=== PATIENT | male | born 1940 | race Caucasian/White ===

== ENCOUNTER 2016-05-07 12:15 | Inpatient (IN) | payer OTHER ==
--- NOTE | 2016-05-07 12:23 | PDOC ---
History of Present Illness <Shaq May - Last Filed: 05/07/16 14:34> - General History Source: Patient Exam Limitations: No Limitations - History of Present Illness Initial Comments: 05/07/16 12:35 This patient is a 75-year-old male with a history of dementia BPH A. fib on Eliquis, severe spinal stenosis with myelopathy (patient is effectively wheelchair-bound), coronary artery disease, hypertension, hyperlipidemia, GERD who presents emergency department with his daughter due to fevers and urinary tract infection. Patient has had 2 prior episodes of urosepsis. Patient was noted yesterday to be increasingly altered with hematuria Patient's primary care physician was called who prescribed Cipro. Patient was started on Cipro yesterday as well as cranberry supplements and AZO. This morning temperature 102. Patient was given Tylenol. 2 hours later patient's temperature 101. Patient's PMD was called and recommendation was to send patient to the emergency department Pt has not voided since 7am 05/07/16 12:47 PHM: dementia, BPH, A. fib on Eliquis, severe spinal stenosis with myelopathy, coronary artery disease, hypertension, hyperlipidemia, GERD Meds: please see MAR Social: pt is bed bound, lives with daughter, has [employer] x 24 hours 05/07/16 12:54 ROS: limited, per pt daughter GENERAL/CONSTITUTIONAL: YES: fever, chills, weakness, RESPIRATORY: No: cough, shortness of breath, wheezing, hemoptysis, stridor. GASTROINTESTINAL: No: nausea, vomiting, diarrhea, abdominal cramping, rectal bleeding, constipation. GENITOURINARY: YES: urinary retention, hematuria MUSCULOSKELETAL: No: back pain, neck pain, joint pain, muscle swelling or pain SKIN : No: rashes, lesions, pallor, rash or easy bruising. NEUROLOGIC: No: headache, vertigo, paresthesias, weakness ENDOCRINE: No: unexplained weight gain or loss HEMATOLOGIC/LYMPHATIC: No: anemia, easy bleeding, swelling nodes. GENERAL: The patient is in no acute distress, appears to be in pain when the lower abdomen is palpated. HEAD: Normal with no signs of trauma. EYES: PERRLA, EOMI, sclera anicteric, conjunctiva clear. ENT: Ears normal, nares patent, oropharynx clear without exudates. very dry mucous membranes. NECK: Normal range of motion, supple without lymphadenopathy, JVD, or masses. LUNGS: Breath sounds equal, clear to auscultation bilaterally. No wheezes, and no crackles. HEART: Tachycardiac, irregularly irregular, normal S1 and S2 without murmur, rub or gallop. ABDOMEN: Soft, nontender, normoactive bowel sounds. (+) voluntary guarding, no rebound. : blood noted on the penis EXTREMITIES: Normal range of motion, no edema. No clubbing or cyanosis. No erythema, or tenderness. NEUROLOGICAL: Cranial nerves II through XII grossly intact. Normal speech. No focal neurological deficits. MUSCULOSKELETAL: Back non-tender to palpation, no CVA tenderness SKIN: Warm, Dry, normal turgor, no rashes or lesions noted. 05/07/16 12:55 <Juana Leavitt - Last Filed: 05/08/16 11:14> - General Chief Complaint: Urinary Problem Stated Complaint: URINARY SX Time Seen by Provider: 05/07/16 12:23 Past History <Shaq May - Last Filed: 05/07/16 14:34> <Juana Leavitt - Last Filed: 05/08/16 11:14> - Past Medical History Allergies/Adverse Reactions: Allergies Allergy/AdvReac Type Severity Reaction Status Date / Time buprenorphine [From Butrans] Allergy Verified 05/07/16 12:30 gabapentin [From Neurontin] Allergy Verified 05/07/16 12:30 oxycodone Allergy Verified 05/07/16 12:30 quinine Allergy Verified 05/07/16 12:30 warfarin sodium Allergy Verified 05/07/16 12:30 [From Coumadin] Home Medications: Ambulatory Orders Albuterol Sulfate [Proair Respiclick] 2 sprays IH Q4H PRN 05/07/16 Apixaban [Eliquis] 5 mg PO BID 05/07/16 Atorvastatin Ca [Lipitor] 20 mg PO HS 05/07/16 Cholecalciferol (Vitamin D3) [Vitamin D3] 2,000 unit PO DAILY 05/07/16 Cyanocobalamin [Vitamin B12 -] 1,000 mcg PO DAILY 05/07/16 Diltiazem HCl [Diltiazem 24Hr Cd] 240 mg PO DAILY 05/07/16 Duloxetine HCl [Cymbalta] 60 mg PO DAILY 05/07/16 Ergocalciferol [Drisdol -] 50,000 unit PO Q7D@1000 05/07/16 Ferrous Sulfate 325 mg PO DAILY 05/07/16 Glipizide 5 mg PO HS 05/07/16 Glipizide 10 mg PO AM 05/07/16 Hydrochlorothiazide [Hctz -] 12.5 mg PO DAILY 05/07/16 Hydrocodone/Acetaminophen [Vicodin Es 7.5-300 mg Tablet] 1 each PO Q4H PRN 05/07 Ibuprofen 800 mg PO DAILY PRN 05/07/16 Metoprolol Succinate [Toprol Xl] 100 mg PO DAILY 05/07/16 Pantoprazole Sodium [Protonix] 40 mg PO BID 05/07/16 Pregabalin [Lyrica] 75 mg PO BID 05/07/16 Sertraline HCl [Zoloft -] 100 mg PO DAILY 05/07/16 Tizanidine HCl 2 mg PO BID PRN 05/07/16 *Physical Exam - Vital Signs Last Vital Signs Temp Pulse Resp BP Pulse Ox 101.3 F H 117 H 20 125/76 98 05/07/16 12:15 05/07/16 14:18 05/07/16 14:18 05/07/16 14:18 05/07/16 14:18 <Shaq May - Last Filed: 05/07/16 14:34> Heart Score/ECG Review #1 ECG reviewed & interpreted by me at: 13:09 05/07/16 13:09 Twelve-lead EKG was performed and reviewed by me. Afib rate of 127 bpm. Right axis deviation, RBBB. The intervals are abnormal - QRS:142ms, QTc: 517ms ( prolonged). There are no ST or T wave abnormalities. <Juana Leavitt - Last Filed: 05/08/16 11:14> ED Treatment Course - LABORATORY CBC & Chemistry Diagram: 05/07/16 12:45 05/07/16 12:45 - ADDITIONAL ORDERS Additional order review: Laboratory Results 05/07/16 05/07/16 05/07/16 12:45 12:45 12:45 INR PTT (Actin FS) Sodium 131 L Potassium 4.8 Chloride 96 L Carbon Dioxide 22 Anion Gap 13 BUN 35 H Creatinine 2.3 H Creat Clearance w eGFR 27.71 Random Glucose 297 H Calcium 9.4 Total Bilirubin 1.5 H AST 41 ALT 28 Alkaline Phosphatase 77 Creatine Kinase 260 H CK-MB (CK-2) Cancelled 6.3 H CK-MB (CK-2) Rel Index 2.4 Troponin I 0.12 Total Protein 7.5 Albumin 4.2 Urine Color Urine Appearance Urine pH Ur Specific Brady Urine Protein Urine Glucose (UA) Urine Ketones Urine Blood Urine Nitrite Urine Bilirubin Urine Urobilinogen Ur Leukocyte Esterase Urine RBC Urine WBC Urine Bacteria 05/07/16 05/07/16 12:45 12:45 INR 1.62 H PTT (Actin FS) 25.9 L Sodium Potassium Chloride Carbon Dioxide Anion Gap BUN Creatinine Creat Clearance w eGFR Random Glucose Calcium Total Bilirubin AST ALT Alkaline Phosphatase Creatine Kinase CK-MB (CK-2) CK-MB (CK-2) Rel Index Troponin I Total Protein Albumin Urine Color Red Urine Appearance Bloody Urine pH >= 9.0 H Ur Specific Brady 1.015 Urine Protein 3+ H Urine Glucose (UA) Trace Urine Ketones Trace Urine Blood 3+ H Urine Nitrite Positive Urine Bilirubin 2+ H Urine Urobilinogen 1.0 e.u/dl Ur Leukocyte Esterase 3+ H Urine RBC Many Urine WBC 2-4 Urine Bacteria Moderate 05/07/16 12:45 RBC 4.93 MCV 89.9 MCHC 32.5 RDW 13.8 MPV 10.9 Neutrophils % Y Lymphocytes % Y - Medications Given in the ED: ED Medications Discontinued Medications Generic Name Dose Route Start Last Admin Trade Name Freq PRN Reason Stop Dose Admin Acetaminophen 1,000 mg 05/07/16 12:54 05/07/16 13:00 Ofirmev Injection - IVPB 05/07/16 12:55 1,000 mg ONCE ONE Administration Diltiazem HCl 5 mg 05/07/16 13:50 05/07/16 14:00 Cardizem Injection - IVPUSH 05/07/16 13:51 5 mg ONCE ONE Administration Sodium Chloride 1,000 mls @ 1,000 mls/hr 05/07/16 12:54 05/07/16 13:10 Normal Saline - IV 05/07/16 13:53 1,000 mls/hr ASDIR STA Administration Ceftriaxone Sodium 1 gm/ 50 mls @ 100 mls/hr 05/07/16 13:10 05/07/16 13:30 Dextrose IVPB 05/07/16 13:39 100 mls/hr ONCE ONE Administration <Shaq May - Last Filed: 05/07/16 14:34> - LABORATORY CBC & Chemistry Diagram: 05/08/16 05:35 05/08/16 05:35 <Juana Leavitt - Last Filed: 05/08/16 11:14> Medical Decision Making - Medical Decision Making 05/07/16 14:34 Dr. Flynn was called regarding the patient at 2:34pm [phone] <Shaq May - Last Filed: 05/07/16 14:34> - Medical Decision Making Pt febrile Sepsis order set used 05/07/16 12:54 On examination, Vasquez catheter was placed. Immediate return of 800 mL of bloody urine Rapid and given Motrin, will switch to Tylenol IV Patient's heart rate is 136 140s. Likely related to fever. Will give Tylenol IV as well as IV fluids. Will reassess need for Cardizem 05/07/16 12:58 Laboratory Tests 05/07/16 05/07/16 05/07/16 12:45 12:45 12:45 WBC 28.8 H Hgb 14.4 Hct 44.3 Plt Count 207 Neutrophils % 86.0 H Lymphocytes % 7.0 L INR 1.62 H Sodium Potassium Chloride Carbon Dioxide Anion Gap BUN Creatinine Random Glucose Ur Leukocyte Esterase 3+ H Urine RBC Many Urine WBC 2-4 Urine Bacteria Moderate 05/07/16 12:45 WBC Hgb Hct Plt Count Neutrophils % Lymphocytes % INR Sodium 131 L Potassium 4.8 Chloride 96 L Carbon Dioxide 22 Anion Gap 13 BUN 35 H Creatinine 2.3 H Random Glucose 297 H Ur Leukocyte Esterase Urine RBC Urine WBC Urine Bacteria Case reviewed with Dr Dorman Will admit tele vs ICU Pt HR remains elevated despite Tyelonol and IV fluids Given Cardizem 5mg IV, followed by 10mg IV Pt is unable to tolerate po given his mental status Clinical impresison: Urosepsis, Afib with RVR <Juana Leavitt - Last Filed: 05/08/16 11:14> *DC/Admit/Observation/Transfer <Shaq May - Last Filed: 05/07/16 14:34> - Discharge Dispostion Admit: Yes <Juana Leavitt - Last Filed: 05/08/16 11:14> Diagnosis at time of Disposition: Sepsis Qualifiers: Sepsis type: sepsis due to unspecified organism Qualified Code(s): A41.9 - Sepsis, unspecified organism UTI (urinary tract infection) Qualifiers: Urinary tract infection type: acute cystitis Hematuria presence: with hematuria Qualified Code(s): N30.01 - Acute cystitis with hematuria - Discharge Dispostion Condition at time of disposition: Stable
[2016-05-07] MEDS ORDERED: ACETAMINOPHEN 1000 MG/100 ML VIAL (NON FORMULARY) IVPB ONE (12:54)
[2016-05-07] MEDS ORDERED: SODIUM CHLORIDE 1,000 ML IV STA ×4 (12:54→21:09)
[2016-05-07] MEDS ORDERED: ACETAMINOPHEN INJECTION 100 ML IVPB ONE (13:07)
[2016-05-07] MEDS ORDERED: CEFTRIAXONE 1 GM in DEXTROSE 5%-WATER - 50 ML IVPB ONE (13:10)
[2016-05-07 13:21] LABS: PH,URINE >= 9.0 (4.5-8); URINE BILIRUBIN 2+ (NEGATIVE); URINE GLUCOSE (UA) Trace (NEGATIVE); URINE KETONE Trace (NEGATIVE); URINE NITRITE Positive (NEGATIVE); URINE UROBILINOGEN 1.0 E.U/dl (0.2-1.0)
[2016-05-07 13:23] LABS: URINE APPEARANCE BLOODY; URINE BLOOD 3+ (NEGATIVE); URINE COLOR RED; URINE LEUK ESTERASE 3+ (NEGATIVE); URINE PROTEIN 3+ (NEGATIVE)
[2016-05-07 13:26] LABS: ACTIVATED PTT 25.9 SECONDS (24.0-38.9)
[2016-05-07 13:29] LABS: ALBUMIN 4.2 g/dl (3.5-5.0); BILIRUBIN,TOTAL 1.5 mg/dl (0.2-1.0); CALCIUM 9.4 mg/dl (8.4-10.2); CREATININE 2.3 mg/dl (0.6-1.3); TOT PROT 7.5 g/dl (6.4-8.3)
[2016-05-07] MEDS ORDERED: cefTRIAXone SODIUM 1 GM VIAL ONE ×2 (13:30→13:32)
[2016-05-07 13:31] LABS: INR 1.62 (0.82-1.09); PROTHROMBIN TIME (PATIENT) 17.7 SEC (10.2-13.0)
[2016-05-07 13:36] LABS: MCH 29.3 pg (25.7-33.7); MCHC 32.5 g/dl (32.0-35.9); MEAN CELL VOLUME 89.9 fl (80-96); MEAN PLT VOLUME 10.9 fl (7.5-11.1); PLATELET COUNT 207 K/MM3 (134-434); RDW 13.8 % (11.9-15.9); WHITE BLOOD COUNT 28.8 K/mm3 (4.0-10.0)
[2016-05-07] MEDS ORDERED: dilTIAZem HCL 50 MG/10 ML - 10 ML VIAL IVPUSH ONE ×2 (13:50→14:27)
[2016-05-07 13:56] LABS: TROPONIN I (DFP) 0.12 ng/ml (0.03-0.50)
[2016-05-07] MEDS ORDERED: dilTIAZem HCL 50 MG/10 ML - 10 ML VIAL ONE (13:57)
[2016-05-07 14:18] LABS: CK MB 6.3 ng/ml (0.3-4.0)
[2016-05-07 14:30] LABS: URINE BACTERIA MODERATE /hpf (NEGATIVE); URINE RBC MANY /hpf (0-3)
[2016-05-07] MEDS ORDERED: ACETAMINOPHEN 1000 MG/100 ML VIAL (NON FORMULARY) IVPB PRN (19:58)
--- NOTE | 2016-05-07 19:58 | HP ---
CHIEF COMPLAINT: Fever, Hematuria, Increased AMS PCP: Dr. Adames ([facility]) Daughter: Mer Velazco POA/HCP [phone] HISTORY OF PRESENT ILLNESS: This is a 75 year old male with a past medical history of Dementia, BPH, Afib ( on Eliquis), Severe Spinal Stenosis with myelopathy, (wheelchair bound), CAD, HTN, HLD, GERD, UTIs. PSHx of: Stent placement x6 (2013), Bilateral TKR, Bone Fusion- Cervical (2005). Who presents to the emergency department from home with fever, hematuria, increased AMS x 1-2 days. Patient has profound Dementia, unable to provider HPI. Spoke with his daughter Ms. Mer Velazco who is the HCP/POA. Per patient's daughter, the UTI- hematuria started yesterday, she spoke with patient's PCP and patient was started on Cipro. She also reports giving patient AZO and cranberry pills OTC for UTI symptoms which she reports worked in the past. The daughter states" at 2am the patient's MARINE FIREMAN reports he began urinating blood. The daughter states" my dad developed a fever 102.0 in the afternoon today,he was given his 2nd dose of Cipro. She then states" he became unresponsive and had a decrease in urine output since early am.The daughter called 911 and sent him for evaluation. 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 Family History: Non-Contributory Allergies buprenorphine [From Butrans] Allergy (Verified 05/07/16 12:30) gabapentin [From Neurontin] Allergy (Verified 05/07/16 12:30) oxycodone Allergy (Verified 05/07/16 12:30) quinine Allergy (Verified 05/07/16 12:30) warfarin sodium [From Coumadin] Allergy (Verified 12/24/16 12:30) HOME MEDICATIONS: Medication Instructions Recorded Albuterol Sulfate [Proair 2 sprays IH Q4H PRN 05/07/16 Respiclick] Apixaban [Eliquis] 5 mg PO BID 05/07/16 Atorvastatin Ca [Lipitor] 20 mg PO HS 05/07/16 Cholecalciferol (Vitamin D3) 2,000 unit PO DAILY 05/07/16 [Vitamin D3] Cyanocobalamin [Vitamin B12 -] 1,000 mcg PO DAILY 05/07/16 Diltiazem HCl [Diltiazem 24Hr Cd] 240 mg PO DAILY 05/07/16 Duloxetine HCl [Cymbalta] 60 mg PO DAILY 05/07/16 Ergocalciferol [Drisdol -] 50,000 unit PO Q7D@1000 05/07/16 Ferrous Sulfate 325 mg PO DAILY 05/07/16 Glipizide 5 mg PO HS 05/07/16 Glipizide 10 mg PO AM 05/07/16 Hydrochlorothiazide [Hctz -] 12.5 mg PO DAILY 05/07/16 Hydrocodone/Acetaminophen [Vicodin 1 each PO Q4H PRN 05/07/16 Es 7.5-300 mg Tablet] Ibuprofen 800 mg PO DAILY PRN 05/07/16 Metoprolol Succinate [Toprol Xl] 100 mg PO DAILY 05/07/16 Pantoprazole Sodium [Protonix] 40 mg PO BID 05/07/16 Pregabalin [Lyrica] 75 mg PO BID 05/07/16 Sertraline HCl [Zoloft -] 100 mg PO DAILY 05/07/16 Tizanidine HCl 2 mg PO BID PRN 05/07/16 REVIEW OF SYSTEMS: Per patient's daughter who resides in same household CONSTITUTIONAL: fever Absent: chills, diaphoresis, generalized weakness, malaise, loss of appetite, weight change HEENT: Absent: rhinorrhea, nasal congestion, throat pain, throat swelling, difficulty swallowing, mouth swelling, ear pain, eye pain, visual changes CARDIOVASCULAR: Absent: chest pain, syncope, palpitations, irregular heart rate, lightheadedness , peripheral edema RESPIRATORY: Absent: cough, shortness of breath, dyspnea with exertion, orthopnea, wheezing, stridor, hemoptysis GASTROINTESTINAL: Absent: abdominal pain, abdominal distension, nausea, vomiting, diarrhea, constipation, melena, hematochezia GENITOURINARY: hematuria Absent: dysuria, frequency, urgency, hesitancy, flank pain, genital pain MUSCULOSKELETAL: Absent: myalgia, arthralgia, joint swelling, back pain, neck pain SKIN: Absent: rash, itching, pallor HEMATOLOGIC/IMMUNOLOGIC: Absent: easy bleeding, easy bruising, lymphadenopathy, frequent infections ENDOCRINE: Absent: unexplained weight gain, unexplained weight loss, heat intolerance, cold intolerance NEUROLOGIC: mental status changes Absent: headache, focal weakness or paresthesias, dizziness, unsteady gait, seizure, bladder or bowel incontinence PSYCHIATRIC: Absent: anxiety, depression, suicidal or homicidal ideation, hallucinations. PHYSICAL EXAMINATION GENERAL: Alert to name only, in no acute distress. HEAD: Normal with no signs of trauma. EYES: Pupils equal, round and reactive to light, extraocular movements intact, sclera anicteric, conjunctiva clear. No lid lag. EARS, NOSE, THROAT: Ears normal, nares patent, oropharynx clear without exudates. Dry mucous membranes. NECK: Normal range of motion, supple without lymphadenopathy, JVD, or masses. LUNGS: Breath sounds equal, clear to auscultation bilaterally. No wheezes, and no crackles. No accessory muscle use. HEART: Tachycardia, irregular rate and rhythm, normal S1 and S2 without murmur, rub or gallop. ABDOMEN: Soft, obese, diffuse tenderness to palpation, not distended, normoactive bowel sounds, no guarding, no rebound, no masses. No hepatomegaly or splenomegaly. MUSCULOSKELETAL: Normal range of motion at all joints. No bony deformities or tenderness. No CVA tenderness. UPPER EXTREMITIES: 2+ pulses, warm, well-perfused. No cyanosis. No clubbing. Cap refill <2 seconds. Trace to bilateral hands- peripheral edema. LOWER EXTREMITIES: 2+ pulses, warm, well-perfused. No calf tenderness. +1 bilateral peripheral edema. NEUROLOGICAL: Patient has Dementia, confused, and is wheel-chair bound- unable to assess. PSYCHIATRIC: Cooperative. Limited eye contact. Appropriate mood and affect. SKIN: Warm, dry, normal turgor, +erythematous to bilateral LE R>L. no rashes or lesions noted. Laboratory Results - last 24 hr 05/07/16 05/07/16 05/07/16 12:45 12:45 12:45 WBC 28.8 H RBC 4.93 Hgb 14.4 Hct 44.3 MCV 89.9 MCHC 32.5 RDW 13.8 Plt Count 207 MPV 10.9 Neutrophils % 86.0 H Lymphocytes % 7.0 L Monocytes % 5.0 Eosinophils % Basophils % Band Neutrophils 2.0 INR 1.62 H PTT (Actin FS) 25.9 L Sodium Potassium Chloride Carbon Dioxide Anion Gap BUN Creatinine Creat Clearance w eGFR Random Glucose Lactic Acid Calcium Phosphorus Magnesium Total Bilirubin AST ALT Alkaline Phosphatase Creatine Kinase Creatine Kinase Index CK-MB (CK-2) CK-MB (CK-2) Rel Index Troponin I Total Protein Albumin Urine Color Red Urine Appearance Bloody Urine pH >= 9.0 H Ur Specific [place] 1.015 Urine Protein 3+ H Urine Glucose (UA) Trace Urine Ketones Trace Urine Blood 3+ H Urine Nitrite Positive Urine Bilirubin 2+ H Urine Urobilinogen 1.0 e.u/dl Ur Leukocyte Esterase 3+ H Urine RBC Many Urine WBC 2-4 Urine Bacteria Moderate Blood Type Antibody Screen 05/07/16 05/07/16 05/07/16 12:45 12:45 12:45 WBC RBC Hgb Hct MCV MCHC RDW Plt Count MPV Neutrophils % Lymphocytes % Monocytes % Eosinophils % Basophils % Band Neutrophils INR PTT (Actin FS) Sodium 131 L Potassium 4.8 Chloride 96 L Carbon Dioxide 22 Anion Gap 13 BUN 35 H Creatinine 2.3 H Creat Clearance w eGFR 27.71 Random Glucose 297 H Lactic Acid 3.691 H* Calcium 9.4 Phosphorus Magnesium Total Bilirubin 1.5 H AST 41 ALT 28 Alkaline Phosphatase 77 Creatine Kinase Creatine Kinase Index CK-MB (CK-2) CK-MB (CK-2) Rel Index Troponin I Total Protein 7.5 Albumin 4.2 Urine Color Urine Appearance Urine pH Ur Specific [place] Urine Protein Urine Glucose (UA) Urine Ketones Urine Blood Urine Nitrite Urine Bilirubin Urine Urobilinogen Ur Leukocyte Esterase Urine RBC Urine WBC Urine Bacteria Blood Type B NEGATIVE Antibody Screen Negative 05/07/16 05/07/16 05/07/16 12:45 12:45 12:45 WBC RBC Hgb Hct MCV MCHC RDW Plt Count MPV Neutrophils % Lymphocytes % Monocytes % Eosinophils % Basophils % Band Neutrophils INR PTT (Actin FS) Sodium Potassium Chloride Carbon Dioxide Anion Gap BUN Creatinine Creat Clearance w eGFR Random Glucose Lactic Acid Calcium Phosphorus Magnesium Total Bilirubin AST ALT Alkaline Phosphatase Creatine Kinase 260 H Creatine Kinase Index CK-MB (CK-2) 6.3 H Cancelled CK-MB (CK-2) Rel Index 2.4 Troponin I 0.12 Total Protein Albumin Urine Color Urine Appearance Urine pH Ur Specific [place] Urine Protein Urine Glucose (UA) Urine Ketones Urine Blood Urine Nitrite Urine Bilirubin Urine Urobilinogen Ur Leukocyte Esterase Urine RBC Urine WBC Urine Bacteria Blood Type B NEGATIVE Antibody Screen 05/07/16 05/07/16 05/07/16 15:05 21:00 21:00 WBC RBC Hgb Hct MCV MCHC RDW Plt Count MPV Neutrophils % Lymphocytes % Monocytes % Eosinophils % Basophils % Band Neutrophils INR PTT (Actin FS) Sodium Potassium Chloride Carbon Dioxide Anion Gap BUN Creatinine Creat Clearance w eGFR Random Glucose Lactic Acid 3.303 H* 1.560 Calcium Phosphorus Magnesium Total Bilirubin AST ALT Alkaline Phosphatase Creatine Kinase 597 H Creatine Kinase Index 1.4 CK-MB (CK-2) 8.249 H CK-MB (CK-2) Rel Index Troponin I < 0.02 Total Protein Albumin Urine Color Urine Appearance Urine pH Ur Specific [place] Urine Protein Urine Glucose (UA) Urine Ketones Urine Blood Urine Nitrite Urine Bilirubin Urine Urobilinogen Ur Leukocyte Esterase Urine RBC Urine WBC Urine Bacteria Blood Type Antibody Screen 05/07/16 05/07/16 21:00 21:00 WBC 27.6 H RBC 4.41 Hgb 12.8 Hct 40.3 MCV 91.4 MCHC 31.7 L RDW 14.8 Plt Count 171 MPV 11.0 Neutrophils % 83.2 H Lymphocytes % 6.4 L Monocytes % 9.8 Eosinophils % 0.0 Basophils % 0.6 Band Neutrophils INR PTT (Actin FS) Sodium Potassium Chloride Carbon Dioxide Anion Gap BUN Creatinine Creat Clearance w eGFR Random Glucose Lactic Acid Calcium Phosphorus 3.7 Magnesium 1.8 Total Bilirubin AST ALT Alkaline Phosphatase Creatine Kinase Creatine Kinase Index CK-MB (CK-2) CK-MB (CK-2) Rel Index Troponin I Total Protein Albumin Urine Color Urine Appearance Urine pH Ur Specific [place] Urine Protein Urine Glucose (UA) Urine Ketones Urine Blood Urine Nitrite Urine Bilirubin Urine Urobilinogen Ur Leukocyte Esterase Urine RBC Urine WBC Urine Bacteria Blood Type Antibody Screen ASSESSMENT/PLAN: This is a 75 year old male with a PMHx of: Dementia, Afib (on Eliquis), Severe Spinal Stenosis with Myelopathy, (wheelchair bound), CAD (stents x6), HTN, HLD, GERD. Who presents to the ED with fever, hematuria, and increased AMS. Admitted to ICU for Urosepsis, Hematuria, Afib with RVR, Fever for further evaluation of their emergent medical condition. Problems: 1. Urosepsis 2. Hematuria 3. Afib with RVR 4. Fever 5. DM Type II complicated hyperglycemia 6. Venous Stasis Ulcers vs Cellulitis vs DVT Plan: F/E/N - NS@100ml/hr - Replete lytes as indicated - NPO for now Problem List - Problem (1) Sepsis Assessment/Plan: - Likely secondary to UTI - qSOFA- high risk - SOFA Score 9 - UA- +Nitrates, +3 Leukocyte Esterase, +Mod bacteria - Urine Culture-pending - WBC 28~27 - T Max 102~100 - Ceftriaxone given in ED - Continue Ceftriaxone - Vancomycin x 1 for Broad spectrum coverage - Continue IVF - Monitor CBC, BMP - Monitor vitals - Tylenol prn Code(s): A41.9 - SEPSIS, UNSPECIFIED ORGANISM Qualifiers: Sepsis type: sepsis due to unspecified organism Qualified Code(s): A41.9 - Sepsis, unspecified organism (2) UTI (urinary tract infection) Assessment/Plan: - Hx of multiple UTIs - UC- pending - Ceftriaxone given in ED - Will continue Ceftriaxone - Monitor vitals Code(s): N39.0 - URINARY TRACT INFECTION, SITE NOT SPECIFIED Qualifiers: Urinary tract infection type: acute cystitis Hematuria presence: with hematuria Qualified Code(s): N30.01 - Acute cystitis with hematuria (3) Atrial fibrillation with RVR Assessment/Plan: - Cardiac monitoring - [id number] Score 3 - EKG- Afib RVR 127 - Cardizem IV given in ED - Appreciate Cardiology Consult - Trop I negx2 - Will continue to trend - Continue Cardizem and Metoprolol for rate control - Will hold Apixiban secondary to hematuria Code(s): I48.91 - UNSPECIFIED ATRIAL FIBRILLATION (4) Diabetes mellitus Assessment/Plan: - Monitor BGMs - ISS - Will hold Glipizide secondary to renal insufficiency - Monitor renal function Code(s): E11.9 - TYPE 2 DIABETES MELLITUS WITHOUT COMPLICATIONS (5) Erythema of lower extremity Assessment/Plan: - Likely secondary to Venous Stasis Ulcer vs Cellulitis vs DVT - On exam: erythema noted to bilateral lower extremities R>L, +warmth - Will order duplex of LE r/o DVT, suspicion less likely due to home med- Apixiban - Will treat with empiric ABX - Consider ID Consult if condition worsens - Elevate extremity Code(s): L53.9 - ERYTHEMATOUS CONDITION, UNSPECIFIED (6) Dementia Assessment/Plan: - Continue to monitor - [place] frequently - Fall Risk Code(s): F03.90 - UNSPECIFIED DEMENTIA WITHOUT BEHAVIORAL DISTURBANCE (7) BPH (benign prostatic hypertrophy) Assessment/Plan: - Monitor urine output - Monitor renal function, treat accordingly Code(s): N40.0 - BENIGN PROSTATIC HYPERPLASIA WITHOUT LOWER URINRY TRACT SYMP (8) CAD (coronary artery disease) Assessment/Plan: - Hx stents x6 - CE neg x2 - Will continue to trend - EKG- Afib with RVR, prolonged QTc no other EKG on file to compare - Consider discussion with [facility]- [employer] Supervisor for further input Code(s): I25.10 - ATHSCL HEART DISEASE OF [place] CORONARY ARTERY W/O ANG PCTRS (9) Stenosis of cervical spine with myelopathy Assessment/Plan: - Per daughter patient wears a cervical collar daily for chronic cervical pain Code(s): M47.12 - OTHER SPONDYLOSIS WITH MYELOPATHY, CERVICAL REGION (10) HTN (hypertension) Assessment/Plan: - Monitor BP - Continue meds when patient can tolerate PO meds - Consider Metoprolol IV prn Code(s): I10 - ESSENTIAL (PRIMARY) HYPERTENSION (11) HLD (hyperlipidemia) Assessment/Plan: - Will continue med when patient is more responsive and able to take meds Code(s): E78.5 - HYPERLIPIDEMIA, UNSPECIFIED (12) GERD (gastroesophageal reflux disease) Assessment/Plan: - Continue PPI - Avoid NSAIDs Code(s): K21.9 - GASTRO-ESOPHAGEAL REFLUX DISEASE WITHOUT ESOPHAGITIS (13) DVT prophylaxis Assessment/Plan: - TEDs - SCDs - AC- on Eliquis held secondary to hematuria Code(s): [id number] - Visit type - Emergency Visit Emergency Visit: Yes ED Registration Date: 05/07/16 Care time: The patient presented to the Emergency Department on the above date and was hospitalized for further evaluation of their emergent condition. - New Patient This patient is new to me today: Yes Date on this admission: 05/07/16 - Critical Care Critical Care patient: Yes Total Critical Care Time (in minutes): 40 Critical Care Statement: The care of this patient involved high complexity decision making to prevent further life threatening deterioration of the patient 's condition and/or to evalute & treat vital organ system(s) failure or risk of failure.
--- NOTE | 2016-05-07 20:17 | CONSULT ---
Consult Consult Specialty:: Pulm/CC - History of Present Illness Chief Complaint: ams with urosepsis History of Present Illness: Pt is a 75yr old man with PMHx of a-fib (on eliquis), HTN, HLD, CAD, spinal stenosis with myelopathy (wheelchair bound), advanced dementia and GERD. He presents to the ER with AMS and hematuria. In the ER found to have lactic acidosis, WBC 28.8 and BUN/Cr 35/2.3 with +ua. Chest xray without noted acute pathology. Pt admitted to the ICU for management of urosepsis. - History Source History Provided By: Medical Record Limitations to Obtaining History: Dementia - Smoking History Smoking history: Unknown if ever smoked Home Medications - Allergies Allergies/Adverse Reactions: Allergies Allergy/AdvReac Type Severity Reaction Status Date / Time buprenorphine [From Butrans] Allergy Verified 05/07/16 12:30 gabapentin [From Neurontin] Allergy Verified 05/07/16 12:30 oxycodone Allergy Verified 05/07/16 12:30 quinine Allergy Verified 05/07/16 12:30 warfarin sodium Allergy Verified 05/07/16 12:30 [From Coumadin] - Home Medications Home Medications: Ambulatory Orders Albuterol Sulfate [Proair Respiclick] 2 sprays IH Q4H PRN 05/07/16 Apixaban [Eliquis] 5 mg PO BID 05/07/16 Atorvastatin Ca [Lipitor] 20 mg PO HS 05/07/16 Cholecalciferol (Vitamin D3) [Vitamin D3] 2,000 unit PO DAILY 05/07/16 Cyanocobalamin [Vitamin B12 -] 1,000 mcg PO DAILY 05/07/16 Diltiazem HCl [Diltiazem 24Hr Cd] 240 mg PO DAILY 05/07/16 Duloxetine HCl [Cymbalta] 60 mg PO DAILY 05/07/16 Ergocalciferol [Drisdol -] 50,000 unit PO Q7D@1000 05/07/16 Ferrous Sulfate 325 mg PO DAILY 05/07/16 Glipizide 5 mg PO HS 05/07/16 Glipizide 10 mg PO AM 05/07/16 Hydrochlorothiazide [Hctz -] 12.5 mg PO DAILY 05/07/16 Hydrocodone/Acetaminophen [Vicodin Es 7.5-300 mg Tablet] 1 each PO Q4H PRN 05/07 Ibuprofen 800 mg PO DAILY PRN 05/07/16 Metoprolol Succinate [Toprol Xl] 100 mg PO DAILY 05/07/16 Pantoprazole Sodium [Protonix] 40 mg PO BID 05/07/16 Pregabalin [Lyrica] 75 mg PO BID 05/07/16 Sertraline HCl [Zoloft -] 100 mg PO DAILY 05/07/16 Tizanidine HCl 2 mg PO BID PRN 05/07/16 Family Disease History - Family Disease History Family History: Unable to Obtain Review of Systems Unable to obtain ROS, reason: celso Physical Exam Vital Signs: Vital Signs Period Temp Pulse Resp BP Sys/[place] Pulse Ox Last 24 Hr 100 F-101.3 F 108-126 20-24 125-147/76-99 96-99 Intake & Output 05/04/16 05/05/16 05/06/16 05/07/16 23:59 23:59 23:59 23:59 Intake Total 1900 Output Total 2800 Balance -900 Weight 250 lb Constitutional: Yes: Well Nourished, No Distress Eyes: Yes: Other (resistant to assessment) HENT: Yes: WNL Neck: Yes: WNL Cardiovascular: Yes: Tachycardia (a-fib to 120s), Pulse Irregular Respiratory: Yes: On Nasal O2, Rhonchi (faint bilaterally) Gastrointestinal: Yes: Normal Bowel Sounds, Abdomen, Obese, Distention, Tenderness (diffuse) ...Rectal Exam: Yes: Deferred Renal/: Yes: CVA Tenderness - Left, CVA Tenderness - Right, Vasquez Present, Hematuria Musculoskeletal: Yes: WNL Edema: No Peripheral Pulses WNL: Yes (+1 bilateral pedal pulses) Integumentary: Yes: Venous Stasis Changes (BLE) Neurological: Yes: Confusion Labs: Abnormal Lab Results 05/07/16 05/07/16 05/07/16 12:45 12:45 12:45 WBC 28.8 H Neutrophils % 86.0 H Lymphocytes % 7.0 L INR 1.62 H PTT (Actin FS) 25.9 L Sodium Chloride BUN Creatinine Random Glucose Lactic Acid Total Bilirubin Creatine Kinase CK-MB (CK-2) Urine pH >= 9.0 H Urine Protein 3+ H Urine Blood 3+ H Urine Bilirubin 2+ H Ur Leukocyte Esterase 3+ H 05/07/16 05/07/16 05/07/16 12:45 12:45 12:45 WBC Neutrophils % Lymphocytes % INR PTT (Actin FS) Sodium 131 L Chloride 96 L BUN 35 H Creatinine 2.3 H Random Glucose 297 H Lactic Acid 3.691 H* Total Bilirubin 1.5 H Creatine Kinase 260 H CK-MB (CK-2) 6.3 H Urine pH Urine Protein Urine Blood Urine Bilirubin Ur Leukocyte Esterase 05/07/16 15:05 WBC Neutrophils % Lymphocytes % INR PTT (Actin FS) Sodium Chloride BUN Creatinine Random Glucose Lactic Acid 3.303 H* Total Bilirubin Creatine Kinase CK-MB (CK-2) Urine pH Urine Protein Urine Blood Urine Bilirubin Ur Leukocyte Esterase Imaging - Results Chest X-ray: Report Reviewed, Image Reviewed Assessment/Plan Pt is a 75yr old man with PMHx of a-fib (on eliquis), HTN, HLD, CAD, spinal stenosis with myelopathy (wheelchair bound), advanced dementia and GERD. Pt admitted to the ICU for management of urosepsis. Pulm: -o2 support prn for sat >94% -Incentive spirometer as able -Nebulizers prn -F/U repeat chest xray ID: Urosepsis -f/u cultures -Empiric Ceftriaxone started, would consider adding Gentamicin -Trend lactic acid Renal: -IVF as tolerated -Monitor BUN/Cr -Renal dose medication -f/u urine studies -I/Os -Would repeat ua tomorrow Cardiac -Rate/BP control -Consider holding a/c in setting of gross hematuria -f/u cardiac enzymes -Continue home statin Endo: -BGM -Glycemic control Neuro -Continue Lyrica -Pain management prn Prophylactic -DVT
[2016-05-07] MEDS ORDERED: dilTIAZem HCL 50 MG/10 ML - 10 ML VIAL IVPUSH PRN (20:39)
[2016-05-07 21:08] LABS: BASOPHIL 0.6 % (0-2.0); MCHC 31.7 g/dl (32.0-35.9); MEAN CELL VOLUME 91.4 fl (80-96); NEUTROPHILS 83.2 % (42.8-82.8); PLATELET COUNT 171 K/MM3 (134-434); RDW 14.8 % (11.9-15.9); WHITE BLOOD COUNT 27.6 K/mm3 (4.0-10.0)
[2016-05-07 21:34] LABS: TROPONIN I < 0.02 ng/ml (0.00-0.05)
[2016-05-07] MEDS ORDERED: METOPROLOL SUCCINATE 25 MG TAB.SR.24H (FP) PO ONE (21:43)
[2016-05-07 22:18] VITALS: BMI 34.1
[2016-05-07] MEDS ORDERED: PNEUMOC 13-VAL CONJ-DIP CRM/PF 0.5 ML DISP.SYRIN IM ONE (22:18)
[2016-05-07] MEDS ORDERED: LACTATED RINGERS SOLUTION 1,000 ML IV STA (22:29)
[2016-05-07 22:46] LABS: MAGNESIUM 1.8 mg/dL (1.8-2.4); PHOSPHOROUS 3.7 mg/dL (2.5-4.9)
[2016-05-07] MEDS: MUPIROCIN 2% TOPICAL OINTMENT FOR DECOLONIZATION NS SCH (22:53)
[2016-05-07] MEDS: CHLORHEXIDINE GLUCONATE 4% CLEANSER FOR DECOLONIZATION TP SCH (22:55)
[2016-05-08] MEDS ORDERED: VANCOMYCIN 1 GRAM (PRE-DOCKED) 1,000 MG/250 ML BAG IVPB ONE (05:44)
[2016-05-08] MEDS ORDERED: METOPROLOL TARTRATE 5 MG/5 ML VIAL IVPUSH ONE (06:02)
[2016-05-08] MEDS: INSULIN SLIDING SCALE (NOVOLOG) 1 VIAL SQ SCH ×4 (07:02→22:17)
[2016-05-08 07:05] LABS: MCH 30.2 pg (25.7-33.7); MCHC 32.6 g/dl (32.0-35.9); MEAN CELL VOLUME 92.8 fl (80-96); MEAN PLT VOLUME 11.1 fl (7.5-11.1); PLATELET COUNT 147 K/MM3 (134-434); WHITE BLOOD COUNT 22.7 K/mm3 (4.0-10.0)
[2016-05-08 07:30] LABS: CALCIUM 7.9 mg/dL (8.5-10.1)
[2016-05-08 07:38] LABS: MAGNESIUM 1.9 mg/dL (1.8-2.4)
[2016-05-08] MEDS ORDERED: PIPERACILLIN/TAZOB 2.25 GM 50 ML IVPB ONE (07:38)
[2016-05-08 07:57] LABS: PHOSPHOROUS 3.4 mg/dL (2.5-4.9); TROPONIN I 0.03 ng/ml (0.00-0.05)
--- NOTE | 2016-05-08 09:37 | PN ---
Physical Exam: SUBJECTIVE: Patient seen and examined OBJECTIVE: Vital Signs Period Temp Pulse Resp BP Sys/Calvert Pulse Ox Last 24 Hr 98.5 F-100.9 F 108-126 18-22 147-164/60-95 96-97 GENERAL: NAD, pleasant, interactive, AAOX1 (name, unable to recall daughter's name, current year) but coherent/fluid speech. On NC HEENT: Dry mucous membranes. LUNGS: Breath sounds equal, clear to auscultation bilaterally. No wheezes, and no crackles. HEART: Tachycardia, irregular rate and rhythm ABDOMEN: Soft, obese, diffuse tenderness to palpation, not distended, normoactive bowel sounds, no guarding, no rebound MUSCULOSKELETAL: Normal range of motion at all joints. No bony deformities or tenderness. No CVA tenderness. LOWER EXTREMITIES: warm, well perfused, with mild erythema bilaterally along shins NEUROLOGICAL: Patient has Dementia, at baseline wheelchair bound PSYCHIATRIC: Cooperative Laboratory Results - last 24 hr 05/07/16 05/07/16 05/07/16 21:00 21:00 21:00 WBC 27.6 H RBC 4.41 Hgb 12.8 Hct 40.3 MCV 91.4 MCHC 31.7 L RDW 14.8 Plt Count 171 MPV 11.0 Neutrophils % 83.2 H Lymphocytes % 6.4 L Monocytes % 9.8 Eosinophils % 0.0 Basophils % 0.6 Sodium Potassium Chloride Carbon Dioxide Anion Gap BUN Creatinine POC Glucometer Random Glucose Hemoglobin A1c % Lactic Acid 1.560 Calcium Phosphorus Magnesium Creatine Kinase 597 H Creatine Kinase Index 1.4 CK-MB (CK-2) 8.249 H Troponin I < 0.02 Ur Random Sodium Ur Random Potassium Ur Random Chloride Urine Creatinine 05/07/16 05/08/16 05/08/16 21:00 02:00 02:00 WBC RBC Hgb Hct MCV MCHC RDW Plt Count MPV Neutrophils % Lymphocytes % Monocytes % Eosinophils % Basophils % Sodium Potassium Chloride Carbon Dioxide Anion Gap BUN Creatinine POC Glucometer Random Glucose Hemoglobin A1c % Lactic Acid Calcium Phosphorus 3.7 Magnesium 1.8 Creatine Kinase Creatine Kinase Index CK-MB (CK-2) Troponin I Ur Random Sodium 37 Ur Random Potassium 43.6 Ur Random Chloride 49 Urine Creatinine 86.9 05/08/16 05/08/16 05/08/16 05:35 05:35 05:35 WBC 22.7 H RBC 3.88 L Hgb 11.7 Hct 36.0 MCV 92.8 MCHC 32.6 RDW 15.0 Plt Count 147 MPV 11.1 Neutrophils % Lymphocytes % Monocytes % Eosinophils % Basophils % Sodium 142 Potassium 3.6 Chloride 105 Carbon Dioxide 25 Anion Gap 12 BUN 23 H Creatinine 1.0 POC Glucometer Random Glucose 140 H Hemoglobin A1c % Lactic Acid Calcium 7.9 L Phosphorus 3.4 Magnesium 1.9 Creatine Kinase 980 H D Creatine Kinase Index CK-MB (CK-2) Troponin I 0.03 D Ur Random Sodium Ur Random Potassium Ur Random Chloride Urine Creatinine 05/08/16 05/08/16 05:35 06:58 WBC RBC Hgb Hct MCV MCHC RDW Plt Count MPV Neutrophils % Lymphocytes % Monocytes % Eosinophils % Basophils % Sodium Potassium Chloride Carbon Dioxide Anion Gap BUN Creatinine POC Glucometer [phone] Random Glucose Hemoglobin A1c % 7.7 H Lactic Acid Calcium Phosphorus Magnesium Creatine Kinase Creatine Kinase Index CK-MB (CK-2) Troponin I Ur Random Sodium Ur Random Potassium Ur Random Chloride Urine Creatinine Active Medications Generic Name Dose Route Start Last Admin Trade Name Freq PRN Reason Stop Dose Admin Acetaminophen 1,000 mg 05/07/16 19:58 05/08/16 02:22 Ofirmev Injection - IVPB 05/08/16 13:59 1,000 mg Q6H PRN Administration FEVER OR PAIN Chlorhexidine Gluconate 1 applic 05/07/16 22:00 05/07/16 22:55 Hibiclens For Decolonization - TP 1 applic HS JOANNA Administration Diltiazem HCl 10 mg 05/07/16 20:39 05/07/16 22:56 Cardizem Injection - IVPUSH 10 mg Q4H PRN Administration TACHYCARDIA Diltiazem HCl 240 mg 05/08/16 10:00 Cardizem Cd - PO DAILY JOANNA Sodium Chloride 1,000 mls @ 100 mls/hr 05/08/16 08:30 Normal Saline - IV ASDIR JOANNA Insulin Aspart 1 vial 05/08/16 07:00 05/08/16 07:02 Novolog Vial Sliding Scale - SQ 2 units ACHS JOANNA Administration Protocol Metoprolol Succinate 100 mg 05/08/16 10:00 Toprol Xl - PO DAILY JOANNA Mupirocin 1 applic 05/07/16 22:00 05/07/16 22:53 Bactroban Ointment (For Decolonization) - NS 05/12/16 21:59 1 applic BID JOANNA Administration Sertraline HCl 100 mg 05/08/16 10:00 Zoloft - PO DAILY JOANNA ASSESSMENT/PLAN: This is a 75 year old male with a PMHx of: Dementia, Afib (on Eliquis), Severe Spinal Stenosis with Myelopathy, (wheelchair bound), CAD (stents x6), HTN, HLD, GERDwo presents to the ED with fever, hematuria, and increased AMS. Admitted to ICU for Urosepsis, Hematuria, Afib with RVR, Fever for further evaluation of their emergent medical condition. Problems: 1. Urosepsis 2. Hematuria 3. Afib with RVR 4. REJI (unknown baseline) 5. Fever 6. DM Type II complicated hyperglycemia 7. Venous Stasis Ulcers vs Cellulitis vs DVT #Sepsis due to UTI - now ordered for Zosyn, ID consulted. Pt has h/o prior UTIs and likely requires broader coverage while we are awaiting urine culture/ blood culture results. Still with elevated WBC, but surrogate markers of sepsis improving (HR improved, lactic acid improved, alert/conversational although with h/o dementia) -h/o BPH with cloud placed, draining blood tinged urine -continue IVF NS @ 100cc/hr, also with mild evidence of rhabdomyolysis -Stitch Wheeler following -hematuria associated with UTI, slight downtrend of H/H. Can continue holding eliquis -cardizem/cardizem prn/PO metoprolol for Afib, HR improving as sepsis improving -titrate off O2 if possible #Afib - on cardizem/metoprolol #Diabetes - ISS, on glipizide at home (holding for now) -started diabetic diabetic #Depression/Psych -restarted Zoloft, cymbalta #Spinal stenosis -will need to resume his home pain meds now that more alert--Vicodin not formulary, will start oxycodone. Cont lyrica #?LE cellulitis -very mild erythema -f/u doppler CODE STATUS: per overnight team's discussion with daughter, pt is DNR. Will need to confirm Visit type - Emergency Visit Emergency Visit: Yes ED Registration Date: 05/07/16 Care time: The patient presented to the Emergency Department on the above date and was hospitalized for further evaluation of their emergent condition. - New Patient This patient is new to me today: Yes Date on this admission: 05/08/16 - Critical Care Critical Care patient: Yes Total Critical Care Time (in minutes): 25
[2016-05-08] MEDS: SERTRALINE HCL 50 MG TABLET (FP) PO SCH (09:50)
[2016-05-08] MEDS: METOPROLOL SUCCINATE 100 MG TAB.SR.24H (FP) PO SCH (09:50)
[2016-05-08] MEDS ORDERED: CEFTRIAXONE 1 GM in DEXTROSE 5%-WATER - 100 ML IVPB SCH (10:00)
[2016-05-08] MEDS ORDERED: PT OWN MED DRAWER 7, Y5N ONE (11:04)
[2016-05-08] MEDS: PREGABALIN 75 MG CAPSULE PO SCH ×2 (11:09→22:16)
[2016-05-08] MEDS: MUPIROCIN 2% TOPICAL OINTMENT FOR DECOLONIZATION NS SCH ×2 (11:09→22:16)
[2016-05-08] MEDS: DULoxetine HCL 30 MG CAPSULE.DR (FP) PO SCH (11:10)
--- NOTE | 2016-05-08 11:20 | PN ---
Progress Note (short form) - Note Progress Note: PULMONARY/CCM Pt seen and examined in the ICU. Confused but denies shortness of breath or chest pain. No abdominal pain. Fever curve trending down. Last Vital Signs Temp Pulse Resp BP Pulse Ox 98.5 F 110 H 22 160/90 96 05/08/16 06:00 05/08/16 08:00 05/08/16 08:00 05/08/16 08:00 05/08/16 09:00 Intake & Output 05/05/16 05/06/16 05/07/16 05/08/16 23:59 23:59 23:59 23:59 Intake Total 2900 1000 Output Total 2800 1300 Balance 100 -300 Weight 224 lb 6.889 oz Gen: breathing nonlabored Heart: tachycardic, irregular Lung: decreased breath sounds at the bases Abd: soft, nontender Ext: no edema CBC, BMP 05/08/16 05:35 05/08/16 05:35 Active Medications Acetaminophen (Ofirmev Injection -) 1,000 mg IVPB Q6H PRN PRN Reason: FEVER OR PAIN Stop: 05/08/16 13:59 Last Admin: 05/08/16 02:22 Dose: 1,000 mg Chlorhexidine Gluconate (Hibiclens For Decolonization -) 1 applic TP HS [facility] Last Admin: 05/07/16 22:55 Dose: 1 applic Diltiazem HCl (Cardizem Injection -) 10 mg IVPUSH Q4H PRN PRN Reason: TACHYCARDIA Last Admin: 05/07/16 22:56 Dose: 10 mg Diltiazem HCl (Cardizem Cd -) 240 mg PO DAILY [facility] Last Admin: 05/08/16 09:50 Dose: 240 mg Duloxetine HCl (Cymbalta -) 60 mg PO DAILY [facility] Last Admin: 05/08/16 11:10 Dose: 60 mg Sodium Chloride (Normal Saline -) 1,000 mls @ 100 mls/hr IV ASDIR JOANNA Insulin Aspart (Novolog Vial Sliding Scale -) 1 vial SQ ACHS [facility] PRN Reason: Protocol Last Admin: 05/08/16 07:02 Dose: 2 units Metoprolol Succinate (Toprol Xl -) 100 mg PO DAILY [facility] Last Admin: 05/08/16 09:50 Dose: 100 mg Mupirocin (Bactroban Ointment (For Decolonization) -) 1 applic NS BID [facility] Stop: 05/12/16 21:59 Last Admin: 05/08/16 11:09 Dose: 1 applic Pregabalin (Lyrica -) 75 mg PO BID [facility] Last Admin: 05/08/16 11:09 Dose: 75 mg Sertraline HCl (Zoloft -) 100 mg PO DAILY [facility] Last Admin: 05/08/16 09:50 Dose: 100 mg A/P UTI Severe Sepsis Acute Kidney Injury improving Lactic Acidosis resolved Atrial Fibrillation with RVR CAD HTN Hyperlipidemia DM Dementia - continue antibiotics - f/u cultures - IVF - monitor urine output, creatinine - rate control although rapid rates likely sepsis response - continue anticoagulation - PO as tolerated - telemetry monitoring
[2016-05-08] MEDS ORDERED: CEFTRIAXONE 50 ML IVPB SCH (11:45)
--- NOTE | 2016-05-08 16:28 | PN ---
Progress Note (short form) - Note Progress Note: UTI/ possible sepsis secondary to UTI Leukocytosis OBS Pending c/s, empiric zosyn
[2016-05-08] MEDS: SODIUM CHLORIDE 1,000 ML IV SCH (17:08)
[2016-05-08] MEDS: PIPERACILLIN/TAZOB 3.375 GM 50 ML IVPB SCH (17:19)
[2016-05-08] MEDS: CHLORHEXIDINE GLUCONATE 4% CLEANSER FOR DECOLONIZATION TP SCH (22:16)
--- NOTE | 2016-05-08 23:44 | CONS ---
DATE OF CONSULTATION: DATE OF DICTATION: 05/08/2016 INFECTIOUS DISEASE CONSULTATION HISTORY OF PRESENT ILLNESS: The patient is a 75-year-old male evaluated for sepsis secondary to urinary tract focus. History was obtained from the chart, as he cannot give a history secondary to his mental status. The patient is a 75-year-old male who is admitted to the hospital with reports of fever to 102 and gross hematuria. He was noted to be febrile with gross hematuria. EMS was summoned. He was brought to the emergency room where he was noted to have a markedly elevated white blood cell count. Cultures were obtained, and he was empirically treated with Zosyn and ceftriaxone and vancomycin. He was admitted to the intensive care unit. According to notes, he had received ciprofloxacin prior to admission. He has had a history of urosepsis in the past on at least 2 occasions. At the present time, he is not verbally responsive. He offers no focal complaint. His course has been notable for elevated white blood cell count and fever. PAST MEDICAL HISTORY: Positive for dementia, hypertension, hyperlipidemia, gastroesophageal reflux, BPH, atrial fibrillation, spinal stenosis, coronary artery disease. PAST SURGICAL HISTORY: Status post bilateral total knee replacements. ALLERGIES: Multiple medications including NEURONTIN, OXYCODONE, QUININE, COUMADIN. MEDICATION: Lyrica, Cymbalta, Zoloft, Toprol, Cardizem, Novolog. SOCIAL HISTORY: He resides at home, has a home health aid, he is wheelchair bound. He is a nonsmoker, nondrinker. SYSTEMS REVIEW: Neurologic: Positive for dementia. Cardiac: Negative chest pain or palpitations. Respiratory: Negative cough or sputum production. Gastrointestinal: Negative vomiting or diarrhea. Genitourinary: Negative for general urinary, positive for urinary tract infection. LABORATORY DATA: White count 22.7, hematocrit 36.0, platelet count 147. BUN 23, creatinine 1.0. Urinalysis: 2-4 white cells. Cultures are pending. Doppler exam negative for DVT. Chest x-ray negative for infiltrate. PHYSICAL EXAMINATION: General: He is awake, however he is not verbally responsive. Vital signs: Temperature 99.6, T-max 101.3, blood pressure 92/58, pulse 96 regular, respirations 18 per minute. HEENT: Sclerae anicteric. Cardiovascular: Heart sounds S1, S2. Respiratory: Lungs air entry bilaterally, no rhonchi, rales, or wheezing. Abdomen: Soft. No tenderness elicited. No mass, rebound, or rigidity. Extremities: 1+ edema. IMPRESSION: 1. Urinary tract infection/possible sepsis secondary to urinary tract infection. 2. Leukocytosis. 3. Dementia. Pending sepsis workup, empiric antibiotic coverage with Zosyn 3.375 g IV piggyback every 8 hours. ICU monitoring. Will follow. Thank you for the kind referral. 7 DACIA BUCHANAN M.D. [id number]
[2016-05-09] MEDS: PIPERACILLIN/TAZOB 3.375 GM 50 ML IVPB SCH ×4 (02:36→20:51)
[2016-05-09 06:08] LABS: BASOPHIL 0.4 % (0-2.0); EOSINOPHIL 1.8 % (0-4.5); MCH 29.4 pg (25.7-33.7); MCHC 31.5 g/dl (32.0-35.9); MEAN CELL VOLUME 93.5 fl (80-96); MEAN PLT VOLUME 11.2 fl (7.5-11.1); NEUTROPHILS 80.8 % (42.8-82.8); PLATELET COUNT 159 K/MM3 (134-434); RDW 14.8 % (11.9-15.9); WHITE BLOOD COUNT 16.7 K/mm3 (4.0-10.0)
[2016-05-09 07:02] LABS: ALBUMIN 2.9 g/dl (3.4-5.0); ANION GAP 6 (8-16); CALCIUM 8.3 mg/dL (8.5-10.1); CO2 30 mmol/L (21-32); GLUCOSE,RANDOM 128 mg/dL (74-106); PHOSPHOROUS 3.1 mg/dL (2.5-4.9); SGOT/AST 41 U/L (15-37); SGPT/ALT 29 U/L (12-78)
[2016-05-09 07:05] LABS: ALK PHOS 62 U/L (45-117); BILIRUBIN,TOTAL 1.4 mg/dL (0.2-1.0); TOT PROT 6.1 g/dl (6.4-8.2)
--- NOTE | 2016-05-09 07:38 | PN ---
Progress Note, Physician Chief Complaint: ID Chart reviewed Patient admitted to ICU with sepsis. Over night had to be put on BIPAP mask He is alert NAD Currently Zosyn day 2 antibiotics - Current Medication List Current Medications: Active Medications Chlorhexidine Gluconate (Hibiclens For Decolonization -) 1 applic TP HS [facility] Last Admin: 05/08/16 22:16 Dose: 1 applic Diltiazem HCl (Cardizem Injection -) 10 mg IVPUSH Q4H PRN PRN Reason: TACHYCARDIA Last Admin: 05/07/16 22:56 Dose: 10 mg Diltiazem HCl (Cardizem Cd -) 240 mg PO DAILY [facility] Last Admin: 05/08/16 09:50 Dose: 240 mg Duloxetine HCl (Cymbalta -) 60 mg PO DAILY [facility] Last Admin: 05/08/16 11:10 Dose: 60 mg Sodium Chloride (Normal Saline -) 1,000 mls @ 100 mls/hr IV ASDIR [facility] Last Admin: 05/08/16 17:08 Dose: 100 mls/hr Piperacillin Sod/Tazobactam Sod (Zosyn 3.375gm Ivpb (Pre-Docked)) 50 mls @ 100 mls/hr IVPB Q8H-IV [facility] Last Admin: 05/09/16 02:36 Dose: 100 mls/hr Insulin Aspart (Novolog Vial Sliding Scale -) 1 vial SQ ACHS JOANNA PRN Reason: Protocol Last Admin: 05/08/16 22:17 Dose: 2 units Metoprolol Succinate (Toprol Xl -) 100 mg PO DAILY [facility] Last Admin: 05/08/16 09:50 Dose: 100 mg Mupirocin (Bactroban Ointment (For Decolonization) -) 1 applic NS BID [facility] Stop: 05/12/16 21:59 Last Admin: 05/08/16 22:16 Dose: 1 applic Pregabalin (Lyrica -) 75 mg PO BID [facility] Last Admin: 05/08/16 22:16 Dose: 75 mg Sertraline HCl (Zoloft -) 100 mg PO DAILY [facility] Last Admin: 05/08/16 09:50 Dose: 100 mg - Objective Vital Signs: Vital Signs Temperature 98.9 F 05/09/16 06:00 Pulse Rate 82 05/09/16 06:00 Respiratory Rate 16 05/09/16 06:00 Blood Pressure 138/83 05/09/16 06:00 O2 Sat by Pulse Oximetry (%) 100 05/09/16 06:52 Constitutional: Yes: Obese Neck: Yes: WNL, Supple Cardiovascular: Yes: Regular Rate and Rhythm, S1, S2 Respiratory: Yes: WNL, Regular, CTA Bilaterally, Diminished Gastrointestinal: Yes: WNL, Normal Bowel Sounds, Soft. No: Tenderness Edema: No Labs: CBC, BMP 05/09/16 05:05 05/09/16 05:05 INR, PTT INR 1.62 (0.82-1.09) H 05/07/16 12:45 Assessment/Plan Microbiology 05/07/16 13:00 Nasopharyngeal Swab Influenza Types A,B Antigen (ALCON) - Final 05/07/16 13:00 Nasopharyngeal Swab - Final 05/07/16 13:00 Blood - Peripheral Venous Blood Culture - Preliminary NO GROWTH OBTAINED AFTER 24 HOURS, INCUBATION TO CONTINUE FOR 4 DAYS. 05/07/16 13:00 Blood - Peripheral Venous Blood Culture - Preliminary NO GROWTH OBTAINED AFTER 24 HOURS, INCUBATION TO CONTINUE FOR 4 DAYS. Laboratory Tests 05/07/16 05/07/16 05/07/16 12:45 12:45 12:45 WBC 28.8 H Hgb Hct Plt Count INR 1.62 H Creatinine Urine WBC 2-4 Urine Bacteria Moderate 05/09/16 05/09/16 05:05 05:05 WBC 16.7 H Hgb 11.1 L Hct 35.2 L Plt Count 159 INR Creatinine 1.0 Urine WBC Urine Bacteria Assessment Sepsis syndrome urinary tract source BPH History of atrial fibrillation on Eliquis Dementia Plan Zosyn ordered pending c/s Dereje TEE
[2016-05-09] MEDS: DULoxetine HCL 30 MG CAPSULE.DR (FP) PO SCH (09:52)
[2016-05-09] MEDS: PREGABALIN 75 MG CAPSULE PO SCH ×2 (09:52→21:13)
[2016-05-09] MEDS: METOPROLOL SUCCINATE 100 MG TAB.SR.24H (FP) PO SCH (09:52)
[2016-05-09] MEDS: SERTRALINE HCL 50 MG TABLET (FP) PO SCH (09:52)
[2016-05-09] MEDS: SODIUM CHLORIDE 1,000 ML IV SCH (09:53)
[2016-05-09] MEDS: INSULIN SLIDING SCALE (NOVOLOG) 1 VIAL SQ SCH ×4 (10:06→21:24)
[2016-05-09] MEDS: MUPIROCIN 2% TOPICAL OINTMENT FOR DECOLONIZATION NS SCH ×2 (10:08→21:14)
--- NOTE | 2016-05-09 11:18 | PN ---
Progress Note (short form) - Note Progress Note: Patient seen and examined in the ICU. Mildly confused, but he denies shortness of breath or chest pain. No abdominal pain. Fever curve trending down. Intake & Output 05/06/16 05/07/16 05/08/16 05/09/16 23:59 23:59 23:59 23:59 Intake Total 2900 2870 1300 Output Total 2800 2500 650 Balance 100 370 650 Weight 224 lb 6.889 oz 224 lb 6.889 oz Last Vital Signs Temp Pulse Resp BP Pulse Ox 99 F 92 H 18 156/85 98 05/09/16 10:00 05/09/16 10:00 05/09/16 10:00 05/09/16 10:00 05/09/16 09:30 Active Medications Chlorhexidine Gluconate (Hibiclens For Decolonization -) 1 applic TP HS [facility] Last Admin: 05/08/16 22:16 Dose: 1 applic Diltiazem HCl (Cardizem Injection -) 10 mg IVPUSH Q4H PRN PRN Reason: TACHYCARDIA Last Admin: 05/07/16 22:56 Dose: 10 mg Diltiazem HCl (Cardizem Cd -) 240 mg PO DAILY [facility] Last Admin: 05/09/16 09:52 Dose: 240 mg Duloxetine HCl (Cymbalta -) 60 mg PO DAILY [facility] Last Admin: 05/09/16 09:52 Dose: 60 mg Sodium Chloride (Normal Saline -) 1,000 mls @ 100 mls/hr IV ASDIR [facility] Last Admin: 05/09/16 09:53 Dose: 100 mls/hr Piperacillin Sod/Tazobactam Sod (Zosyn 3.375gm Ivpb (Pre-Docked)) 50 mls @ 100 mls/hr IVPB Q8H-IV JOANNA Last Admin: 05/09/16 09:51 Dose: 100 mls/hr Insulin Aspart (Novolog Vial Sliding Scale -) 1 vial SQ ACHS JOANNA PRN Reason: Protocol Last Admin: 05/09/16 10:06 Dose: Not Given Metoprolol Succinate (Toprol Xl -) 100 mg PO DAILY [facility] Last Admin: 05/09/16 09:52 Dose: 100 mg Mupirocin (Bactroban Ointment (For Decolonization) -) 1 applic NS BID [facility] Stop: 05/12/16 21:59 Last Admin: 05/09/16 10:08 Dose: 1 applic Pregabalin (Lyrica -) 75 mg PO BID [facility] Last Admin: 05/09/16 09:52 Dose: 75 mg Sertraline HCl (Zoloft -) 100 mg PO DAILY [facility] Last Admin: 05/09/16 09:52 Dose: 100 mg Gen: Mildly tachypneic at rest Heart: tachycardic, irregular Lung: No active wheezing, decreased breath sounds at the bases Abd: soft, nontender Ext: no edema Laboratory Results - last 24 hr 05/08/16 05/08/16 05/08/16 12:12 17:06 21:17 WBC RBC Hgb Hct MCV MCHC RDW Plt Count MPV Neutrophils % Lymphocytes % Monocytes % Eosinophils % Basophils % Sodium Potassium Chloride Carbon Dioxide Anion Gap BUN Creatinine Creat Clearance w eGFR POC Glucometer 178.48863 134.63715 [phone] Random Glucose Calcium Phosphorus Magnesium Total Bilirubin AST ALT Alkaline Phosphatase Total Protein Albumin 05/09/16 05/09/16 05:05 05:05 WBC 16.7 H RBC 3.76 L Hgb 11.1 L Hct 35.2 L MCV 93.5 MCHC 31.5 L RDW 14.8 Plt Count 159 MPV 11.2 H Neutrophils % 80.8 Lymphocytes % 9.4 D Monocytes % 7.6 Eosinophils % 1.8 D Basophils % 0.4 Sodium 143 Potassium 3.7 Chloride 107 Carbon Dioxide 30 Anion Gap 6 L BUN 20 H Creatinine 1.0 Creat Clearance w eGFR > 60 POC Glucometer Random Glucose 128 H Calcium 8.3 L Phosphorus 3.1 Magnesium 2.0 Total Bilirubin 1.4 H AST 41 H ALT 29 Alkaline Phosphatase 62 Total Protein 6.1 L Albumin 2.9 L A/P UTI Severe Sepsis Acute Kidney Injury improving Lactic Acidosis resolved Atrial Fibrillation with RVR CAD HTN Hyperlipidemia DM Dementia - continue antibiotics - f/u cultures - IVF - monitor urine output, creatinine - rate control - continue anticoagulation - PO as tolerated - telemetry monitoring Dr Flynn CCTime 35"
--- NOTE | 2016-05-09 14:06 | EKG ---
Test Reason : Blood Pressure : / mmHG Vent. Rate : 127 BPM Atrial Rate : 122 BPM P-R Int : 000 ms QRS Dur : 142 ms QT Int : 356 ms P-R-T Axes : 000 -154 000 degrees QTc Int : 517 ms ATRIAL FIBRILLATION WITH RAPID VENTRICULAR RESPONSE RIGHT BUNDLE BRANCH BLOCK ABNORMAL ECG NO PREVIOUS ECGS AVAILABLE Confirmed by ESVIN SAUNDERS MD ([id number]) on 05/09/2016 2:06:18 PM Referred By: SHAHLA Overread By: ESVIN SAUNDERS MD
[2016-05-09] MEDS ORDERED: HYDROmorphone HCL CARPU-JECT 1 MG/1 ML DISP.SYRIN IVPUSH ONE (15:51)
[2016-05-09] MEDS ORDERED: oxyCODONE HCL 5 MG TABLET PO PRN (15:52)
--- NOTE | 2016-05-09 16:03 | PN ---
Physical Exam: SUBJECTIVE: Patient seen and examined. Reports pain "allllll over". Spoke with daughter Francine as oxycodone listed as allergy -- he follows with pain management as outpt and had previously been on both oxycodone and hydromorphone - no adverse reaction. She is agreeable to us starting pain medications with oxycodone OBJECTIVE: Vital Signs Period Temp Pulse Resp BP Sys/Calvert Pulse Ox Last 24 Hr 98 F-99.2 F 78-98 16-18 116-172/76-96 96-100 GENERAL: NAD, pleasant, interactive, AAOX1. Aide at bedside, remains on NC HEENT: Dry mucous membranes. LUNGS: Breath sounds equal, clear to auscultation bilaterally. No wheezes, and no crackles. HEART: resolved tachycardia ABDOMEN: Soft, obese, diffuse tenderness to palpation, not distended, normoactive bowel sounds MUSCULOSKELETAL: Normal range of motion at all joints. No bony deformities or tenderness. No CVA tenderness. LOWER EXTREMITIES: warm, well perfused NEUROLOGICAL: Patient has Dementia, at baseline wheelchair bound PSYCHIATRIC: Cooperative Laboratory Results - last 24 hr 05/08/16 05/08/16 05/08/16 12:12 17:06 21:17 WBC RBC Hgb Hct MCV MCHC RDW Plt Count MPV Neutrophils % Lymphocytes % Monocytes % Eosinophils % Basophils % Sodium Potassium Chloride Carbon Dioxide Anion Gap BUN Creatinine Creat Clearance w eGFR POC Glucometer 178.26886 134.28553 [phone] Random Glucose Calcium Phosphorus Magnesium Total Bilirubin AST ALT Alkaline Phosphatase Total Protein Albumin 05/09/16 05/09/16 05:05 05:05 WBC 16.7 H RBC 3.76 L Hgb 11.1 L Hct 35.2 L MCV 93.5 MCHC 31.5 L RDW 14.8 Plt Count 159 MPV 11.2 H Neutrophils % 80.8 Lymphocytes % 9.4 D Monocytes % 7.6 Eosinophils % 1.8 D Basophils % 0.4 Sodium 143 Potassium 3.7 Chloride 107 Carbon Dioxide 30 Anion Gap 6 L BUN 20 H Creatinine 1.0 Creat Clearance w eGFR > 60 POC Glucometer Random Glucose 128 H Calcium 8.3 L Phosphorus 3.1 Magnesium 2.0 Total Bilirubin 1.4 H AST 41 H ALT 29 Alkaline Phosphatase 62 Total Protein 6.1 L Albumin 2.9 L Active Medications Generic Name Dose Route Start Last Admin Trade Name Freq PRN Reason Stop Dose Admin Chlorhexidine Gluconate 1 applic 05/07/16 22:00 05/08/16 22:16 Hibiclens For Decolonization - TP 1 applic HS JOANNA Administration Diltiazem HCl 10 mg 05/07/16 20:39 05/07/16 22:56 Cardizem Injection - IVPUSH 10 mg Q4H PRN Administration TACHYCARDIA Diltiazem HCl 240 mg 05/08/16 10:00 05/09/16 09:52 Cardizem Cd - PO 240 mg DAILY JOANNA Administration Duloxetine HCl 60 mg 05/08/16 10:00 05/09/16 09:52 Cymbalta - PO 60 mg DAILY JOANNA Administration Hydromorphone HCl 0.5 mg 05/09/16 15:51 05/09/16 15:56 Dilaudid Injection - IVPUSH 05/09/16 15:52 0.5 mg ONCE ONE Administration Sodium Chloride 1,000 mls @ 100 mls/hr 05/08/16 08:30 05/09/16 09:53 Normal Saline - IV 100 mls/hr ASDIR JOANNA Administration Piperacillin Sod/Tazobactam Sod 50 mls @ 100 mls/hr 05/08/16 18:00 05/09/16 09: 51 Zosyn 3.375gm Ivpb (Pre-Docked) IVPB 100 mls/hr Q8H-IV JOANNA Administration Insulin Aspart 1 vial 05/08/16 07:00 05/09/16 12:19 Novolog Vial Sliding Scale - SQ Not Given ACHS [facility] Protocol Metoprolol Succinate 100 mg 05/08/16 10:00 05/09/16 09:52 Toprol Xl - PO 100 mg DAILY JOANNA Administration Mupirocin 1 applic 05/07/16 22:00 05/09/16 10:08 Bactroban Ointment (For Decolonization) - NS 05/12/16 21:59 1 applic BID JOANNA Administration Oxycodone HCl 5 mg 05/09/16 15:52 Roxicodone - PO Q4H PRN PAIN Pregabalin 75 mg 05/08/16 10:00 05/09/16 09:52 Lyrica - PO 75 mg BID JOANNA Administration Sertraline HCl 100 mg 05/08/16 10:00 05/09/16 09:52 Zoloft - PO 100 mg DAILY JOANNA Administration ASSESSMENT/PLAN: #Sepsis due to UTI - improving! -cont Zosyn, Urine Cx growing non-lactose fermenting GNR -WBC trending down -h/o BPH with cloud placed, draining dark urine -continue IVF NS @ 100cc/hr - will likely d/c IVF tomorrow AM -Inspector Watch Train following -hematuria associated with UTI, H/H stable. Eliquis ordered re-starting on -HR now improved -titrate off O2 if possible #Afib - on cardizem/metoprolol #Diabetes - ISS, on glipizide at home (holding for now) -started diabetic diabetic #Depression/Psych -cont Zoloft, cymbalta #h/o baseline dementia #Spinal stenosis -continue lyrica, pt typically follow with outpatient pain management but per daughter unable to go to recent appt. -confirmed with daughter - Has previously been on oxycodone/dilaudid without any adverse reactions -wheelchair bound #?LE cellulitis -very mild erythema, improved -LE Doppler negative for DVT DISPO: can stepdown to telemetry CODE STATUS: DNR, but pt OK with intubation Visit type - Emergency Visit Emergency Visit: Yes ED Registration Date: 05/07/16 Care time: The patient presented to the Emergency Department on the above date and was hospitalized for further evaluation of their emergent condition. - New Patient This patient is new to me today: No - Critical Care Critical Care patient: Yes Total Critical Care Time (in minutes): 35 Critical Care Statement: The care of this patient involved high complexity decision making to prevent further life threatening deterioration of the patient 's condition and/or to evalute & treat vital organ system(s) failure or risk of failure.
[2016-05-09] MEDS ORDERED: SODIUM CHLORIDE 1,000 ML IV SCH (16:55)
[2016-05-09] MEDS ORDERED: PT OWN MED DRAWER 7, Y5N ONE (21:11)
[2016-05-09] MEDS: APIXABAN 5 MG TABLET PO SCH (21:14)
[2016-05-09] MEDS ORDERED: APIXABAN 5 MG TABLET PO SCH (22:00)
[2016-05-09] MEDS ORDERED: CHLORHEXIDINE GLUCONATE 4% CLEANSER FOR DECOLONIZATION TP SCH (22:00)
[2016-05-10] MEDS: PIPERACILLIN/TAZOB 3.375 GM 50 ML IVPB SCH ×4 (02:00→20:42)
[2016-05-10] MEDS: oxyCODONE HCL 5 MG TABLET PO PRN ×2 (05:00→09:41)
[2016-05-10 06:05] LABS: MCH 29.2 pg (25.7-33.7); MCHC 31.3 g/dl (32.0-35.9); MEAN CELL VOLUME 93.3 fl (80-96); MEAN PLT VOLUME 11.1 fl (7.5-11.1); PLATELET COUNT 179 K/MM3 (134-434); RDW 14.9 % (11.9-15.9); WHITE BLOOD COUNT 13.8 K/mm3 (4.0-10.0)
[2016-05-10] MEDS: INSULIN SLIDING SCALE (NOVOLOG) 1 VIAL SQ SCH ×4 (06:07→21:52)
[2016-05-10 06:30] LABS: ALBUMIN 2.7 g/dl (3.4-5.0); ANION GAP 9 (8-16); BILIRUBIN,TOTAL 0.9 mg/dL (0.2-1.0); CALCIUM 8.1 mg/dL (8.5-10.1); CO2 27 mmol/L (21-32); CREATININE 0.7 mg/dL (0.7-1.3); GLUCOSE,RANDOM 126 mg/dL (74-106); MAGNESIUM 1.8 mg/dL (1.8-2.4); PHOSPHOROUS 2.9 mg/dL (2.5-4.9); SGPT/ALT 40 U/L (12-78)
[2016-05-10 06:31] LABS: ALK PHOS 67 U/L (45-117); SGOT/AST 49 U/L (15-37)
--- NOTE | 2016-05-10 08:54 | PN ---
Progress Note (short form) - Note Progress Note: alert, nad Vital Signs Period Temp Pulse Resp BP Sys/Calvert Pulse Ox Last 24 Hr 98 F-99 F 80-96 16-20 143-172/70-98 96-100 cor-rrr lungs clear abd soft,nt ext trace edema CBC, BMP 05/10/16 05:00 05/10/16 05:00 Microbiology 05/07/16 13:00 Blood - Peripheral Venous Blood Culture - Preliminary NO GROWTH OBTAINED AFTER 48 HOURS, INCUBATION TO CONTINUE FOR 3 DAYS. 05/07/16 13:00 Blood - Peripheral Venous Blood Culture - Preliminary NO GROWTH OBTAINED AFTER 48 HOURS, INCUBATION TO CONTINUE FOR 3 DAYS. 05/07/16 12:45 Urine - Urine Clean Catch Urine Culture - Preliminary Non Lactose Fermenting Gnb 05/07/16 13:00 Nasopharyngeal Swab Influenza Types A,B Antigen (ALCON) - Final 05/07/16 13:00 Nasopharyngeal Swab - Final Active Medications Apixaban (Eliquis -) 5 mg PO BID [facility] Last Admin: 05/09/16 21:14 Dose: 5 mg Chlorhexidine Gluconate (Hibiclens For Decolonization -) 1 applic TP HS [facility] Last Admin: 05/09/16 21:14 Dose: 1 applic Diltiazem HCl (Cardizem Cd -) 240 mg PO DAILY [facility] Duloxetine HCl (Cymbalta -) 60 mg PO DAILY [facility] Sodium Chloride (Normal Saline -) 1,000 mls @ 100 mls/hr IV ASDIR [facility] Last Admin: 05/09/16 21:15 Dose: 100 mls/hr Piperacillin Sod/Tazobactam Sod (Zosyn 3.375gm Ivpb (Pre-Docked)) 50 mls @ 100 mls/hr IVPB Q8H-IV [facility] Last Admin: 05/10/16 02:00 Dose: 100 mls/hr Insulin Aspart (Novolog Vial Sliding Scale -) 1 vial SQ ACHS [facility] PRN Reason: Protocol Last Admin: 05/10/16 06:07 Dose: 2 units Metoprolol Succinate (Toprol Xl -) 100 mg PO DAILY [facility] Mupirocin (Bactroban Ointment (For Decolonization) -) 1 applic NS BID [facility] Stop: 05/12/16 21:59 Last Admin: 05/09/16 21:14 Dose: 1 applic Oxycodone HCl (Roxicodone -) 5 mg PO Q4H PRN PRN Reason: PAIN Last Admin: 05/10/16 05:00 Dose: 5 mg Pregabalin (Lyrica -) 75 mg PO BID [facility] Last Admin: 05/09/16 21:13 Dose: 75 mg Sertraline HCl (Zoloft -) 100 mg PO DAILY [facility] a/p sepsis secondary to UTI continue zosyn f/u cultures clinically improving
[2016-05-10] MEDS ORDERED: PT OWN MED DRAWER 7, Y5N ONE ×2 (09:38→17:09)
[2016-05-10] MEDS: PREGABALIN 75 MG CAPSULE PO SCH ×2 (09:41→21:31)
[2016-05-10] MEDS: APIXABAN 5 MG TABLET PO SCH ×2 (09:43→21:32)
[2016-05-10] MEDS: MUPIROCIN 2% TOPICAL OINTMENT FOR DECOLONIZATION NS SCH ×2 (09:43→21:34)
[2016-05-10] MEDS ORDERED: SERTRALINE HCL 50 MG TABLET (FP) PO SCH (10:00)
[2016-05-10] MEDS ORDERED: DULoxetine HCL 30 MG CAPSULE.DR (FP) PO SCH (10:00)
[2016-05-10] MEDS ORDERED: METOPROLOL SUCCINATE 100 MG TAB.SR.24H (FP) PO SCH (10:00)
--- NOTE | 2016-05-10 13:28 | PN ---
Teaching Attending Note Name of Resident: Pedro Pablo Mcduffie ATTENDING PHYSICIAN STATEMENT I saw and evaluated the patient. I reviewed the resident's note and discussed the case with the resident. I agree with the resident's findings and plan as documented. SUBJECTIVE: Patient seen and examined in the ICU. NAD on NC O2. Reports some discomfort in his hands. Mildly confused, but he denies shortness of breath or chest pain. No abdominal pain. Intake & Output 05/07/16 05/08/16 05/09/16 05/10/16 23:59 23:59 23:59 23:59 Intake Total 2900 2870 2840 1540 Output Total 2800 2500 2000 400 Balance 100 539 943 0338 Weight 224 lb 6.889 oz 224 lb 6.889 oz 227 lb 1.218 oz Last Vital Signs Temp Pulse Resp BP Pulse Ox 98 F 88 18 150/90 97 05/10/16 10:00 05/10/16 12:00 05/10/16 12:00 05/10/16 12:00 05/10/16 09:45 Active Medications Apixaban (Eliquis -) 5 mg PO BID [facility] Last Admin: 05/10/16 09:43 Dose: 5 mg Chlorhexidine Gluconate (Hibiclens For Decolonization -) 1 applic TP HS [facility] Last Admin: 05/09/16 21:14 Dose: 1 applic Diltiazem HCl (Cardizem Cd -) 240 mg PO DAILY [facility] Last Admin: 05/10/16 09:43 Dose: 240 mg Duloxetine HCl (Cymbalta -) 60 mg PO DAILY [facility] Last Admin: 05/10/16 09:42 Dose: 60 mg Sodium Chloride (Normal Saline -) 1,000 mls @ 100 mls/hr IV ASDIR [facility] Last Admin: 05/09/16 21:15 Dose: 100 mls/hr Piperacillin Sod/Tazobactam Sod (Zosyn 3.375gm Ivpb (Pre-Docked)) 50 mls @ 100 mls/hr IVPB Q8H-IV [facility] Last Admin: 05/10/16 09:41 Dose: 100 mls/hr Insulin Aspart (Novolog Vial Sliding Scale -) 1 vial SQ ACHS [facility] PRN Reason: Protocol Last Admin: 05/10/16 11:44 Dose: 4 units Metoprolol Succinate (Toprol Xl -) 100 mg PO DAILY [facility] Last Admin: 05/10/16 09:41 Dose: 100 mg Mupirocin (Bactroban Ointment (For Decolonization) -) 1 applic NS BID [facility] Stop: 05/12/16 21:59 Last Admin: 05/10/16 09:43 Dose: 1 applic Oxycodone HCl (Roxicodone -) 5 mg PO Q4H PRN PRN Reason: PAIN Last Admin: 05/10/16 09:41 Dose: 5 mg Pregabalin (Lyrica -) 75 mg PO BID [facility] Last Admin: 05/10/16 09:41 Dose: 75 mg Sertraline HCl (Zoloft -) 100 mg PO DAILY [facility] Last Admin: 05/10/16 09:43 Dose: 100 mg Gen: Mildly tachypneic at rest Heart: tachycardic, irregular Lung: No active wheezing, decreased breath sounds at the bases Abd: soft, nontender Ext: no edema Laboratory Results - last 24 hr 05/09/16 05/09/16 05/09/16 12:15 16:30 21:22 WBC RBC Hgb Hct MCV MCHC RDW Plt Count MPV Sodium Potassium Chloride Carbon Dioxide Anion Gap BUN Creatinine Creat Clearance w eGFR POC Glucometer 90.92650 196.25060 232.92165 Random Glucose Calcium Phosphorus Magnesium Total Bilirubin AST ALT Alkaline Phosphatase Total Protein Albumin 05/10/16 05/10/16 05/10/16 05:00 05:00 05:53 WBC 13.8 H RBC 3.42 L Hgb 10.0 L Hct 31.9 L MCV 93.3 MCHC 31.3 L RDW 14.9 Plt Count 179 MPV 11.1 Sodium 142 Potassium 3.8 Chloride 106 Carbon Dioxide 27 Anion Gap 9 BUN 12 D Creatinine 0.7 D Creat Clearance w eGFR > 60 POC Glucometer 164.26893 Random Glucose 126 H Calcium 8.1 L Phosphorus 2.9 Magnesium 1.8 Total Bilirubin 0.9 D AST 49 H ALT 40 D Alkaline Phosphatase 67 Total Protein 6.0 L Albumin 2.7 L A/P UTI Severe Sepsis Acute Kidney Injury improving Lactic Acidosis resolved Atrial Fibrillation with RVR CAD HTN Hyperlipidemia DM Dementia - ABX - Monitor off IVF - monitor urine output, creatinine - rate control - continue anticoagulation - PO as tolerated - telemetry monitoring Dr Flynn CCTime 35"
--- NOTE | 2016-05-10 13:45 | PN ---
Progress Note, Physician History of Present Illness: patient seen and examined doing much better in good spirits alert awake - Current Medication List Current Medications: Active Medications Apixaban (Eliquis -) 5 mg PO BID [facility] Last Admin: 05/10/16 09:43 Dose: 5 mg Chlorhexidine Gluconate (Hibiclens For Decolonization -) 1 applic TP HS [facility] Last Admin: 05/09/16 21:14 Dose: 1 applic Diltiazem HCl (Cardizem Cd -) 240 mg PO DAILY [facility] Last Admin: 05/10/16 09:43 Dose: 240 mg Duloxetine HCl (Cymbalta -) 60 mg PO DAILY [facility] Last Admin: 05/10/16 09:42 Dose: 60 mg Piperacillin Sod/Tazobactam Sod (Zosyn 3.375gm Ivpb (Pre-Docked)) 50 mls @ 100 mls/hr IVPB Q8H-IV [facility] Last Admin: 05/10/16 09:41 Dose: 100 mls/hr Insulin Aspart (Novolog Vial Sliding Scale -) 1 vial SQ ACHS [facility] PRN Reason: Protocol Last Admin: 05/10/16 11:44 Dose: 4 units Metoprolol Succinate (Toprol Xl -) 100 mg PO DAILY [facility] Last Admin: 05/10/16 09:41 Dose: 100 mg Mupirocin (Bactroban Ointment (For Decolonization) -) 1 applic NS BID [facility] Stop: 05/12/16 21:59 Last Admin: 05/10/16 09:43 Dose: 1 applic Oxycodone HCl (Roxicodone -) 5 mg PO Q4H PRN PRN Reason: PAIN Last Admin: 05/10/16 09:41 Dose: 5 mg Pregabalin (Lyrica -) 75 mg PO BID [facility] Last Admin: 05/10/16 09:41 Dose: 75 mg Sertraline HCl (Zoloft -) 100 mg PO DAILY [facility] Last Admin: 05/10/16 09:43 Dose: 100 mg - Objective Vital Signs: Vital Signs Temperature 98 F 05/10/16 10:00 Pulse Rate 88 05/10/16 12:00 Respiratory Rate 18 05/10/16 12:00 Blood Pressure 150/90 05/10/16 12:00 O2 Sat by Pulse Oximetry (%) 97 05/10/16 09:45 Constitutional: Yes: Well Nourished, No Distress HENT: Yes: Atraumatic Neck: Yes: Supple Cardiovascular: Yes: Pulse Irregular Respiratory: Yes: CTA Bilaterally Gastrointestinal: Yes: WNL, Normal Bowel Sounds, Soft Genitourinary: Yes: Vasquez Present, Hematuria Neurological: Yes: WNL, Alert, Oriented (only to self) Labs: CBC, BMP 05/10/16 05:00 05/10/16 05:00 INR, PTT INR 1.62 (0.82-1.09) H 05/07/16 12:45 - ....Imaging Chest X-ray: Report Reviewed, Image Reviewed Assessment/Plan sepsis secondary to UTI presented with hematuria resolving Continue Zosyn ID consult appreciated monitor I/O Stop IVF clinically improving cultures noted on nasal cannula with PRN rescue BiPAP PRN Afib-currently rate controlled continue cardizem continue metoprolol restart eliquis Diabetes ISS hold home oral hypoglycemic Diabetic diet Psych: no issues for now continue zoloft continue cymbalta outpt follow up Spinal stenosis-he is a chronic pain patient continue lyrica oxycodone PRN FEN: stop IVF no electrolyte abnormalities diabetic diet PPx: On Eliquis No GI PPx needed PT consult/wheel chair bound transfer to floor
--- NOTE | 2016-05-10 13:48 | PN ---
Physical Exam: SUBJECTIVE: Patient seen and examined OBJECTIVE: No acute issues overnight, pain is better controlled today Vital Signs Period Temp Pulse Resp BP Sys/Calvert Pulse Ox Last 24 Hr 98 F-98.6 F 77-100 16-20 131-172/70-98 97-100 GENERAL: NAD, pleasant, interactive, aide at bedside, remains on 2L NC LUNGS: Breath sounds equal, CTAB HEART: irregular ABDOMEN: Soft, obese, diffuse tenderness to palpation, not distended, normoactive bowel sounds MUSCULOSKELETAL: Normal range of motion at all joints. No bony deformities or tenderness. No CVA tenderness. LOWER EXTREMITIES: warm, well perfused, UE with bilateral swelling of hands ( mild) NEUROLOGICAL: Patient has Dementia, at baseline wheelchair bound PSYCHIATRIC: Cooperative Laboratory Results - last 24 hr 05/09/16 05/09/16 05/09/16 12:15 16:30 21:22 WBC RBC Hgb Hct MCV MCHC RDW Plt Count MPV Sodium Potassium Chloride Carbon Dioxide Anion Gap BUN Creatinine Creat Clearance w eGFR POC Glucometer 90.01762 196.63590 232.81342 Random Glucose Calcium Phosphorus Magnesium Total Bilirubin AST ALT Alkaline Phosphatase Total Protein Albumin 05/10/16 05/10/16 05/10/16 05:00 05:00 05:53 WBC 13.8 H RBC 3.42 L Hgb 10.0 L Hct 31.9 L MCV 93.3 MCHC 31.3 L RDW 14.9 Plt Count 179 MPV 11.1 Sodium 142 Potassium 3.8 Chloride 106 Carbon Dioxide 27 Anion Gap 9 BUN 12 D Creatinine 0.7 D Creat Clearance w eGFR > 60 POC Glucometer 164.95231 Random Glucose 126 H Calcium 8.1 L Phosphorus 2.9 Magnesium 1.8 Total Bilirubin 0.9 D AST 49 H ALT 40 D Alkaline Phosphatase 67 Total Protein 6.0 L Albumin 2.7 L Active Medications Generic Name Dose Route Start Last Admin Trade Name Freq PRN Reason Stop Dose Admin Apixaban 5 mg 05/09/16 22:00 05/10/16 09:43 Eliquis - PO 5 mg BID [facility] Administration Chlorhexidine Gluconate 1 applic 05/09/16 22:00 05/09/16 21:14 Hibiclens For Decolonization - TP 1 applic HS [facility] Administration Diltiazem HCl 240 mg 05/10/16 10:00 05/10/16 09:43 Cardizem Cd - PO 240 mg DAILY [facility] Administration Duloxetine HCl 60 mg 05/10/16 10:00 05/10/16 09:42 Cymbalta - PO 60 mg DAILY [facility] Administration Piperacillin Sod/Tazobactam Sod 50 mls @ 100 mls/hr 05/09/16 18:00 05/10/16 09: 41 Zosyn 3.375gm Ivpb (Pre-Docked) IVPB 100 mls/hr Q8H-IV [facility] Administration Insulin Aspart 1 vial 05/09/16 22:00 05/10/16 11:44 Novolog Vial Sliding Scale - SQ 4 units ACHS [facility] Administration Protocol Metoprolol Succinate 100 mg 05/10/16 10:00 05/10/16 09:41 Toprol Xl - PO 100 mg DAILY [facility] Administration Mupirocin 1 applic 05/09/16 22:00 05/10/16 09:43 Bactroban Ointment (For Decolonization) - NS 05/12/16 21:59 1 applic BID [facility] Administration Oxycodone HCl 5 mg 05/09/16 16:55 05/10/16 09:41 Roxicodone - PO 5 mg Q4H PRN Administration PAIN Pregabalin 75 mg 05/09/16 22:00 05/10/16 09:41 Lyrica - PO 75 mg BID [facility] Administration Sertraline HCl 100 mg 05/10/16 10:00 05/10/16 09:43 Zoloft - PO 100 mg DAILY [facility] Administration ASSESSMENT/PLAN: #Sepsis due to UTI - improving! -Urine culture with proteus mirabilis sensitive to Zosyn, WBC significantly improved from admission -ID following -can discontinue IVF, titrate off O2 -wheelchair bound at bedside, but would recommend activity as tolerated #Afib - on cardizem/metoprolol #Diabetes - ISS,can restart glipizide - restarted glipizide at low dose for AM (on glipizide 10mg qAM and 5mg qPM) -diabetic diet #Depression/Psych -cont Zoloft, cymbalta #h/o baseline dementia #Spinal stenosis -continue lyrica, started oxycodone prn for generalized pain/spinal stenosis -wheelchair bound DISPO: can stepdown to telemetry CODE STATUS: DNR, but pt OK with intubation Visit type - Emergency Visit Emergency Visit: Yes ED Registration Date: 05/07/16 Care time: The patient presented to the Emergency Department on the above date and was hospitalized for further evaluation of their emergent condition. - New Patient This patient is new to me today: Yes Date on this admission: 05/10/16 - Critical Care Critical Care patient: Yes Total Critical Care Time (in minutes): 25
[2016-05-10] MEDS: glipiZIDE 5 MG TABLET (FP) PO SCH (16:59)
[2016-05-10] MEDS ORDERED: oxyCODONE HCL 5 MG TABLET PO PRN (17:34)
[2016-05-10] MEDS ORDERED: CHLORHEXIDINE GLUCONATE 4% CLEANSER FOR DECOLONIZATION TP SCH (22:00)
[2016-05-10] MEDS ORDERED: METOPROLOL TARTRATE 5 MG/5 ML VIAL ONE (22:09)
[2016-05-11] MEDS: PIPERACILLIN/TAZOB 3.375 GM 50 ML IVPB SCH (02:30)
[2016-05-11] MEDS ORDERED: LABETALOL HCL 5 MG/1 ML (100MG/20 ML VIAL) IVPUSH STA (04:25)
[2016-05-11] MEDS: INSULIN SLIDING SCALE (NOVOLOG) 1 VIAL SQ SCH ×4 (06:33→23:20)
[2016-05-11] MEDS ORDERED: PT OWN MED DRAWER 7, Y5N ONE ×4 (06:39→21:44)
[2016-05-11] MEDS: glipiZIDE 5 MG TABLET (FP) PO SCH (06:41)
[2016-05-11] MEDS ORDERED: glipiZIDE 5 MG TABLET (FP) PO SCH (07:00)
[2016-05-11 07:13] LABS: MCH 29.4 pg (25.7-33.7); MCHC 31.7 g/dl (32.0-35.9); MEAN CELL VOLUME 92.8 fl (80-96); PLATELET COUNT 187 K/MM3 (134-434); RDW 14.7 % (11.9-15.9); WHITE BLOOD COUNT 11.9 K/mm3 (4.0-10.0)
[2016-05-11 07:26] LABS: INR 1.34 (0.82-1.09); PROTHROMBIN TIME (PATIENT) 14.8 SEC (9.98-11.88)
[2016-05-11 07:44] LABS: ALBUMIN 2.8 g/dl (3.4-5.0); ALK PHOS 71 U/L (45-117); ANION GAP 12 (8-16); BILIRUBIN,TOTAL 1.1 mg/dL (0.2-1.0); CALCIUM 8.4 mg/dL (8.5-10.1); CO2 26 mmol/L (21-32); CREATININE 0.6 mg/dL (0.7-1.3); GLUCOSE,RANDOM 91 mg/dL (74-106); MAGNESIUM 1.6 mg/dL (1.8-2.4); PHOSPHOROUS 2.7 mg/dL (2.5-4.9); SGOT/AST 42 U/L (15-37); SGPT/ALT 46 U/L (12-78); TOT PROT 6.1 g/dl (6.4-8.2)
--- NOTE | 2016-05-11 08:09 | PN ---
Progress Note, Physician Chief Complaint: ID Alert NAD but confused Offers no complaints Afebrile Zosyn Day 3 Rx - Current Medication List Current Medications: Active Medications Apixaban (Eliquis -) 5 mg PO BID [facility] Last Admin: 05/10/16 21:32 Dose: 5 mg Chlorhexidine Gluconate (Hibiclens For Decolonization -) 1 applic TP HS [facility] Last Admin: 05/10/16 21:34 Dose: 1 applic Diltiazem HCl (Cardizem Cd -) 240 mg PO DAILY [facility] Duloxetine HCl (Cymbalta -) 60 mg PO DAILY [facility] Glipizide (Glucotrol -) 5 mg PO DAILY@0700 [facility] Last Admin: 05/11/16 06:41 Dose: 5 mg Piperacillin Sod/Tazobactam Sod (Zosyn 3.375gm Ivpb (Pre-Docked)) 50 mls @ 100 mls/hr IVPB Q8H-IV [facility] Last Admin: 05/11/16 02:30 Dose: 100 mls/hr Insulin Aspart (Novolog Vial Sliding Scale -) 1 vial SQ ACHS [facility] PRN Reason: Protocol Last Admin: 05/11/16 06:33 Dose: Not Given Metoprolol Succinate (Toprol Xl -) 100 mg PO DAILY [facility] Mupirocin (Bactroban Ointment (For Decolonization) -) 1 applic NS BID [facility] Stop: 05/12/16 21:59 Last Admin: 05/10/16 21:34 Dose: 1 applic Oxycodone HCl (Roxicodone -) 5 mg PO Q4H PRN PRN Reason: PAIN Last Admin: 05/10/16 21:40 Dose: 5 mg Pregabalin (Lyrica -) 75 mg PO BID [facility] Last Admin: 05/10/16 21:31 Dose: 75 mg Sertraline HCl (Zoloft -) 100 mg PO DAILY [facility] - Objective Vital Signs: Vital Signs Temperature 98.5 F 05/11/16 06:00 Pulse Rate 98 H 05/11/16 06:00 Respiratory Rate 20 05/11/16 06:00 Blood Pressure 144/95 05/11/16 06:00 O2 Sat by Pulse Oximetry (%) 98 05/11/16 07:43 Constitutional: Yes: Well Nourished, No Distress Neck: Yes: WNL, Supple Cardiovascular: Yes: S1, S2 Respiratory: Yes: WNL, Regular, CTA Bilaterally Gastrointestinal: Yes: WNL, Normal Bowel Sounds, Soft. No: Tenderness, Tenderness, Rebound Edema: No Labs: CBC, BMP 05/11/16 05:27 05/11/16 05:27 INR, PTT INR 1.34 (0.82-1.09) H 05/11/16 05:27 Assessment/Plan Microbiology 05/07/16 12:45 Urine - Urine Clean Catch Urine Culture - Final Proteus Mirabilis 05/07/16 13:00 Blood - Peripheral Venous Blood Culture - Preliminary NO GROWTH OBTAINED AFTER 72 HOURS, INCUBATION TO CONTINUE FOR 2 DAYS. 05/07/16 13:00 Blood - Peripheral Venous Blood Culture - Preliminary NO GROWTH OBTAINED AFTER 72 HOURS, INCUBATION TO CONTINUE FOR 2 DAYS. Laboratory Tests 05/07/16 05/07/16 05/07/16 12:45 12:45 15:05 WBC 28.8 H Hgb Plt Count Anion Gap BUN Creatinine Creat Clearance w eGFR Lactic Acid 3.691 H* 3.303 H* 05/07/16 05/11/16 05/11/16 21:00 05:27 05:27 WBC 11.9 H Hgb 10.3 L Plt Count 187 Anion Gap 12 BUN 10 Creatinine 0.6 L Creat Clearance w eGFR > 60 Lactic Acid 1.560 Assessment Proteus UTI ? prostatitis pansensitive Does not require Zosyn Plan Continue Cefazolin in place of Zosyn "deescalate" Could switch to Sue Reyez MD
--- NOTE | 2016-05-11 08:22 | PN ---
Progress Note, Physician History of Present Illness: patient seen and examined in good spirits no complaints - Current Medication List Current Medications: Active Medications Apixaban (Eliquis -) 5 mg PO BID [facility] Last Admin: 05/10/16 21:32 Dose: 5 mg Chlorhexidine Gluconate (Hibiclens For Decolonization -) 1 applic TP HS [facility] Last Admin: 05/10/16 21:34 Dose: 1 applic Diltiazem HCl (Cardizem Cd -) 240 mg PO DAILY [facility] Duloxetine HCl (Cymbalta -) 60 mg PO DAILY [facility] Glipizide (Glucotrol -) 5 mg PO DAILY@0700 [facility] Last Admin: 05/11/16 06:41 Dose: 5 mg Cefazolin Sodium (Ancef 1 Gm Premixed Ivpb -) 50 mls @ 100 mls/hr IVPB Q8H-IV [facility] Cefazolin Sodium 1 gm/ (Dextrose) 50 mls @ 100 mls/hr IVPB Q8H-IV [facility] Insulin Aspart (Novolog Vial Sliding Scale -) 1 vial SQ ACHS [facility] PRN Reason: Protocol Last Admin: 05/11/16 06:33 Dose: Not Given Metoprolol Succinate (Toprol Xl -) 100 mg PO DAILY [facility] Mupirocin (Bactroban Ointment (For Decolonization) -) 1 applic NS BID [facility] Stop: 05/12/16 21:59 Last Admin: 05/10/16 21:34 Dose: 1 applic Oxycodone HCl (Roxicodone -) 5 mg PO Q4H PRN PRN Reason: PAIN Last Admin: 05/10/16 21:40 Dose: 5 mg Potassium Chloride (K-Dur -) 40 meq PO ONCE ONE Stop: 05/11/16 08:21 Pregabalin (Lyrica -) 75 mg PO BID [facility] Last Admin: 05/10/16 21:31 Dose: 75 mg Sertraline HCl (Zoloft -) 100 mg PO DAILY [facility] - Objective Vital Signs: Vital Signs Temperature 98.5 F 05/11/16 06:00 Pulse Rate 98 H 05/11/16 06:00 Respiratory Rate 20 05/11/16 06:00 Blood Pressure 144/95 05/11/16 06:00 O2 Sat by Pulse Oximetry (%) 98 05/11/16 07:43 Constitutional: Yes: Well Nourished, No Distress HENT: Yes: Atraumatic Neck: Yes: Supple Cardiovascular: Yes: Pulse Irregular Respiratory: Yes: CTA Bilaterally Gastrointestinal: Yes: WNL, Normal Bowel Sounds, Soft Genitourinary: Yes: Vasquez Present Neurological: Yes: WNL, Alert, Oriented (only to self) Labs: CBC, BMP 05/11/16 05:27 05/11/16 05:27 INR, PTT INR 1.34 (0.82-1.09) H 05/11/16 05:27 Assessment/Plan sepsis secondary to UTI presented with hematuria. Hematuria resolved Discontinue Zosyn on cefazolin per ID can have keflex ID consult appreciated monitor I/O clinically improving cultures noted on nasal cannula with PRN rescue BiPAP PRN Afib-currently rate controlled continue cardizem continue metoprolol restart eliquis HTN: required labetelol IVP overnight for hypertension will monitor continue current med Diabetes ISS hold home oral hypoglycemic Diabetic diet Psych: no issues for now continue zoloft continue cymbalta outpt follow up Spinal stenosis-he is a chronic pain patient continue lyrica oxycodone PRN FEN: stop IVF replete K+ for hypokalemia diabetic diet PPx: On Eliquis No GI PPx needed PT consult/wheel chair bound transfer to floor
[2016-05-11] MEDS ORDERED: POTASSIUM CHLORIDE TABS 20 MEQ TABLET.ER (FP) PO ONE (09:00)
[2016-05-11] MEDS: MUPIROCIN 2% TOPICAL OINTMENT FOR DECOLONIZATION NS SCH ×2 (09:15→21:49)
[2016-05-11] MEDS: APIXABAN 5 MG TABLET PO SCH ×2 (09:16→21:48)
[2016-05-11] MEDS: PREGABALIN 75 MG CAPSULE PO SCH ×2 (09:16→21:48)
[2016-05-11] MEDS ORDERED: METOPROLOL SUCCINATE 100 MG TAB.SR.24H (FP) PO SCH (10:00)
[2016-05-11] MEDS ORDERED: DULoxetine HCL 30 MG CAPSULE.DR (FP) PO SCH (10:00)
[2016-05-11] MEDS ORDERED: SERTRALINE HCL 50 MG TABLET (FP) PO SCH (10:00)
[2016-05-11] MEDS ORDERED: CEFAZOLIN 1 GM/D5W 50 ML IVPB SCH (10:00)
[2016-05-11] MEDS ORDERED: CEFAZOLIN 1 GM in DEXTROSE 5%-WATER - 50 ML IVPB SCH (10:00)
[2016-05-11] MEDS: HYDROCHLOROTHIAZIDE 12.5 MG CAPSULE (FP) PO SCH (14:23)
--- NOTE | 2016-05-11 15:06 | PN ---
Teaching Attending Note Name of Resident: Pedro Pablo Mcduffie ATTENDING PHYSICIAN STATEMENT I saw and evaluated the patient. I reviewed the resident's note and discussed the case with the resident. I agree with the resident's findings and plan as documented. SUBJECTIVE: Pt seen and examined in the ICU. No fevers recorded. OBJECTIVE: Last Vital Signs Temp Pulse Resp BP Pulse Ox 99.0 F 87 20 156/80 98 05/11/16 14:15 05/11/16 14:15 05/11/16 14:15 05/11/16 14:15 05/11/16 12:16 Intake & Output 05/08/16 05/09/16 05/10/16 05/11/16 23:59 23:59 23:59 23:59 Intake Total 2870 2840 2480 580 Output Total 2500 2000 1600 1800 Balance 370 840 880 -1220 Weight 224 lb 6.889 oz 227 lb 1.218 oz 229 lb 4.492 oz Gen: NAD at rest Heart: RRR Lung: decreased breath sounds at the bases Abd: soft, nontender Ext: no edema CBC, BMP 05/11/16 05:27 05/11/16 05:27 Active Medications Apixaban (Eliquis -) 5 mg PO BID [facility] Last Admin: 05/11/16 09:16 Dose: 5 mg Chlorhexidine Gluconate (Hibiclens For Decolonization -) 1 applic TP HS [facility] Last Admin: 05/10/16 21:34 Dose: 1 applic Diltiazem HCl (Cardizem Cd -) 240 mg PO DAILY [facility] Last Admin: 05/11/16 09:15 Dose: 240 mg Duloxetine HCl (Cymbalta -) 60 mg PO DAILY [facility] Last Admin: 05/11/16 09:15 Dose: 60 mg Glipizide (Glucotrol -) 5 mg PO DAILY@0700 [facility] Last Admin: 05/11/16 06:41 Dose: 5 mg Hydrochlorothiazide (Hctz -) 12.5 mg PO DAILY [facility] Last Admin: 05/11/16 14:23 Dose: 12.5 mg Cefazolin Sodium (Ancef 1 Gm Premixed Ivpb -) 50 mls @ 100 mls/hr IVPB Q8H-IV [facility] Last Admin: 05/11/16 09:15 Dose: 100 mls/hr Insulin Aspart (Novolog Vial Sliding Scale -) 1 vial SQ ACHS [facility] PRN Reason: Protocol Last Admin: 05/11/16 11:13 Dose: 4 units Metoprolol Succinate (Toprol Xl -) 100 mg PO DAILY [facility] Last Admin: 05/11/16 09:16 Dose: 100 mg Mupirocin (Bactroban Ointment (For Decolonization) -) 1 applic NS BID [facility] Stop: 05/12/16 21:59 Last Admin: 05/11/16 09:15 Dose: 1 applic Oxycodone HCl (Roxicodone -) 5 mg PO Q4H PRN PRN Reason: PAIN Last Admin: 05/10/16 21:40 Dose: 5 mg Pregabalin (Lyrica -) 75 mg PO BID [facility] Last Admin: 05/11/16 09:16 Dose: 75 mg Sertraline HCl (Zoloft -) 100 mg PO DAILY [facility] Last Admin: 05/11/16 09:16 Dose: 100 mg ASSESSMENT AND PLAN: UTI Severe Sepsis improved Acute Kidney Injury improving Lactic Acidosis resolved Atrial Fibrillation CAD HTN Hyperlipidemia DM Dementia - continue antibiotics - rate controlled on metoprolol, cardizem - continue anticoagulation - PO as tolerated - can monitor on floor
[2016-05-11] MEDS ORDERED: MAGNESIUM OXIDE 400 MG TABLET (FP) PO ONE (15:40)
[2016-05-11] MEDS: CEFAZOLIN 1 GM/D5W 50 ML IVPB SCH (17:09)
--- NOTE | 2016-05-11 19:06 | PN ---
Physical Exam: SUBJECTIVE: Patient seen and examined. No complaints. Hematuria has improved - plan to discontinue cloud tonight. BP elevated overnight - received IV labetalol and HCTZ has been started OBJECTIVE: Vital Signs Period Temp Pulse Resp BP Sys/Calvert Pulse Ox Last 24 Hr 98 F-99.0 F 77-101 18-22 144-187/80-109 96-98 GENERAL: NAD, pleasant, interactive, off NC, wearing C-collar (for comfort) LUNGS: Breath sounds equal, CTAB HEART: irregular ABDOMEN: Soft, obese, diffuse tenderness to palpation, not distended, normoactive bowel sounds MUSCULOSKELETAL: Normal range of motion at all joints. No bony deformities or tenderness. No CVA tenderness. LOWER EXTREMITIES: warm, well perfused, UE with bilateral swelling of hands ( mild) NEUROLOGICAL: Patient has Dementia, at baseline wheelchair bound PSYCHIATRIC: Cooperative Laboratory Results - last 24 hr 05/10/16 05/10/16 05/10/16 11:30 16:56 21:52 WBC RBC Hgb Hct MCV MCHC RDW Plt Count MPV INR PTT (Actin FS) Sodium Potassium Chloride Carbon Dioxide Anion Gap BUN Creatinine Creat Clearance w eGFR POC Glucometer 210.74772 153.91334 105.10795 Random Glucose Calcium Phosphorus Magnesium Total Bilirubin AST ALT Alkaline Phosphatase Total Protein Albumin 05/11/16 05/11/16 05/11/16 05:27 05:27 05:27 WBC 11.9 H RBC 3.50 L Hgb 10.3 L Hct 32.5 L MCV 92.8 MCHC 31.7 L RDW 14.7 Plt Count 187 MPV 11.0 INR 1.34 H PTT (Actin FS) 30.0 Sodium 141 Potassium 3.3 L Chloride 103 Carbon Dioxide 26 Anion Gap 12 BUN 10 Creatinine 0.6 L Creat Clearance w eGFR > 60 POC Glucometer Random Glucose 91 D Calcium 8.4 L Phosphorus 2.7 Magnesium 1.6 L Total Bilirubin 1.1 H D AST 42 H ALT 46 Alkaline Phosphatase 71 Total Protein 6.1 L Albumin 2.8 L 05/11/16 05/11/16 05/11/16 06:32 10:36 14:44 WBC RBC Hgb Hct MCV MCHC RDW Plt Count MPV INR PTT (Actin FS) Sodium Potassium Chloride Carbon Dioxide Anion Gap BUN Creatinine Creat Clearance w eGFR POC Glucometer 123.03977 202.51292 155.97490 Random Glucose Calcium Phosphorus Magnesium Total Bilirubin AST ALT Alkaline Phosphatase Total Protein Albumin 05/11/16 16:17 WBC RBC Hgb Hct MCV MCHC RDW Plt Count MPV INR PTT (Actin FS) Sodium Potassium Chloride Carbon Dioxide Anion Gap BUN Creatinine Creat Clearance w eGFR POC Glucometer 141.08969 Random Glucose Calcium Phosphorus Magnesium Total Bilirubin AST ALT Alkaline Phosphatase Total Protein Albumin Active Medications Generic Name Dose Route Start Last Admin Trade Name Freq PRN Reason Stop Dose Admin Apixaban 5 mg 05/11/16 22:00 Eliquis - PO BID JOANNA Chlorhexidine Gluconate 1 applic 05/11/16 22:00 Hibiclens For Decolonization - TP HS JOANNA Diltiazem HCl 240 mg 05/12/16 10:00 Cardizem Cd - PO DAILY JOANNA Duloxetine HCl 60 mg 05/12/16 10:00 Cymbalta - PO DAILY JOANNA Glipizide 5 mg 05/12/16 07:00 Glucotrol - PO DAILY@0700 JOANNA Hydrochlorothiazide 12.5 mg 05/11/16 14:30 05/11/16 14:23 Hctz - PO 12.5 mg DAILY JOANNA Administration Cefazolin Sodium 50 mls @ 100 mls/hr 05/11/16 18:00 05/11/16 17:09 Ancef 1 Gm Premixed Ivpb - IVPB 100 mls/hr Q8H-IV JOANNA Administration Insulin Aspart 1 vial 05/11/16 16:30 05/11/16 16:22 Novolog Vial Sliding Scale - SQ Not Given ACHS [facility] Protocol Metoprolol Succinate 100 mg 05/12/16 10:00 Toprol Xl - PO DAILY JOANNA Mupirocin 1 applic 05/11/16 22:00 Bactroban Ointment (For Decolonization) - NS 05/12/16 21:59 BID JOANNA Oxycodone HCl 5 mg 05/11/16 15:21 Roxicodone - PO Q4H PRN PAIN Pregabalin 75 mg 05/11/16 22:00 Lyrica - PO BID JOANNA Sertraline HCl 100 mg 05/12/16 10:00 Zoloft - PO DAILY [facility] ASSESSMENT/PLAN: #Sepsis due to UTI - improved -Urine culture with proteus mirabilis, WBC significantly improved from admission. Afebrile -initially on Zosyn and transitioned to Cefazolin - transition to PO -wheelchair bound at bedside, but PT as tolerated -cloud discontinued tonight, monitor for retention -C. diff negative #Afib, HTN- on cardizem/metoprolol HCTZ started for better BP control -on eliquis #Diabetes - ISS, - restarted glipizide at low dose (on glipizide 10mg qAM and 5mg qPM) -diabetic diet #Depression/Psych -cont Zoloft, cymbalta #h/o baseline dementia #Spinal stenosis -continue lyrica, started oxycodone prn for generalized pain/spinal stenosis -wheelchair bound DISPO: can stepdown. Start d/c planning - needs BP controlled and switch to PO CODE STATUS: DNR, but pt OK with intubation Visit type - Emergency Visit Emergency Visit: Yes ED Registration Date: 05/07/16 Care time: The patient presented to the Emergency Department on the above date and was hospitalized for further evaluation of their emergent condition. - New Patient This patient is new to me today: No - Critical Care Critical Care patient: No
[2016-05-11] MEDS: oxyCODONE HCL 5 MG TABLET PO PRN (21:48)
[2016-05-11] MEDS: CHLORHEXIDINE GLUCONATE 4% CLEANSER FOR DECOLONIZATION TP SCH (21:49)
[2016-05-11] MEDS ORDERED: LABETALOL HCL 5 MG/1 ML (100MG/20 ML VIAL) IVPUSH ONE (22:06)
[2016-05-12] MEDS ORDERED: METOPROLOL TARTRATE 25 MG TABLET (FP) PO ONE (00:21)
[2016-05-12] MEDS ORDERED: METOPROLOL SUCCINATE 25 MG TAB.SR.24H (FP) ONE (02:34)
[2016-05-12] MEDS: CEFAZOLIN 1 GM/D5W 50 ML IVPB SCH (02:35)
[2016-05-12] MEDS ORDERED: LABETALOL HCL 5 MG/1 ML (100MG/20 ML VIAL) IVPUSH ONE (04:54)
[2016-05-12] MEDS: INSULIN SLIDING SCALE (NOVOLOG) 1 VIAL SQ SCH ×4 (06:19→22:07)
[2016-05-12 06:28] LABS: MCH 29.6 pg (25.7-33.7); MCHC 32.5 g/dl (32.0-35.9); MEAN CELL VOLUME 91.2 fl (80-96); MEAN PLT VOLUME 10.4 fl (7.5-11.1); PLATELET COUNT 201 K/MM3 (134-434); RDW 14.3 % (11.9-15.9)
[2016-05-12] MEDS ORDERED: PT OWN MED DRAWER 7, Y5N ONE (06:29)
[2016-05-12] MEDS: glipiZIDE 5 MG TABLET (FP) PO SCH (06:46)
[2016-05-12 06:52] LABS: CALCIUM 8.6 mg/dL (8.5-10.1); MAGNESIUM 1.9 mg/dL (1.8-2.4)
[2016-05-12 06:54] LABS: CREATININE 0.7 mg/dL (0.7-1.3); PHOSPHOROUS 3.3 mg/dL (2.5-4.9)
--- NOTE | 2016-05-12 07:45 | PN ---
Progress Note, Physician Chief Complaint: ID Remains stable on Cefazolin NO fevers - Current Medication List Current Medications: Active Medications Apixaban (Eliquis -) 5 mg PO BID [facility] Last Admin: 05/11/16 21:48 Dose: 5 mg Chlorhexidine Gluconate (Hibiclens For Decolonization -) 1 applic TP HS [facility] Last Admin: 05/11/16 21:49 Dose: 1 applic Diltiazem HCl (Cardizem Cd -) 240 mg PO DAILY [facility] Duloxetine HCl (Cymbalta -) 60 mg PO DAILY [facility] Glipizide (Glucotrol -) 5 mg PO DAILY@0700 [facility] Last Admin: 05/12/16 06:46 Dose: 5 mg Hydrochlorothiazide (Hctz -) 12.5 mg PO DAILY [facility] Last Admin: 05/11/16 14:23 Dose: 12.5 mg Cefazolin Sodium (Ancef 1 Gm Premixed Ivpb -) 50 mls @ 100 mls/hr IVPB Q8H-IV [facility] Last Admin: 05/12/16 02:35 Dose: 100 mls/hr Insulin Aspart (Novolog Vial Sliding Scale -) 1 vial SQ ACHS [facility] PRN Reason: Protocol Last Admin: 05/12/16 06:19 Dose: Not Given Metoprolol Succinate (Toprol Xl -) 100 mg PO DAILY [facility] Mupirocin (Bactroban Ointment (For Decolonization) -) 1 applic NS BID [facility] Stop: 05/12/16 21:59 Last Admin: 05/11/16 21:49 Dose: 1 applic Oxycodone HCl (Roxicodone -) 5 mg PO Q4H PRN PRN Reason: PAIN Last Admin: 05/11/16 21:48 Dose: 5 mg Pregabalin (Lyrica -) 75 mg PO BID [facility] Last Admin: 05/11/16 21:48 Dose: 75 mg Sertraline HCl (Zoloft -) 100 mg PO DAILY [facility] - Objective Vital Signs: Vital Signs Temperature 98 F 05/12/16 06:00 Pulse Rate 81 05/12/16 06:00 Respiratory Rate 18 05/12/16 06:00 Blood Pressure 165/73 05/12/16 06:00 O2 Sat by Pulse Oximetry (%) 98 05/11/16 20:08 Constitutional: Yes: Well Nourished, No Distress HENT: Yes: WNL, Atraumatic Neck: Yes: WNL, Supple Cardiovascular: Yes: Regular Rate and Rhythm, S1, S2 Respiratory: Yes: WNL, Regular, CTA Bilaterally Gastrointestinal: Yes: WNL, Normal Bowel Sounds, Soft. No: Tenderness Edema: Yes (swelling hands) Labs: CBC, BMP 05/12/16 05:20 05/12/16 05:20 INR, PTT INR 1.34 (0.82-1.09) H 05/11/16 05:27 Assessment/Plan Microbiology 05/10/16 23:00 Stool Clostridium difficile Antigen (ALCON) - Final 05/10/16 23:00 Stool Clostridium difficile Toxin Assay - Final 05/07/16 13:00 Nasopharyngeal Swab Influenza Types A,B Antigen (ALCON) - Final 05/07/16 13:00 Nasopharyngeal Swab - Final 05/07/16 12:45 Urine - Urine Clean Catch Urine Culture - Final Proteus Mirabilis 05/07/16 13:00 Nasopharyngeal Swab Respiratory Virus Panel - Preliminary 05/07/16 13:00 Blood - Peripheral Venous Blood Culture - Preliminary NO GROWTH OBTAINED AFTER 96 HOURS, INCUBATION TO CONTINUE FOR 1 DAYS. 05/07/16 13:00 Blood - Peripheral Venous Blood Culture - Preliminary NO GROWTH OBTAINED AFTER 96 HOURS, INCUBATION TO CONTINUE FOR 1 DAYS. Laboratory Tests 05/12/16 05/12/16 05:20 05:20 WBC 12.0 H Hgb 11.1 L Hct 34.1 L Plt Count 201 BUN 8 Creatinine 0.7 Assessment Proteus urinary infection stable Plan Substitute Keflex 500mg tid 7 days Dereje TEE
[2016-05-12] MEDS: MUPIROCIN 2% TOPICAL OINTMENT FOR DECOLONIZATION NS SCH (09:41)
[2016-05-12] MEDS: SERTRALINE HCL 50 MG TABLET (FP) PO SCH (09:46)
[2016-05-12] MEDS: METOPROLOL SUCCINATE 100 MG TAB.SR.24H (FP) PO SCH (09:47)
[2016-05-12] MEDS: DULoxetine HCL 30 MG CAPSULE.DR (FP) PO SCH (09:48)
[2016-05-12] MEDS: APIXABAN 5 MG TABLET PO SCH (09:48)
[2016-05-12] MEDS: HYDROCHLOROTHIAZIDE 12.5 MG CAPSULE (FP) PO SCH (09:49)
[2016-05-12] MEDS: PREGABALIN 75 MG CAPSULE PO SCH ×2 (09:49→22:08)
[2016-05-12] MEDS: oxyCODONE HCL 5 MG TABLET PO PRN (09:50)
--- NOTE | 2016-05-12 12:12 | PN ---
Progress Note, Physician History of Present Illness: patient seen and examined in good spirits feels "exhausted" - Current Medication List Current Medications: Active Medications Apixaban (Eliquis -) 5 mg PO BID [facility] Last Admin: 05/12/16 09:48 Dose: 5 mg Cephalexin HCl (Keflex -) 500 mg PO TID [facility] Chlorhexidine Gluconate (Hibiclens For Decolonization -) 1 applic TP HS [facility] Last Admin: 05/11/16 21:49 Dose: 1 applic Diltiazem HCl (Cardizem Cd -) 240 mg PO DAILY [facility] Last Admin: 05/12/16 09:47 Dose: 240 mg Duloxetine HCl (Cymbalta -) 60 mg PO DAILY [facility] Last Admin: 05/12/16 09:48 Dose: 60 mg Glipizide (Glucotrol -) 5 mg PO DAILY@0700 [facility] Last Admin: 05/12/16 06:46 Dose: 5 mg Hydrochlorothiazide (Hctz -) 12.5 mg PO DAILY [facility] Last Admin: 05/12/16 09:49 Dose: 12.5 mg Insulin Aspart (Novolog Vial Sliding Scale -) 1 vial SQ ACHS [facility] PRN Reason: Protocol Last Admin: 05/12/16 11:43 Dose: Not Given Metoprolol Succinate (Toprol Xl -) 100 mg PO DAILY [facility] Last Admin: 05/12/16 09:47 Dose: 100 mg Mupirocin (Bactroban Ointment (For Decolonization) -) 1 applic NS BID [facility] Stop: 05/12/16 21:59 Last Admin: 05/12/16 09:41 Dose: 1 applic Oxycodone HCl (Roxicodone -) 5 mg PO Q4H PRN PRN Reason: PAIN Last Admin: 05/12/16 09:50 Dose: 5 mg Pregabalin (Lyrica -) 75 mg PO BID [facility] Last Admin: 05/12/16 09:49 Dose: 75 mg Sertraline HCl (Zoloft -) 100 mg PO DAILY [facility] Last Admin: 05/12/16 09:46 Dose: 100 mg - Objective Vital Signs: Vital Signs Temperature 98.4 F 05/12/16 10:00 Pulse Rate 97 H 05/12/16 10:00 Respiratory Rate 15 05/12/16 10:00 Blood Pressure 168/82 05/12/16 10:00 O2 Sat by Pulse Oximetry (%) 96 05/12/16 10:00 Constitutional: Yes: Well Nourished, No Distress HENT: Yes: Atraumatic Neck: Yes: Supple Cardiovascular: Yes: Pulse Irregular Respiratory: Yes: CTA Bilaterally Gastrointestinal: Yes: WNL, Normal Bowel Sounds, Soft Genitourinary: Yes: Vasquez Present Neurological: Yes: WNL, Alert, Oriented (only to self) Labs: CBC, BMP 05/12/16 05:20 05/12/16 05:20 INR, PTT INR 1.34 (0.82-1.09) H 05/11/16 05:27 Assessment/Plan sepsis secondary to UTI presented with hematuria. Hematuria resolved off Zosyn stop cefazolin per ID keflex TID for 7 days ID consult appreciated monitor I/O clinically improving cultures noted on nasal cannula with PRN rescue BiPAP PRN Afib-currently rate controlled continue cardizem continue metoprolol continue eliquis HTN: stable will monitor continue current med Diabetes ISS hold home oral hypoglycemic Diabetic diet Psych: no issues for now continue zoloft continue cymbalta outpt follow up Spinal stenosis-he is a chronic pain patient continue lyrica oxycodone PRN FEN: no IVF hypokalemia resolved diabetic diet PPx: On Eliquis No GI PPx needed PT consult May need SNF vs d/c home transfer to floor
[2016-05-12] MEDS ORDERED: oxyCODONE HCL 5 MG TABLET PO SCH (13:15)
--- NOTE | 2016-05-12 13:26 | PN ---
Physical Exam: SUBJECTIVE: Patient seen and examined. Pt noted with pain on movement and repositioning, moans, calls out. No other complaints. Nurse reports hematuria, approx 60cc in diaper noted around 8am. Overall minimal urine output noted on diaper since removal of cloud at 2am. Aid also reports minimal oral intake. OBJECTIVE: Vital Signs - 24 hr 3 05/11/16 05/11/16 05/11/16 13:29 14:15 16:00 Temperature 99.0 F Pulse Rate 80 87 77 Respiratory 20 20 20 Rate Blood Pressure 164/97 156/80 152/92 O2 Sat by Pulse Oximetry (%) 3 05/11/16 05/11/16 05/11/16 16:01 18:00 18:57 Temperature 98.4 F Pulse Rate 77 Respiratory 20 Rate Blood Pressure 168/88 O2 Sat by Pulse 98 96 Oximetry (%) 3 05/11/16 05/11/16 05/11/16 20:00 20:08 22:00 Temperature 98 F Pulse Rate 85 94 H Respiratory 18 20 22 Rate Blood Pressure 156/101 179/111 O2 Sat by Pulse 98 Oximetry (%) 3 05/12/16 05/12/16 05/12/16 00:00 02:00 04:00 Temperature 98.5 F Pulse Rate 97 H 86 80 Respiratory 18 18 20 Rate Blood Pressure 162/95 164/102 175/84 O2 Sat by Pulse Oximetry (%) 3 05/12/16 05/12/16 05/12/16 06:00 08:00 09:00 Temperature 98 F Pulse Rate 81 80 Respiratory 18 18 Rate Blood Pressure 165/73 161/81 O2 Sat by Pulse 94 L Oximetry (%) 3 05/12/16 10:00 Temperature 98.4 F Pulse Rate 97 H Respiratory 15 Rate Blood Pressure 168/82 O2 Sat by Pulse 96 Oximetry (%) GENERAL: The patient is awake, alert, and oriented to person only, in no acute distress. HEAD: Normal with no signs of trauma. EYES: PERRL, extraocular movements intact, sclera anicteric, conjunctiva clear. No ptosis. ENT: Ears normal, nares patent, oropharynx clear without exudates, dry mucous membranes. NECK: Trachea midline, full range of motion, supple. LUNGS: Breath sounds equal, clear to auscultation bilaterally, no wheezes, no crackles, no accessory muscle use. HEART: Regular rate and rhythm, S1, S2 without murmur, rub or gallop. ABDOMEN: Soft, nontender, nondistended, normoactive bowel sounds, no guarding, no rebound, no hepatosplenomegaly, no masses. EXTREMITIES: 2+ pulses, warm, well-perfused, no edema. NEUROLOGICAL: Cranial nerves II through XII grossly intact. Normal speech, gait not observed. PSYCH: Normal mood, normal affect. SKIN: Warm, dry, normal turgor, no rashes or lesions noted Laboratory Results - last 24 hr 3 05/11/16 05/11/16 05/11/16 14:44 16:17 22:25 WBC RBC Hgb Hct MCV MCHC RDW Plt Count MPV Sodium Potassium Chloride Carbon Dioxide Anion Gap BUN Creatinine POC Glucometer 155.52595 141.99748 162.98313 Random Glucose Calcium Phosphorus Magnesium 3 05/12/16 05/12/16 05/12/16 05:20 05:20 06:10 WBC 12.0 H RBC 3.73 L Hgb 11.1 L Hct 34.1 L MCV 91.2 MCHC 32.5 RDW 14.3 Plt Count 201 MPV 10.4 Sodium 138 Potassium 4.1 D Chloride 98 Carbon Dioxide 31 Anion Gap 9 BUN 8 Creatinine 0.7 POC Glucometer 147.06570 Random Glucose 136 H D Calcium 8.6 Phosphorus 3.3 D Magnesium 1.9 Active Medications 3 Generic Name Dose Route Start Last Admin Trade Name Freq PRN Reason Stop Dose Admin Acetaminophen 1,000 mg 05/12/16 13:15 Tylenol - PO Q8H JOANNA Cephalexin HCl 500 mg 05/12/16 14:00 Keflex - PO TID JOANNA Chlorhexidine Gluconate 1 applic 05/11/16 22:00 05/11/16 21:49 Hibiclens For Decolonization - TP 1 applic HS JOANNA Administration Diltiazem HCl 240 mg 05/12/16 10:00 05/12/16 09:47 Cardizem Cd - PO 240 mg DAILY JOANNA Administration Duloxetine HCl 60 mg 05/12/16 10:00 05/12/16 09:48 Cymbalta - PO 60 mg DAILY JOANNA Administration Glipizide 5 mg 05/12/16 07:00 05/12/16 06:46 Glucotrol - PO 5 mg DAILY@0700 JONANA Administration Hydrochlorothiazide .5 mg 05/11/16 14:30 05/12/16 09:49 Hctz - PO 12.5 mg DAILY JOANNA Administration Insulin Aspart 1 vial 05/11/16 16:30 05/12/16 11:43 Novolog Vial Sliding Scale - SQ Not Given ACHS [facility] Protocol Metoprolol Succinate 100 mg 05/12/16 10:00 05/12/16 09:47 Toprol Xl - PO 100 mg DAILY JOANNA Administration Mupirocin 1 applic 05/11/16 22:00 05/12/16 09:41 Bactroban Ointment (For Decolonization) - NS 05/12/16 21:59 1 applic BID JOANNA Administration Oxycodone HCl 5 mg 05/11/16 15:21 05/12/16 09:50 Roxicodone - PO 5 mg Q4H PRN Administration PAIN Pregabalin 75 mg 05/11/16 22:00 05/12/16 09:49 Lyrica - PO 75 mg BID JOANNA Administration Sertraline HCl 100 mg 05/12/16 10:00 05/12/16 09:46 Zoloft - PO 100 mg DAILY JOANNA Administration ASSESSMENT/PLAN: 75yM with a PMHx of: Dementia, Afib (on Eliquis), Severe Spinal Stenosis with Myelopathy, (mostly wheelchair bound), CAD (stents x6), HTN, HLD, GERD presents to the ED with fever, hematuria, and increased AMS. Admitted to ICU for Urosepsis, Hematuria, Afib with RVR, and Fever for further evaluation of his emergent medical condition. Sepsis due to UTI - fever resolved, WBC improved, OK to change to keflex po per ID. hematuria and urinary retention - hematuria recurred, restarted on eliquis last night. Eliquis back on hold - FC removed at 2AM. only minimal urine output in diaper, bladder scan done, 400cc in bladder. - reinsert FC - urology consult - start tamsulosin Afib with RVR/HTN - on cardizem/metoprolol, HR 80s-90s - BP elevated, add 50mg toprol at bedtime in addition to 100mg QAM, monitor HR - eliquis on hold due to hematuria Diabetes - restarted on home glipizide, monitor blood glucose - cont ISS Depression/Psych - cont home cymbalta and zoloft GERD - cont home pantoprazole Spinal stenosis - chronic pain. Daughter reports they have mostly weaned him off vicodin at home due to mental status, mostly only use tylenol and motrin. Tylenol ordered 1g Q8H, defer motrin due to bleeding, cont oxycodone PRN. DVT PPX - eliquis on hold due to hematuria FEN - start NS @ 75cc/hr, pt appears hypovolemic with poor po intake - lytes ok, Repeat BMP tomorrow - low sodium diabetic diet as tolerated Dispo: Pt may be transferred to medical floor. CODE STATUS: DNR Visit type - Emergency Visit Emergency Visit: Yes ED Registration Date: 05/07/16 Care time: The patient presented to the Emergency Department on the above date and was hospitalized for further evaluation of their emergent condition. - New Patient This patient is new to me today: Yes Date on this admission: 05/13/16 - Critical Care Critical Care patient: No - Discharge Referral Referred to [facility] Med P.C.: No
[2016-05-12] MEDS ORDERED: TAMSULOSIN HCL 0.4 MG CAP.ER.24H (FP) PO ONE (13:48)
[2016-05-12] MEDS: CEPHALEXIN MONOHYDRATE 500 MG CAPSULE (UD) PO SCH ×2 (15:08→22:08)
[2016-05-12] MEDS: SODIUM CHLORIDE 1,000 ML IV SCH (15:08)
[2016-05-12] MEDS: ACETAMINOPHEN 500 MG TABLET (FP) PO SCH ×2 (15:09→22:00)
--- NOTE | 2016-05-12 15:11 | PN ---
Teaching Attending Note Name of Resident: Pedro Pablo Mcduffie ATTENDING PHYSICIAN STATEMENT I saw and evaluated the patient. I reviewed the resident's note and discussed the case with the resident. I agree with the resident's findings and plan as documented. SUBJECTIVE: Patient seen and examined in the ICU. No fevers recorded. Awake and alert. Some dry cough. OBJECTIVE: Intake & Output 05/09/16 05/10/16 05/11/16 05/12/16 23:59 23:59 23:59 23:59 Intake Total 2840 2480 870 570 Output Total 2000 1600 2600 1200 Balance 840 880 -1730 -630 Weight 224 lb 6.889 oz 227 lb 1.218 oz 229 lb 4.492 oz 225 lb 1.471 oz Last Vital Signs Temp Pulse Resp BP Pulse Ox 98.4 F 97 H 15 168/82 96 05/12/16 10:00 05/12/16 10:00 05/12/16 10:00 05/12/16 10:00 05/12/16 10:00 Active Medications Acetaminophen (Tylenol -) 1,000 mg PO Q8H [facility] Last Admin: 05/12/16 15:09 Dose: 1,000 mg Cephalexin HCl (Keflex -) 500 mg PO TID [facility] Last Admin: 05/12/16 15:08 Dose: 500 mg Chlorhexidine Gluconate (Hibiclens For Decolonization -) 1 applic TP HS [facility] Last Admin: 05/11/16 21:49 Dose: 1 applic Diltiazem HCl (Cardizem Cd -) 240 mg PO DAILY [facility] Last Admin: 05/12/16 09:47 Dose: 240 mg Duloxetine HCl (Cymbalta -) 60 mg PO DAILY [facility] Last Admin: 05/12/16 09:48 Dose: 60 mg Glipizide (Glucotrol -) 5 mg PO DAILY@0700 [facility] Last Admin: 05/12/16 06:46 Dose: 5 mg Hydrochlorothiazide (Hctz -) 12.5 mg PO DAILY [facility] Last Admin: 05/12/16 09:49 Dose: 12.5 mg Sodium Chloride (Normal Saline -) 1,000 mls @ 75 mls/hr IV ASDIR [facility] Last Admin: 05/12/16 15:08 Dose: 75 mls/hr Insulin Aspart (Novolog Vial Sliding Scale -) 1 vial SQ ACHS [facility] PRN Reason: Protocol Last Admin: 05/12/16 11:43 Dose: Not Given Metoprolol Succinate (Toprol Xl -) 100 mg PO DAILY [facility] Last Admin: 05/12/16 09:47 Dose: 100 mg Metoprolol Succinate (Toprol Xl -) 50 mg PO HS [facility] Mupirocin (Bactroban Ointment (For Decolonization) -) 1 applic NS BID [facility] Stop: 05/12/16 21:59 Last Admin: 05/12/16 09:41 Dose: 1 applic Oxycodone HCl (Roxicodone -) 5 mg PO Q4H PRN PRN Reason: PAIN Last Admin: 05/12/16 09:50 Dose: 5 mg Pantoprazole Sodium (Protonix -) 40 mg PO BID [facility] Pregabalin (Lyrica -) 75 mg PO BID [facility] Last Admin: 05/12/16 09:49 Dose: 75 mg Sertraline HCl (Zoloft -) 100 mg PO DAILY [facility] Last Admin: 05/12/16 09:46 Dose: 100 mg Tamsulosin HCl (Flomax -) 0.4 mg PO DAILY@0830 [facility] Gen: NAD at rest Heart: RRR Lung: decreased breath sounds at the bases Abd: soft, nontender Ext: no edema Laboratory Results - last 24 hr 05/11/16 05/11/16 05/12/16 16:17 22:25 05:20 WBC 12.0 H RBC 3.73 L Hgb 11.1 L Hct 34.1 L MCV 91.2 MCHC 32.5 RDW 14.3 Plt Count 201 MPV 10.4 Sodium Potassium Chloride Carbon Dioxide Anion Gap BUN Creatinine POC Glucometer 141.91418 162.97875 Random Glucose Calcium Phosphorus Magnesium 05/12/16 05/12/16 05:20 06:10 WBC RBC Hgb Hct MCV MCHC RDW Plt Count MPV Sodium 138 Potassium 4.1 D Chloride 98 Carbon Dioxide 31 Anion Gap 9 BUN 8 Creatinine 0.7 POC Glucometer 147.99880 Random Glucose 136 H D Calcium 8.6 Phosphorus 3.3 D Magnesium 1.9 ASSESSMENT AND PLAN: UTI Severe Sepsis improved Acute Kidney Injury improving Lactic Acidosis resolved Atrial Fibrillation CAD HTN Hyperlipidemia DM Dementia - PO ABX - rate control - continue anticoagulation - PO as tolerated - can monitor on floor - PT Dr Flynn
[2016-05-12] MEDS: CHLORHEXIDINE GLUCONATE 4% CLEANSER FOR DECOLONIZATION TP SCH (22:07)
[2016-05-12] MEDS: PANTOPRAZOLE 40 MG TABLET (FP) PO SCH (22:08)
[2016-05-12] MEDS: METOPROLOL SUCCINATE 50 MG TAB.SR.24H (FP) PO SCH (22:08)
[2016-05-13] MEDS: glipiZIDE 5 MG TABLET (FP) PO SCH (06:43)
[2016-05-13] MEDS: CEPHALEXIN MONOHYDRATE 500 MG CAPSULE (UD) PO SCH ×3 (06:43→22:52)
[2016-05-13] MEDS: ACETAMINOPHEN 500 MG TABLET (FP) PO SCH ×3 (06:45→21:00)
[2016-05-13 07:39] LABS: MCH 30.2 pg (25.7-33.7); MCHC 32.8 g/dl (32.0-35.9); MEAN PLT VOLUME 10.4 fl (7.5-11.1); PLATELET COUNT 220 K/MM3 (134-434); RDW 14.1 % (11.9-15.9); WHITE BLOOD COUNT 10.3 K/mm3 (4.0-10.0)
[2016-05-13 08:19] LABS: CALCIUM 8.3 mg/dL (8.5-10.1); CREATININE 0.7 mg/dL (0.7-1.3)
--- NOTE | 2016-05-13 08:23 | PN ---
Progress Note, Physician Chief Complaint: ID Discussed with GREGORY Luna yesterday re gross hematuria NO fevers Still on Keflex - Current Medication List Current Medications: Active Medications Acetaminophen (Tylenol -) 1,000 mg PO Q8H [facility] Last Admin: 05/13/16 06:45 Dose: 1,000 mg Cephalexin HCl (Keflex -) 500 mg PO TID [facility] Last Admin: 05/13/16 06:43 Dose: 500 mg Chlorhexidine Gluconate (Hibiclens For Decolonization -) 1 applic TP [facility] Last Admin: 05/12/16 22:07 Dose: Not Given Diltiazem HCl (Cardizem Cd -) 240 mg PO DAILY [facility] Last Admin: 05/12/16 09:47 Dose: 240 mg Duloxetine HCl (Cymbalta -) 60 mg PO DAILY [facility] Last Admin: 05/12/16 09:48 Dose: 60 mg Glipizide (Glucotrol -) 5 mg PO DAILY@0700 [facility] Last Admin: 05/13/16 06:43 Dose: 5 mg Hydrochlorothiazide (Hctz -) 12.5 mg PO DAILY [facility] Last Admin: 05/12/16 09:49 Dose: 12.5 mg Sodium Chloride (Normal Saline -) 1,000 mls @ 75 mls/hr IV ASDIR [facility] Last Admin: 05/12/16 15:08 Dose: 75 mls/hr Insulin Aspart (Novolog Vial Sliding Scale -) 1 vial SQ ACHS [facility] PRN Reason: Protocol Last Admin: 05/12/16 22:07 Dose: Not Given Metoprolol Succinate (Toprol Xl -) 100 mg PO DAILY [facility] Last Admin: 05/12/16 09:47 Dose: 100 mg Metoprolol Succinate (Toprol Xl -) 50 mg PO HS [facility] Last Admin: 05/12/16 22:08 Dose: 50 mg Oxycodone HCl (Roxicodone -) 5 mg PO Q4H PRN PRN Reason: PAIN Last Admin: 05/12/16 09:50 Dose: 5 mg Pantoprazole Sodium (Protonix -) 40 mg PO BID [facility] Last Admin: 05/12/16 22:08 Dose: 40 mg Pregabalin (Lyrica -) 75 mg PO BID [facility] Last Admin: 05/12/16 22:08 Dose: 75 mg Sertraline HCl (Zoloft -) 100 mg PO DAILY [facility] Last Admin: 05/12/16 09:46 Dose: 100 mg Tamsulosin HCl (Flomax -) 0.4 mg PO DAILY@0830 [facility] - Objective Vital Signs: Vital Signs Temperature 98.4 F 05/13/16 06:56 Pulse Rate 90 05/13/16 06:56 Respiratory Rate 22 05/13/16 06:56 Blood Pressure 141/99 05/13/16 06:56 O2 Sat by Pulse Oximetry (%) 96 05/12/16 10:00 Constitutional: Yes: Well Nourished, No Distress Neck: Yes: WNL, Supple Cardiovascular: Yes: S1, S2 Respiratory: Yes: WNL, Regular, CTA Bilaterally Gastrointestinal: Yes: Soft. No: Tenderness Labs: CBC, BMP 05/13/16 06:00 INR, PTT INR 1.34 (0.82-1.09) H 05/11/16 05:27 Assessment/Plan Microbiology 05/07/16 13:00 Blood - Peripheral Venous Blood Culture - Final NO GROWTH AFTER 5 DAYS INCUBATION 05/07/16 13:00 Blood - Peripheral Venous Blood Culture - Final NO GROWTH AFTER 5 DAYS INCUBATION 05/07/16 12:45 Urine - Urine Clean Catch Urine Culture - Final Proteus Mirabilis Laboratory Tests 05/12/16 05/13/16 05:20 06:00 WBC 10.3 H Hgb 11.2 L Plt Count 220 BUN 8 Creatinine 0.7 Assessment Urinary tract infection Proteus ? prostate Sonogram normal Gross hematuria Plan Complete course antibiotic as ordererd and kindly recall as needed Dereje TEE
--- NOTE | 2016-05-13 08:33 | CONSULT ---
Consult Consult Specialty:: urology Reason for Consultation:: uti with gross hematuria - History Source History Provided By: Patient Limitations to Obtaining History: Clinical Condition - Alcohol/Substance Use Hx Alcohol Use: No - Smoking History Smoking history: Unknown if ever smoked Home Medications - Allergies Allergies/Adverse Reactions: Allergies Allergy/AdvReac Type Severity Reaction Status Date / Time buprenorphine [From Butrans] Allergy Verified 05/07/16 12:30 gabapentin [From Neurontin] Allergy Verified 05/07/16 12:30 quinine Allergy Verified 05/07/16 12:30 warfarin sodium Allergy Verified 05/07/16 12:30 [From Coumadin] - Home Medications Home Medications: Ambulatory Orders Albuterol Sulfate [Proair Respiclick] 2 sprays IH Q4H PRN 05/07/16 Apixaban [Eliquis] 5 mg PO BID 05/07/16 Atorvastatin Ca [Lipitor] 20 mg PO HS 05/07/16 Cholecalciferol (Vitamin D3) [Vitamin D3] 2,000 unit PO DAILY 05/07/16 Cyanocobalamin [Vitamin B12 -] 1,000 mcg PO DAILY 05/07/16 Diltiazem HCl [Diltiazem 24Hr Cd] 240 mg PO DAILY 05/07/16 Duloxetine HCl [Cymbalta] 60 mg PO DAILY 05/07/16 Ergocalciferol [Drisdol -] 50,000 unit PO Q7D@1000 05/07/16 Ferrous Sulfate 325 mg PO DAILY 05/07/16 Glipizide 5 mg PO HS 05/07/16 Glipizide 10 mg PO AM 05/07/16 Hydrochlorothiazide [Hctz -] 12.5 mg PO DAILY 05/07/16 Hydrocodone/Acetaminophen [Vicodin Es 7.5-300 mg Tablet] 1 each PO Q4H PRN 05/07 Ibuprofen 800 mg PO DAILY PRN 05/07/16 Metoprolol Succinate [Toprol Xl] 100 mg PO DAILY 05/07/16 Pantoprazole Sodium [Protonix] 40 mg PO BID 05/07/16 Pregabalin [Lyrica] 75 mg PO BID 05/07/16 Sertraline HCl [Zoloft -] 100 mg PO DAILY 05/07/16 Tizanidine HCl 2 mg PO BID PRN 05/07/16 Physical Exam- Vital Signs: Vital Signs Temperature 98.4 F 05/13/16 06:56 Pulse Rate 90 05/13/16 06:56 Respiratory Rate 22 05/13/16 06:56 Blood Pressure 141/99 05/13/16 06:56 O2 Sat by Pulse Oximetry (%) 96 05/12/16 10:00 Constitutional: Yes: Calm Eyes: Yes: WNL, Conjunctiva Clear, EOM Intact HENT: Yes: WNL, Atraumatic, Normocephalic Neck: Yes: WNL, Supple, Trachea Midline Gastrointestinal: Yes: WNL, Normal Bowel Sounds Renal/: Yes: WNL Kidneys: Yes: WNL Pelvis: Yes: WNL, Bladder Non Palpable Testicles: Yes: WNL Scrotum: Yes: WNL Penis: Yes: WNL Prostate Exam: Yes: Swollen (cloud catheter draining blood tinged urine) Labs: CBC, BMP 05/13/16 06:00 Imaging - Results Ultrasound: Report Reviewed (no hydro or stones) Assessment/Plan impression uti gross hematuria bph plan continue flomax and give patient a trial of voiding when medically ok complete antibiotic regimen cystoscopy as outpatient if hematuria persists
[2016-05-13] MEDS: INSULIN SLIDING SCALE (NOVOLOG) 1 VIAL SQ SCH ×4 (08:39→22:56)
[2016-05-13] MEDS: SERTRALINE HCL 50 MG TABLET (FP) PO SCH (11:00)
[2016-05-13] MEDS: METOPROLOL SUCCINATE 100 MG TAB.SR.24H (FP) PO SCH (11:00)
[2016-05-13] MEDS: PREGABALIN 75 MG CAPSULE PO SCH ×2 (11:00→22:52)
[2016-05-13] MEDS: DULoxetine HCL 30 MG CAPSULE.DR (FP) PO SCH (11:00)
[2016-05-13] MEDS: TAMSULOSIN HCL 0.4 MG CAP.ER.24H (FP) PO SCH (11:00)
[2016-05-13] MEDS: PANTOPRAZOLE 40 MG TABLET (FP) PO SCH ×2 (11:01→22:52)
[2016-05-13] MEDS: HYDROCHLOROTHIAZIDE 12.5 MG CAPSULE (FP) PO SCH (11:01)
--- NOTE | 2016-05-13 11:52 | PN ---
Physical Exam: SUBJECTIVE: Patient seen and examined Hematuria improving. Vasquez in place for urinary retention Seen by uro with recommendation for TOV when medically stable. Eliquis has been held since 05/12 Allergy to warfarin-Will start Heparin gtt for Afib and have cardio consult with pt OBJECTIVE: Vital Signs Period Temp Pulse Resp BP Sys/Calvert Pulse Ox Last 24 Hr 98.4 F-99.9 F 79-97 2-22 119-165/64-99 GENERAL: The patient is awake, alert, in no acute distress. HEAD: Normal with no signs of trauma. EYES: PERRL, extraocular movements intact, sclera anicteric, conjunctiva clear. ENT: Ears normal, nares patent, oropharynx clear without exudates, dry MM NECK: Trachea midline, supple. LUNGS: Breath sounds clear bilaterally, diminshed bibasilar, no wheezes, no crackles, no accessory muscle use. HEART: S1, S2 irreg no murmur ABDOMEN: Soft, nontender, nondistended, normoactive bowel sounds, no guarding : pink tinged urine/mild hematuria noted EXTREMITIES: pulses intact, skin warm, well-perfused, + LE edema NEUROLOGICAL: Cranial nerves II through XII grossly intact. Normal speech, gait not observed. PSYCH: Normal mood, normal affect. SKIN: Warm, dry Laboratory Results - last 24 hr 05/12/16 05/13/16 05/13/16 22:06 06:00 06:00 WBC 10.3 H RBC 3.70 L Hgb 11.2 L Hct 34.1 L MCV 92.0 MCHC 32.8 RDW 14.1 Plt Count 220 MPV 10.4 Sodium 134 L Potassium 3.5 Chloride 101 Carbon Dioxide 26 Anion Gap 7 L BUN 12 D Creatinine 0.7 POC Glucometer 149 Random Glucose 127 H Calcium 8.3 L 05/13/16 06:36 WBC RBC Hgb Hct MCV MCHC RDW Plt Count MPV Sodium Potassium Chloride Carbon Dioxide Anion Gap BUN Creatinine POC Glucometer 136 Random Glucose Calcium Active Medications Generic Name Dose Route Start Last Admin Trade Name Freq PRN Reason Stop Dose Admin Acetaminophen 1,000 mg 05/12/16 13:15 05/13/16 06:45 Tylenol - PO 1,000 mg Q8H JOANNA Administration Cephalexin HCl 500 mg 05/12/16 14:00 05/13/16 06:43 Keflex - PO 500 mg TID JOANNA Administration Diltiazem HCl 240 mg 05/12/16 10:00 05/13/16 11:00 Cardizem Cd - PO 240 mg DAILY JOANNA Administration Duloxetine HCl 60 mg 05/12/16 10:00 05/13/16 11:00 Cymbalta - PO 60 mg DAILY JOANNA Administration Glipizide 5 mg 05/12/16 07:00 05/13/16 06:43 Glucotrol - PO 5 mg DAILY@0700 JOANNA Administration Hydrochlorothiazide 12.5 mg 05/11/16 14:30 05/13/16 11:01 Hctz - PO 12.5 mg DAILY JOANNA Administration Sodium Chloride 1,000 mls @ 75 mls/hr 05/12/16 13:45 05/12/16 15:08 Normal Saline - IV 75 mls/hr ASDIR JOANNA Administration Insulin Aspart 1 vial 05/11/16 16:30 05/13/16 08:39 Novolog Vial Sliding Scale - SQ Not Given ACHS JOANNA Protocol Metoprolol Succinate 100 mg 05/12/16 10:00 05/13/16 11:00 Toprol Xl - PO 100 mg DAILY JOANNA Administration Metoprolol Succinate 50 mg 05/12/16 22:00 05/12/16 22:08 Toprol Xl - PO 50 mg HS JOANNA Administration Oxycodone HCl 5 mg 05/11/16 15:21 05/12/16 09:50 Roxicodone - PO 5 mg Q4H PRN Administration PAIN Pantoprazole Sodium 40 mg 05/12/16 22:00 05/13/16 11:01 Protonix - PO 40 mg BID JOANNA Administration Pregabalin 75 mg 05/11/16 22:00 05/13/16 11:00 Lyrica - PO 75 mg BID JOANNA Administration Sertraline HCl 100 mg 05/12/16 10:00 05/13/16 11:00 Zoloft - PO 100 mg DAILY JOANNA Administration Tamsulosin HCl 0.4 mg 05/13/16 08:30 05/13/16 11:00 Flomax - PO 0.4 mg DAILY@0830 JOANNA Administration ASSESSMENT/PLAN: 75 y/o male with PMHx of Dementia, Afib (on Eliquis), spinal stenosis with myelopathy, CAD-s/p stenting, HTN, HLD and GERD. Presented to the ED with fever , hematuria, and increased AMS. Admitted to ICU for Urosepsis, Hematuria, Afib with RVR. Stabilized and transferrred to the floor. 1 Hematuria and urinary retention: - Hematuria improved since IVF was started and eliquis placed on hold 05/12 - Uro on case-with recommendation for TOV when medically stable, continue flomax and if hematuria does not resolve may need cysto as outpatient 2 Sepsis due to UTI - fever resolved, WBC trending down (10.3) - Continue with keflex po per ID. 3 Afib with RVR; HR within acceptable limits -eliquis placed on hold due to gross hematuria on 05/12. Today hematuria has significantly improved. -Patient is a high risk for thrombo-embolic events and Heparin gtt started today. Cardio consult ordered - c/w rate control with cardizem and metoprolol 4 HTN: BP improved since toprol 50 mh added q HS - Continue with toprol 100 mg q day, Toprol 50mg Q HS, cardizem 240 mg daily and HTCZ 12.5 mg daily 5 Diabetes - Continue glipizide and ISS -monitor blood glucose 6 Depression/Psych - continue home dose of cymbalta and zoloft 7 GERD - continue with PPI 8 Chronic pain 2/2 Spinal stenosis - Per family pt use tylenol and motrin at home. -Continue with Tylenol and oxycodone PRN. 9 DVT PPX: -On heparin gtt FEN - Continue with IVF, check CBC abd CMP - Continue low sodium diabetic diet Dispo: cardio consult, monitor PTT, monitor for worsening hematuria/bleeding, TOV when stable Problem List - Problems (1) Atrial fibrillation with RVR Code(s): I48.91 - UNSPECIFIED ATRIAL FIBRILLATION (2) BPH (benign prostatic hypertrophy) Code(s): N40.0 - BENIGN PROSTATIC HYPERPLASIA WITHOUT LOWER URINRY TRACT SYMP (3) CAD (coronary artery disease) Code(s): I25.10 - ATHSCL HEART DISEASE OF [place] CORONARY ARTERY W/O ANG PCTRS (4) DVT prophylaxis Code(s): WSU3584 - (5) Dementia Code(s): F03.90 - UNSPECIFIED DEMENTIA WITHOUT BEHAVIORAL DISTURBANCE (6) Diabetes mellitus Code(s): E11.9 - TYPE 2 DIABETES MELLITUS WITHOUT COMPLICATIONS (7) Hematuria Code(s): R31.9 - HEMATURIA, UNSPECIFIED (8) Urinary retention Code(s): R33.9 - RETENTION OF URINE, UNSPECIFIED Visit type - Emergency Visit Emergency Visit: No - New Patient This patient is new to me today: Yes Date on this admission: 05/16/16 - Critical Care Critical Care patient: No
[2016-05-13] MEDS: SODIUM CHLORIDE 1,000 ML IV SCH ×2 (15:14→18:31)
[2016-05-13] MEDS ORDERED: HEPARIN NA (PORCINE) 5,000 UNITS/ML 1ML VIAL IVPUSH PRN ×2 (18:14)
[2016-05-13 20:50] LABS: INR 1.28 (0.82-1.09); PROTHROMBIN TIME (PATIENT) 14.2 SEC (9.98-11.88)
[2016-05-13] MEDS: METOPROLOL SUCCINATE 50 MG TAB.SR.24H (FP) PO SCH (22:52)
[2016-05-13] MEDS: HEPARIN - 25,000 UNIT in SODIUM CHLORIDE 495 ML IV SCH (22:52)
[2016-05-14] MEDS: ACETAMINOPHEN 500 MG TABLET (FP) PO SCH ×3 (05:00→21:52)
[2016-05-14] MEDS: CEPHALEXIN MONOHYDRATE 500 MG CAPSULE (UD) PO SCH ×3 (06:58→21:48)
[2016-05-14] MEDS: INSULIN SLIDING SCALE (NOVOLOG) 1 VIAL SQ SCH ×4 (07:01→22:17)
[2016-05-14] MEDS: glipiZIDE 5 MG TABLET (FP) PO SCH (07:02)
[2016-05-14 08:16] LABS: BASOPHIL 0.3 % (0-2.0); MCH 30.4 pg (25.7-33.7); MCHC 32.7 g/dl (32.0-35.9); MEAN PLT VOLUME 10.3 fl (7.5-11.1); PLATELET COUNT 246 K/MM3 (134-434); RDW 14.5 % (11.9-15.9); WHITE BLOOD COUNT 12.4 K/mm3 (4.0-10.0)
[2016-05-14 08:46] LABS: INR 1.2 (0.82-1.09); PROTHROMBIN TIME (PATIENT) 13.2 SEC (9.98-11.88)
[2016-05-14 08:48] LABS: ACTIVATED PTT 26.4 SECONDS (26.9-34.4)
[2016-05-14 09:11] LABS: ALBUMIN 2.8 g/dl (3.4-5.0); ANION GAP 9 (8-16); BILIRUBIN,TOTAL 0.4 mg/dL (0.2-1.0); CALCIUM 8.4 mg/dL (8.5-10.1); CO2 26 mmol/L (21-32); CREATININE 0.6 mg/dL (0.7-1.3); GLUCOSE,RANDOM 110 mg/dL (74-106); SGOT/AST 28 U/L (15-37); SGPT/ALT 36 U/L (12-78); TOT PROT 6.3 g/dl (6.4-8.2)
[2016-05-14 09:12] LABS: ALK PHOS 72 U/L (45-117)
[2016-05-14] MEDS: TAMSULOSIN HCL 0.4 MG CAP.ER.24H (FP) PO SCH (09:37)
[2016-05-14] MEDS: SERTRALINE HCL 50 MG TABLET (FP) PO SCH (09:37)
[2016-05-14] MEDS: PANTOPRAZOLE 40 MG TABLET (FP) PO SCH ×2 (09:37→21:48)
[2016-05-14] MEDS: DULoxetine HCL 30 MG CAPSULE.DR (FP) PO SCH (09:37)
[2016-05-14] MEDS: HYDROCHLOROTHIAZIDE 12.5 MG CAPSULE (FP) PO SCH (09:37)
[2016-05-14] MEDS: METOPROLOL SUCCINATE 100 MG TAB.SR.24H (FP) PO SCH (09:38)
[2016-05-14] MEDS: PREGABALIN 75 MG CAPSULE PO SCH ×2 (09:38→21:48)
[2016-05-14] MEDS: HEPARIN - 25,000 UNIT in SODIUM CHLORIDE 495 ML IV SCH ×2 (12:00→19:40)
--- NOTE | 2016-05-14 12:42 | CONSULT ---
Consult Consult Specialty:: Cardiology Referred by:: Hospitalist Reason for Consultation:: Afib - History of Present Illness Chief Complaint: AMS History of Present Illness: 75 year old man with a history of atrial fibrillation on eliquis, cad with reported prior stents (unknown details), HTN, HLD, dementia admitted with AMS, fever, hematuria. Pt. seen and examined today. 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 Cardio/Vascular: Yes: AFIB, CAD, HTN, Hyperlipdemia - Past Surgical History Past Surgical History: Yes: Stent - Alcohol/Substance Use Hx Alcohol Use: No - Smoking History Smoking history: Unknown if ever smoked - Social History History of Recent Travel: No Home Medications - Allergies Allergies/Adverse Reactions: Allergies Allergy/AdvReac Type Severity Reaction Status Date / Time buprenorphine [From Butrans] Allergy Verified 05/07/16 12:30 gabapentin [From Neurontin] Allergy Verified 05/07/16 12:30 quinine Allergy Verified 05/07/16 12:30 warfarin sodium Allergy Verified 05/07/16 12:30 [From Coumadin] - Home Medications Home Medications: Ambulatory Orders Albuterol Sulfate [Proair Respiclick] 2 sprays IH Q4H PRN 05/07/16 Apixaban [Eliquis] 5 mg PO BID 05/07/16 Atorvastatin Ca [Lipitor] 20 mg PO HS 05/07/16 Cholecalciferol (Vitamin D3) [Vitamin D3] 2,000 unit PO DAILY 05/07/16 Cyanocobalamin [Vitamin B12 -] 1,000 mcg PO DAILY 05/07/16 Diltiazem HCl [Diltiazem 24Hr Cd] 240 mg PO DAILY 05/07/16 Duloxetine HCl [Cymbalta] 60 mg PO DAILY 05/07/16 Ergocalciferol [Drisdol -] 50,000 unit PO Q7D@1000 05/07/16 Ferrous Sulfate 325 mg PO DAILY 05/07/16 Glipizide 5 mg PO HS 05/07/16 Glipizide 10 mg PO AM 05/07/16 Hydrochlorothiazide [Hctz -] 12.5 mg PO DAILY 05/07/16 Hydrocodone/Acetaminophen [Vicodin Es 7.5-300 mg Tablet] 1 each PO Q4H PRN 05/07 Ibuprofen 800 mg PO DAILY PRN 05/07/16 Metoprolol Succinate [Toprol Xl] 100 mg PO DAILY 05/07/16 Pantoprazole Sodium [Protonix] 40 mg PO BID 05/07/16 Pregabalin [Lyrica] 75 mg PO BID 05/07/16 Sertraline HCl [Zoloft -] 100 mg PO DAILY 05/07/16 Tizanidine HCl 2 mg PO BID PRN 05/07/16 Family Disease History - Family Disease History Family History: Unable to Obtain Review of Systems Unable to obtain ROS, reason: unable to obtain Findings/Remarks: as per chart - Review of Systems Constitutional: reports: Fever, Weakness. denies: No Symptoms, Chills, Diaphoresis, Lethargy, Loss of Appetite, Malaise, Night Sweats, Unintentional Wgt. Loss, Other Eyes: denies: No Symptoms, Blind Spots, Blurred Vision, Double Vision, Eye Pain , Floaters, Photophobia, Recent Change in Vision, Other HENT: denies: No Symptoms, Difficult Swallowing, Ear Discharge, Ear Pain, Epistaxis, Gingival Bleeding, Hearing Loss, Mouth Swelling, Nasal Congestion, Ocular Prosthesis, Throat Pain, Toothache, Ringing in Ears, Other Neck: denies: No Symptoms, Decreased ROM, Lumps, Pain on Movement, Stiffness, Swollen Glands, Tenderness, Other Cardiovascular: denies: No Symptoms, Chest Pain, Edema, Palpitations, Shortness of Breath, Other Respiratory: denies: No Symptoms, Cough, Exercise Intolerance, Hemoptysis, Orthopnea, PND, Snoring, SOB, SOB on Exertion, Wheezing, Other Gastrointestinal: denies: No Symptoms, Abdominal Pain, Bloating, Constipation, Diarrhea, Dysphagia, Indigestion, Melena, Nausea, Rectal Bleeding, Vomiting, Vomiting Blood, Other Genitourinary: reports: Hematuria. denies: No Symptoms, Burning, Discharge, Dysuria, Flank Pain, Frequency, Incontinence, Lesions, Menses, Pain, Testicular Mass, Testicular Pain, Testicular Swelling, Urgency, Vaginal Bleeding, Other Musculoskeletal: denies: No Symptoms, Back Pain, Crepitus, Decreased ROM, Extremity Pain, Joint Pain, Joint Swelling, Muscle Pain, Muscle Cramps, Muscle Weakness, Other Integumentary: denies: No Symptoms, Blister, Bruising, Change in Color, Eczema, Erythema, Incision, Lesions, Lump, Pallor, Pruritis, Rash, Wound, Other Neurological: reports: Confusion Endocrine: denies: No Symptoms, Excessive Sweating, Flushing, Increased Hunger, Increased Thirst, Intolerance to Cold, Intolerance to Heat, Unexplained Weight Gain, Unexplained Weight Loss, Other Hematology/Lymphatic: denies: No Symptoms, Easily Bruised, Excessive Bleeding, Swollen Glands, Other Psychiatric: denies: No Symptoms, Altered Sleep Pattern, Anxiety, Depression, Hallucinations, Panic, Paranoia, Suicidal, Other - Risk Factors Known Risk Factors: Yes: Age, Hypercholesterolemia, Hypertension Vital Signs: Vital Signs Temperature 98.8 F 05/14/16 07:31 Pulse Rate 85 05/14/16 07:31 Respiratory Rate 18 05/14/16 07:31 Blood Pressure 178/96 05/14/16 07:31 O2 Sat by Pulse Oximetry (%) 94 L 05/13/16 21:00 Constitutional: Yes: No Distress, Calm, Obese, Other (minimally responsive) HENT: Yes: Atraumatic, Normocephalic Neck: Yes: Supple, Trachea Midline Respiratory: Yes: Regular, CTA Bilaterally. No: Rales, Rhonchi, Wheezes Gastrointestinal: Yes: WNL, Normal Bowel Sounds, Soft. No: Distention, Tenderness Cardiovascular: Yes: Pulse Irregular. No: Bradycardia, Tachycardia, Gallop, Rub , Varicosities JVD: No Carotid Bruit: No PMI: Non-Displaced Heart Sounds: Yes: S1, S2. No: Split S2, S3, S4, Clicks, Gallop, Bruit Murmur: No: Systolic Murmur, Diastolic Murmur Musculoskeletal: Yes: Muscle Weakness Extremities: Yes: WNL Edema: No Peripheral Pulses WNL: Yes Peripheral Pulses: 2+ Left Doralis Pedis, 2+ Right Dorsalis Pedis Integumentary: Yes: WNL Neurological: No: Alert, Oriented Psychiatric: No: Alert, Oriented - Other Data Labs, Other Data: CBC, BMP 05/14/16 06:30 05/14/16 06:30 INR, PTT INR 1.20 (0.82-1.09) H 05/14/16 06:30 ekg-05/07-afib 127bpm, rbbb Imaging - Results Chest X-ray: Report Reviewed, Image Reviewed EKG: Report Reviewed, Image Reviewed Other: Report Reviewed, Image Reviewed Assessment/Plan 75 year old man with a history of atrial fibrillation on eliquis, cad with reported prior stents (unknown details), HTN, HLD, dementia admitted with AMS, fever, hematuria, as well as afib with RVR on admission. Atrial fibrillation-with RVR on admission in setting of likely urosepsis -HR now adequately controlled -cont current Toprol and Cardizem doses -as for AC, pt was previously on eliquis, having gross hematuria on this admission -pt has warfarin listed as an allergy, unknown why -risk may outweigh benefit for full AC given hematuria -would recc holding any NOACs at this point at least until etiology of hematuria is identified and treated and as pt has a reported allergy to warfarin it would make sense to hold all full AC until further work up and treatment is completed. This is a decision that should be made in conjunction with patient, his family/health care proxy and with his PMD as he does have an increased risk of CVA without full AC. -if decision made to hold oral AC going forward then would make sense to stop heparin gtt at this point
[2016-05-14] MEDS: SODIUM CHLORIDE 1,000 ML IV SCH (15:45)
--- NOTE | 2016-05-14 17:47 | PN ---
Physical Exam: SUBJECTIVE: Patient seen and examined. OBJECTIVE: Vital Signs Period Temp Pulse Resp BP Sys/Calvert Pulse Ox Last 24 Hr 98.2 F-98.8 F 80-85 18-18 148-178/74-96 94 GENERAL: The patient is awake, alert, in no acute distress. HEAD: Normal with no signs of trauma. EYES: PERRL, extraocular movements intact, sclera anicteric, conjunctiva clear. No ptosis. LUNGS: Breath sounds equal, clear to auscultation bilaterally, no wheezes, no crackles, no accessory muscle use. HEART: Irregular, S1, S2 without murmur, rub or gallop. ABDOMEN: Soft, nontender, nondistended, normoactive bowel sounds, no guarding, no rebound. EXTREMITIES: 2+ pulses, warm, well-perfused, no edema. NEUROLOGICAL: Cranial nerves II through XII grossly intact. Normal speech, gait not observed. Laboratory Results - last 24 hr 05/13/16 05/14/16 05/14/16 22:55 06:30 06:30 WBC 12.4 H RBC 3.59 L Hgb 10.9 L Hct 33.4 L MCV 93.0 MCHC 32.7 RDW 14.5 Plt Count 246 MPV 10.3 Neutrophils % 74.0 Lymphocytes % 13.4 D Monocytes % 9.3 Eosinophils % 3.0 Basophils % 0.3 INR Cancelled PTT (Actin FS) Sodium Potassium Chloride Carbon Dioxide Anion Gap BUN Creatinine Creat Clearance w eGFR POC Glucometer 130 Random Glucose Calcium Total Bilirubin AST ALT Alkaline Phosphatase Total Protein Albumin 05/14/16 05/14/16 05/14/16 06:30 06:30 07:00 WBC RBC Hgb Hct MCV MCHC RDW Plt Count MPV Neutrophils % Lymphocytes % Monocytes % Eosinophils % Basophils % INR 1.20 H PTT (Actin FS) 26.4 L Sodium 140 Potassium 3.9 Chloride 105 Carbon Dioxide 26 Anion Gap 9 BUN 10 Creatinine 0.6 L Creat Clearance w eGFR > 60 POC Glucometer 130 Random Glucose 110 H Calcium 8.4 L Total Bilirubin 0.4 D AST 28 D ALT 36 D Alkaline Phosphatase 72 Total Protein 6.3 L Albumin 2.8 L Active Medications Generic Name Dose Route Start Last Admin Trade Name Freq PRN Reason Stop Dose Admin Acetaminophen 1,000 mg 05/12/16 13:15 05/14/16 13:16 Tylenol - PO 1,000 mg Q8H JOANNA Administration Cephalexin HCl 500 mg 05/12/16 14:00 05/14/16 13:16 Keflex - PO 500 mg TID JOANNA Administration Diltiazem HCl 240 mg 05/12/16 10:00 05/14/16 09:37 Cardizem Cd - PO 240 mg DAILY JOANNA Administration Duloxetine HCl 60 mg 05/12/16 10:00 05/14/16 09:37 Cymbalta - PO 60 mg DAILY JOANNA Administration Glipizide 5 mg 05/12/16 07:00 05/14/16 07:02 Glucotrol - PO 5 mg DAILY@0700 JOANNA Administration Heparin Sodium (Porcine) 1,000 unit 05/13/16 18:14 Heparin - IVPUSH PRN PRN Heparin Heparin Sodium (Porcine) 5,000 unit 05/13/16 18:14 Heparin - IVPUSH PRN PRN Heparin Hydrochlorothiazide 12.5 mg 05/11/16 14:30 05/14/16 09:37 Hctz - PO 12.5 mg DAILY JOANNA Administration Sodium Chloride 1,000 mls @ 75 mls/hr 05/12/16 13:45 05/14/16 15:45 Normal Saline - IV Not Given ASDIR JOANNA Heparin Sodium (Porcine) 25, 500 mls @ 20 mls/hr 05/13/16 18:15 05/14/16 12:00 000 unit/ Sodium Chloride IV 23 mls/hr TITR JOANNA Administration Protocol 1,000 UNIT/HR Insulin Aspart 1 vial 05/11/16 16:30 05/14/16 17:39 Novolog Vial Sliding Scale - SQ Not Given ACHS [facility] Protocol Metoprolol Succinate 100 mg 05/12/16 10:00 05/14/16 09:38 Toprol Xl - PO 100 mg DAILY JOANNA Administration Metoprolol Succinate 50 mg 05/12/16 22:00 05/13/16 22:52 Toprol Xl - PO 50 mg HS JOANNA Administration Oxycodone HCl 5 mg 05/11/16 15:21 05/12/16 09:50 Roxicodone - PO 5 mg Q4H PRN Administration PAIN Pantoprazole Sodium 40 mg 05/12/16 22:00 05/14/16 09:37 Protonix - PO 40 mg BID JOANNA Administration Pregabalin 75 mg 05/11/16 22:00 05/14/16 09:38 Lyrica - PO 75 mg BID JOANNA Administration Sertraline HCl 100 mg 05/12/16 10:00 05/14/16 09:37 Zoloft - PO 100 mg DAILY JOANNA Administration Tamsulosin HCl 0.4 mg 05/13/16 08:30 05/14/16 09:37 Flomax - PO 0.4 mg DAILY@0830 JOANNA Administration 75 year-old male with a PMH of HTN, HLD, CAD s/p stents x 6, afib, severe spinal stenosis with myelopathy, GERD and dementia. Admitted for urosepsis, hematuria, and AMS. Sepsis due to UTI, resolved --cephalexin (day #3) to complete 7 days Hematuria and urinary retention - cloud in place with pink-tinged urine --has been on and off Eliquis several times during this hospital stay, placed on heparin drip yesterday until decision is made about long-term anticoagulation --continue tamsulosin Afib with RVR --rate-controlled --continue diltiazem, Toprol XL Hypertension --continue diltiazem, HCTZ, Toprol XL Hyperlipidemia --on no meds CAD s/p stents --continue diltiazem, Toprol XL Diabetes --restarted on home glipizide --Novolog sliding scale coverage Depression/Psych - continue Cymbalta, Zoloft, Lyrica GERD - continue protonix Spinal stenosis, chronic FEN Fluids: NS @ 75mL/hr Electrolytes: replete as indicated Nutrition: low sodium DVT prophylaxis: heparin drip for now Dispo: continues to require inpatient care. DNR. Visit type - Emergency Visit Emergency Visit: Yes ED Registration Date: 05/07/16 Care time: The patient presented to the Emergency Department on the above date and was hospitalized for further evaluation of their emergent condition. - New Patient This patient is new to me today: Yes Date on this admission: 05/14/16 - Critical Care Critical Care patient: No
[2016-05-14] MEDS: METOPROLOL SUCCINATE 50 MG TAB.SR.24H (FP) PO SCH (21:48)
[2016-05-15] MEDS: CEPHALEXIN MONOHYDRATE 500 MG CAPSULE (UD) PO SCH ×3 (06:08→21:57)
[2016-05-15] MEDS: ACETAMINOPHEN 500 MG TABLET (FP) PO SCH ×3 (06:09→21:57)
[2016-05-15] MEDS: INSULIN SLIDING SCALE (NOVOLOG) 1 VIAL SQ SCH ×4 (06:10→22:24)
[2016-05-15] MEDS: glipiZIDE 5 MG TABLET (FP) PO SCH (06:36)
[2016-05-15 07:47] LABS: BASOPHIL 0.5 % (0-2.0); EOSINOPHIL 4.1 % (0-4.5); MCH 29.9 pg (25.7-33.7); MCHC 32.3 g/dl (32.0-35.9); MEAN CELL VOLUME 92.7 fl (80-96); MEAN PLT VOLUME 9.7 fl (7.5-11.1); PLATELET COUNT 272 K/MM3 (134-434); RDW 14.4 % (11.9-15.9); WHITE BLOOD COUNT 11.5 K/mm3 (4.0-10.0)
[2016-05-15 08:18] LABS: INR 1.17 (0.82-1.09); PROTHROMBIN TIME (PATIENT) 12.9 SEC (9.98-11.88)
[2016-05-15 09:10] LABS: ALBUMIN 2.8 g/dl (3.4-5.0); ALK PHOS 72 U/L (45-117); ANION GAP 9 (8-16); BILIRUBIN,TOTAL 0.4 mg/dL (0.2-1.0); CALCIUM 8.2 mg/dL (8.5-10.1); CO2 25 mmol/L (21-32); CREATININE 0.7 mg/dL (0.7-1.3); GLUCOSE,RANDOM 111 mg/dL (74-106); MAGNESIUM 1.8 mg/dL (1.8-2.4); SGOT/AST 28 U/L (15-37); SGPT/ALT 33 U/L (12-78); TOT PROT 6.2 g/dl (6.4-8.2)
[2016-05-15] MEDS: PANTOPRAZOLE 40 MG TABLET (FP) PO SCH ×2 (09:40→21:57)
[2016-05-15] MEDS: SERTRALINE HCL 50 MG TABLET (FP) PO SCH (09:40)
[2016-05-15] MEDS: METOPROLOL SUCCINATE 100 MG TAB.SR.24H (FP) PO SCH (09:40)
[2016-05-15] MEDS: DULoxetine HCL 30 MG CAPSULE.DR (FP) PO SCH (09:40)
[2016-05-15] MEDS: HYDROCHLOROTHIAZIDE 12.5 MG CAPSULE (FP) PO SCH (09:40)
[2016-05-15] MEDS: PREGABALIN 75 MG CAPSULE PO SCH ×2 (09:40→21:57)
[2016-05-15] MEDS: TAMSULOSIN HCL 0.4 MG CAP.ER.24H (FP) PO SCH (09:43)
--- NOTE | 2016-05-15 12:14 | PN ---
Progress Note, Physician History of Present Illness: seen and examined today in nad. home health aid at bedside. pt awake and alert, eating breakfast. no new complaints. - Current Medication List Current Medications: Active Medications Acetaminophen (Tylenol -) 1,000 mg PO Q8H [facility] Last Admin: 05/15/16 06:09 Dose: 1,000 mg Cephalexin HCl (Keflex -) 500 mg PO TID [facility] Last Admin: 05/15/16 06:08 Dose: 500 mg Diltiazem HCl (Cardizem Cd -) 240 mg PO DAILY [facility] Last Admin: 05/15/16 09:40 Dose: 240 mg Duloxetine HCl (Cymbalta -) 60 mg PO DAILY [facility] Last Admin: 05/15/16 09:40 Dose: 60 mg Glipizide (Glucotrol -) 5 mg PO DAILY@0700 [facility] Last Admin: 05/15/16 06:36 Dose: 5 mg Hydrochlorothiazide (Hctz -) 12.5 mg PO DAILY [facility] Last Admin: 05/15/16 09:40 Dose: 12.5 mg Sodium Chloride (Normal Saline -) 1,000 mls @ 75 mls/hr IV ASDIR [facility] Last Admin: 05/14/16 15:45 Dose: Not Given Insulin Aspart (Novolog Vial Sliding Scale -) 1 vial SQ ACHS [facility] PRN Reason: Protocol Last Admin: 05/15/16 06:10 Dose: Not Given Metoprolol Succinate (Toprol Xl -) 100 mg PO DAILY [facility] Last Admin: 05/15/16 09:40 Dose: 100 mg Metoprolol Succinate (Toprol Xl -) 50 mg PO HS [facility] Last Admin: 05/14/16 21:48 Dose: 50 mg Oxycodone HCl (Roxicodone -) 5 mg PO Q4H PRN PRN Reason: PAIN Last Admin: 05/12/16 09:50 Dose: 5 mg Pantoprazole Sodium (Protonix -) 40 mg PO BID [facility] Last Admin: 05/15/16 09:40 Dose: 40 mg Pregabalin (Lyrica -) 75 mg PO BID [facility] Last Admin: 05/15/16 09:40 Dose: 75 mg Sertraline HCl (Zoloft -) 100 mg PO DAILY [facility] Last Admin: 05/15/16 09:40 Dose: 100 mg Tamsulosin HCl (Flomax -) 0.4 mg PO DAILY@0830 [facility] Last Admin: 05/15/16 09:43 Dose: 0.4 mg - Objective Vital Signs: Vital Signs Temperature 98.7 F 05/15/16 06:50 Pulse Rate 77 05/15/16 06:50 Respiratory Rate 18 05/15/16 06:50 Blood Pressure 146/84 05/15/16 06:50 O2 Sat by Pulse Oximetry (%) 95 05/14/16 21:00 Constitutional: Yes: No Distress, Calm, Obese Eyes: Yes: WNL, Conjunctiva Clear, EOM Intact, PERRL HENT: Yes: WNL, Atraumatic, Normocephalic Neck: Yes: WNL, Supple, Trachea Midline Cardiovascular: Yes: Pulse Irregular, S1, S2. No: Bradycardia, Tachycardia, Bruit, JVD, Gallop, Murmur, Rub, S3, S4, Varicosities Respiratory: Yes: Regular. No: Rales, Rhonchi, Wheezes Gastrointestinal: Yes: WNL, Normal Bowel Sounds, Soft. No: Distention, Tenderness Genitourinary: Yes: Hematuria Musculoskeletal: Yes: WNL Extremities: Yes: WNL Edema: No Peripheral Pulses WNL: Yes Peripheral Pulses: Left Doralis Pedis: 2+, Right Dorsalis Pedis: 2+ Integumentary: Yes: WNL Neurological: Yes: Alert, Oriented, Cran Nerves II-XII Intact ...Motor Strength: WNL Psychiatric: Yes: WNL, Alert, Oriented Labs: CBC, BMP 05/15/16 06:00 05/15/16 06:00 INR, PTT INR 1.17 (0.82-1.09) H 05/15/16 06:00 - ....Imaging Chest X-ray: Report Reviewed, Image Reviewed EKG: Report Reviewed, Image Reviewed Other: Report Reviewed, Image Reviewed Assessment/Plan 75 year old man with a history of atrial fibrillation on eliquis, cad with reported prior stents (unknown details), HTN, HLD, dementia admitted with AMS, fever, hematuria, as well as afib with RVR on admission. Atrial fibrillation-with RVR on admission in setting of likely urosepsis -HR adequately controlled -cont current Toprol and Cardizem doses -eliquis was stopped for hematuria, currently on heparin gtt, still having hematuria -discussed with pt and his daughter Carolynn today in regards to the risks vs benefits of full AC in the setting of hematuria -we discussed that he will be at increased risk of thromboembolic events including CVA when off full AC but as he is actively bleeding now it would make sense to stop AC until further work up of his hematuria is obtained. His daughter is in complete agreement with this plan. -will dc heparin gtt now and plan to hold off on oral AC until hematuria work up and treatment is complete -defer to medical team in regards to DVT ppx with low dose heparin vs venodynes
--- NOTE | 2016-05-15 17:18 | PN ---
Physical Exam: SUBJECTIVE: Patient seen and examined. OBJECTIVE: Vital Signs Period Temp Pulse Resp BP Sys/Calvert Pulse Ox Last 24 Hr 98.1 F-98.8 F 74-82 16-18 132-149/70-89 94-95 GENERAL: The patient is awake, alert, in no acute distress. HEAD: Normal with no signs of trauma. EYES: PERRL, extraocular movements intact, sclera anicteric, conjunctiva clear. No ptosis. LUNGS: Breath sounds equal, clear to auscultation bilaterally, no wheezes, no crackles, no accessory muscle use. HEART: Irregular, S1, S2 without murmur, rub or gallop. ABDOMEN: Soft, nontender, nondistended, normoactive bowel sounds, no guarding, no rebound. EXTREMITIES: 2+ pulses, warm, well-perfused, no edema. NEUROLOGICAL: Cranial nerves II through XII grossly intact. Normal speech, gait not observed. Laboratory Results - last 24 hr 05/14/16 05/14/16 05/14/16 17:31 18:00 22:16 WBC RBC Hgb Hct MCV MCHC RDW Plt Count MPV Neutrophils % Lymphocytes % Monocytes % Eosinophils % Basophils % INR PTT (Actin FS) 47.5 H D Sodium Potassium Chloride Carbon Dioxide Anion Gap BUN Creatinine Creat Clearance w eGFR POC Glucometer 126 140 Random Glucose Calcium Magnesium Total Bilirubin AST ALT Alkaline Phosphatase Total Protein Albumin Stool Occult Blood 05/15/16 05/15/16 05/15/16 01:30 06:00 06:00 WBC 11.5 H RBC 3.65 L Hgb 10.9 L Hct 33.9 L MCV 92.7 MCHC 32.3 RDW 14.4 Plt Count 272 MPV 9.7 Neutrophils % 66.0 Lymphocytes % 19.9 D Monocytes % 9.5 Eosinophils % 4.1 Basophils % 0.5 INR 1.17 H PTT (Actin FS) 50.2 H Sodium Potassium Chloride Carbon Dioxide Anion Gap BUN Creatinine Creat Clearance w eGFR POC Glucometer Random Glucose Calcium Magnesium Total Bilirubin AST ALT Alkaline Phosphatase Total Protein Albumin Stool Occult Blood 05/15/16 05/15/16 05/15/16 06:00 06:02 06:40 WBC RBC Hgb Hct MCV MCHC RDW Plt Count MPV Neutrophils % Lymphocytes % Monocytes % Eosinophils % Basophils % INR PTT (Actin FS) Sodium 140 Potassium 3.5 Chloride 106 Carbon Dioxide 25 Anion Gap 9 BUN 13 D Creatinine 0.7 Creat Clearance w eGFR > 60 POC Glucometer 118 Random Glucose 111 H Calcium 8.2 L Magnesium 1.8 Total Bilirubin 0.4 AST 28 ALT 33 Alkaline Phosphatase 72 Total Protein 6.2 L Albumin 2.8 L Stool Occult Blood Cancelled Active Medications Generic Name Dose Route Start Last Admin Trade Name Freq PRN Reason Stop Dose Admin Acetaminophen 1,000 mg 05/12/16 13:15 05/15/16 06:09 Tylenol - PO 1,000 mg Q8H JOANNA Administration Cephalexin HCl 500 mg 05/12/16 14:00 05/15/16 06:08 Keflex - PO 500 mg TID JOANNA Administration Diltiazem HCl 240 mg 05/12/16 10:00 05/15/16 09:40 Cardizem Cd - PO 240 mg DAILY JOANNA Administration Duloxetine HCl 60 mg 05/12/16 10:00 05/15/16 09:40 Cymbalta - PO 60 mg DAILY JOANNA Administration Glipizide 5 mg 05/12/16 07:00 05/15/16 06:36 Glucotrol - PO 5 mg DAILY@0700 JOANNA Administration Hydrochlorothiazide 12.5 mg 05/11/16 14:30 05/15/16 09:40 Hctz - PO 12.5 mg DAILY JOANNA Administration Sodium Chloride 1,000 mls @ 75 mls/hr 05/12/16 13:45 05/14/16 15:45 Normal Saline - IV Not Given ASDIR JOANNA Insulin Aspart 1 vial 05/11/16 16:30 05/15/16 06:10 Novolog Vial Sliding Scale - SQ Not Given ACHS [facility] Protocol Metoprolol Succinate 100 mg 05/12/16 10:00 05/15/16 09:40 Toprol Xl - PO 100 mg DAILY JOANNA Administration Metoprolol Succinate 50 mg 05/12/16 22:00 05/14/16 21:48 Toprol Xl - PO 50 mg HS JOANNA Administration Oxycodone HCl 5 mg 05/11/16 15:21 05/12/16 09:50 Roxicodone - PO 5 mg Q4H PRN Administration PAIN Pantoprazole Sodium 40 mg 05/12/16 22:00 05/15/16 09:40 Protonix - PO 40 mg BID JOANNA Administration Pregabalin 75 mg 05/11/16 22:00 05/15/16 09:40 Lyrica - PO 75 mg BID JOANNA Administration Sertraline HCl 100 mg 05/12/16 10:00 05/15/16 09:40 Zoloft - PO 100 mg DAILY JOANNA Administration Tamsulosin HCl 0.4 mg 05/13/16 08:30 05/15/16 09:43 Flomax - PO 0.4 mg DAILY@0830 JOANNA Administration ASSESSMENT/PLAN: 75 year-old male with a PMH of HTN, HLD, CAD s/p stents x 6, afib, severe spinal stenosis with myelopathy, GERD and dementia. Admitted for urosepsis, hematuria, and AMS. Sepsis due to UTI, resolved --cephalexin (day #4) to complete 7 days Hematuria and urinary retention --cloud in place with dark red urine; d/c heparin drip --continue tamsulosin --h/h stable Afib with RVR --rate-controlled --continue diltiazem, Toprol XL --all anticoagulation stopped due to persistent hematuria; conversation with daughter, agrees to hold a/c and will pursue outpatient workup; understands the risk of stroke; daughter says she spoke earlier today with Dr. Garg, all in agreement Hypertension --continue diltiazem, HCTZ, Toprol XL Hyperlipidemia --on no meds CAD s/p stents --continue diltiazem, Toprol XL Diabetes --restarted on home glipizide --Novolog sliding scale coverage Depression/Psych - continue Cymbalta, Zoloft, Lyrica GERD - continue protonix Spinal stenosis, chronic FEN Fluids: NS @ 75mL/hr Electrolytes: replete as indicated Nutrition: low sodium DVT prophylaxis: heparin drip for now Dispo: continues to require inpatient care. DNR. Visit type - Emergency Visit Emergency Visit: Yes ED Registration Date: 05/07/16 Care time: The patient presented to the Emergency Department on the above date and was hospitalized for further evaluation of their emergent condition. - New Patient This patient is new to me today: No - Critical Care Critical Care patient: No
[2016-05-15] MEDS: SODIUM CHLORIDE 1,000 ML IV SCH (17:53)
[2016-05-15] MEDS: METOPROLOL SUCCINATE 50 MG TAB.SR.24H (FP) PO SCH (21:57)
[2016-05-16] MEDS: ACETAMINOPHEN 500 MG TABLET (FP) PO SCH ×3 (05:32→22:40)
[2016-05-16] MEDS: CEPHALEXIN MONOHYDRATE 500 MG CAPSULE (UD) PO SCH ×3 (05:32→22:38)
[2016-05-16] MEDS: glipiZIDE 5 MG TABLET (FP) PO SCH (06:31)
[2016-05-16] MEDS: INSULIN SLIDING SCALE (NOVOLOG) 1 VIAL SQ SCH ×4 (06:31→22:38)
[2016-05-16] MEDS ORDERED: PT OWN MED DRAWER 7, Y5N ONE (09:19)
[2016-05-16] MEDS: TAMSULOSIN HCL 0.4 MG CAP.ER.24H (FP) PO SCH (09:20)
[2016-05-16] MEDS: PREGABALIN 75 MG CAPSULE PO SCH ×2 (09:21→22:38)
[2016-05-16] MEDS: HYDROCHLOROTHIAZIDE 12.5 MG CAPSULE (FP) PO SCH (09:21)
[2016-05-16] MEDS: METOPROLOL SUCCINATE 100 MG TAB.SR.24H (FP) PO SCH (09:22)
[2016-05-16] MEDS: SERTRALINE HCL 50 MG TABLET (FP) PO SCH (09:22)
[2016-05-16] MEDS: PANTOPRAZOLE 40 MG TABLET (FP) PO SCH ×2 (09:31→22:38)
[2016-05-16] MEDS: DULoxetine HCL 30 MG CAPSULE.DR (FP) PO SCH (09:31)
[2016-05-16 10:29] LABS: BASOPHIL 0.4 % (0-2.0); EOSINOPHIL 3.3 % (0-4.5); MCH 29.6 pg (25.7-33.7); MCHC 32.2 g/dl (32.0-35.9); MEAN CELL VOLUME 91.9 fl (80-96); MEAN PLT VOLUME 9.2 fl (7.5-11.1); NEUTROPHILS 73.3 % (42.8-82.8); PLATELET COUNT 280 K/MM3 (134-434); RDW 14.4 % (11.9-15.9); WHITE BLOOD COUNT 11.2 K/mm3 (4.0-10.0)
[2016-05-16 10:45] LABS: ALBUMIN 2.9 g/dl (3.4-5.0); ANION GAP 6 (8-16); BILIRUBIN,TOTAL 0.4 mg/dL (0.2-1.0); CALCIUM 8.8 mg/dL (8.5-10.1); CO2 28 mmol/L (21-32); CREATININE 0.7 mg/dL (0.7-1.3); GLUCOSE,RANDOM 90 mg/dL (74-106); MAGNESIUM 1.8 mg/dL (1.8-2.4); SGOT/AST 25 U/L (15-37); SGPT/ALT 34 U/L (12-78); TOT PROT 6.6 g/dl (6.4-8.2)
[2016-05-16 10:46] LABS: ALK PHOS 79 U/L (45-117)
--- NOTE | 2016-05-16 11:01 | PN ---
Physical Exam: SUBJECTIVE: Patient seen and examined. OBJECTIVE: Vital Signs Period Temp Pulse Resp BP Sys/Calvert Pulse Ox Last 24 Hr 98.0 F-98.2 F 78-82 16-20 134-155/70-91 96 GENERAL: The patient is awake, alert, in no acute distress. HEAD: Normal with no signs of trauma. EYES: PERRL, extraocular movements intact, sclera anicteric, conjunctiva clear. No ptosis. LUNGS: Breath sounds equal, clear to auscultation bilaterally, no wheezes, no crackles, no accessory muscle use. HEART: Irregular, S1, S2 without murmur, rub or gallop. ABDOMEN: Soft, nontender, nondistended, normoactive bowel sounds, no guarding, no rebound. EXTREMITIES: 2+ pulses, warm, well-perfused, no edema. NEUROLOGICAL: Cranial nerves II through XII grossly intact. Normal speech, gait not observed. Laboratory Results - last 24 hr 05/15/16 05/15/16 05/16/16 17:47 22:18 06:30 WBC RBC Hgb Hct MCV MCHC RDW Plt Count MPV Neutrophils % Lymphocytes % Monocytes % Eosinophils % Basophils % Sodium Potassium Chloride Carbon Dioxide Anion Gap BUN Creatinine Creat Clearance w eGFR POC Glucometer 117 150 113 Random Glucose Calcium Magnesium Total Bilirubin AST ALT Alkaline Phosphatase Total Protein Albumin 05/16/16 05/16/16 10:00 10:00 WBC 11.2 H RBC 3.81 L Hgb 11.3 L Hct 35.0 L MCV 91.9 MCHC 32.2 RDW 14.4 Plt Count 280 MPV 9.2 Neutrophils % 73.3 Lymphocytes % 14.3 D Monocytes % 8.7 Eosinophils % 3.3 Basophils % 0.4 Sodium 140 Potassium 3.8 Chloride 106 Carbon Dioxide 28 Anion Gap 6 L BUN 12 Creatinine 0.7 Creat Clearance w eGFR > 60 POC Glucometer Random Glucose 90 Calcium 8.8 Magnesium 1.8 Total Bilirubin 0.4 AST 25 ALT 34 Alkaline Phosphatase 79 Total Protein 6.6 Albumin 2.9 L Active Medications Generic Name Dose Route Start Last Admin Trade Name Freq PRN Reason Stop Dose Admin Acetaminophen 1,000 mg 05/12/16 13:15 05/16/16 05:32 Tylenol - PO 1,000 mg Q8H JOANNA Administration Cephalexin HCl 500 mg 05/12/16 14:00 05/16/16 05:32 Keflex - PO 500 mg TID JOANNA Administration Diltiazem HCl 240 mg 05/12/16 10:00 05/16/16 09:21 Cardizem Cd - PO 240 mg DAILY JOANNA Administration Duloxetine HCl 60 mg 05/12/16 10:00 05/16/16 09:31 Cymbalta - PO 60 mg DAILY JOANNA Administration Glipizide 5 mg 05/12/16 07:00 05/16/16 06:31 Glucotrol - PO 5 mg DAILY@0700 JOANNA Administration Hydrochlorothiazide 12.5 mg 05/11/16 14:30 05/16/16 09:21 Hctz - PO 12.5 mg DAILY JOANNA Administration Insulin Aspart 1 vial 05/11/16 16:30 05/16/16 10:17 Novolog Vial Sliding Scale - SQ 2 units ACHS JOANNA Administration Protocol Metoprolol Succinate 100 mg 05/12/16 10:00 05/16/16 09:22 Toprol Xl - PO 100 mg DAILY JOANNA Administration Metoprolol Succinate 50 mg 05/12/16 22:00 05/15/16 21:57 Toprol Xl - PO 50 mg HS JOANNA Administration Pantoprazole Sodium 40 mg 05/12/16 22:00 05/16/16 09:31 Protonix - PO 40 mg BID JOANNA Administration Pregabalin 75 mg 05/11/16 22:00 05/16/16 09:21 Lyrica - PO 75 mg BID JOANNA Administration Sertraline HCl 100 mg 05/12/16 10:00 05/16/16 09:22 Zoloft - PO 100 mg DAILY JOANNA Administration Tamsulosin HCl 0.4 mg 05/13/16 08:30 05/16/16 09:20 Flomax - PO 0.4 mg DAILY@0830 JOANNA Administration ASSESSMENT/PLAN: 75 year-old male with a PMH of HTN, HLD, CAD s/p stents x 6, afib, severe spinal stenosis with myelopathy, GERD and dementia. Admitted for urosepsis, hematuria, and AMS. Sepsis due to UTI, resolved --cephalexin (day #5) to complete 7 days Hematuria and urinary retention --tra-color urine in cloud; cloud d/c'd; voiding trial ongoing --continue tamsulosin --h/h stable Afib with RVR --rate-controlled --continue diltiazem, Toprol XL --all anticoagulation stopped due to persistent hematuria which has occurred on Eliquis and heparin drip; conversation with daughter yesterday, patient does not tolerate coumadin and is not an option; daughter agrees with plan to hold a/ c and will pursue outpatient workup; understands the increased risk of stroke Hypertension --continue diltiazem, HCTZ, Toprol XL Hyperlipidemia --on no meds CAD s/p stents --continue diltiazem, Toprol XL Diabetes --restarted on home glipizide --Novolog sliding scale coverage Depression/Psych - continue Cymbalta, Zoloft, Lyrica GERD - continue protonix Spinal stenosis, chronic FEN Fluids: PO intake adequate Electrolytes: replete as indicated Nutrition: low sodium DVT prophylaxis: SCDs; no chemical prophylaxis (as above) Dispo: continues to require inpatient care. DNR. Visit type - Emergency Visit Emergency Visit: Yes ED Registration Date: 05/07/16 Care time: The patient presented to the Emergency Department on the above date and was hospitalized for further evaluation of their emergent condition. - New Patient This patient is new to me today: No - Critical Care Critical Care patient: No
--- NOTE | 2016-05-16 12:24 | PN ---
Progress Note, Physician History of Present Illness: seen and examined today in nad. awake, alert. no new complaints. - Current Medication List Current Medications: Active Medications Acetaminophen (Tylenol -) 1,000 mg PO Q8H [facility] Last Admin: 05/16/16 05:32 Dose: 1,000 mg Cephalexin HCl (Keflex -) 500 mg PO TID [facility] Last Admin: 05/16/16 05:32 Dose: 500 mg Diltiazem HCl (Cardizem Cd -) 240 mg PO DAILY [facility] Last Admin: 05/16/16 09:21 Dose: 240 mg Duloxetine HCl (Cymbalta -) 60 mg PO DAILY [facility] Last Admin: 05/16/16 09:31 Dose: 60 mg Glipizide (Glucotrol -) 5 mg PO DAILY@0700 [facility] Last Admin: 05/16/16 06:31 Dose: 5 mg Hydrochlorothiazide (Hctz -) 12.5 mg PO DAILY [facility] Last Admin: 05/16/16 09:21 Dose: 12.5 mg Insulin Aspart (Novolog Vial Sliding Scale -) 1 vial SQ ACHS [facility] PRN Reason: Protocol Last Admin: 05/16/16 10:17 Dose: 2 units Metoprolol Succinate (Toprol Xl -) 100 mg PO DAILY [facility] Last Admin: 05/16/16 09:22 Dose: 100 mg Metoprolol Succinate (Toprol Xl -) 50 mg PO HS [facility] Last Admin: 05/15/16 21:57 Dose: 50 mg Pantoprazole Sodium (Protonix -) 40 mg PO BID [facility] Last Admin: 05/16/16 09:31 Dose: 40 mg Pregabalin (Lyrica -) 75 mg PO BID [facility] Last Admin: 05/16/16 09:21 Dose: 75 mg Sertraline HCl (Zoloft -) 100 mg PO DAILY [facility] Last Admin: 05/16/16 09:22 Dose: 100 mg Tamsulosin HCl (Flomax -) 0.4 mg PO DAILY@0830 [facility] Last Admin: 05/16/16 09:20 Dose: 0.4 mg - Objective Vital Signs: Vital Signs Temperature 97.7 F 05/16/16 10:00 Pulse Rate 71 05/16/16 11:00 Respiratory Rate 17 05/16/16 10:00 Blood Pressure 128/74 05/16/16 11:00 O2 Sat by Pulse Oximetry (%) 96 05/15/16 20:46 Constitutional: Yes: No Distress, Calm, Obese Eyes: Yes: WNL, Conjunctiva Clear, EOM Intact, PERRL HENT: Yes: WNL, Atraumatic, Normocephalic Neck: Yes: WNL, Supple, Trachea Midline Cardiovascular: Yes: Regular Rate and Rhythm, S1, S2. No: Bradycardia, Tachycardia, Pulse Irregular, Bruit, JVD, Gallop, Murmur, Rub, S3, S4, Varicosities Respiratory: Yes: Regular, Diminished. No: Rales, Rhonchi, Wheezes Gastrointestinal: Yes: WNL, Normal Bowel Sounds, Soft. No: Distention, Tenderness Genitourinary: Yes: Hematuria Musculoskeletal: Yes: Muscle Weakness Extremities: Yes: WNL Edema: No Peripheral Pulses WNL: Yes Peripheral Pulses: Left Doralis Pedis: 2+, Right Dorsalis Pedis: 2+ Integumentary: Yes: WNL Neurological: Yes: Alert, Oriented Psychiatric: Yes: Alert, Oriented Labs: CBC, BMP 05/16/16 10:00 05/16/16 10:00 INR, PTT INR 1.17 (0.82-1.09) H 05/15/16 06:00 - ....Imaging Chest X-ray: Report Reviewed, Image Reviewed EKG: Report Reviewed, Image Reviewed Other: Report Reviewed, Image Reviewed Assessment/Plan 75 year old man with a history of atrial fibrillation on eliquis, cad with reported prior stents (unknown details), HTN, HLD, dementia admitted with AMS, fever, hematuria, as well as afib with RVR on admission. Atrial fibrillation-with RVR on admission in setting of likely urosepsis -HR adequately controlled -cont current Toprol and Cardizem doses -eliquis was stopped for hematuria -off heparin gtt since yesterday -hematuria seems to be clearing in cloud, f/up with , consider trial of voiding -plan to hold off on oral AC until hematuria work up and treatment is complete as outpatient -defer to medical team in regards to DVT ppx with low dose heparin vs venodynes
[2016-05-16] MEDS: METOPROLOL SUCCINATE 50 MG TAB.SR.24H (FP) PO SCH (22:38)
[2016-05-17] MEDS: glipiZIDE 5 MG TABLET (FP) PO SCH (06:37)
[2016-05-17] MEDS: CEPHALEXIN MONOHYDRATE 500 MG CAPSULE (UD) PO SCH (06:37)
[2016-05-17] MEDS: ACETAMINOPHEN 500 MG TABLET (FP) PO SCH (06:42)
[2016-05-17] MEDS: INSULIN SLIDING SCALE (NOVOLOG) 1 VIAL SQ SCH ×2 (06:42→11:42)
[2016-05-17] MEDS ORDERED: INSULIN DETEMIR 100 UNITS/ML MDV SQ ONE (07:52)
[2016-05-17] MEDS ORDERED: INSULIN (NOVOLOG) ASPART 100 UNITS/ML 10ML VIAL ONE (07:52)
[2016-05-17] MEDS ORDERED: PT OWN MED DRAWER 7, Y5N ONE (09:29)
[2016-05-17] MEDS: HYDROCHLOROTHIAZIDE 12.5 MG CAPSULE (FP) PO SCH (09:35)
[2016-05-17] MEDS: DULoxetine HCL 30 MG CAPSULE.DR (FP) PO SCH (09:35)
[2016-05-17] MEDS: METOPROLOL SUCCINATE 100 MG TAB.SR.24H (FP) PO SCH (09:35)
[2016-05-17] MEDS: PANTOPRAZOLE 40 MG TABLET (FP) PO SCH (09:35)
[2016-05-17] MEDS: SERTRALINE HCL 50 MG TABLET (FP) PO SCH (09:35)
[2016-05-17] MEDS: PREGABALIN 75 MG CAPSULE PO SCH (09:36)
[2016-05-17] MEDS: TAMSULOSIN HCL 0.4 MG CAP.ER.24H (FP) PO SCH (09:39)
--- NOTE | 2016-05-17 09:45 | PN ---
Progress Note (short form) - Note Progress Note: Resting in NAD. NO acute events overnight. No CP Or SOB. Intake & Output 05/14/16 05/15/16 05/16/16 05/17/16 23:59 23:59 23:59 23:59 Intake Total 1675 1175 0 Output Total 2900 2000 1500 200 Balance -1225 -825 -1500 -200 Weight 224 lb 3 oz Last Vital Signs Temp Pulse Resp BP Pulse Ox 98.3 F 80 20 147/84 99 05/17/16 06:00 05/17/16 06:00 05/17/16 06:00 05/17/16 06:00 05/16/16 21:00 Active Medications Acetaminophen (Tylenol -) 1,000 mg PO Q8H [facility] Last Admin: 05/17/16 06:42 Dose: Not Given Cephalexin HCl (Keflex -) 500 mg PO TID [facility] Last Admin: 05/17/16 06:37 Dose: 500 mg Diltiazem HCl (Cardizem Cd -) 240 mg PO DAILY [facility] Last Admin: 05/17/16 09:36 Dose: 240 mg Duloxetine HCl (Cymbalta -) 60 mg PO DAILY [facility] Last Admin: 05/17/16 09:35 Dose: 60 mg Glipizide (Glucotrol -) 5 mg PO DAILY@0700 [facility] Last Admin: 05/17/16 06:37 Dose: 5 mg Hydrochlorothiazide (Hctz -) 12.5 mg PO DAILY [facility] Last Admin: 05/17/16 09:35 Dose: 12.5 mg Insulin Aspart (Novolog Vial Sliding Scale -) 1 vial SQ ACHS [facility] PRN Reason: Protocol Last Admin: 05/17/16 06:42 Dose: Not Given Metoprolol Succinate (Toprol Xl -) 100 mg PO DAILY [facility] Last Admin: 05/17/16 09:35 Dose: 100 mg Metoprolol Succinate (Toprol Xl -) 50 mg PO HS [facility] Last Admin: 05/16/16 22:38 Dose: 50 mg Pantoprazole Sodium (Protonix -) 40 mg PO BID [facility] Last Admin: 05/17/16 09:35 Dose: 40 mg Pregabalin (Lyrica -) 75 mg PO BID [facility] Last Admin: 05/17/16 09:36 Dose: 75 mg Sertraline HCl (Zoloft -) 100 mg PO DAILY [facility] Last Admin: 05/17/16 09:35 Dose: 100 mg Tamsulosin HCl (Flomax -) 0.4 mg PO DAILY@0830 [facility] Last Admin: 05/17/16 09:39 Dose: 0.4 mg Gen: NAD at rest Heart: RRR Lung: decreased breath sounds at the bases Abd: soft, nontender Ext: no edema Laboratory Results - last 24 hr 05/16/16 05/16/16 05/16/16 10:00 10:00 10:15 WBC 11.2 H RBC 3.81 L Hgb 11.3 L Hct 35.0 L MCV 91.9 MCHC 32.2 RDW 14.4 Plt Count 280 MPV 9.2 Neutrophils % 73.3 Lymphocytes % 14.3 D Monocytes % 8.7 Eosinophils % 3.3 Basophils % 0.4 Sodium 140 Potassium 3.8 Chloride 106 Carbon Dioxide 28 Anion Gap 6 L BUN 12 Creatinine 0.7 Creat Clearance w eGFR > 60 POC Glucometer 159 Random Glucose 90 Calcium 8.8 Magnesium 1.8 Total Bilirubin 0.4 AST 25 ALT 34 Alkaline Phosphatase 79 Total Protein 6.6 Albumin 2.9 L 05/16/16 05/16/16 05/16/16 16:24 17:04 22:37 WBC RBC Hgb Hct MCV MCHC RDW Plt Count MPV Neutrophils % Lymphocytes % Monocytes % Eosinophils % Basophils % Sodium Potassium Chloride Carbon Dioxide Anion Gap BUN Creatinine Creat Clearance w eGFR POC Glucometer 143 120 110 Random Glucose Calcium Magnesium Total Bilirubin AST ALT Alkaline Phosphatase Total Protein Albumin 05/17/16 06:05 WBC RBC Hgb Hct MCV MCHC RDW Plt Count MPV Neutrophils % Lymphocytes % Monocytes % Eosinophils % Basophils % Sodium Potassium Chloride Carbon Dioxide Anion Gap BUN Creatinine Creat Clearance w eGFR POC Glucometer 116 Random Glucose Calcium Magnesium Total Bilirubin AST ALT Alkaline Phosphatase Total Protein Albumin ASSESSMENT AND PLAN: UTI Severe Sepsis improved Acute Kidney Injury improved Lactic Acidosis resolved Atrial Fibrillation CAD HTN Hyperlipidemia DM Dementia - Keflex - AC - PO as tolerated - PT - No Pulmonary contraindication for D/C Dr Flynn
[2016-05-17 09:52] VITALS: BP 129/79; PULSE 82; TEMP 98.4
--- NOTE | 2016-06-10 22:19 | DS ---
Physical Exam: SUBJECTIVE: Patient seen and examined OBJECTIVE: Vital Signs Temperature 98.4 F 05/17/16 09:00 Pulse Rate 82 05/17/16 09:00 Respiratory Rate 16 05/17/16 09:48 Blood Pressure 129/79 05/17/16 09:00 O2 Sat by Pulse Oximetry (%) 97 05/17/16 09:48 PHYSICAL EXAM GENERAL: The patient is awake, alert, in no acute distress. HEAD: Normal with no signs of trauma. EYES: PERRL, extraocular movements intact, sclera anicteric, conjunctiva clear. No ptosis. LUNGS: Breath sounds equal, clear to auscultation bilaterally, no wheezes, no crackles, no accessory muscle use. HEART: Irregular, S1, S2 without murmur, rub or gallop. ABDOMEN: Soft, nontender, nondistended, normoactive bowel sounds, no guarding, no rebound. EXTREMITIES: 2+ pulses, warm, well-perfused, no edema. NEUROLOGICAL: Cranial nerves II through XII grossly intact. Normal speech, gait not observed. CBCD WBC 11.2 K/mm3 (4.0-10.0) H 05/16/16 10:00 RBC 3.81 M/mm3 (4.00-5.60) L 05/16/16 10:00 Hgb 11.3 GM/dL (11.7-16.9) L 05/16/16 10:00 Hct 35.0 % (35.4-49) L 05/16/16 10:00 MCV 91.9 fl (80-96) 05/16/16 10:00 MCHC 32.2 g/dl (32.0-35.9) 05/16/16 10:00 RDW 14.4 % (11.9-15.9) 05/16/16 10:00 Plt Count 280 K/MM3 (134-434) 05/16/16 10:00 MPV 9.2 fl (7.5-11.1) 05/16/16 10:00 CMP Sodium 140 mmol/L (136-145) 05/16/16 10:00 Potassium 3.8 mmol/L (3.5-5.1) 05/16/16 10:00 Chloride 106 mmol/L (98-107) 05/16/16 10:00 Carbon Dioxide 28 mmol/L (21-32) 05/16/16 10:00 Anion Gap 6 (8-16) L 05/16/16 10:00 BUN 12 mg/dL (7-18) 05/16/16 10:00 Creatinine 0.7 mg/dL (0.7-1.3) 05/16/16 10:00 Creat Clearance w eGFR > 60 (>60) 05/16/16 10:00 Calcium 8.8 mg/dL (8.5-10.1) 05/16/16 10:00 Total Bilirubin 0.4 mg/dL (0.2-1.0) 05/16/16 10:00 AST 25 U/L (15-37) 05/16/16 10:00 ALT 34 U/L (12-78) 05/16/16 10:00 Alkaline Phosphatase 79 U/L (45-117) 05/16/16 10:00 Total Protein 6.6 g/dl (6.4-8.2) 05/16/16 10:00 Albumin 2.9 g/dl (3.4-5.0) L 05/16/16 10:00 HOSPITAL COURSE: Date of Admission:05/07/16 Date of Discharge: 05/17/16 75 year-old male with a PMH of HTN, HLD, CAD s/p stents x 6, afib, severe spinal stenosis with myelopathy, GERD and dementia. Admitted for urosepsis, hematuria, and encephalopathy. Sepsis due to Proteus UTI Metabolic encephalopathy secondary to UTI --cephalexin x 6 days Hematuria and urinary retention --cloud d/c'd, voided freely yellow clear urine --continued tamsulosin --h/h stable Afib with RVR --rate-controlled --continue diltiazem, Toprol XL --all anticoagulation stopped due to persistent hematuria which has occurred on Eliquis and heparin drip; conversation with daughter yesterday, patient does not tolerate coumadin and it is not a treatment option; daughter agrees with plan to hold a/c and will pursue outpatient workup; understands the increased risk of stroke Hypertension --continued diltiazem, HCTZ, Toprol XL Hyperlipidemia --on no meds CAD s/p stents --continued diltiazem, Toprol XL Diabetes --restarted on home glipizide --Novolog sliding scale coverage Depression/Psych - continued Cymbalta, Zoloft, Lyrica GERD - continued protonix Spinal stenosis, chronic Minutes to complete discharge: 35 Discharge Summary Reason For Visit: STATUS [facility] [place] PER [facility] FROM [facility] 7178 Condition: Improved - Instructions Diet, Activity, Other Instructions: Patient has been taken off anticoagulation due to hematuria. Do not put the patient on anticoagulation until he has had a hematology workup. Daughter is aware and agrees with this plan. Activity as tolerated diabetic low sodium diet oob to chair with 2 Referrals: Esau Sabillon MD [Staff Physician] - Twila Bello MD [Staff Physician] - Henri Barton MD [Staff Physician] - Ronaldo Kitchen MD, MD [Staff Physician] - Disposition: [facility]ITENTIARY FACILITY - Home Medications Comprehensive Discharge Medication List: Ambulatory Orders Albuterol Sulfate [Proair Respiclick] 2 sprays IH Q4H PRN 05/07/16 Atorvastatin Ca [Lipitor] 20 mg PO HS 05/07/16 Cholecalciferol (Vitamin D3) [Vitamin D3] 2,000 unit PO DAILY 05/07/16 Cyanocobalamin [Vitamin B12 -] 1,000 mcg PO DAILY 05/07/16 Diltiazem HCl [Diltiazem 24Hr Cd] 240 mg PO DAILY 05/07/16 Duloxetine HCl [Cymbalta] 60 mg PO DAILY 05/07/16 Ergocalciferol [Drisdol -] 50,000 unit PO Q7D@1000 05/07/16 Ferrous Sulfate 325 mg PO DAILY 05/07/16 Glipizide 5 mg PO HS 05/07/16 Glipizide 10 mg PO AM 05/07/16 Hydrochlorothiazide [Hctz -] 12.5 mg PO DAILY 05/07/16 Pantoprazole Sodium [Protonix] 40 mg PO BID 05/07/16 Sertraline HCl [Zoloft -] 100 mg PO DAILY 05/07/16 Tizanidine HCl 2 mg PO BID PRN 05/07/16 Metoprolol Succinate [Toprol XL -] 50 mg PO HS tab.sr.24h 05/17/16 Metoprolol Succinate [Toprol XL -] 100 mg PO DAILY tab.sr.24h 01/03/17 Cephalexin Monohydrate [Keflex -] 500 mg PO TID 6 Days 06/01/16 This patient is new to me today: No Emergency Visit: Yes ED Registration Date: 05/07/16 Care time: The patient presented to the Emergency Department on the above date and was hospitalized for further evaluation of their emergent condition. Critical Care patient: No - Discharge Referral Referred to [facility] Med [facility] No
== END 2016-05-17 11:53 | DRG 872 ==
LOC: FER 12:15 → JICU 19:18 → J8W 05-12 17:29
PROVIDERS: ADMIT Internal Medicine; ATTEND Nurse Practitioner Acute Care
PROC: 5A09357 Assistance with Respiratory Ventilation, Less than 24 Consecutive Hours, Continuous Positive Airway Pressure (ICD-10-PCS; principal; 2016-05-08)
DX: A41.89 Other specified sepsis (principal); N17.9 Acute kidney failure, unspecified; M47.12 Other spondylosis with myelopathy, cervical region; N39.0 Urinary tract infection, site not specified; E87.2 Acidosis; R65.20 Severe sepsis without septic shock; N40.0 Benign prostatic hyperplasia without lower urinary tract symptoms; I48.91 Unspecified atrial fibrillation; M48.00 Spinal stenosis, site unspecified; K21.9 Gastro-esophageal reflux disease without esophagitis; I25.10 Atherosclerotic heart disease of native coronary artery without angina pectoris; E78.5 Hyperlipidemia, unspecified; E11.65 Type 2 diabetes mellitus with hyperglycemia; F03.90 Unspecified dementia, unspecified severity, without behavioral disturbance, psychotic disturbance, mood disturbance, and anxiety; B96.4 Proteus (mirabilis) (morganii) as the cause of diseases classified elsewhere; E87.6 Hypokalemia; I83.009 Varicose veins of unspecified lower extremity with ulcer of unspecified site; R33.9 Retention of urine, unspecified; G89.29 Other chronic pain; Z95.5 Presence of coronary angioplasty implant and graft; Z99.3 Dependence on wheelchair; Z66 Do not resuscitate
CPT/HCPCS: 36415; 71010-TC; 76775-TC; 80048; 80053; 81003; 81015; 82436; 82550; 82553; 82570; 83036; 83605; 83735; 84100; 84133; 84300; 84484; 85025; 85027; 85610; 85730; 86850; 86900; 86901; 87040; 87086; 87186; 87254; 87324; 87449; 87804; 90670; 93005; 93970-TC; 94660; 97001-GP; 97116-GP; 99285-25; J1644

== ENCOUNTER 2016-05-26 12:27 | Inpatient (IN) | payer OTHER ==
--- NOTE | 2016-05-26 12:30 | PDOC ---
Attending Attestation - Resident Resident Name: Regina Bains - ED Attending Attestation I have performed the following: I have examined & evaluated the patient, The case was reviewed & discussed with the resident, I agree w/resident's findings & plan, Exceptions are as noted - HPI HPI: 05/26/16 12:51 The patient is a 76 year old male, F resident, who presents with fever and suprapubic pain. 05/26/16 15:25 - Physicial Exam PE: 05/26/16 15:25 Vitals noted He has 1 SIRS criteria We are unable to withdraw the Vasquez, as the balloon seems to be inflated We are unable to deflate the balloon Vasquez flushes, though against considerable resistance 05/26/16 15:25 - Medical Decision Making 05/26/16 15:25 I am concerned for sepsis secondary to a urinary source We are paging urology for assistance and Vasquez removal Clinical impression: Sepsis Suspected UTI Case discussed in detail with admitting provider including history, physical exam and ancillary studies. Admitting physician has assumed care for the patient, will follow all pending diagnostics and will complete the evaluation and treatment.
[2016-05-26 12:57] VITALS: BMI 32.2
[2016-05-26] MEDS ORDERED: SODIUM CHLORIDE 1,000 ML IV STA (12:58)
--- NOTE | 2016-05-26 13:00 | PDOC ---
History of Present Illness <Regina Bains - Last Filed: 05/26/16 15:58> - General History Source: Patient, EMS, Family, Intermediate Records, Old Records Exam Limitations: No Limitations - History of Present Illness Initial Comments: 05/26/16 13:23 The patient is a 76 year old male with past medical history of a fib on Eliquis , BPH, CAD, hypertension, hyperlipidemia, GERD, spinal stenosis with myelopathy , who arrives to the ED via EMS from [facility] with complaints of three days of lethargy and fever (tmax 101.7 at [facility]). Today, the patient also began vomiting and shaking, noting six episodes of nonbloody, nonbilious vomiting. The patient was admitted to the hospital on 05/07/16 for urosepsis and discharged to [facility]. He was placed on IV ceftriaxone two days ago, but was still becoming increasingly lethargic and experiencing loss of appetite. In the ED, he complains of superpubic pain as well as dysuria. He denies hematuria, urgency, frequency, or hesitancy. PCP: Khurram Lindsay <Inocencia Giang - Last Filed: 05/26/16 16:12> - General Chief Complaint: SIRS, Suspected/Possible Stated Complaint: Nausea/Vomiting/FEVER Time Seen by Provider: 05/26/16 12:30 Past History - Past Medical History Anemia: Yes Cardiac Disorders: Yes (AFIB, CAD) COPD: Yes Dementia: Yes Diabetes: Yes GI Disorders: Yes (gerd) Disorders: Yes (BPH) Hypercholesterolemia: Yes Psychiatric Problems: Yes (anxiety,depression) Other medical history: back and neck problems - Surgical History Cardiac Surgery: Yes (6 stent) - Psycho/Social/Smoking Cessation Hx Anxiety: No Suicidal Ideation: No Smoking History: Unknown if ever smoked Information on smoking cessation initiated: No Hx Alcohol Use: No Drug/Substance Use Hx: No Substance Use Type: None Hx Substance Use Treatment: No <Regina Bains - Last Filed: 05/26/16 15:58> <Inocencia Giang - Last Filed: 05/26/16 16:12> - Past Medical History Allergies/Adverse Reactions: Allergies Allergy/AdvReac Type Severity Reaction Status Date / Time buprenorphine [From Butrans] Allergy Verified 05/26/16 12:46 gabapentin [From Neurontin] Allergy Verified 05/26/16 12:46 quinine Allergy Verified 05/26/16 12:46 warfarin sodium Allergy Verified 05/26/16 12:46 [From Coumadin] Home Medications: Ambulatory Orders Albuterol Sulfate [Proair Respiclick] 2 sprays IH Q4H PRN 05/07/16 Atorvastatin Ca [Lipitor] 20 mg PO HS 05/07/16 Cholecalciferol (Vitamin D3) [Vitamin D3] 2,000 unit PO DAILY 05/07/16 Cyanocobalamin [Vitamin B12 -] 1,000 mcg PO DAILY 05/07/16 Diltiazem HCl [Diltiazem 24Hr Cd] 240 mg PO DAILY 05/07/16 Duloxetine HCl [Cymbalta] 60 mg PO DAILY 05/07/16 Ergocalciferol [Drisdol -] 50,000 unit PO Q7D@1000 05/07/16 Ferrous Sulfate 325 mg PO DAILY 05/07/16 Glipizide 5 mg PO HS 05/07/16 Glipizide 10 mg PO AM 05/07/16 Hydrochlorothiazide [Hctz -] 12.5 mg PO DAILY 05/07/16 Hydrocodone/Acetaminophen [Vicodin Es 7.5-300 mg Tablet] 1 each PO Q4H PRN 05/07 Pantoprazole Sodium [Protonix] 40 mg PO BID 05/07/16 Sertraline HCl [Zoloft -] 100 mg PO DAILY 05/07/16 Tizanidine HCl 2 mg PO BID PRN 05/07/16 Metoprolol Succinate [Toprol XL -] 50 mg PO HS tab.sr.24h 05/17/16 Metoprolol Succinate [Toprol XL -] 100 mg PO DAILY tab.sr.24h 05/17/16 Ceftriaxone 1 gm/D5w [Rocephin 1 gm Premix Ivpb -] 1 gm IVPB DAILY 05/26/16 Review of Systems - Review of Systems Able to Perform ROS?: Yes Comments:: 05/26/16 13:30 CONSTITUTIONAL: Present: fever, chills, generalized weakness, loss of appetite HEENT: Absent: rhinorrhea, nasal congestion, throat pain, throat swelling, difficulty swallowing, mouth swelling, ear pain, eye pain, visual Changes CARDIOVASCULAR: Absent: chest pain, syncope, palpitations, irregular heart rate, lightheadedness , peripheral edema RESPIRATORY: Absent: cough, shortness of breath, dyspnea with exertion, orthopnea, wheezing, stridor, hemoptysis GASTROINTESTINAL: Present: nausea, vomiting Absent: abdominal pain, abdominal distension, diarrhea, constipation, melena, hematochezia GENITOURINARY: Present: dysuria, superpubic pain Absent: frequency, urgency, hesitancy, hematuria, flank pain MUSCULOSKELETAL: Absent: myalgia, arthralgia, joint swelling SKIN: Absent: rash, itching, pallor HEMATOLOGIC/IMMUNOLOGIC: Absent: easy bleeding, easy bruising, lymphadenopathy, frequent infections ENDOCRINE: Absent: unexplained weight gain, unexplained weight loss, heat intolerance, cold intolerance NEUROLOGIC: Absent: headache, focal weakness or paresthesias, dizziness, unsteady gait, seizure, mental status changes, bladder or bowel incontinence PSYCHIATRIC: Absent: anxiety, depression, suicidal or homicidal ideation, hallucinations. All Other Systems: Reviewed and Negative <Inocencia Giang - Last Filed: 05/26/16 16:12> *Physical Exam - Vital Signs Last Vital Signs Temp Pulse Resp BP Pulse Ox 105 H 20 114/69 89 L 05/26/16 12:47 05/26/16 12:47 05/26/16 12:47 05/26/16 12:47 <Regina Bains - Last Filed: 05/26/16 15:58> - Vital Signs Last Vital Signs Temp Pulse Resp BP Pulse Ox 102.7 F H 105 H 20 114/69 89 L 05/26/16 13:04 05/26/16 12:47 05/26/16 12:47 05/26/16 12:47 05/26/16 12:47 - Physical Exam Comments: 05/26/16 13:34 GENERAL: Well developed, well nourished. Awake and alert. No acute distress. HEENT: Normocephalic, atraumatic. PERRLA, EOMI. No conjunctival pallor. Sclera are non- icteric. Moist mucous membranes. Oropharynx is clear. NECK: Supple. Full ROM. No JVD. Carotid pulses 2+ and symmetric, without bruits. No thyromegaly. No lymphadenopathy. CARDIOVASCULAR: Tachycardic, irregularly irregular.No murmurs, rubs, or gallops. Distal pulses are 2+ and symmetric. PULMONARY: No evidence of respiratory distress. Lungs clear to auscultation bilaterally, anteriorly. No wheezing, rales or rhonchi. ABDOMINAL: Superpubic tenderness upon palpation. Soft. Non-distended. No rebound or guarding. No organomegaly. Normoactive bowel sounds. MUSCULOSKELETAL Normal range of motion at all joints. No bony deformities or tenderness. No CVA tenderness. EXTREMITIES: No cyanosis. No clubbing. No edema. No calf tenderness. SKIN: Warm and dry. Normal capillary refill. No rashes. No jaundice. NEUROLOGICAL: Alert, awake, appropriate. Cranial nerves 2-12 intact. No deficits to light touch and temperature in face, upper extremities and lower extremities. No motor deficits in the in face, upper extremities and lower extremities. Normoreflexic in the upper and lower extremities. Normal speech. Toes are down-going bilaterally. Gait is normal without ataxia. PSYCHIATRIC: Cooperative. Good eye contact. Appropriate mood and affect. <Inocencia Giang - Last Filed: 05/26/16 16:12> Heart Score/ECG Review - ECG Intrepretation Comment:: 05/26/16 13:37 ECG obtained at 13:10 Atrial fibrillation with rapid ventricular response Indeterminate axis Right bundle branch block Vent rate: 103 bpm <Inocencia Giang - Last Filed: 05/26/16 16:12> ED Treatment Course - LABORATORY CBC & Chemistry Diagram: 05/26/16 13:30 05/26/16 13:30 - RADIOLOGY Radiology Studies Ordered: Category Date Time Status CHEST X-RAY PORTABLE* [RAD] Stat Radiology 05/26/16 12:55 Ordered <Regina Bains - Last Filed: 05/26/16 15:58> - LABORATORY CBC & Chemistry Diagram: 05/26/16 13:30 05/26/16 13:30 - RADIOLOGY Radiograph Interpretation: 05/26/16 16:11 Chest X-ray as reviewed by Dr. Dominguez reports mild cardiomegaly and prominence of superior mediastinum again noted. No focal consolidation seen <Inocencia Giang - Last Filed: 05/26/16 16:12> Medical Decision Making - Medical Decision Making 05/26/16 13:00 Patient is a 76 year old male with a PMHx of A.fib on Eliquis, BPH, CAD, HTN, HLD, GERD, Spinal stenosis with myelopathy who was brought here from [facility] for a three days history of lethargy, fever, chills, vomiting, and suprapubic tenderness. Differential diagnosis include but not limited to UTI, Pyelonephritis, hydropnephrosis. ED Course and Treatment: -Sepsis protocol -CBC -CMP -Cardiac profile -Lactic Acid -VBG -Chest x-ray -U/A -U/A Cultes -Blood cultures -EKG -IV Tylenol 05/26/16 14:15 -CBC revealed leukocytosis with 22.1 WBC -Lactic acid negative -Unable to retrieve urine yet 05/26/16 15:34 -Unable to remove/replace due to possible obstruction -Call out to Dr. Mota, Urology. -Case discussed to Dr. Alfaro and accepts patient to his services 05/26/16 15:58 -Spoke to Dr. Mota who recommended to do Stat CT of abdo and pelvis and bladder scan <Regina Bains - Last Filed: 05/26/16 15:58> - Medical Decision Making 05/26/16 15:15 Phone call placed to Esau Mota at . Call returned at 15:50 and case was discussed. <Inocencia Giang - Last Filed: 05/26/16 16:12> *DC/Admit/Observation/Transfer - Discharge Dispostion Admit: Yes <Regina Bains - Last Filed: 05/26/16 15:58> - Attestations Scribe Attestion: 05/26/16 13:36 Documentation prepared by Inocencia Giang, acting as durable medical equipment repairer for Mukund DeL una MD/DO. <Inocencia Giang - Last Filed: 05/26/16 16:12> Diagnosis at time of Disposition: Sepsis due to other etiology - Referrals Referrals: Khurram Lindsay MD [Primary Care Provider] -
[2016-05-26] MEDS ORDERED: VANCOMYCIN 1,000 MG in DEXTROSE 5%-WATER - 250 ML IVPB ONE (13:03)
[2016-05-26] MEDS ORDERED: ACETAMINOPHEN 1000 MG/100 ML VIAL (NON FORMULARY) IVPB ONE (13:10)
[2016-05-26] MEDS ORDERED: cefTAZidime PENTAHYDRATE 1 GM/50ML PRE-DOCKED (RESTRICTED TO ID) IVPB ONE (13:11)
[2016-05-26] MEDS ORDERED: ACETAMINOPHEN INJECTION 100 ML IVPB ONE (13:15)
[2016-05-26] MEDS ORDERED: VANCOMYCIN 1 GRAM (PRE-DOCKED) 250 ML IVPB ONE (13:16)
[2016-05-26 13:52] LABS: VENOUS BLOOD GAS HCO3 22.6 meq/L (22-29); VENOUS PH 7.39 (7.31-7.41)
[2016-05-26 14:03] LABS: MCH 29.2 pg (25.7-33.7); MCHC 31.9 g/dl (32.0-35.9); MEAN CELL VOLUME 91.6 fl (80-96); MEAN PLT VOLUME 10.9 fl (7.5-11.1); PLATELET COUNT 225 K/MM3 (134-434); RDW 14.6 % (11.9-15.9); WHITE BLOOD COUNT 22.1 K/mm3 (4.0-10.0)
[2016-05-26 14:27] LABS: ALBUMIN 3.5 g/dl (3.4-5.0); BILIRUBIN,TOTAL 1.5 mg/dL (0.2-1.0); CALCIUM 9.1 mg/dL (8.5-10.1); CREATININE 1.2 mg/dL (0.7-1.3); TOT PROT 7.6 g/dl (6.4-8.2)
[2016-05-26 14:32] LABS: INR 1.51 (0.82-1.09); PROTHROMBIN TIME (PATIENT) 16.7 SEC (9.98-11.88)
[2016-05-26 14:35] LABS: ACTIVATED PTT 25.3 SECONDS (26.9-34.4)
[2016-05-26 14:53] LABS: TROPONIN I < 0.02 ng/ml (0.00-0.05)
[2016-05-26] MEDS ORDERED: ONDANSETRON 4 MG/2 ML VIAL IVPB PRN (15:44)
[2016-05-26] MEDS ORDERED: ACETAMINOPHEN 325 MG TABLET (FP) PO PRN (15:44)
[2016-05-26] MEDS ORDERED: SODIUM CHLORIDE 1,000 ML IV SCH (15:45)
--- NOTE | 2016-05-26 15:49 | HP ---
Admitting History and Physical - Admission Chief Complaint: I've been sick History of Present Illness: Mr Wilson is a pleasant 76 year old with dementia who presents to the ER secondary to sepsis. Patient is unable to tell me how he is feeling so history comes from daughter who is at the bedside. She says he was recently discharged from the hospital for UTI with sepsis. He was doing well, but on Monday began to become very lethargic. His appetite also decreased and he was not taking in much food or liquids. He was complaining of nausea and had multiple episodes of vomiting. He was given rocephin at [facility], however became more confused and lethargic and started having fevers. Concerned for sepsis, he was sent here. Currently he complains of suprapubic tenderness but otherwise is without complaint. 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 Cardiovascular: Yes: AFIB, CAD, HTN, Hyperlipdemia - Past Surgical History Past Surgical History: Yes: Stent, TURP - Smoking History Smoking history: Former smoker Have you smoked in the past 12 months: No - Alcohol/Substance Use Hx Alcohol Use: No History of Substance Use: reports: None - Social History Usual Living Arrangement: Yes: Halfway ADL: Support Services History of Recent Travel: No Home Medications - Allergies Allergies/Adverse Reactions: Allergies Allergy/AdvReac Type Severity Reaction Status Date / Time buprenorphine [From Butrans] Allergy Verified 05/26/16 12:46 gabapentin [From Neurontin] Allergy Verified 05/26/16 12:46 quinine Allergy Verified 05/26/16 12:46 warfarin sodium Allergy Verified 05/26/16 12:46 [From Coumadin] - Home Medications Home Medications: Ambulatory Orders Albuterol Sulfate [Proair Respiclick] 2 sprays IH Q4H PRN 05/07/16 Atorvastatin Ca [Lipitor] 20 mg PO HS 05/07/16 Cholecalciferol (Vitamin D3) [Vitamin D3] 2,000 unit PO DAILY 05/07/16 Cyanocobalamin [Vitamin B12 -] 1,000 mcg PO DAILY 05/07/16 Diltiazem HCl [Diltiazem 24Hr Cd] 240 mg PO DAILY 05/07/16 Duloxetine HCl [Cymbalta] 60 mg PO DAILY 05/07/16 Ergocalciferol [Drisdol -] 50,000 unit PO Q7D@1000 05/07/16 Ferrous Sulfate 325 mg PO DAILY 05/07/16 Glipizide 5 mg PO HS 05/07/16 Glipizide 10 mg PO AM 05/07/16 Hydrochlorothiazide [Hctz -] 12.5 mg PO DAILY 05/07/16 Hydrocodone/Acetaminophen [Vicodin Es 7.5-300 mg Tablet] 1 each PO Q4H PRN 05/07 Pantoprazole Sodium [Protonix] 40 mg PO BID 05/07/16 Sertraline HCl [Zoloft -] 100 mg PO DAILY 05/07/16 Tizanidine HCl 2 mg PO BID PRN 05/07/16 Metoprolol Succinate [Toprol XL -] 50 mg PO HS tab.sr.24h 05/17/16 Metoprolol Succinate [Toprol XL -] 100 mg PO DAILY tab.sr.24h 05/17/16 Ceftriaxone 1 gm/D5w [Rocephin 1 gm Premix Ivpb -] 1 gm IVPB DAILY 05/26/16 Family Disease History - Family Disease History Family Disease History: CA: Mother (colon) Review of Systems Unable to obtain ROS, reason: dementia Physical Examination Vital Signs: Vital Signs Temperature 102.7 F H 05/26/16 13:04 Pulse Rate 100 H 05/26/16 14:35 Respiratory Rate 20 05/26/16 14:35 Blood Pressure 126/69 05/26/16 14:35 O2 Sat by Pulse Oximetry (%) 98 05/26/16 14:35 Constitutional: Yes: Well Nourished, No Distress, Calm Eyes: Yes: Conjunctiva Clear, EOM Intact HENT: Yes: Atraumatic, Normocephalic Cardiovascular: Yes: Tachycardia, Pulse Irregular. No: Gallop, Murmur, Rub Respiratory: Yes: Regular, CTA Bilaterally. No: Rales, Rhonchi, Wheezes Gastrointestinal: Yes: Normal Bowel Sounds, Soft, Tenderness (suprapubic). No: Distention Extremities: Yes: WNL Edema: No Labs: CBC, BMP 05/26/16 13:30 05/26/16 13:30 Imaging - Results Chest X-ray: Report Reviewed, Image Reviewed EKG: Image Reviewed Problem List - Problems (1) UTI (urinary tract infection) Assessment/Plan: -patient presents with sepsis and suprapubic tenderness -concerning for UTI -cloud was placed, but not draining urine -given ceftazidime and vancomycin in the ED -ID consulted -attempting to obtain urine for urinalysis and culture -admit to telemetry Code(s): N39.0 - URINARY TRACT INFECTION, SITE NOT SPECIFIED Qualifiers: Urinary tract infection type: acute cystitis Hematuria presence: without hematuria Qualified Code(s): N30.00 - Acute cystitis without hematuria (2) Sepsis Assessment/Plan: -secondary to UTI -hydrate with IVF -ID consulted for antibiotics Code(s): A41.9 - SEPSIS, UNSPECIFIED ORGANISM Qualifiers: Sepsis type: sepsis due to unspecified organism Qualified Code(s): A41.9 - Sepsis, unspecified organism (3) Urinary retention Assessment/Plan: -cloud replaced, not draining urine -urology consulted Code(s): R33.9 - RETENTION OF URINE, UNSPECIFIED (4) Atrial fibrillation with RVR Assessment/Plan: -still tachycardic, but improved after fluid resuscitation and antibiotics -continue metoprolol and diltiazem -monitor on telemetry Code(s): I48.91 - UNSPECIFIED ATRIAL FIBRILLATION (5) BPH (benign prostatic hypertrophy) Assessment/Plan: -s/p TURP -cloud placed but not draining urine -urology consulted Code(s): N40.0 - BENIGN PROSTATIC HYPERPLASIA WITHOUT LOWER URINRY TRACT SYMP (6) CAD (coronary artery disease) Assessment/Plan: -quiescent -continue home regimen Code(s): I25.10 - ATHSCL HEART DISEASE OF [place] CORONARY ARTERY W/O ANG PCTRS (7) Dementia Assessment/Plan: -stable per daughter -continue to monitor, do not see signs of infectious encephalopathy at this moment Code(s): F03.90 - UNSPECIFIED DEMENTIA WITHOUT BEHAVIORAL DISTURBANCE (8) Diabetes mellitus Assessment/Plan: -diabetic diet -continue glipizide -FSBS qac and qhs -SSI Code(s): E11.9 - TYPE 2 DIABETES MELLITUS WITHOUT COMPLICATIONS (9) HLD (hyperlipidemia) Assessment/Plan: -continue lipitor Code(s): E78.5 - HYPERLIPIDEMIA, UNSPECIFIED (10) HTN (hypertension) Assessment/Plan: -continue diltiazem and metoprolol Code(s): I10 - ESSENTIAL (PRIMARY) HYPERTENSION (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
[2016-05-26 16:27] LABS: URINE APPEARANCE CLOUDY; URINE BILIRUBIN NEGATIVE (NEGATIVE); URINE COLOR YELLOW; URINE GLUCOSE (UA) NEGATIVE (NEGATIVE); URINE KETONE TRACE (NEGATIVE); URINE NITRITE NEGATIVE (NEGATIVE); URINE UROBILINOGEN NEGATIVE E.U./dl (0.2-1.0)
[2016-05-26 16:28] LABS: URINE BLOOD 3+ (NEGATIVE); URINE LEUK ESTERASE 3+ (NEGATIVE); URINE PROTEIN 1+ (NEGATIVE); URINE RBC 63 /hpf (0-3)
[2016-05-26 16:29] LABS: URINE BACTERIA RARE /hpf (NONE SEEN); URINE HYALINE CAST 2 /lpf; URINE MUCUS RARE; URINE WBC 572 /hpf (3-5)
--- NOTE | 2016-05-26 16:36 | EKG ---
Test Reason : Blood Pressure : / mmHG Vent. Rate : 103 BPM Atrial Rate : 074 BPM P-R Int : 000 ms QRS Dur : 166 ms QT Int : 396 ms P-R-T Axes : 000 -71 -13 degrees QTc Int : 518 ms ATRIAL FIBRILLATION WITH RAPID VENTRICULAR RESPONSE RIGHT BUNDLE BRANCH BLOCK ABNORMAL ECG NO PREVIOUS ECGS AVAILABLE Confirmed by SYL CONTRERAS MD ([id number]) on 05/26/2016 4:36:29 PM Referred By: Confirmed By:SYL CONTRERAS MD
[2016-05-26] MEDS: INSULIN SLIDING SCALE (NOVOLOG) 1 VIAL SQ SCH ×2 (19:22→22:13)
[2016-05-26] MEDS: glipiZIDE 5 MG TABLET (FP) PO SCH (19:22)
--- NOTE | 2016-05-26 20:24 | CONSULT ---
Consult - text type - Consultation Consultation Note: CC: urosepsis with urinary retention HPI: Called to evaluate urinary retention in septic NH resident. Patient is uable to give a history. Patient with fevers greater than 102 with convulsions. The patient has a catheter which is poorly draining with a bladder volume greater than 900 cc. The patient does complain of suprapubic discomfor . PE abd: palpable bladder genitalia: nl phallus with catheter not in proper position rectal: 3+ irregular prostate CT scan and bladder scan reviewed cloud catheter remove and second catheter passed into the bladder discussed with daughter x 20 minutes imp urosepsis urinary retention plan continue current antibiotics consider suprapubic tube for long-term management
[2016-05-26] MEDS: ATORVASTATIN CA 20 MG TABLET (FP) PO SCH (22:18)
[2016-05-26] MEDS: METOPROLOL SUCCINATE 50 MG TAB.SR.24H (FP) PO SCH (22:18)
[2016-05-26] MEDS: HEPARIN NA (PORCINE) 5,000 UNITS/ML 1ML VIAL SQ SCH (22:18)
[2016-05-26] MEDS: PANTOPRAZOLE 40 MG TABLET (FP) PO SCH (22:18)
[2016-05-27] MEDS: INSULIN SLIDING SCALE (NOVOLOG) 1 VIAL SQ SCH ×4 (06:27→22:44)
[2016-05-27] MEDS ORDERED: glipiZIDE 5 MG TABLET (FP) ONE (06:50)
[2016-05-27] MEDS: glipiZIDE 10 MG TABLET (FP) PO SCH (06:51)
[2016-05-27] MEDS: HEPARIN NA (PORCINE) 5,000 UNITS/ML 1ML VIAL SQ SCH ×3 (06:51→22:41)
[2016-05-27 07:07] LABS: BASOPHIL 0.4 % (0-2.0); EOSINOPHIL 0.5 % (0-4.5); MCH 29.7 pg (25.7-33.7); MCHC 32.4 g/dl (32.0-35.9); MEAN CELL VOLUME 91.6 fl (80-96); MEAN PLT VOLUME 10.8 fl (7.5-11.1); NEUTROPHILS 84.6 % (42.8-82.8); PLATELET COUNT 207 K/MM3 (134-434); RDW 14.6 % (11.9-15.9); WHITE BLOOD COUNT 14.1 K/mm3 (4.0-10.0)
[2016-05-27 07:20] LABS: ALBUMIN 2.9 g/dl (3.4-5.0); ALK PHOS 73 U/L (45-117); ANION GAP 8 (8-16); CALCIUM 8.6 mg/dL (8.5-10.1); CO2 30 mmol/L (21-32); CREATININE 0.8 mg/dL (0.7-1.3); GLUCOSE,RANDOM 85 mg/dL (74-106); MAGNESIUM 1.9 mg/dL (1.8-2.4); PHOSPHOROUS 3.2 mg/dL (2.5-4.9); SGOT/AST 26 U/L (15-37); SGPT/ALT 29 U/L (12-78); TOT PROT 6.7 g/dl (6.4-8.2)
[2016-05-27] MEDS ORDERED: PT OWN MED DRAWER 7, Y5N ONE ×2 (10:12→13:50)
[2016-05-27] MEDS: CHOLECALCIFEROL (VITAMIN D3) 1,000 UNIT TABLET (FP) PO SCH (10:14)
[2016-05-27] MEDS: CYANOCOBALAMIN 1,000 MCG TABLET (FP) PO SCH (10:15)
[2016-05-27] MEDS: FERROUS SO4 325 MG TABLET (FP) PO SCH (10:15)
[2016-05-27] MEDS: METOPROLOL SUCCINATE 100 MG TAB.SR.24H (FP) PO SCH (10:15)
[2016-05-27] MEDS: DULoxetine HCL 30 MG CAPSULE.DR (FP) PO SCH (10:15)
[2016-05-27] MEDS: PANTOPRAZOLE 40 MG TABLET (FP) PO SCH ×2 (10:15→22:43)
--- NOTE | 2016-05-27 11:58 | PN ---
Progress Note (short form) - Note Progress Note: ID consult dictated imp/reccd suspect fever/chills/nausea /vomiting-secondary to uti and urinary retention cloud placed by urology last nigh he has been afebrile since prior history of proteus UTI resistant to levaquin started on rocephin on 05/24 in NH given vanco/fortaz in ed will treat with cefepime for uti f/u cultures dementia nonambulatory d/w Dr Alfaro Problem List - Problems (1) SIRS (systemic inflammatory response syndrome) Code(s): R65.10 - SIRS OF NON-INFECTIOUS ORIGIN W/O ACUTE ORGAN DYSFUNCTION (2) UTI (urinary tract infection) Code(s): N39.0 - URINARY TRACT INFECTION, SITE NOT SPECIFIED Qualifiers: Urinary tract infection type: acute cystitis Hematuria presence: without hematuria Qualified Code(s): N30.00 - Acute cystitis without hematuria (3) Urinary retention Code(s): R33.9 - RETENTION OF URINE, UNSPECIFIED (4) Dementia Code(s): F03.90 - UNSPECIFIED DEMENTIA WITHOUT BEHAVIORAL DISTURBANCE
--- NOTE | 2016-05-27 12:23 | PN ---
Progress Note, Physician Chief Complaint: Mr Wilson says he is feeling fine. No cp, sob, n/v. Suprapubic pain resolved. More energetic today. - Current Medication List Current Medications: Active Medications Acetaminophen (Tylenol -) 650 mg PO Q4H PRN PRN Reason: FEVER OR PAIN Atorvastatin Calcium (Lipitor -) 20 mg PO HS [facility] Last Admin: 05/26/16 22:18 Dose: 20 mg Cefepime HCl (Maxipime 1gm Ivpb Pre-Docked) 1 gm IVPB Q8H-IV JOANNA Cholecalciferol (Vitamin D3 -) 2,000 unit PO DAILY [facility] Last Admin: 05/27/16 10:14 Dose: 2,000 unit Cyanocobalamin (Vitamin B12 -) 1,000 mcg PO DAILY [facility] Last Admin: 05/27/16 10:15 Dose: 1,000 mcg Diltiazem HCl (Cardizem Cd -) 240 mg PO DAILY [facility] Last Admin: 05/27/16 10:15 Dose: 240 mg Duloxetine HCl (Cymbalta -) 60 mg PO DAILY [facility] Last Admin: 05/27/16 10:15 Dose: 60 mg Ferrous Sulfate (Feosol -) 325 mg PO DAILY [facility] Last Admin: 05/27/16 10:15 Dose: 325 mg Glipizide (Glucotrol -) 10 mg PO AM [facility] Last Admin: 05/27/16 06:51 Dose: 10 mg Glipizide (Glucotrol -) 5 mg PO ACDIN [facility] Last Admin: 05/26/16 19:22 Dose: Not Given Heparin Sodium (Porcine) (Heparin -) 5,000 unit SQ TID [facility] Last Admin: 05/27/16 06:51 Dose: 5,000 unit Sodium Chloride (Normal Saline -) 1,000 mls @ 75 mls/hr IV ASDIR [facility] Last Admin: 05/26/16 19:27 Dose: 75 mls/hr Insulin Aspart (Novolog Vial Sliding Scale -) 1 vial SQ ACHS [facility] PRN Reason: Protocol Last Admin: 05/27/16 12:01 Dose: Not Given Metoprolol Succinate (Toprol Xl -) 100 mg PO DAILY [facility] Last Admin: 05/27/16 10:15 Dose: 100 mg Metoprolol Succinate (Toprol Xl -) 50 mg PO HS [facility] Last Admin: 05/26/16 22:18 Dose: 50 mg Ondansetron HCl (Zofran Injection) 4 mg IVPB Q6H PRN PRN Reason: NAUSEA Pantoprazole Sodium (Protonix -) 40 mg PO BID JOANNA Last Admin: 05/27/16 10:15 Dose: 40 mg - Objective Vital Signs: Vital Signs Temperature 98.2 F 05/27/16 08:00 Pulse Rate 86 05/27/16 08:00 Respiratory Rate 14 05/27/16 08:00 Blood Pressure 124/60 05/27/16 08:00 O2 Sat by Pulse Oximetry (%) 96 05/27/16 09:00 Constitutional: Yes: Well Nourished, No Distress, Calm Cardiovascular: Yes: Regular Rate and Rhythm. No: Gallop, Murmur, Rub Respiratory: Yes: Regular, CTA Bilaterally. No: Rales, Rhonchi, Wheezes Gastrointestinal: Yes: Normal Bowel Sounds, Soft. No: Distention, Tenderness Extremities: Yes: WNL Edema: No Labs: CBC, BMP 05/27/16 05:35 05/27/16 05:35 INR, PTT INR 1.51 (0.82-1.09) H 05/26/16 13:30 Problem List - Problems (1) UTI (urinary tract infection) Code(s): N39.0 - URINARY TRACT INFECTION, SITE NOT SPECIFIED Qualifiers: Urinary tract infection type: acute cystitis Hematuria presence: without hematuria Qualified Code(s): N30.00 - Acute cystitis without hematuria (2) Sepsis Code(s): A41.9 - SEPSIS, UNSPECIFIED ORGANISM Qualifiers: Sepsis type: sepsis due to unspecified organism Qualified Code(s): A41.9 - Sepsis, unspecified organism (3) Urinary retention Code(s): R33.9 - RETENTION OF URINE, UNSPECIFIED (4) Atrial fibrillation with RVR Code(s): I48.91 - UNSPECIFIED ATRIAL FIBRILLATION (5) BPH (benign prostatic hypertrophy) Code(s): N40.0 - BENIGN PROSTATIC HYPERPLASIA WITHOUT LOWER URINRY TRACT SYMP (6) CAD (coronary artery disease) Code(s): I25.10 - ATHSCL HEART DISEASE OF [place] CORONARY ARTERY W/O ANG PCTRS (7) Dementia Code(s): F03.90 - UNSPECIFIED DEMENTIA WITHOUT BEHAVIORAL DISTURBANCE (8) Diabetes mellitus Code(s): E11.9 - TYPE 2 DIABETES MELLITUS WITHOUT COMPLICATIONS (9) HLD (hyperlipidemia) Code(s): E78.5 - HYPERLIPIDEMIA, UNSPECIFIED (10) HTN (hypertension) Code(s): I10 - ESSENTIAL (PRIMARY) HYPERTENSION (11) Stenosis of cervical spine with myelopathy Code(s): M47.12 - OTHER SPONDYLOSIS WITH MYELOPATHY, CERVICAL REGION Assessment/Plan (1) UTI (urinary tract infection) Assessment/Plan: -case d/w Dr Bello -? if actual infection vs retention -change antibiotics to rocephin -monitor Code(s): N39.0 - URINARY TRACT INFECTION, SITE NOT SPECIFIED Qualifiers: Urinary tract infection type: acute cystitis Hematuria presence: without hematuria Qualified Code(s): N30.00 - Acute cystitis without hematuria (2) Sepsis Assessment/Plan: -much improved -continue IVF currently, will decrease rate -continue to monitor leukocytosis -ok to dc tele Code(s): A41.9 - SEPSIS, UNSPECIFIED ORGANISM Qualifiers: Sepsis type: sepsis due to unspecified organism Qualified Code(s): A41.9 - Sepsis, unspecified organism (3) Urinary retention Assessment/Plan: -cloud replaced by urology and draining urine Code(s): R33.9 - RETENTION OF URINE, UNSPECIFIED (4) Atrial fibrillation with RVR Assessment/Plan: -rate controlled -continue metoprolol and diltiazem -can d/c telemetry Code(s): I48.91 - UNSPECIFIED ATRIAL FIBRILLATION (5) BPH (benign prostatic hypertrophy) Assessment/Plan: -s/p TURP -cloud placed and draining urine Code(s): N40.0 - BENIGN PROSTATIC HYPERPLASIA WITHOUT LOWER URINRY TRACT SYMP (6) CAD (coronary artery disease) Assessment/Plan: -quiescent -continue home regimen Code(s): I25.10 - ATHSCL HEART DISEASE OF [place] CORONARY ARTERY W/O ANG PCTRS (7) Dementia Assessment/Plan: -at baseline Code(s): F03.90 - UNSPECIFIED DEMENTIA WITHOUT BEHAVIORAL DISTURBANCE (8) Diabetes mellitus Assessment/Plan: -diabetic diet -continue glipizide -FSBS qac and qhs -SSI Code(s): E11.9 - TYPE 2 DIABETES MELLITUS WITHOUT COMPLICATIONS (9) HLD (hyperlipidemia) Assessment/Plan: -continue lipitor Code(s): E78.5 - HYPERLIPIDEMIA, UNSPECIFIED (10) HTN (hypertension) Assessment/Plan: -continue diltiazem and metoprolol Code(s): I10 - ESSENTIAL (PRIMARY) HYPERTENSION (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
[2016-05-27] MEDS: CEFEPIME 1 GM/100 ML BAG PRE-DOCKED IVPB SCH ×2 (12:32→18:58)
[2016-05-27] MEDS: SODIUM CHLORIDE 1,000 ML IV SCH (14:00)
[2016-05-27] MEDS: glipiZIDE 5 MG TABLET (FP) PO SCH (16:32)
[2016-05-27] MEDS: ATORVASTATIN CA 20 MG TABLET (FP) PO SCH (22:43)
[2016-05-27] MEDS: METOPROLOL SUCCINATE 50 MG TAB.SR.24H (FP) PO SCH (22:43)
[2016-05-28] MEDS: CEFEPIME 1 GM/100 ML BAG PRE-DOCKED IVPB SCH ×3 (02:45→18:07)
[2016-05-28] MEDS: INSULIN SLIDING SCALE (NOVOLOG) 1 VIAL SQ SCH ×4 (06:47→21:45)
[2016-05-28] MEDS: HEPARIN NA (PORCINE) 5,000 UNITS/ML 1ML VIAL SQ SCH ×3 (06:48→21:45)
[2016-05-28] MEDS: glipiZIDE 10 MG TABLET (FP) PO SCH (07:30)
[2016-05-28 08:10] LABS: BASOPHIL 0.6 % (0-2.0); EOSINOPHIL 1.9 % (0-4.5); MCH 29.8 pg (25.7-33.7); MCHC 33.1 g/dl (32.0-35.9); MEAN CELL VOLUME 90.1 fl (80-96); NEUTROPHILS 73.5 % (42.8-82.8); PLATELET COUNT 188 K/MM3 (134-434); RDW 14.6 % (11.9-15.9); WHITE BLOOD COUNT 8.9 K/mm3 (4.0-10.0)
[2016-05-28] MEDS: CYANOCOBALAMIN 1,000 MCG TABLET (FP) PO SCH (10:28)
[2016-05-28] MEDS: DULoxetine HCL 30 MG CAPSULE.DR (FP) PO SCH (10:28)
[2016-05-28] MEDS: CHOLECALCIFEROL (VITAMIN D3) 1,000 UNIT TABLET (FP) PO SCH (10:28)
[2016-05-28] MEDS: FERROUS SO4 325 MG TABLET (FP) PO SCH (10:29)
[2016-05-28] MEDS: PANTOPRAZOLE 40 MG TABLET (FP) PO SCH ×2 (10:29→21:45)
[2016-05-28] MEDS: METOPROLOL SUCCINATE 100 MG TAB.SR.24H (FP) PO SCH (10:29)
[2016-05-28 10:39] LABS: CALCIUM 8.2 mg/dL (8.5-10.1); CREATININE 0.8 mg/dL (0.7-1.3); MAGNESIUM 1.7 mg/dL (1.8-2.4); PHOSPHOROUS 2.8 mg/dL (2.5-4.9)
[2016-05-28] MEDS ORDERED: POTASSIUM CHLORIDE TABS 20 MEQ TABLET.ER (FP) PO ONE (11:07)
--- NOTE | 2016-05-28 11:10 | PN ---
Progress Note, Physician Chief Complaint: Mr Wilson says he is feeling fine. No cp, sob, n/v. Suprapubic pain resolved. States he feels great and is ready to go home. - Current Medication List Current Medications: Active Medications Acetaminophen (Tylenol -) 650 mg PO Q4H PRN PRN Reason: FEVER OR PAIN Last Admin: 05/27/16 14:00 Dose: 650 mg Atorvastatin Calcium (Lipitor -) 20 mg PO HS REPLACED BY [facility] Last Admin: 05/27/16 22:43 Dose: 20 mg Cefepime HCl (Maxipime 1gm Ivpb Pre-Docked) 1 gm IVPB Q8H-IV REPLACED BY [facility] Last Admin: 05/28/16 10:29 Dose: 1 gm Cholecalciferol (Vitamin D3 -) 2,000 unit PO DAILY REPLACED BY [facility] Last Admin: 05/28/16 10:28 Dose: 2,000 unit Cyanocobalamin (Vitamin B12 -) 1,000 mcg PO DAILY REPLACED BY [facility] Last Admin: 05/28/16 10:28 Dose: 1,000 mcg Diltiazem HCl (Cardizem Cd -) 240 mg PO DAILY REPLACED BY [facility] Last Admin: 05/28/16 10:28 Dose: 240 mg Duloxetine HCl (Cymbalta -) 60 mg PO DAILY REPL[facility]ED BY [facility] Last Admin: 05/28/16 10:28 Dose: 60 mg Ferrous Sulfate (Feosol -) 325 mg PO DAILY REPLACED BY [facility] Last Admin: 05/28/16 10:29 Dose: 325 mg Glipizide (Glucotrol -) 10 mg PO AM REPLACED BY [facility] Last Admin: 05/27/16 06:51 Dose: 10 mg Glipizide (Glucotrol -) 5 mg PO ACDIN REPLACED BY [facility] Last Admin: 05/27/16 16:32 Dose: Not Given Heparin Sodium (Porcine) (Heparin -) 5,000 unit SQ TID REPLACED BY [facility] Last Admin: 05/28/16 06:48 Dose: 5,000 unit Sodium Chloride (Normal Saline -) 1,000 mls @ 50 mls/hr IV ASDIR REPLACED BY [facility] Last Admin: 05/27/16 14:00 Dose: 50 mls/hr Insulin Aspart (Novolog Vial Sliding Scale -) 1 vial SQ ACHS [facility] PRN Reason: Protocol Last Admin: 05/28/16 06:47 Dose: Not Given Magnesium Oxide (Mag-Ox -) 400 mg PO BID REPLACED BY [facility] Metoprolol Succinate (Toprol Xl -) 100 mg PO DAILY REPLACED BY [facility] Last Admin: 05/28/16 10:29 Dose: 100 mg Metoprolol Succinate (Toprol Xl -) 50 mg PO HS REPLACED BY [facility] Last Admin: 05/27/16 22:43 Dose: 50 mg Ondansetron HCl (Zofran Injection) 4 mg IVPB Q6H PRN PRN Reason: NAUSEA Pantoprazole Sodium (Protonix -) 40 mg PO BID REPLACED BY [facility] Last Admin: 05/28/16 10:29 Dose: 40 mg Potassium Chloride (K-Dur -) 40 meq PO ONCE ONE Stop: 05/28/16 11:08 - Objective Vital Signs: Vital Signs Temperature 98.2 F 05/28/16 05:00 Pulse Rate 85 05/28/16 05:00 Respiratory Rate 20 05/28/16 05:00 Blood Pressure 140/80 05/28/16 05:00 O2 Sat by Pulse Oximetry (%) 95 05/27/16 21:00 Constitutional: Yes: Well Nourished, No Distress, Calm Cardiovascular: Yes: Pulse Irregular. No: Gallop, Murmur, Rub Respiratory: Yes: Regular, CTA Bilaterally. No: Rales, Rhonchi, Wheezes Gastrointestinal: Yes: Normal Bowel Sounds, Soft. No: Distention, Tenderness Extremities: Yes: WNL Edema: No Labs: CBC, BMP 05/28/16 05:35 05/28/16 05:35 INR, PTT INR 1.51 (0.82-1.09) H 05/26/16 13:30 Problem List - Problems (1) UTI (urinary tract infection) Code(s): N39.0 - URINARY TRACT INFECTION, SITE NOT SPECIFIED Qualifiers: Urinary tract infection type: acute cystitis Hematuria presence: without hematuria Qualified Code(s): N30.00 - Acute cystitis without hematuria (2) Sepsis Code(s): A41.9 - SEPSIS, UNSPECIFIED ORGANISM Qualifiers: Sepsis type: sepsis due to unspecified organism Qualified Code(s): A41.9 - Sepsis, unspecified organism (3) Urinary retention Code(s): R33.9 - RETENTION OF URINE, UNSPECIFIED (4) Atrial fibrillation with RVR Code(s): I48.91 - UNSPECIFIED ATRIAL FIBRILLATION (5) BPH (benign prostatic hypertrophy) Code(s): N40.0 - BENIGN PROSTATIC HYPERPLASIA WITHOUT LOWER URINRY TRACT SYMP (6) CAD (coronary artery disease) Code(s): I25.10 - ATHSCL HEART DISEASE OF [place] CORONARY ARTERY W/O ANG PCTRS (7) Dementia Code(s): F03.90 - UNSPECIFIED DEMENTIA WITHOUT BEHAVIORAL DISTURBANCE (8) Diabetes mellitus Code(s): E11.9 - TYPE 2 DIABETES MELLITUS WITHOUT COMPLICATIONS (9) HLD (hyperlipidemia) Code(s): E78.5 - HYPERLIPIDEMIA, UNSPECIFIED (10) HTN (hypertension) Code(s): I10 - ESSENTIAL (PRIMARY) HYPERTENSION (11) Stenosis of cervical spine with myelopathy Code(s): M47.12 - OTHER SPONDYLOSIS WITH MYELOPATHY, CERVICAL REGION Assessment/Plan (1) UTI (urinary tract infection) Assessment/Plan: -continue empiric cefepime per ID -monitor, all cultures negative Code(s): N39.0 - URINARY TRACT INFECTION, SITE NOT SPECIFIED Qualifiers: Urinary tract infection type: acute cystitis Hematuria presence: without hematuria Qualified Code(s): N30.00 - Acute cystitis without hematuria (2) Sepsis Assessment/Plan: -resolved -continue current management Code(s): A41.9 - SEPSIS, UNSPECIFIED ORGANISM Qualifiers: Sepsis type: sepsis due to unspecified organism Qualified Code(s): A41.9 - Sepsis, unspecified organism (3) Urinary retention Assessment/Plan: -cloud replaced by urology and draining urine Code(s): R33.9 - RETENTION OF URINE, UNSPECIFIED (4) Atrial fibrillation with RVR Assessment/Plan: -rate controlled -continue metoprolol and diltiazem -can d/c telemetry Code(s): I48.91 - UNSPECIFIED ATRIAL FIBRILLATION (5) BPH (benign prostatic hypertrophy) Assessment/Plan: -s/p TURP -cloud placed and draining urine Code(s): N40.0 - BENIGN PROSTATIC HYPERPLASIA WITHOUT LOWER URINRY TRACT SYMP (6) CAD (coronary artery disease) Assessment/Plan: -quiescent -continue home regimen Code(s): I25.10 - ATHSCL HEART DISEASE OF [place] CORONARY ARTERY W/O ANG PCTRS (7) Dementia Assessment/Plan: -at baseline Code(s): F03.90 - UNSPECIFIED DEMENTIA WITHOUT BEHAVIORAL DISTURBANCE (8) Diabetes mellitus Assessment/Plan: -diabetic diet -continue glipizide -FSBS qac and qhs -SSI Code(s): E11.9 - TYPE 2 DIABETES MELLITUS WITHOUT COMPLICATIONS (9) HLD (hyperlipidemia) Assessment/Plan: -continue lipitor Code(s): E78.5 - HYPERLIPIDEMIA, UNSPECIFIED (10) HTN (hypertension) Assessment/Plan: -continue diltiazem and metoprolol Code(s): I10 - ESSENTIAL (PRIMARY) HYPERTENSION (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
--- NOTE | 2016-05-28 11:48 | PN ---
Progress Note, Physician History of Present Illness: Awake, alert Offers no complaints Temps down- afebrile WBC down- WNL Cultures no growth - Current Medication List Current Medications: Active Medications Acetaminophen (Tylenol -) 650 mg PO Q4H PRN PRN Reason: FEVER OR PAIN Last Admin: 05/27/16 14:00 Dose: 650 mg Atorvastatin Calcium (Lipitor -) 20 mg PO HS [facility] Last Admin: 05/27/16 22:43 Dose: 20 mg Cefepime HCl (Maxipime 1gm Ivpb Pre-Docked) 1 gm IVPB Q8H-IV [facility] Last Admin: 05/28/16 10:29 Dose: 1 gm Cholecalciferol (Vitamin D3 -) 2,000 unit PO DAILY [facility] Last Admin: 05/28/16 10:28 Dose: 2,000 unit Cyanocobalamin (Vitamin B12 -) 1,000 mcg PO DAILY [facility] Last Admin: 05/28/16 10:28 Dose: 1,000 mcg Diltiazem HCl (Cardizem Cd -) 240 mg PO DAILY [facility] Last Admin: 05/28/16 10:28 Dose: 240 mg Duloxetine HCl (Cymbalta -) 60 mg PO DAILY [facility] Last Admin: 05/28/16 10:28 Dose: 60 mg Ferrous Sulfate (Feosol -) 325 mg PO DAILY [facility] Last Admin: 05/28/16 10:29 Dose: 325 mg Glipizide (Glucotrol -) 10 mg PO AM [facility] Last Admin: 05/27/16 06:51 Dose: 10 mg Glipizide (Glucotrol -) 5 mg PO ACDIN [facility] Last Admin: 05/27/16 16:32 Dose: Not Given Heparin Sodium (Porcine) (Heparin -) 5,000 unit SQ TID [facility] Last Admin: 05/28/16 06:48 Dose: 5,000 unit Sodium Chloride (Normal Saline -) 1,000 mls @ 50 mls/hr IV ASDIR [facility] Last Admin: 05/27/16 14:00 Dose: 50 mls/hr Insulin Aspart (Novolog Vial Sliding Scale -) 1 vial SQ ACHS [facility] PRN Reason: Protocol Last Admin: 05/28/16 06:47 Dose: Not Given Magnesium Oxide (Mag-Ox -) 400 mg PO BID [facility] Metoprolol Succinate (Toprol Xl -) 100 mg PO DAILY [facility] Last Admin: 05/28/16 10:29 Dose: 100 mg Metoprolol Succinate (Toprol Xl -) 50 mg PO HS [facility] Last Admin: 05/27/16 22:43 Dose: 50 mg Ondansetron HCl (Zofran Injection) 4 mg IVPB Q6H PRN PRN Reason: NAUSEA Pantoprazole Sodium (Protonix -) 40 mg PO BID [facility] Last Admin: 05/28/16 10:29 Dose: 40 mg Potassium Chloride (K-Dur -) 40 meq PO ONCE ONE Stop: 05/28/16 11:08 - Objective Vital Signs: Vital Signs Temperature 97.8 F 05/28/16 09:00 Pulse Rate 82 05/28/16 09:00 Respiratory Rate 18 05/28/16 09:00 Blood Pressure 155/80 05/28/16 09:00 O2 Sat by Pulse Oximetry (%) 95 05/27/16 21:00 Constitutional: Yes: No Distress Eyes: Yes: Conjunctiva Clear Cardiovascular: Yes: Regular Rate and Rhythm, S1, S2 Respiratory: Yes: CTA Bilaterally Gastrointestinal: Yes: Normal Bowel Sounds, Soft. No: Tenderness Edema: Yes Labs: CBC, BMP 05/28/16 05:35 05/28/16 05:35 INR, PTT INR 1.51 (0.82-1.09) H 05/26/16 13:30 Assessment/Plan UTI/ Sepsis secondary to UTI Acute urinary retention, s/p cloud catheter BPH OBS Continue empiric cefepime Suprapubic being considered by
[2016-05-28] MEDS: MAGNESIUM OXIDE 400 MG TABLET (FP) PO SCH ×2 (12:39→21:45)
[2016-05-28] MEDS: SODIUM CHLORIDE 1,000 ML IV SCH (14:01)
[2016-05-28] MEDS: glipiZIDE 5 MG TABLET (FP) PO SCH (18:07)
[2016-05-28] MEDS: METOPROLOL SUCCINATE 50 MG TAB.SR.24H (FP) PO SCH (21:45)
[2016-05-28] MEDS: ATORVASTATIN CA 20 MG TABLET (FP) PO SCH (21:45)
[2016-05-29] MEDS: CEFEPIME 1 GM/100 ML BAG PRE-DOCKED IVPB SCH ×3 (02:00→17:29)
[2016-05-29] MEDS: INSULIN SLIDING SCALE (NOVOLOG) 1 VIAL SQ SCH ×4 (06:52→23:15)
[2016-05-29] MEDS: HEPARIN NA (PORCINE) 5,000 UNITS/ML 1ML VIAL SQ SCH ×3 (06:53→23:14)
[2016-05-29] MEDS: glipiZIDE 10 MG TABLET (FP) PO SCH (06:53)
[2016-05-29 08:02] LABS: BASOPHIL 0.6 % (0-2.0); MCH 29.8 pg (25.7-33.7); MCHC 32.9 g/dl (32.0-35.9); MEAN CELL VOLUME 90.4 fl (80-96); MEAN PLT VOLUME 10.9 fl (7.5-11.1); PLATELET COUNT 200 K/MM3 (134-434); RDW 14.7 % (11.9-15.9); WHITE BLOOD COUNT 9.9 K/mm3 (4.0-10.0)
[2016-05-29 08:20] LABS: CALCIUM 8.7 mg/dL (8.5-10.1); MAGNESIUM 1.8 mg/dL (1.8-2.4)
[2016-05-29 08:23] LABS: CREATININE 0.7 mg/dL (0.7-1.3)
[2016-05-29] MEDS: CYANOCOBALAMIN 1,000 MCG TABLET (FP) PO SCH (09:57)
[2016-05-29] MEDS: FERROUS SO4 325 MG TABLET (FP) PO SCH (09:57)
[2016-05-29] MEDS: DULoxetine HCL 30 MG CAPSULE.DR (FP) PO SCH (09:57)
[2016-05-29] MEDS: METOPROLOL SUCCINATE 100 MG TAB.SR.24H (FP) PO SCH (09:58)
[2016-05-29] MEDS: PANTOPRAZOLE 40 MG TABLET (FP) PO SCH ×2 (09:58→23:15)
[2016-05-29] MEDS: CHOLECALCIFEROL (VITAMIN D3) 1,000 UNIT TABLET (FP) PO SCH (09:58)
[2016-05-29] MEDS: MAGNESIUM OXIDE 400 MG TABLET (FP) PO SCH ×2 (09:58→23:15)
--- NOTE | 2016-05-29 12:44 | PN ---
Progress Note, Physician Chief Complaint: Mr Wilson says he is feeling fine. No cp, sob, n/v. - Current Medication List Current Medications: Active Medications Acetaminophen (Tylenol -) 650 mg PO Q4H PRN PRN Reason: FEVER OR PAIN Last Admin: 05/27/16 14:00 Dose: 650 mg Atorvastatin Calcium (Lipitor -) 20 mg PO HS [facility] Last Admin: 05/28/16 21:45 Dose: 20 mg Cefepime HCl (Maxipime 1gm Ivpb Pre-Docked) 1 gm IVPB Q8H-IV [facility] Last Admin: 05/29/16 09:58 Dose: 1 gm Cholecalciferol (Vitamin D3 -) 2,000 unit PO DAILY [facility] Last Admin: 05/29/16 09:58 Dose: 2,000 unit Cyanocobalamin (Vitamin B12 -) 1,000 mcg PO DAILY [facility] Last Admin: 05/29/16 09:57 Dose: 1,000 mcg Diltiazem HCl (Cardizem Cd -) 240 mg PO DAILY [facility] Last Admin: 05/29/16 09:57 Dose: 240 mg Duloxetine HCl (Cymbalta -) 60 mg PO DAILY [facility] Last Admin: 05/29/16 09:57 Dose: 60 mg Ferrous Sulfate (Feosol -) 325 mg PO DAILY [facility] Last Admin: 05/29/16 09:57 Dose: 325 mg Glipizide (Glucotrol -) 10 mg PO AM [facility] Last Admin: 05/29/16 06:53 Dose: 10 mg Glipizide (Glucotrol -) 5 mg PO ACDIN [facility] Last Admin: 05/28/16 18:07 Dose: 5 mg Heparin Sodium (Porcine) (Heparin -) 5,000 unit SQ TID [facility] Last Admin: 05/29/16 06:53 Dose: 5,000 unit Sodium Chloride (Normal Saline -) 1,000 mls @ 50 mls/hr IV ASDIR [facility] Last Admin: 05/28/16 14:01 Dose: 50 mls/hr Insulin Aspart (Novolog Vial Sliding Scale -) 1 vial SQ ACHS [facility] PRN Reason: Protocol Last Admin: 05/29/16 12:17 Dose: Not Given Magnesium Oxide (Mag-Ox -) 400 mg PO BID [facility] Last Admin: 05/29/16 09:58 Dose: 400 mg Metoprolol Succinate (Toprol Xl -) 100 mg PO DAILY [facility] Last Admin: 05/29/16 09:58 Dose: 100 mg Metoprolol Succinate (Toprol Xl -) 50 mg PO HS [facility] Last Admin: 05/28/16 21:45 Dose: 50 mg Ondansetron HCl (Zofran Injection) 4 mg IVPB Q6H PRN PRN Reason: NAUSEA Pantoprazole Sodium (Protonix -) 40 mg PO BID [facility] Last Admin: 05/29/16 09:58 Dose: 40 mg - Objective Vital Signs: Vital Signs Temperature 97.3 F L 05/29/16 10:00 Pulse Rate 80 05/29/16 10:00 Respiratory Rate 18 05/29/16 10:00 Blood Pressure 149/75 05/29/16 10:00 O2 Sat by Pulse Oximetry (%) 95 05/28/16 21:00 Constitutional: Yes: Well Nourished, No Distress, Calm Cardiovascular: Yes: Pulse Irregular. No: Gallop, Murmur, Rub Respiratory: Yes: Regular, CTA Bilaterally. No: Rales, Rhonchi, Wheezes Gastrointestinal: Yes: Normal Bowel Sounds, Soft. No: Distention, Tenderness Extremities: Yes: WNL Edema: No Labs: CBC, BMP 05/29/16 05:35 05/29/16 05:35 INR, PTT INR 1.51 (0.82-1.09) H 05/26/16 13:30 Problem List - Problems (1) UTI (urinary tract infection) Code(s): N39.0 - URINARY TRACT INFECTION, SITE NOT SPECIFIED Qualifiers: Urinary tract infection type: acute cystitis Hematuria presence: without hematuria Qualified Code(s): N30.00 - Acute cystitis without hematuria (2) Sepsis Code(s): A41.9 - SEPSIS, UNSPECIFIED ORGANISM Qualifiers: Sepsis type: sepsis due to unspecified organism Qualified Code(s): A41.9 - Sepsis, unspecified organism (3) Urinary retention Code(s): R33.9 - RETENTION OF URINE, UNSPECIFIED (4) Atrial fibrillation with RVR Code(s): I48.91 - UNSPECIFIED ATRIAL FIBRILLATION (5) BPH (benign prostatic hypertrophy) Code(s): N40.0 - BENIGN PROSTATIC HYPERPLASIA WITHOUT LOWER URINRY TRACT SYMP (6) CAD (coronary artery disease) Code(s): I25.10 - ATHSCL HEART DISEASE OF [place] CORONARY ARTERY W/O ANG PCTRS (7) Dementia Code(s): F03.90 - UNSPECIFIED DEMENTIA WITHOUT BEHAVIORAL DISTURBANCE (8) Diabetes mellitus Code(s): E11.9 - TYPE 2 DIABETES MELLITUS WITHOUT COMPLICATIONS (9) HLD (hyperlipidemia) Code(s): E78.5 - HYPERLIPIDEMIA, UNSPECIFIED (10) HTN (hypertension) Code(s): I10 - ESSENTIAL (PRIMARY) HYPERTENSION (11) Stenosis of cervical spine with myelopathy Code(s): M47.12 - OTHER SPONDYLOSIS WITH MYELOPATHY, CERVICAL REGION Assessment/Plan (1) UTI (urinary tract infection) Assessment/Plan: -continue empiric cefepime per ID Code(s): N39.0 - URINARY TRACT INFECTION, SITE NOT SPECIFIED Qualifiers: Urinary tract infection type: acute cystitis Hematuria presence: without hematuria Qualified Code(s): N30.00 - Acute cystitis without hematuria (2) Sepsis Assessment/Plan: -resolved Code(s): A41.9 - SEPSIS, UNSPECIFIED ORGANISM Qualifiers: Sepsis type: sepsis due to unspecified organism Qualified Code(s): A41.9 - Sepsis, unspecified organism (3) Urinary retention Assessment/Plan: -cloud replaced by urology and draining urine -urology following Code(s): R33.9 - RETENTION OF URINE, UNSPECIFIED (4) Atrial fibrillation with RVR Assessment/Plan: -rate controlled -continue metoprolol and diltiazem -can d/c telemetry Code(s): I48.91 - UNSPECIFIED ATRIAL FIBRILLATION (5) BPH (benign prostatic hypertrophy) Assessment/Plan: -s/p TURP -cloud placed and draining urine Code(s): N40.0 - BENIGN PROSTATIC HYPERPLASIA WITHOUT LOWER URINRY TRACT SYMP (6) CAD (coronary artery disease) Assessment/Plan: -quiescent -continue home regimen Code(s): I25.10 - ATHSCL HEART DISEASE OF [place] CORONARY ARTERY W/O ANG PCTRS (7) Dementia Assessment/Plan: -at baseline Code(s): F03.90 - UNSPECIFIED DEMENTIA WITHOUT BEHAVIORAL DISTURBANCE (8) Diabetes mellitus Assessment/Plan: -diabetic diet -continue glipizide -FSBS qac and qhs -SSI Code(s): E11.9 - TYPE 2 DIABETES MELLITUS WITHOUT COMPLICATIONS (9) HLD (hyperlipidemia) Assessment/Plan: -continue lipitor Code(s): E78.5 - HYPERLIPIDEMIA, UNSPECIFIED (10) HTN (hypertension) Assessment/Plan: -continue diltiazem and metoprolol Code(s): I10 - ESSENTIAL (PRIMARY) HYPERTENSION (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
[2016-05-29] MEDS: SODIUM CHLORIDE 1,000 ML IV SCH (13:47)
[2016-05-29] MEDS: glipiZIDE 5 MG TABLET (FP) PO SCH (17:29)
[2016-05-29] MEDS: ATORVASTATIN CA 20 MG TABLET (FP) PO SCH (23:14)
[2016-05-29] MEDS: METOPROLOL SUCCINATE 50 MG TAB.SR.24H (FP) PO SCH (23:15)
[2016-05-30] MEDS: CEFEPIME 1 GM/100 ML BAG PRE-DOCKED IVPB SCH ×2 (02:00→09:09)
[2016-05-30] MEDS: INSULIN SLIDING SCALE (NOVOLOG) 1 VIAL SQ SCH ×4 (06:42→21:57)
[2016-05-30] MEDS: HEPARIN NA (PORCINE) 5,000 UNITS/ML 1ML VIAL SQ SCH ×3 (06:45→22:03)
[2016-05-30] MEDS: glipiZIDE 10 MG TABLET (FP) PO SCH (06:45)
[2016-05-30 07:52] LABS: BASOPHIL 0.5 % (0-2.0); MCH 29.6 pg (25.7-33.7); MCHC 32.9 g/dl (32.0-35.9); MEAN PLT VOLUME 10.4 fl (7.5-11.1); NEUTROPHILS 69.8 % (42.8-82.8); PLATELET COUNT 217 K/MM3 (134-434); RDW 14.6 % (11.9-15.9); WHITE BLOOD COUNT 9.2 K/mm3 (4.0-10.0)
[2016-05-30 08:24] LABS: CALCIUM 8.7 mg/dL (8.5-10.1); CREATININE 0.7 mg/dL (0.7-1.3); MAGNESIUM 1.9 mg/dL (1.8-2.4); PHOSPHOROUS 3.1 mg/dL (2.5-4.9)
[2016-05-30] MEDS: METOPROLOL SUCCINATE 100 MG TAB.SR.24H (FP) PO SCH (09:09)
[2016-05-30] MEDS: DULoxetine HCL 30 MG CAPSULE.DR (FP) PO SCH (09:09)
[2016-05-30] MEDS: CYANOCOBALAMIN 1,000 MCG TABLET (FP) PO SCH (09:09)
[2016-05-30] MEDS: PANTOPRAZOLE 40 MG TABLET (FP) PO SCH ×2 (09:09→22:03)
[2016-05-30] MEDS: CHOLECALCIFEROL (VITAMIN D3) 1,000 UNIT TABLET (FP) PO SCH (09:10)
[2016-05-30] MEDS: FERROUS SO4 325 MG TABLET (FP) PO SCH (09:10)
[2016-05-30] MEDS: MAGNESIUM OXIDE 400 MG TABLET (FP) PO SCH ×2 (09:10→22:03)
--- NOTE | 2016-05-30 11:25 | PN ---
Progress Note, Physician Chief Complaint: ID Admitted with diagnosis of sepsis and UTI with fever 102 and WBC count of 22K Cefepime - Current Medication List Current Medications: Active Medications Acetaminophen (Tylenol -) 650 mg PO Q4H PRN PRN Reason: FEVER OR PAIN Last Admin: 05/27/16 14:00 Dose: 650 mg Atorvastatin Calcium (Lipitor -) 20 mg PO HS [facility] Last Admin: 05/29/16 23:14 Dose: 20 mg Cefepime HCl (Maxipime 1gm Ivpb Pre-Docked) 1 gm IVPB Q8H-IV [facility] Last Admin: 05/30/16 09:09 Dose: 1 gm Cholecalciferol (Vitamin D3 -) 2,000 unit PO DAILY [facility] Last Admin: 05/30/16 09:10 Dose: 2,000 unit Cyanocobalamin (Vitamin B12 -) 1,000 mcg PO DAILY [facility] Last Admin: 05/30/16 09:09 Dose: 1,000 mcg Diltiazem HCl (Cardizem Cd -) 240 mg PO DAILY [facility] Last Admin: 05/30/16 09:09 Dose: 240 mg Duloxetine HCl (Cymbalta -) 60 mg PO DAILY [facility] Last Admin: 05/30/16 09:09 Dose: 60 mg Ferrous Sulfate (Feosol -) 325 mg PO DAILY [facility] Last Admin: 05/30/16 09:10 Dose: 325 mg Glipizide (Glucotrol -) 10 mg PO AM [facility] Last Admin: 05/30/16 06:45 Dose: Not Given Glipizide (Glucotrol -) 5 mg PO ACDIN [facility] Last Admin: 05/29/16 17:29 Dose: 5 mg Heparin Sodium (Porcine) (Heparin -) 5,000 unit SQ TID [facility] Last Admin: 05/30/16 06:45 Dose: 5,000 unit Sodium Chloride (Normal Saline -) 1,000 mls @ 50 mls/hr IV ASDIR [facility] Last Admin: 05/29/16 13:47 Dose: 50 mls/hr Insulin Aspart (Novolog Vial Sliding Scale -) 1 vial SQ ACHS [facility] PRN Reason: Protocol Last Admin: 05/30/16 06:42 Dose: Not Given Magnesium Oxide (Mag-Ox -) 400 mg PO BID [facility] Last Admin: 05/30/16 09:10 Dose: 400 mg Metoprolol Succinate (Toprol Xl -) 100 mg PO DAILY [facility] Last Admin: 05/30/16 09:09 Dose: 100 mg Metoprolol Succinate (Toprol Xl -) 50 mg PO HS [facility] Last Admin: 05/29/16 23:15 Dose: 50 mg Ondansetron HCl (Zofran Injection) 4 mg IVPB Q6H PRN PRN Reason: NAUSEA Pantoprazole Sodium (Protonix -) 40 mg PO BID [facility] Last Admin: 05/30/16 09:09 Dose: 40 mg - Objective Vital Signs: Vital Signs Temperature 98 F 05/30/16 10:00 Pulse Rate 80 05/30/16 10:00 Respiratory Rate 18 05/30/16 10:00 Blood Pressure 160/88 05/30/16 10:00 O2 Sat by Pulse Oximetry (%) 96 05/29/16 21:00 Constitutional: Yes: Well Nourished, No Distress Neck: Yes: WNL, Supple Cardiovascular: Yes: Regular Rate and Rhythm, S1, S2 Respiratory: Yes: WNL, Regular, CTA Bilaterally Gastrointestinal: Yes: WNL, Normal Bowel Sounds, Soft. No: Tenderness, Tenderness, Epigastrium Genitourinary: Yes: Vasquez Present, Other Edema: No Labs: CBC, BMP 05/30/16 05:35 05/30/16 05:35 INR, PTT INR 1.51 (0.82-1.09) H 05/26/16 13:30 Assessment/Plan Microbiology 05/26/16 14:07 Urine - Urine Vasquez Urine Culture - Final NO GROWTH OBTAINED 05/26/16 13:35 Blood - Peripheral Venous Blood Culture - Preliminary NO GROWTH OBTAINED AFTER 72 HOURS, INCUBATION TO CONTINUE FOR 2 DAYS. 05/26/16 12:53 Blood - Peripheral Venous Blood Culture - Preliminary NO GROWTH OBTAINED AFTER 72 HOURS, INCUBATION TO CONTINUE FOR 2 DAYS. Laboratory Tests 05/26/16 05/26/16 05/30/16 13:30 14:07 05:35 WBC 22.1 H D 9.2 Plt Count 217 BUN Creatinine Urine RBC 63 05/30/16 05:35 WBC Plt Count BUN 6 L Creatinine 0.7 Urine RBC Assessment UTI previously Proteus which looks sensitive to most drugs Doing well Not bacteremic Wants to go home Plan Lets stop Cefepime and switch to oral antibiotics KEflex 500 tid 7 days Dereje TEE
--- NOTE | 2016-05-30 13:46 | PN ---
Progress Note, Physician Chief Complaint: Mr Wilson says he is feeling fine. No cp, sob, n/v. - Current Medication List Current Medications: Active Medications Acetaminophen (Tylenol -) 650 mg PO Q4H PRN PRN Reason: FEVER OR PAIN Last Admin: 05/27/16 14:00 Dose: 650 mg Atorvastatin Calcium (Lipitor -) 20 mg PO HS [facility] Last Admin: 05/29/16 23:14 Dose: 20 mg Cephalexin HCl (Keflex -) 500 mg PO TID [facility] Cholecalciferol (Vitamin D3 -) 2,000 unit PO DAILY [facility] Last Admin: 05/30/16 09:10 Dose: 2,000 unit Cyanocobalamin (Vitamin B12 -) 1,000 mcg PO DAILY [facility] Last Admin: 05/30/16 09:09 Dose: 1,000 mcg Diltiazem HCl (Cardizem Cd -) 240 mg PO DAILY [facility] Last Admin: 05/30/16 09:09 Dose: 240 mg Duloxetine HCl (Cymbalta -) 60 mg PO DAILY [facility] Last Admin: 05/30/16 09:09 Dose: 60 mg Ferrous Sulfate (Feosol -) 325 mg PO DAILY [facility] Last Admin: 05/30/16 09:10 Dose: 325 mg Glipizide (Glucotrol -) 10 mg PO AM [facility] Last Admin: 05/30/16 06:45 Dose: Not Given Glipizide (Glucotrol -) 5 mg PO ACDIN [facility] Last Admin: 05/29/16 17:29 Dose: 5 mg Heparin Sodium (Porcine) (Heparin -) 5,000 unit SQ TID [facility] Last Admin: 05/30/16 06:45 Dose: 5,000 unit Sodium Chloride (Normal Saline -) 1,000 mls @ 50 mls/hr IV ASDIR [facility] Last Admin: 05/29/16 13:47 Dose: 50 mls/hr Insulin Aspart (Novolog Vial Sliding Scale -) 1 vial SQ ACHS [facility] PRN Reason: Protocol Last Admin: 05/30/16 12:00 Dose: Not Given Magnesium Oxide (Mag-Ox -) 400 mg PO BID [facility] Last Admin: 05/30/16 09:10 Dose: 400 mg Metoprolol Succinate (Toprol Xl -) 100 mg PO DAILY [facility] Last Admin: 05/30/16 09:09 Dose: 100 mg Metoprolol Succinate (Toprol Xl -) 50 mg PO HS [facility] Last Admin: 05/29/16 23:15 Dose: 50 mg Ondansetron HCl (Zofran Injection) 4 mg IVPB Q6H PRN PRN Reason: NAUSEA Pantoprazole Sodium (Protonix -) 40 mg PO BID [facility] Last Admin: 05/30/16 09:09 Dose: 40 mg - Objective Vital Signs: Vital Signs Temperature 98 F 05/30/16 10:00 Pulse Rate 80 05/30/16 10:00 Respiratory Rate 18 05/30/16 10:00 Blood Pressure 160/88 05/30/16 10:00 O2 Sat by Pulse Oximetry (%) 95 05/30/16 09:00 Constitutional: Yes: Well Nourished, No Distress, Calm Cardiovascular: Yes: Regular Rate and Rhythm. No: Gallop, Murmur, Rub Respiratory: Yes: Regular, CTA Bilaterally. No: Rales, Rhonchi, Wheezes Gastrointestinal: Yes: Normal Bowel Sounds, Soft. No: Distention, Tenderness Extremities: Yes: WNL Edema: No Labs: CBC, BMP 05/30/16 05:35 05/30/16 05:35 INR, PTT INR 1.51 (0.82-1.09) H 05/26/16 13:30 Problem List - Problems (1) UTI (urinary tract infection) Code(s): N39.0 - URINARY TRACT INFECTION, SITE NOT SPECIFIED Qualifiers: Urinary tract infection type: acute cystitis Hematuria presence: without hematuria Qualified Code(s): N30.00 - Acute cystitis without hematuria (2) Sepsis Code(s): A41.9 - SEPSIS, UNSPECIFIED ORGANISM Qualifiers: Sepsis type: sepsis due to unspecified organism Qualified Code(s): A41.9 - Sepsis, unspecified organism (3) Urinary retention Code(s): R33.9 - RETENTION OF URINE, UNSPECIFIED (4) Atrial fibrillation with RVR Code(s): I48.91 - UNSPECIFIED ATRIAL FIBRILLATION (5) BPH (benign prostatic hypertrophy) Code(s): N40.0 - BENIGN PROSTATIC HYPERPLASIA WITHOUT LOWER URINRY TRACT SYMP (6) CAD (coronary artery disease) Code(s): I25.10 - ATHSCL HEART DISEASE OF [place] CORONARY ARTERY W/O ANG PCTRS (7) Dementia Code(s): F03.90 - UNSPECIFIED DEMENTIA WITHOUT BEHAVIORAL DISTURBANCE (8) Diabetes mellitus Code(s): E11.9 - TYPE 2 DIABETES MELLITUS WITHOUT COMPLICATIONS (9) HLD (hyperlipidemia) Code(s): E78.5 - HYPERLIPIDEMIA, UNSPECIFIED (10) HTN (hypertension) Code(s): I10 - ESSENTIAL (PRIMARY) HYPERTENSION (11) Stenosis of cervical spine with myelopathy Code(s): M47.12 - OTHER SPONDYLOSIS WITH MYELOPATHY, CERVICAL REGION Assessment/Plan (1) UTI (urinary tract infection) Assessment/Plan: -changed to keflex -monitor Code(s): N39.0 - URINARY TRACT INFECTION, SITE NOT SPECIFIED Qualifiers: Urinary tract infection type: acute cystitis Hematuria presence: without hematuria Qualified Code(s): N30.00 - Acute cystitis without hematuria (2) Sepsis Assessment/Plan: -resolved Code(s): A41.9 - SEPSIS, UNSPECIFIED ORGANISM Qualifiers: Sepsis type: sepsis due to unspecified organism Qualified Code(s): A41.9 - Sepsis, unspecified organism (3) Urinary retention Assessment/Plan: -cloud replaced by urology and draining urine -urology following -will d/w urology tomorrow, ? if needs suprapubic catheter Code(s): R33.9 - RETENTION OF URINE, UNSPECIFIED (4) Atrial fibrillation with RVR Assessment/Plan: -rate controlled -continue metoprolol and diltiazem Code(s): I48.91 - UNSPECIFIED ATRIAL FIBRILLATION (5) BPH (benign prostatic hypertrophy) Assessment/Plan: -s/p TURP -cloud placed and draining urine -as above Code(s): N40.0 - BENIGN PROSTATIC HYPERPLASIA WITHOUT LOWER URINRY TRACT SYMP (6) CAD (coronary artery disease) Assessment/Plan: -quiescent -continue home regimen Code(s): I25.10 - ATHSCL HEART DISEASE OF [place] CORONARY ARTERY W/O ANG PCTRS (7) Dementia Assessment/Plan: -at baseline Code(s): F03.90 - UNSPECIFIED DEMENTIA WITHOUT BEHAVIORAL DISTURBANCE (8) Diabetes mellitus Assessment/Plan: -diabetic diet -continue glipizide -FSBS qac and qhs -SSI Code(s): E11.9 - TYPE 2 DIABETES MELLITUS WITHOUT COMPLICATIONS (9) HLD (hyperlipidemia) Assessment/Plan: -continue lipitor Code(s): E78.5 - HYPERLIPIDEMIA, UNSPECIFIED (10) HTN (hypertension) Assessment/Plan: -continue diltiazem and metoprolol Code(s): I10 - ESSENTIAL (PRIMARY) HYPERTENSION (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
[2016-05-30] MEDS: CEPHALEXIN MONOHYDRATE 500 MG CAPSULE (UD) PO SCH ×2 (14:35→22:03)
[2016-05-30] MEDS: SODIUM CHLORIDE 1,000 ML IV SCH (14:35)
[2016-05-30] MEDS: glipiZIDE 5 MG TABLET (FP) PO SCH (16:57)
[2016-05-30] MEDS: ATORVASTATIN CA 20 MG TABLET (FP) PO SCH (22:03)
[2016-05-30] MEDS: METOPROLOL SUCCINATE 50 MG TAB.SR.24H (FP) PO SCH (22:03)
[2016-05-31] MEDS: SODIUM CHLORIDE 1,000 ML IV SCH (02:39)
[2016-05-31] MEDS: INSULIN SLIDING SCALE (NOVOLOG) 1 VIAL SQ SCH ×4 (06:37→22:45)
[2016-05-31] MEDS: glipiZIDE 10 MG TABLET (FP) PO SCH (06:47)
[2016-05-31] MEDS: HEPARIN NA (PORCINE) 5,000 UNITS/ML 1ML VIAL SQ SCH ×3 (06:48→22:44)
[2016-05-31] MEDS: CEPHALEXIN MONOHYDRATE 500 MG CAPSULE (UD) PO SCH ×3 (06:48→22:43)
[2016-05-31 08:13] LABS: BASOPHIL 0.5 % (0-2.0); EOSINOPHIL 3.5 % (0-4.5); MCH 29.9 pg (25.7-33.7); MEAN CELL VOLUME 90.6 fl (80-96); MEAN PLT VOLUME 10.3 fl (7.5-11.1); NEUTROPHILS 70.7 % (42.8-82.8); PLATELET COUNT 230 K/MM3 (134-434); RDW 14.7 % (11.9-15.9); WHITE BLOOD COUNT 10.4 K/mm3 (4.0-10.0)
[2016-05-31 08:24] LABS: CALCIUM 8.6 mg/dL (8.5-10.1); CREATININE 0.6 mg/dL (0.7-1.3); PHOSPHOROUS 3.1 mg/dL (2.5-4.9)
[2016-05-31] MEDS: DULoxetine HCL 30 MG CAPSULE.DR (FP) PO SCH (09:38)
[2016-05-31] MEDS: FERROUS SO4 325 MG TABLET (FP) PO SCH (09:38)
[2016-05-31] MEDS: MAGNESIUM OXIDE 400 MG TABLET (FP) PO SCH ×2 (09:38→22:43)
[2016-05-31] MEDS: CHOLECALCIFEROL (VITAMIN D3) 1,000 UNIT TABLET (FP) PO SCH (09:39)
[2016-05-31] MEDS: CYANOCOBALAMIN 1,000 MCG TABLET (FP) PO SCH (09:39)
[2016-05-31] MEDS: PANTOPRAZOLE 40 MG TABLET (FP) PO SCH ×2 (09:39→22:43)
[2016-05-31] MEDS: METOPROLOL SUCCINATE 100 MG TAB.SR.24H (FP) PO SCH (09:39)
--- NOTE | 2016-05-31 13:37 | PN ---
Progress Note, Physician Chief Complaint: Mr Wilson says he is feeling fine. No cp, sob, n/v. - Current Medication List Current Medications: Active Medications Acetaminophen (Tylenol -) 650 mg PO Q4H PRN PRN Reason: FEVER OR PAIN Last Admin: 05/27/16 14:00 Dose: 650 mg Atorvastatin Calcium (Lipitor -) 20 mg PO HS [facility] Last Admin: 05/30/16 22:03 Dose: 20 mg Cephalexin HCl (Keflex -) 500 mg PO TID [facility] Last Admin: 05/31/16 06:48 Dose: 500 mg Cholecalciferol (Vitamin D3 -) 2,000 unit PO DAILY [facility] Last Admin: 05/31/16 09:39 Dose: 2,000 unit Cyanocobalamin (Vitamin B12 -) 1,000 mcg PO DAILY [facility] Last Admin: 05/31/16 09:39 Dose: 1,000 mcg Diltiazem HCl (Cardizem Cd -) 240 mg PO DAILY [facility] Last Admin: 05/31/16 09:39 Dose: 240 mg Duloxetine HCl (Cymbalta -) 60 mg PO DAILY [facility] Last Admin: 05/31/16 09:38 Dose: 60 mg Ferrous Sulfate (Feosol -) 325 mg PO DAILY [facility] Last Admin: 05/31/16 09:38 Dose: 325 mg Glipizide (Glucotrol -) 10 mg PO AM [facility] Last Admin: 05/31/16 06:47 Dose: 10 mg Glipizide (Glucotrol -) 5 mg PO ACDIN [facility] Last Admin: 05/30/16 16:57 Dose: 5 mg Heparin Sodium (Porcine) (Heparin -) 5,000 unit SQ TID [facility] Last Admin: 05/31/16 06:48 Dose: 5,000 unit Sodium Chloride (Normal Saline -) 1,000 mls @ 50 mls/hr IV ASDIR [facility] Last Admin: 05/31/16 02:39 Dose: 50 mls/hr Insulin Aspart (Novolog Vial Sliding Scale -) 1 vial SQ ACHS [facility] PRN Reason: Protocol Last Admin: 05/31/16 11:11 Dose: Not Given Magnesium Oxide (Mag-Ox -) 400 mg PO BID [facility] Last Admin: 05/31/16 09:38 Dose: 400 mg Metoprolol Succinate (Toprol Xl -) 100 mg PO DAILY [facility] Last Admin: 05/31/16 09:39 Dose: 100 mg Metoprolol Succinate (Toprol Xl -) 50 mg PO HS [facility] Last Admin: 05/30/16 22:03 Dose: 50 mg Ondansetron HCl (Zofran Injection) 4 mg IVPB Q6H PRN PRN Reason: NAUSEA Pantoprazole Sodium (Protonix -) 40 mg PO BID [facility] Last Admin: 05/31/16 09:39 Dose: 40 mg - Objective Vital Signs: Vital Signs Temperature 97.6 F 05/31/16 13:00 Pulse Rate 79 05/31/16 13:00 Respiratory Rate 18 05/31/16 13:00 Blood Pressure 147/81 05/31/16 13:00 O2 Sat by Pulse Oximetry (%) 96 05/31/16 09:00 Constitutional: Yes: Well Nourished, No Distress, Calm Cardiovascular: Yes: Regular Rate and Rhythm. No: Gallop, Murmur, Rub Respiratory: Yes: Regular, CTA Bilaterally. No: Rales, Rhonchi, Wheezes Gastrointestinal: Yes: Normal Bowel Sounds, Soft. No: Distention, Tenderness Extremities: Yes: WNL Edema: No Labs: CBC, BMP 05/31/16 07:00 05/31/16 07:00 INR, PTT INR 1.51 (0.82-1.09) H 05/26/16 13:30 Problem List - Problems (1) UTI (urinary tract infection) Code(s): N39.0 - URINARY TRACT INFECTION, SITE NOT SPECIFIED Qualifiers: Urinary tract infection type: acute cystitis Hematuria presence: without hematuria Qualified Code(s): N30.00 - Acute cystitis without hematuria (2) Sepsis Code(s): A41.9 - SEPSIS, UNSPECIFIED ORGANISM Qualifiers: Sepsis type: sepsis due to unspecified organism Qualified Code(s): A41.9 - Sepsis, unspecified organism (3) Urinary retention Code(s): R33.9 - RETENTION OF URINE, UNSPECIFIED (4) Atrial fibrillation with RVR Code(s): I48.91 - UNSPECIFIED ATRIAL FIBRILLATION (5) BPH (benign prostatic hypertrophy) Code(s): N40.0 - BENIGN PROSTATIC HYPERPLASIA WITHOUT LOWER URINRY TRACT SYMP (6) CAD (coronary artery disease) Code(s): I25.10 - ATHSCL HEART DISEASE OF [place] CORONARY ARTERY W/O ANG PCTRS (7) Dementia Code(s): F03.90 - UNSPECIFIED DEMENTIA WITHOUT BEHAVIORAL DISTURBANCE (8) Diabetes mellitus Code(s): E11.9 - TYPE 2 DIABETES MELLITUS WITHOUT COMPLICATIONS (9) HLD (hyperlipidemia) Code(s): E78.5 - HYPERLIPIDEMIA, UNSPECIFIED (10) HTN (hypertension) Code(s): I10 - ESSENTIAL (PRIMARY) HYPERTENSION (11) Stenosis of cervical spine with myelopathy Code(s): M47.12 - OTHER SPONDYLOSIS WITH MYELOPATHY, CERVICAL REGION Assessment/Plan (1) UTI (urinary tract infection) Assessment/Plan: -changed to keflex -monitor -ID following Code(s): N39.0 - URINARY TRACT INFECTION, SITE NOT SPECIFIED Qualifiers: Urinary tract infection type: acute cystitis Hematuria presence: without hematuria Qualified Code(s): N30.00 - Acute cystitis without hematuria (2) Sepsis Assessment/Plan: -resolved Code(s): A41.9 - SEPSIS, UNSPECIFIED ORGANISM Qualifiers: Sepsis type: sepsis due to unspecified organism Qualified Code(s): A41.9 - Sepsis, unspecified organism (3) Urinary retention Assessment/Plan: -case d/w urology -recommends discharge with cloud and outpatient follow up -plan for discharge to SNF tomorrow Code(s): R33.9 - RETENTION OF URINE, UNSPECIFIED (4) Atrial fibrillation with RVR Assessment/Plan: -rate controlled -continue metoprolol and diltiazem Code(s): I48.91 - UNSPECIFIED ATRIAL FIBRILLATION (5) BPH (benign prostatic hypertrophy) Assessment/Plan: -s/p TURP -cloud placed and draining urine -as above Code(s): N40.0 - BENIGN PROSTATIC HYPERPLASIA WITHOUT LOWER URINRY TRACT SYMP (6) CAD (coronary artery disease) Assessment/Plan: -quiescent -continue home regimen Code(s): I25.10 - ATHSCL HEART DISEASE OF [place] CORONARY ARTERY W/O ANG PCTRS (7) Dementia Assessment/Plan: -at baseline Code(s): F03.90 - UNSPECIFIED DEMENTIA WITHOUT BEHAVIORAL DISTURBANCE (8) Diabetes mellitus Assessment/Plan: -diabetic diet -continue glipizide -FSBS qac and qhs -SSI Code(s): E11.9 - TYPE 2 DIABETES MELLITUS WITHOUT COMPLICATIONS (9) HLD (hyperlipidemia) Assessment/Plan: -continue lipitor Code(s): E78.5 - HYPERLIPIDEMIA, UNSPECIFIED (10) HTN (hypertension) Assessment/Plan: -continue diltiazem and metoprolol Code(s): I10 - ESSENTIAL (PRIMARY) HYPERTENSION (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
--- NOTE | 2016-05-31 14:08 | CONS ---
DATE OF CONSULTATION: INFECTIOUS DISEASE CONSULTATION REQUESTING PHYSICIAN: Parish Alfaro MD HISTORY OF PRESENT ILLNESS: This is a 77-year-old man with dementia who was recently in the hospital from April 29 to May 17. At that time he had a UTI sepsis , rapid atrial fibrillation. He was discharged on Keflex to the [place] [facility]. He also had hematuria during that admission. He was ultimately discharged to the [place] [facility] on the time. He had come from home on the prior admission. At the [facility] he was noted to develop dehydration, difficulty urinating. He was started on ceftriaxone 2 days ago on the and he was transferred to the hospital last night with 3 days of fever and lethargy. He began vomiting and shaking. He had 6 episodes of nonbilious vomiting and he was transferred to the hospital. In the emergency room he complained of suprapubic pain as well as dysuria. They were unable to place a Cloud. Urology placed cloud he was given vanco and fortaz in ED allergy buprenorphine gabapentin quinine warfarin meds list reviewed PMH- afib dementia cad HTN HPL PSH- stent TURP FH-mother with colon cancer SH- [facility] former smoker ROS- unable to obtain due to dementia PE- vitals noted tm-102.7 cor-rrr lungs clear abd soft,nt ext no edema Labs reviewed imp/reccd sepsis secondary to UTI with fever chills nausea and vomitiing cloud in place prior history of proteus UTI resistant to levaquin received vanco/fortaz in ED would continue cefepime and f/u cultures dementia further reccd to follow based on clinical course . Jose [id number] MTDD
[2016-05-31] MEDS: glipiZIDE 5 MG TABLET (FP) PO SCH (16:52)
[2016-05-31] MEDS: ATORVASTATIN CA 20 MG TABLET (FP) PO SCH (22:43)
[2016-05-31] MEDS: METOPROLOL SUCCINATE 50 MG TAB.SR.24H (FP) PO SCH (22:43)
[2016-06-01] MEDS: SODIUM CHLORIDE 1,000 ML IV SCH ×2 (02:55→16:17)
[2016-06-01] MEDS: HEPARIN NA (PORCINE) 5,000 UNITS/ML 1ML VIAL SQ SCH ×2 (06:44→14:17)
[2016-06-01] MEDS: INSULIN SLIDING SCALE (NOVOLOG) 1 VIAL SQ SCH ×3 (06:45→16:18)
[2016-06-01] MEDS: CEPHALEXIN MONOHYDRATE 500 MG CAPSULE (UD) PO SCH ×2 (06:45→14:17)
[2016-06-01] MEDS: glipiZIDE 10 MG TABLET (FP) PO SCH (06:45)
[2016-06-01 08:01] LABS: BASOPHIL 0.6 % (0-2.0); MCH 29.4 pg (25.7-33.7); MCHC 32.8 g/dl (32.0-35.9); MEAN CELL VOLUME 89.9 fl (80-96); MEAN PLT VOLUME 10.1 fl (7.5-11.1); NEUTROPHILS 72.4 % (42.8-82.8); PLATELET COUNT 238 K/MM3 (134-434); RDW 14.6 % (11.9-15.9); WHITE BLOOD COUNT 11.3 K/mm3 (4.0-10.0)
[2016-06-01 08:40] LABS: CALCIUM 9.1 mg/dL (8.5-10.1)
[2016-06-01 08:46] LABS: CREATININE 0.6 mg/dL (0.7-1.3); PHOSPHOROUS 3.4 mg/dL (2.5-4.9)
[2016-06-01 09:12] VITALS: BP 159/74; PULSE 72; TEMP 98
[2016-06-01] MEDS: CHOLECALCIFEROL (VITAMIN D3) 1,000 UNIT TABLET (FP) PO SCH (09:14)
[2016-06-01] MEDS: METOPROLOL SUCCINATE 100 MG TAB.SR.24H (FP) PO SCH (09:15)
[2016-06-01] MEDS: CYANOCOBALAMIN 1,000 MCG TABLET (FP) PO SCH (09:15)
[2016-06-01] MEDS: PANTOPRAZOLE 40 MG TABLET (FP) PO SCH (09:15)
[2016-06-01] MEDS: DULoxetine HCL 30 MG CAPSULE.DR (FP) PO SCH (09:15)
[2016-06-01] MEDS: FERROUS SO4 325 MG TABLET (FP) PO SCH (09:15)
[2016-06-01] MEDS: MAGNESIUM OXIDE 400 MG TABLET (FP) PO SCH (09:15)
--- NOTE | 2016-06-01 13:38 | DS ---
Physical Examination Vital Signs: Vital Signs Temperature 98.0 F 06/01/16 13:22 Pulse Rate 72 06/01/16 13:22 Respiratory Rate 17 06/01/16 13:22 Blood Pressure 159/74 06/01/16 09:00 O2 Sat by Pulse Oximetry (%) 96 06/01/16 09:00 Labs: CBC, BMP 06/01/16 06:40 06/01/16 06:40 Discharge Summary Reason For Visit: SEPSIS DUE TO OTHER ETIOLOGY Current Active Problems SIRS (systemic inflammatory response syndrome) (Acute) Sepsis due to other etiology (Acute) Condition: Stable - Instructions Diet, Activity, Other Instructions: pt has appointment with [id number] -Monday06/08/16 at 3pm. Resume previous diet and activity. Referrals: Khurram Lindsay MD [Primary Care Provider] - Esau Sabillon MD [Staff Physician] - Disposition: [facility]USTODIAL [facility]ACILITY - Home Medications Comprehensive Discharge Medication List: Ambulatory Orders Albuterol Sulfate [Proair Respiclick] 2 sprays IH Q4H PRN 05/07/16 Atorvastatin Ca [Lipitor] 20 mg PO HS 05/07/16 Cholecalciferol (Vitamin D3) [Vitamin D3] 2,000 unit PO DAILY 05/07/16 Cyanocobalamin [Vitamin B12 -] 1,000 mcg PO DAILY 05/07/16 Diltiazem HCl [Diltiazem 24Hr Cd] 240 mg PO DAILY 05/07/16 Duloxetine HCl [Cymbalta] 60 mg PO DAILY 05/07/16 Ergocalciferol [Drisdol -] 50,000 unit PO Q7D@1000 05/07/16 Ferrous Sulfate 325 mg PO DAILY 05/07/16 Glipizide 5 mg PO HS 05/07/16 Glipizide 10 mg PO AM 05/07/16 Hydrochlorothiazide [Hctz -] 12.5 mg PO DAILY 05/07/16 Pantoprazole Sodium [Protonix] 40 mg PO BID 05/07/16 Sertraline HCl [Zoloft -] 100 mg PO DAILY 05/07/16 Tizanidine HCl 2 mg PO BID PRN 05/07/16 Metoprolol Succinate [Toprol XL -] 50 mg PO HS tab.sr.24h 05/17/16 Metoprolol Succinate [Toprol XL -] 100 mg PO DAILY tab.sr.24h 05/17/16 Cephalexin Monohydrate [Keflex -] 500 mg PO TID 6 Days 06/01/16
[2016-06-01] MEDS: glipiZIDE 5 MG TABLET (FP) PO SCH (17:11)
== END 2016-06-01 18:23 | DRG 872 ==
LOC: JER 12:27 → JERBED 15:44 → J4W 18:13 → J6S 05-30 18:13
PROVIDERS: ADMIT Internal Medicine; ATTEND Internal Medicine
DX: A41.9 Sepsis, unspecified organism (principal); N39.0 Urinary tract infection, site not specified; M47.12 Other spondylosis with myelopathy, cervical region; I48.91 Unspecified atrial fibrillation; N40.0 Benign prostatic hyperplasia without lower urinary tract symptoms; I25.10 Atherosclerotic heart disease of native coronary artery without angina pectoris; F03.90 Unspecified dementia, unspecified severity, without behavioral disturbance, psychotic disturbance, mood disturbance, and anxiety; E11.9 Type 2 diabetes mellitus without complications; I10 Essential (primary) hypertension; R33.9 Retention of urine, unspecified; E78.5 Hyperlipidemia, unspecified; F09 Unspecified mental disorder due to known physiological condition; K21.9 Gastro-esophageal reflux disease without esophagitis
CPT/HCPCS: 36415; 71010-TC; 74176-TC; 80048; 80053; 81003; 81015; 82550; 82803; 83605; 83735; 84100; 84484; 85025; 85610; 85730; 87040; 87086; 93005; 93010; 97116-GP; 97162-PG; 99284-25; J1644

== ENCOUNTER 2016-06-27 09:37 | Day surgery (SDC) | payer OTHER ==
[2016-06-24 10:54] VITALS: BMI 32.2
[2016-06-27] MEDS ORDERED: LEVOFLOXACIN 500 MG IVPB 100 ML IVPB ONE (11:32)
[2016-06-27] MEDS ORDERED: LEVOFLOXACIN 500 MG PREMIX BAG IVPB ONE (11:45)
[2016-06-27] MEDS ORDERED: MIDAZOLAM HCL 2 MG/2 ML SINGLE DOSE VIAL ONE (11:46)
[2016-06-27 12:26] VITALS: TEMP 97.7
--- NOTE | 2016-06-27 13:23 | OP ---
Operative Note - Note: Operative Date: 06/27/16 Pre-Operative Diagnosis: flaccid neurogenic bladder/recurrent uti's Operation: cystoscopy Findings: open prostatic fossa 3+ trabeculated bladder with diverticulae and cellules; no masses or stones noted Post-Operative Diagnosis: Same as Pre-op Surgeon: Esau Sabillon Anesthesia: General Operative Report Dictated: Yes
[2016-06-27 13:46] VITALS: BP 114/82; PULSE 64
--- NOTE | 2016-06-28 15:20 | OP ---
DATE OF OPERATION: 06/27/2016 PREOPERATIVE DIAGNOSIS: Recurrent urinary tract infections and neurogenic bladder with benign prostatic hypertrophy. POSTOPERATIVE DIAGNOSIS: Recurrent urinary tract infections and neurogenic bladder with benign prostatic hypertrophy. PROCEDURE: Cystoscopy. ATTENDING: Fatmata Vasquez MD ANESTHESIA: Sedation. OPERATION: The patient was placed in supine position on the operating room table. Sedation was administered to the patient. Vasquez catheter was then removed. Cystoscopy was performed. Mild prostatic obstruction was noted. A 3+ trabeculated neurogenic bladder with multiple diverticula and cellules was seen. Significant catheter edema was noted, catheter trauma was noted. The patient had no evidence of stones or neoplasm. The patient tolerated the procedure very well. A 16-[place] Vasquez was replaced after the procedure. No complications were noted. Disposition of the patient was to the recovery room. FATMATA VASQUEZ M.D. /[id number]
== END 2016-06-27 14:30 | disposition home or self-care (01) ==
LOC: JASU-SURG 09:37
PROVIDERS: ATTEND Urology
PROC: 0TJB8ZZ Inspection of Bladder, Via Natural or Artificial Opening Endoscopic (ICD-10-PCS; principal; 2016-06-27 11:45)
DX: N31.9 Neuromuscular dysfunction of bladder, unspecified (principal); N40.1 Benign prostatic hyperplasia with lower urinary tract symptoms; N39.0 Urinary tract infection, site not specified; F03.90 Unspecified dementia, unspecified severity, without behavioral disturbance, psychotic disturbance, mood disturbance, and anxiety
CPT/HCPCS: 94760

== ENCOUNTER 2016-08-15 17:25 | Observation (INO) | payer OTHER ==
[2016-08-15] MEDS ORDERED: ASPIRIN 81 MG CHEWABLE TABLETS PO ONE (17:47)
--- NOTE | 2016-08-15 17:47 | PDOC ---
History of Present Illness - General History Source: Patient Exam Limitations: No Limitations <Araceli Villanueva - Last Filed: 08/15/16 19:12> <Asuncion Roy - Last Filed: 08/16/16 02:47> - General Stated Complaint: L SIDED CHEST DISCOMFORT Time Seen by Provider: 08/15/16 17:46 - History of Present Illness Initial Comments: 08/15/16 18:02 The patient is a 76 year old male with past medical history of a fib on Eliquis , BPH, CAD, hypertension, hyperlipidemia, GERD, spinal stenosis with myelopathy , dementia who arrives to the ED via EMS with complaint of pain to the left axilla/upper chest. Patient notes that at 4PM today he developed a stabbing pain toward the left axilla/upper chest area for 4 minutes that was hard in nature and dissipated after EMS showed up. The patient was recently in [facility] for rehab for 2 months. Patient is in need of a cadaver bone transplant in the neck however since the surgery is very risky the patient is consigned to a soft collar for the meantime. Patient presents to the ED with good vital signs and 100% pulse ox on room air. Patient presents slightly confused accompanied by son. PCP: Khurram Lindsay (Araceli Villanueva) Past History <Araceli Villanueva - Last Filed: 08/15/16 19:12> - Past Medical History Anemia: Yes Cardiac Disorders: Yes (AFIB, CAD) COPD: Yes Dementia: Yes Diabetes: Yes GI Disorders: Yes (gerd) Disorders: Yes (BPH) Hypercholesterolemia: Yes Psychiatric Problems: Yes (anxiety,depression) - Surgical History Cardiac Surgery: Yes (6 stent) - Psycho/Social/Smoking Cessation Hx Anxiety: No Suicidal Ideation: No Smoking History: Former smoker Have you smoked in the past 12 months: No 'Breaking Loose' booklet given: 05/26/16 Hx Alcohol Use: No Drug/Substance Use Hx: No Substance Use Type: None Hx Substance Use Treatment: No <Asuncion Roy - Last Filed: 08/16/16 02:47> - Past Medical History Allergies/Adverse Reactions: Allergies Allergy/AdvReac Type Severity Reaction Status Date / Time buprenorphine [From Butrans] Allergy Verified 08/15/16 18:26 gabapentin [From Neurontin] Allergy Verified 08/15/16 18:26 oxycodone Allergy Verified 08/15/16 18:26 pregabalin [From Lyrica] Allergy Verified 08/15/16 18:26 quinidine Allergy Verified 08/15/16 18:26 quinine Allergy Verified 08/15/16 18:26 warfarin sodium Allergy Verified 08/15/16 18:26 [From Coumadin] Home Medications: Ambulatory Orders Albuterol Sulfate Inhaler - [Ventolin Hfa Inhaler -] 2 inh PO Q6H 08/15/16 Apixaban [Eliquis] 5 mg PO BID 08/15/16 Atorvastatin Ca [Lipitor] 20 mg PO HS 08/15/16 Cholecalciferol (Vitamin D3) [Vitamin D3] 2,000 unit PO DAILY 08/15/16 Cyanocobalamin [Vitamin B12 -] 1,000 mcg PO DAILY 08/15/16 Diltiazem Cd [Cardizem Cd -] 240 mg PO DAILY 08/15/16 Duloxetine HCl [Cymbalta] 60 mg PO DAILY 08/15/16 Glipizide [Glipizide ER] 5 mg PO 1700 08/15/16 Glipizide [Glipizide ER] 10 mg PO AM 08/15/16 Hydrochlorothiazide [Hctz -] 12.5 mg PO DAILY 08/15/16 Hydrocodone/Acetaminophen [Vicodin Es 7.5-300 mg Tablet] 1 each PO Q4H PRN 08/15 Ibuprofen [Motrin -] 800 mg PO DAILY PRN 08/15/16 Iron,Carbonyl [Iron Chews] 325 mg PO DAILY 08/15/16 Metoprolol Succinate [Toprol Xl -] 100 mg PO DAILY 08/15/16 Pantoprazole Sodium [Protonix] 40 mg PO BID 08/15/16 Sertraline HCl [Zoloft] 100 mg PO DAILY 08/15/16 Tizanidine HCl 2 mg PO BID PRN 08/15/16 Review of Systems - Review of Systems Able to Perform ROS?: Yes <Araceli Villanueva - Last Filed: 08/15/16 19:12> <Asuncion Roy - Last Filed: 08/16/16 02:47> - Review of Systems Comments:: 08/15/16 18:02 CONSTITUTIONAL: Absent: fever, chills, diaphoresis, generalized weakness, malaise, loss of appetite HEENT: Absent: rhinorrhea, nasal congestion, throat pain, throat swelling, difficulty swallowing, mouth swelling, ear pain, eye pain, visual Changes CARDIOVASCULAR: Present: chest pain Absent: syncope, palpitations, irregular heart rate, lightheadedness, peripheral edema RESPIRATORY: Absent: cough, shortness of breath, dyspnea with exertion, orthopnea, wheezing, stridor, hemoptysis GASTROINTESTINAL: Absent: abdominal pain, abdominal distension, nausea, vomiting, diarrhea, constipation, melena, hematochezia GENITOURINARY: Absent: dysuria, frequency, urgency, hesitancy, hematuria, flank pain, genital pain MUSCULOSKELETAL: Absent: myalgia, arthralgia, joint swelling SKIN: Absent: rash, itching, pallor HEMATOLOGIC/IMMUNOLOGIC: Absent: easy bleeding, easy bruising, lymphadenopathy, frequent infections ENDOCRINE: Absent: unexplained weight gain, unexplained weight loss, heat intolerance, cold intolerance NEUROLOGIC: Absent: headache, focal weakness or paresthesias, dizziness, unsteady gait, seizure, mental status changes, bladder or bowel incontinence PSYCHIATRIC: Absent: anxiety, depression, suicidal or homicidal ideation, hallucinations. ( Araceli Villanueva) *Physical Exam <Araceli Villanueva - Last Filed: 08/15/16 19:12> <Asuncion Roy - Last Filed: 08/16/16 02:47> - Vital Signs Last Vital Signs Temp Pulse Resp BP Pulse Ox 98.8 F 107 H 16 111/71 95 08/15/16 22:46 08/15/16 22:46 08/15/16 23:04 08/15/16 22:46 08/15/16 23:04 - Physical Exam Comments: 08/15/16 18:50 GENERAL: Well developed, well nourished. Awake and alert. No acute distress. HEENT: +C collar. Normocephalic, atraumatic. PERRLA, EOMI. No conjunctival pallor. Sclera are non-icteric. Moist mucous membranes. Oropharynx is clear. NECK: Supple. Full ROM. No JVD. Carotid pulses 2+ and symmetric, without bruits. No thyromegaly. No lymphadenopathy. CARDIOVASCULAR: +Irregular HR. No murmurs, rubs, or gallops. Distal pulses are 2+ and symmetric. PULMONARY: No evidence of respiratory distress. Lungs clear to auscultation bilaterally. No wheezing, rales or rhonchi. ABDOMINAL: Soft. Non-tender. Non-distended. No rebound or guarding. No organomegaly. Normoactive bowel sounds. MUSCULOSKELETAL Normal range of motion at all joints. No bony deformities or tenderness. No CVA tenderness. EXTREMITIES: No cyanosis. No clubbing. No edema. No calf tenderness. SKIN: Warm and dry. Normal capillary refill. No rashes. No jaundice. NEUROLOGICAL: Alert, awake, appropriate. Cranial nerves 2-12 intact. No deficits to light touch and temperature in face, upper extremities and lower extremities. No motor deficits in the in face, upper extremities and lower extremities. Normoreflexic in the upper and lower extremities. Normal speech. PSYCHIATRIC: Cooperative. Good eye contact. Appropriate mood and affect. (Araceli Villanueva) ED Treatment Course - LABORATORY CBC & Chemistry Diagram: 08/15/16 18:31 08/15/16 18:31 <Araceli Villanueva - Last Filed: 08/15/16 19:12> - LABORATORY CBC & Chemistry Diagram: 08/15/16 18:31 08/15/16 20:15 <Asuncion Roy - Last Filed: 08/16/16 02:47> - ADDITIONAL ORDERS Additional order review: Laboratory Results 08/15/16 08/15/16 08/15/16 20:15 20:15 18:31 INR Sodium 139 Potassium 2.8 L* D Chloride 100 Carbon Dioxide 25 Anion Gap 14 BUN 15 D Creatinine 1.3 D Creat Clearance w eGFR 53.39 Random Glucose 68 L D Calcium 8.7 Magnesium Total Bilirubin 0.6 D AST 25 ALT 21 D Alkaline Phosphatase 83 Creatine Kinase 105 Troponin I < 0.02 B-Natriuretic Peptide Cancelled Total Protein 6.9 Albumin 3.5 D 08/15/16 08/15/16 18:31 18:31 INR 1.08 Sodium Cancelled Potassium Cancelled Chloride Cancelled Carbon Dioxide Cancelled Anion Gap Cancelled BUN Cancelled Creatinine Cancelled Creat Clearance w eGFR Cancelled Random Glucose Cancelled Calcium Cancelled Magnesium Cancelled Total Bilirubin Cancelled AST Cancelled ALT Cancelled Alkaline Phosphatase Cancelled Creatine Kinase Cancelled Troponin I Cancelled B-Natriuretic Peptide Total Protein Cancelled Albumin Cancelled 08/15/16 18:31 RBC 4.20 MCV 86.9 MCHC 32.8 RDW 15.2 MPV 10.3 Neutrophils % 65.2 Lymphocytes % 21.2 D Monocytes % 9.0 Eosinophils % 3.4 Basophils % 1.2 - RADIOLOGY Radiology Studies Ordered: Category Date Time Status CHEST X-RAY PORTABLE* [RAD] Stat Radiology 08/15/16 17:51 Taken - Medications Given in the ED: ED Medications Discontinued Medications Generic Name Dose Route Start Last Admin Trade Name Hanh PRN Reason Stop Dose Admin Aspirin 162 mg 08/15/16 17:47 08/15/16 18:21 Asa - PO 08/15/16 17:48 162 mg ONCE ONE Administration Potassium Chloride 40 meq 08/15/16 21:11 08/15/16 21:34 K-Dur - PO 08/15/16 21:12 40 meq ONCE ONE Administration Medical Decision Making <Araceli Villanueva - Last Filed: 08/15/16 19:12> <Asuncion Roy - Last Filed: 08/16/16 02:47> - Medical Decision Making 08/16/16 02:45 76 yo male dev left sided chest pain at 4pm that lasted for 40 minutes -troponin was negative -ekg does not show any acute ischemia -spoke w Dr Agudelo and the pt wa admitted to telemtry (Asuncion Roy) *DC/Admit/Observation/Transfer <Araceli Villanueva - Last Filed: 08/15/16 19:12> - Discharge Dispostion Admit: Yes <Asuncion Roy - Last Filed: 08/16/16 02:47> Diagnosis at time of Disposition: Atrial fibrillation with RVR, Chest pain - Referrals - Attestations Scribe Attestion: 08/15/16 18:03 Documentation prepared by RONNIE Reece, acting as director of medical education for Asuncion Roy MD. (Araceli Villanueva)
[2016-08-15] MEDS ORDERED: ASPIRIN 81 MG CHEWABLE TABLETS ONE (18:10)
[2016-08-15 18:33] VITALS: BMI 30.4
[2016-08-15 18:49] LABS: BASOPHIL 1.2 % (0-2.0); EOSINOPHIL 3.4 % (0-4.5); MCH 28.5 pg (25.7-33.7); MCHC 32.8 g/dl (32.0-35.9); MEAN CELL VOLUME 86.9 fl (80-96); MEAN PLT VOLUME 10.3 fl (7.5-11.1); NEUTROPHILS 65.2 % (42.8-82.8); PLATELET COUNT 244 K/MM3 (134-434); RDW 15.2 % (11.9-15.9); WHITE BLOOD COUNT 12.3 K/mm3 (4.0-10.0)
[2016-08-15 19:14] LABS: INR 1.08 (0.82-1.09); PROTHROMBIN TIME (PATIENT) 11.9 SEC (9.98-11.88)
[2016-08-15 21:03] LABS: ALBUMIN 3.5 g/dl (3.4-5.0); CALCIUM 8.7 mg/dL (8.5-10.1); CREATININE 1.3 mg/dL (0.7-1.3)
[2016-08-15 21:04] LABS: BILIRUBIN,TOTAL 0.6 mg/dL (0.2-1.0); TOT PROT 6.9 g/dl (6.4-8.2)
[2016-08-15] MEDS ORDERED: POTASSIUM CHLORIDE TABS 20 MEQ TABLET.ER (FP) PO ONE ×2 (21:11→21:27)
[2016-08-15 21:19] LABS: TROPONIN I < 0.02 ng/ml (0.00-0.05)
--- NOTE | 2016-08-16 01:24 | HP ---
Admitting History and Physical - Primary Care Physician PCP: India Sanchez - Admission Chief Complaint: chest pain History of Present Illness: seen and examined in er - 76 year old male with past medical history of a fib on Eliquis, BPH, CAD, hypertension, hyperlipidemia, GERD, spinal stenosis with myelopathy, dementia who arrives to the ED via EMS with complaint of pain to the left axilla/upper chest. Patient notes that at 4PM today he developed a stabbing pain toward the left axilla/upper chest area for 4 minutes severe in nature, resolved by the time ems came. The patient was recently in [facility] for rehab for 2 months. Patient is in need of a cadaver bone transplant in the neck however since the surgery is very risky the patient is consigned to a soft collar for the meantime. Patient presents to the ED with good vital signs and 100% pulse ox on room air. 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 Cardiovascular: Yes: AFIB, CAD, HTN, Hyperlipdemia - Past Surgical History Past Surgical History: Yes: Stent, TURP - Smoking History Smoking history: Former smoker Have you smoked in the past 12 months: No - Alcohol/Substance Use Hx Alcohol Use: No History of Substance Use: reports: None - Social History ADL: Support Services History of Recent Travel: No Home Medications - Allergies Allergies/Adverse Reactions: Allergies Allergy/AdvReac Type Severity Reaction Status Date / Time buprenorphine [From Butrans] Allergy Verified 08/15/16 18:26 gabapentin [From Neurontin] Allergy Verified 08/15/16 18:26 oxycodone Allergy Verified 08/15/16 18:26 pregabalin [From Lyrica] Allergy Verified 08/15/16 18:26 quinidine Allergy Verified 08/15/16 18:26 quinine Allergy Verified 08/15/16 18:26 warfarin sodium Allergy Verified 08/15/16 18:26 [From Coumadin] - Home Medications Home Medications: Ambulatory Orders Albuterol Sulfate Inhaler - [Ventolin HFA Inhaler -] 2 inh PO Q6H 08/15/16 Apixaban [Eliquis] 5 mg PO BID 08/15/16 Atorvastatin Ca [Lipitor] 20 mg PO HS 08/15/16 Cholecalciferol (Vitamin D3) [Vitamin D3] 2,000 unit PO DAILY 08/15/16 Cyanocobalamin [Vitamin B12 -] 1,000 mcg PO DAILY 08/15/16 Diltiazem Cd [Cardizem Cd -] 240 mg PO DAILY 08/15/16 Duloxetine HCl [Cymbalta] 60 mg PO DAILY 08/15/16 Glipizide [Glipizide ER] 5 mg PO 1700 08/15/16 Glipizide [Glipizide ER] 10 mg PO AM 08/15/16 Hydrochlorothiazide [Hctz -] 12.5 mg PO DAILY 08/15/16 Hydrocodone/Acetaminophen [Vicodin Es 7.5-300 mg Tablet] 1 each PO Q4H PRN 08/15 Ibuprofen [Motrin -] 800 mg PO DAILY PRN 08/15/16 Iron,Carbonyl [Iron Chews] 325 mg PO DAILY 08/15/16 Metoprolol Succinate [Toprol XL -] 100 mg PO DAILY 08/15/16 Pantoprazole Sodium [Protonix] 40 mg PO BID 08/15/16 Sertraline HCl [Zoloft] 100 mg PO DAILY 08/15/16 Tizanidine HCl 2 mg PO BID PRN 08/15/16 Family Disease History - Family Disease History Family Disease History: CA: Mother (colon) Physical Examination Vital Signs: Vital Signs Temperature 98.8 F 08/15/16 22:46 Pulse Rate 107 H 08/15/16 22:46 Respiratory Rate 16 08/15/16 23:04 Blood Pressure 111/71 08/15/16 22:46 O2 Sat by Pulse Oximetry (%) 95 08/15/16 23:04 HENT: Yes: Other (neck collar) Cardiovascular: Yes: Pulse Irregular Respiratory: Yes: CTA Bilaterally Gastrointestinal: Yes: Normal Bowel Sounds Extremities: Yes: WNL Neurological: Yes: Alert Problem List - Problems (1) Atrial fibrillation with RVR Assessment/Plan: on anticoagulation Code(s): I48.91 - UNSPECIFIED ATRIAL FIBRILLATION (2) Chest pain Assessment/Plan: tele monitoring serial cardiac enzyme cardiology consult echo Code(s): R07.9 - CHEST PAIN, UNSPECIFIED Qualifiers: Chest pain type: unspecified Qualified Code(s): R07.9 - Chest pain, unspecified (3) BPH (benign prostatic hypertrophy) Code(s): N40.0 - BENIGN PROSTATIC HYPERPLASIA WITHOUT LOWER URINRY TRACT SYMP (4) CAD (coronary artery disease) Code(s): I25.10 - ATHSCL HEART DISEASE OF [place] CORONARY ARTERY W/O ANG PCTRS Qualifiers: Coronary Disease-Associated Artery/Lesion type: [place] artery [place] vs. transplanted heart: [place] heart Associated angina: without angina Qualified Code(s): I25.10 - Atherosclerotic heart disease of [place] coronary artery without angina pectoris (5) DVT prophylaxis Code(s): MBL9388 - (6) Dementia Assessment/Plan: on meds Code(s): F03.90 - UNSPECIFIED DEMENTIA WITHOUT BEHAVIORAL DISTURBANCE Qualifiers: Dementia type: unspecified type (7) Diabetes mellitus Assessment/Plan: [facility] [place], [place] continue home meds Code(s): E11.9 - TYPE 2 DIABETES MELLITUS WITHOUT COMPLICATIONS Qualifiers: Diabetes mellitus type: type 2 Diabetes mellitus complication status: without complication Diabetes mellitus skilled nursing insulin use: without skilled nursing use Qualified Code(s): E11.9 - Type 2 diabetes mellitus without complications (8) GERD (gastroesophageal reflux disease) Code(s): K21.9 - GASTRO-ESOPHAGEAL REFLUX DISEASE WITHOUT ESOPHAGITIS (9) HLD (hyperlipidemia) Code(s): E78.5 - HYPERLIPIDEMIA, UNSPECIFIED Qualifiers: Hyperlipidemia type: pure hypercholesterolemia Qualified Code(s): E78.00 - Pure hypercholesterolemia, unspecified; E78.0 - Pure hypercholesterolemia (10) HTN (hypertension) Assessment/Plan: on meds Code(s): I10 - ESSENTIAL (PRIMARY) HYPERTENSION Qualifiers: Hypertension type: essential hypertension Qualified Code(s): I10 - Essential (primary) hypertension Assessment/Plan Laboratory Tests 08/15/16 08/15/16 08/15/16 18:31 18:31 18:31 WBC 12.3 H RBC 4.20 Hgb 11.9 Hct 36.5 MCV 86.9 MCHC 32.8 RDW 15.2 Plt Count 244 MPV 10.3 Neutrophils % 65.2 Lymphocytes % 21.2 D Monocytes % 9.0 Eosinophils % 3.4 Basophils % 1.2 INR 1.08 Sodium Cancelled Potassium Cancelled Chloride Cancelled Carbon Dioxide Cancelled Anion Gap Cancelled BUN Cancelled Creatinine Cancelled Creat Clearance w eGFR Cancelled Random Glucose Cancelled Calcium Cancelled Magnesium Cancelled Total Bilirubin Cancelled AST Cancelled ALT Cancelled Alkaline Phosphatase Cancelled Creatine Kinase Cancelled Troponin I Cancelled B-Natriuretic Peptide Total Protein Cancelled Albumin Cancelled 08/15/16 08/15/16 08/15/16 18:31 20:15 20:15 WBC RBC Hgb Hct MCV MCHC RDW Plt Count MPV Neutrophils % Lymphocytes % Monocytes % Eosinophils % Basophils % INR Sodium 139 Potassium 2.8 L* D Chloride 100 Carbon Dioxide 25 Anion Gap 14 BUN 15 D Creatinine 1.3 D Creat Clearance w eGFR 53.39 Random Glucose 68 L D Calcium 8.7 Magnesium Total Bilirubin 0.6 D AST 25 ALT 21 D Alkaline Phosphatase 83 Creatine Kinase 105 Troponin I < 0.02 B-Natriuretic Peptide Cancelled Total Protein 6.9 Albumin 3.5 D
[2016-08-16 07:55] LABS: TROPONIN I 0.02 ng/ml (0.00-0.05)
--- NOTE | 2016-08-16 09:22 | PN ---
Progress Note (short form) - Note Progress Note: Chief Complaint: Events noted, notes reviewed, continues to report vague left sided chest pain, denies any dyspnea, remains in atrial fibrillation with periods of rapid ventricular response History of Present Illness: Seen and examined on telemetry. Full consult dictated - Current Medication List Current Medications Apixaban (Eliquis -) 5 mg PO BID JOANNA Atorvastatin Calcium (Lipitor -) 20 mg PO HS JOANNA Diltiazem HCl (Cardizem Cd -) 240 mg PO DAILY JOANNA Duloxetine HCl (Cymbalta -) 60 mg PO DAILY JOANNA Glipizide (Glucotrol Xl -) 5 mg PO 1700 JOANNA Hydrochlorothiazide (Hctz -) 12.5 mg PO DAILY JOANNA Metoprolol Succinate (Toprol Xl -) 100 mg PO DAILY JOANNA Pantoprazole Sodium (Protonix -) 40 mg PO BID JOANNA Sertraline HCl (Zoloft -) 100 mg PO DAILY JOANNA - Review of Systems Cardiovascular: As noted above Respiratory: denies: Cough or Sputum Production Gastrointestinal: denies: Nausea, Vomiting, Diarrhea, Constipation or Abdominal Pain Musculoskeletal: Cervical Radiculopathy Neurological: No symptoms reported - Objective Vital Signs: Last Vital Signs Temp Pulse Resp BP Pulse Ox 97.8 F 109 H 18 160/77 95 08/16/16 05:24 08/16/16 05:24 08/16/16 05:24 08/16/16 05:24 08/15/16 23:04 Neck: Supple Negative JVD Cardiovascular: S1 S2 Irregularly Irregular Respiratory: Clear to A&P Gastrointestinal: Soft Benign Normal Bowel Sounds Ext: Negative Edema Labs: CBC, BMP 08/15/16 18:31 08/15/16 20:15 Hepatic Panel Total Bilirubin 0.6 mg/dL (0.2-1.0) D 08/15/16 20:15 AST 25 U/L (15-37) 08/15/16 20:15 ALT 21 U/L (12-78) D 08/15/16 20:15 Alkaline Phosphatase 83 U/L (45-117) 08/15/16 20:15 Albumin 3.5 g/dl (3.4-5.0) D 08/15/16 20:15 INR, PTT INR 1.08 (0.82-1.09) 08/15/16 18:31 Assessment/Plan ASSESSMENT: 1. Chest pain syndrome, CAD angina pectoris with negative Troponin I, questionable history of PCI/stent 2. Diastolic LV dysfunction with class 0-I NYHA classification LV failure 3. Persistent atrial fibrillation on chronic A/C with Eliquis, [id number] score of 6 4. HTN 5. DM 6. Hypercholesterolemia 7. Organic brain syndrome, dementia 8. Cervical Radiculopathy 9. Hypokalemia 10. CKD 11. History of BPH PLAN: 1. Continue B-Blockers but initiate Lopressor 2. Continue Cardizem CD 3. Ideally should be on ACEI or ARBS unless contraindicated 4. Continue Eliquis 5. Continue Lipitor 6. Correction of Hypolkalemia 7. Echocardiography to evaluate LV size and function Charleen Sahu MD
[2016-08-16] MEDS: DULoxetine HCL 30 MG CAPSULE.DR (FP) PO SCH (09:36)
[2016-08-16] MEDS: HYDROCHLOROTHIAZIDE 12.5 MG CAPSULE (FP) PO SCH (09:36)
[2016-08-16] MEDS: PANTOPRAZOLE 40 MG TABLET (FP) PO SCH ×2 (09:36→21:17)
[2016-08-16] MEDS: SERTRALINE HCL 50 MG TABLET (FP) PO SCH (09:36)
[2016-08-16] MEDS: APIXABAN 5 MG TABLET PO SCH ×2 (09:36→21:17)
[2016-08-16] MEDS ORDERED: METOPROLOL SUCCINATE 100 MG TAB.SR.24H (FP) PO SCH (10:00)
[2016-08-16] MEDS: VALSARTAN 80 MG TABLET (UD) PO SCH (12:36)
[2016-08-16] MEDS ORDERED: glipiZIDE-XL 5 MG TAB.ER.24 PO SCH (17:00)
--- NOTE | 2016-08-16 17:35 | EKG ---
Test Reason : Blood Pressure : / mmHG Vent. Rate : 098 BPM Atrial Rate : 117 BPM P-R Int : 000 ms QRS Dur : 162 ms QT Int : 412 ms P-R-T Axes : 000 -67 010 degrees QTc Int : 525 ms ATRIAL FIBRILLATION LEFT AXIS DEVIATION RIGHT BUNDLE BRANCH BLOCK ABNORMAL ECG WHEN COMPARED WITH ECG OF 26-MAY-2016 13:10, T WAVE VARIATION Confirmed by XIAO ZEE MD ([id number]) on 08/16/2016 5:34:39 PM Referred By: Confirmed By:XIAO ZEE MD
[2016-08-16] MEDS: POTASSIUM CHLORIDE TABS 20 MEQ TABLET.ER (FP) PO SCH (17:53)
--- NOTE | 2016-08-16 19:37 | CONS ---
DATE OF CONSULTATION: 08/16/2016 REQUESTED BY: India Sanchez MD CHIEF COMPLAINT: Chest pain, cardiovascular evaluation. HISTORY OF PRESENT ILLNESS: History is obtained from the patient, the son, and chart. Patient with known history of organic brain syndrome, dementia, poor historian. A 76-year-old male with known history of coronary artery disease, questionable history of percutaneous coronary intervention, angina pectoris, diastolic left ventricular dysfunction with chronic class 0-1 [place] [employer] classification of ventricular failure, persistent atrial fibrillation on chronic anticoagulation therapy with Eliquis, CHADS-VASc score of 6, hypertensive cardiovascular disease, diabetes mellitus, hypercholesterolemia, organic brain syndrome, dementia, chronic kidney disease, benign prostatic hypertrophy who presented to [facility] with intermittent episodes of left-sided chest discomfort. Chest discomfort was described as sharp pain without any radiation and patient denied any associated symptomatology, i.e., diaphoresis. The patient denied any dyspnea. The patient denied any orthopnea, paroxysmal nocturnal dyspnea, or peripheral edema. The patient denied any palpitations, dizziness, lightheadedness. The patient, in addition, has history of cervical trauma post intervention with neck pain syndrome. PAST MEDICAL HISTORY: Coronary artery disease, questionable history of percutaneous coronary intervention and stenting, angina pectoris, diastolic left ventricular dysfunction with chronic class 0-1 [place] [employer] classification left ventricular failure, persistent atrial fibrillation on chronic anticoagulation therapy with Eliquis, CHADS-VASc score of 6, hypertension, diabetes mellitus, hypercholesterolemia, organic brain syndrome, dementia, cervical radiculopathy post cervical trauma post intervention, chronic kidney disease, benign prostatic hypertrophy. SOCIAL HISTORY: Denies smoking. FAMILY HISTORY: No history of coronary artery disease. ALLERGIES: Multiple, including QUININE, QUINIDINE, WARFARIN, OXYCODONE, GABAPENTIN. MEDICAL THERAPY: Currently includes Eliquis 5 mg twice a day, Lipitor 20 mg once a day, Cardizem CD 240 mg once a day, Cymbalta 60 mg once a day, Glucotrol XL 5 mg once a day, hydrochlorothiazide 12.5 mg once a day, Toprol XL 100 mg once a day, Protonix 40 mg twice a day, Zoloft 100 mg once a day. REVIEW OF SYSTEMS: Head and Neck: Denies headache, photophobia, blurring of vision. Respiratory: No cough or sputum production. Cardiovascular: As noted above. Gastrointestinal.: Denies nausea, vomiting, diarrhea, constipation, abdominal discomfort. Musculoskeletal: Cervical radiculopathy. Neurologic: No symptoms reported. PHYSICAL EXAMINATION: Vital Signs: Blood pressure 160/77 mmHg, pulse rate 109 beats per minute. Head and Neck: Pupils equal, react to light and accommodation. Extraocular muscles intact. Anicteric sclera. Neck: No JVD. No bruit appreciated. Chest: Clear to auscultation and percussion. Cardiovascular: S1, S2 irregularly irregular. Grade 1/6 systolic ejection murmur. No clicks or gallops. Abdomen: Soft, benign. Normoactive bowel sounds. Extremities: Negative edema. Diminished distal pulses. No calf tenderness. DIAGNOSTICS: Electrocardiogram reveals atrial fibrillation with premature ventricular contractions and complete right bundle branch block. LABORATORY DATA: CBC revealed a white blood cell count 12.3, hemoglobin 11.9, platelet count 244. Basic metabolic profile revealed a sodium 139, potassium 2.8, BUN 15, creatinine 1.3, glucose 68, INR 1.02. ASSESSMENT: 1. Chest pain syndrome atypical for coronary artery disease in a patient with known history of coronary artery disease, questionable history of percutaneous coronary intervention stenting, angina pectoris. Negative troponin I level. 2. Diastolic left ventricular dysfunction with class 0-1 [place] [employer] classification of left ventricular failure. 3. Persistent atrial fibrillation on chronic anticoagulation therapy with Eliquis. CHADS-VASc score of 6. 4. Hypertension. 5. Diabetes mellitus. 6. Hypercholesterolemia. 7. Organic brain syndrome, dementia. 8. Cervical radiculopathy. 9. Hypokalemia. 10. Chronic kidney disease. 11. History of benign prostatic hypertrophy. PLAN: 1. Continuation of beta-blockers but initiation of Lopressor and substitution for Toprol XL. 2. Continuation of Cardizem CD. 3. Ideally, patient should be on CELENA-inhibitors or angiotensin receptor blockers unless contraindicated. 4. Continuation of Eliquis. 5. Continuation of Lipitor therapy. 6. Echocardiography for evaluation of ventricular size and function. Thank you for the kind referral. NIVIA SOTOMAYOR M.D. [id number]
--- NOTE | 2016-08-16 20:22 | PN ---
Progress Note, Physician History of Present Illness: stable - Current Medication List Current Medications: Active Medications Apixaban (Eliquis -) 5 mg PO BID [facility] Last Admin: 08/16/16 09:36 Dose: 5 mg Atorvastatin Calcium (Lipitor -) 20 mg PO HS [facility] Diltiazem HCl (Cardizem Cd -) 240 mg PO DAILY [facility] Last Admin: 08/16/16 09:36 Dose: 240 mg Duloxetine HCl (Cymbalta -) 60 mg PO DAILY [facility] Last Admin: 08/16/16 09:36 Dose: 60 mg Glipizide (Glucotrol Xl -) 5 mg PO 1700 [facility] Last Admin: 08/16/16 17:52 Dose: 5 mg Hydrochlorothiazide (Hctz -) 12.5 mg PO DAILY [facility] Last Admin: 08/16/16 09:36 Dose: 12.5 mg Metoprolol Tartrate (Lopressor -) 100 mg PO BID [facility] Pantoprazole Sodium (Protonix -) 40 mg PO BID [facility] Last Admin: 08/16/16 09:36 Dose: 40 mg Potassium Chloride (K-Dur -) 40 meq PO DAILY [facility] Last Admin: 08/16/16 17:53 Dose: 40 meq Sertraline HCl (Zoloft -) 100 mg PO DAILY [facility] Last Admin: 08/16/16 09:36 Dose: 100 mg Valsartan (Diovan -) 80 mg PO DAILY [facility] Last Admin: 08/16/16 12:36 Dose: 80 mg - Objective Vital Signs: Vital Signs Temperature 98.0 F 08/16/16 17:00 Pulse Rate 77 08/16/16 17:00 Respiratory Rate 18 08/16/16 17:00 Blood Pressure 144/76 08/16/16 17:00 O2 Sat by Pulse Oximetry (%) 96 08/16/16 09:24 Constitutional: Yes: No Distress HENT: Yes: Atraumatic Neck: Yes: Supple Cardiovascular: Yes: Regular Rate and Rhythm Respiratory: Yes: CTA Bilaterally Gastrointestinal: Yes: Normal Bowel Sounds Musculoskeletal: Yes: Other (left upper chest pain is reproducible on palpation) Extremities: Yes: WNL Neurological: Yes: Alert, Oriented Labs: INR, PTT INR 1.08 (0.82-1.09) 08/15/16 18:31 Problem List - Problems (1) Atrial fibrillation with RVR Assessment/Plan: on anticoagulation Code(s): I48.91 - UNSPECIFIED ATRIAL FIBRILLATION (2) Chest pain Assessment/Plan: tle monitoring serail cardiac enzyme cardiology consult echo Code(s): R07.9 - CHEST PAIN, UNSPECIFIED (3) BPH (benign prostatic hypertrophy) Code(s): N40.0 - BENIGN PROSTATIC HYPERPLASIA WITHOUT LOWER URINRY TRACT SYMP (4) CAD (coronary artery disease) Code(s): I25.10 - ATHSCL HEART DISEASE OF [place] CORONARY ARTERY W/O ANG PCTRS (5) DVT prophylaxis Code(s): AHF0395 - (6) Dementia Assessment/Plan: on meds Code(s): F03.90 - UNSPECIFIED DEMENTIA WITHOUT BEHAVIORAL DISTURBANCE (7) Diabetes mellitus Assessment/Plan: bgms continue home meds Code(s): E11.9 - TYPE 2 DIABETES MELLITUS WITHOUT COMPLICATIONS (8) GERD (gastroesophageal reflux disease) Code(s): K21.9 - GASTRO-ESOPHAGEAL REFLUX DISEASE WITHOUT ESOPHAGITIS (9) HLD (hyperlipidemia) Code(s): E78.5 - HYPERLIPIDEMIA, UNSPECIFIED (10) HTN (hypertension) Assessment/Plan: on meds Code(s): I10 - ESSENTIAL (PRIMARY) HYPERTENSION Assessment/Plan A/P pt cinically stable cardiac enzymes negative seems like pt has reproducible pain...musculoskeletal? dc in am if cleared by cardiology
[2016-08-16] MEDS: METOPROLOL TARTRATE 50 MG TABLET (FP) PO SCH (21:17)
[2016-08-16] MEDS ORDERED: ATORVASTATIN CA 20 MG TABLET (FP) PO SCH (22:00)
--- NOTE | 2016-08-17 07:57 | PN ---
Progress Note, Physician Chief Complaint: Events noted Not in distress History of Present Illness: Patient was seen and examined. Awake and alert. Chart was reviewed Denies chest pain, SOB or palpitations Transthoracic echocardiography shows normal left ventricular systolic function, mild , mild MR, mild to moderate TR and mild AR - Current Medication List Current Medications: Active Medications Apixaban (Eliquis -) 5 mg PO BID [facility] Last Admin: 08/16/16 21:17 Dose: 5 mg Atorvastatin Calcium (Lipitor -) 20 mg PO HS [facility] Last Admin: 08/16/16 21:17 Dose: 20 mg Diltiazem HCl (Cardizem Cd -) 240 mg PO DAILY [facility] Last Admin: 08/16/16 09:36 Dose: 240 mg Duloxetine HCl (Cymbalta -) 60 mg PO DAILY [facility] Last Admin: 08/16/16 09:36 Dose: 60 mg Glipizide (Glucotrol Xl -) 5 mg PO 1700 [facility] Last Admin: 08/16/16 17:52 Dose: 5 mg Hydrochlorothiazide (Hctz -) 12.5 mg PO DAILY [facility] Last Admin: 08/16/16 09:36 Dose: 12.5 mg Metoprolol Tartrate (Lopressor -) 100 mg PO BID [facility] Last Admin: 08/16/16 21:17 Dose: 100 mg Pantoprazole Sodium (Protonix -) 40 mg PO BID [facility] Last Admin: 08/16/16 21:17 Dose: 40 mg Potassium Chloride (K-Dur -) 40 meq PO DAILY [facility] Last Admin: 08/16/16 17:53 Dose: 40 meq Sertraline HCl (Zoloft -) 100 mg PO DAILY [facility] Last Admin: 08/16/16 09:36 Dose: 100 mg Valsartan (Diovan -) 80 mg PO DAILY [facility] Last Admin: 08/16/16 12:36 Dose: 80 mg - Objective Vital Signs: Vital Signs Temperature 97.7 F 08/17/16 05:00 Pulse Rate 71 08/17/16 05:00 Respiratory Rate 20 08/17/16 05:00 Blood Pressure 153/82 08/17/16 05:00 O2 Sat by Pulse Oximetry (%) 95 08/17/16 01:00 Neck: Yes: Supple, Other (Neck brace) Cardiovascular: Yes: Pulse Irregular, Murmur (Soft REYES), S1, S2 Respiratory: Yes: Diminished Gastrointestinal: Yes: Normal Bowel Sounds, Soft. No: Tenderness Edema: No Additional Findings/Remarks: - Review of Systems Cardiovascular: As noted above Respiratory: denies: Cough or Sputum Production Gastrointestinal: denies: Nausea, Vomiting, Diarrhea, Constipation or Abdominal Pain Musculoskeletal: Cervical Radiculopathy Neurological: No symptoms reported Labs: INR, PTT INR 1.08 (0.82-1.09) 08/15/16 18:31 Laboratory Results - last 24 hr 08/16/16 08/16/16 08/17/16 05:35 17:50 06:03 POC Glucometer 116 101 Creatine Kinase 97 Troponin I 0.02 Problem List - Problems (1) Atrial fibrillation with RVR Code(s): I48.91 - UNSPECIFIED ATRIAL FIBRILLATION (2) Chest pain Code(s): R07.9 - CHEST PAIN, UNSPECIFIED Qualifiers: Chest pain type: unspecified Qualified Code(s): R07.9 - Chest pain, unspecified (3) CAD (coronary artery disease) Code(s): I25.10 - ATHSCL HEART DISEASE OF [place] CORONARY ARTERY W/O ANG PCTRS Qualifiers: Coronary Disease-Associated Artery/Lesion type: [place] artery [place] vs. transplanted heart: [place] heart Associated angina: without angina Qualified Code(s): I25.10 - Atherosclerotic heart disease of [place] coronary artery without angina pectoris (4) Dementia Code(s): F03.90 - UNSPECIFIED DEMENTIA WITHOUT BEHAVIORAL DISTURBANCE Qualifiers: Dementia type: unspecified type (5) Diabetes mellitus Code(s): E11.9 - TYPE 2 DIABETES MELLITUS WITHOUT COMPLICATIONS Qualifiers: Diabetes mellitus type: type 2 Diabetes mellitus complication status: without complication Diabetes mellitus ferry terminal agent insulin use: without halfway use Qualified Code(s): E11.9 - Type 2 diabetes mellitus without complications (6) HLD (hyperlipidemia) Code(s): E78.5 - HYPERLIPIDEMIA, UNSPECIFIED Qualifiers: Hyperlipidemia type: pure hypercholesterolemia Qualified Code(s): E78.00 - Pure hypercholesterolemia, unspecified; E78.0 - Pure hypercholesterolemia (7) HTN (hypertension) Code(s): I10 - ESSENTIAL (PRIMARY) HYPERTENSION Qualifiers: Hypertension type: essential hypertension Qualified Code(s): I10 - Essential (primary) hypertension (8) Aortic stenosis Code(s): I35.0 - NONRHEUMATIC AORTIC (VALVE) STENOSIS Qualifiers: Cardiac valve disease etiology: nonrheumatic Qualified Code(s): I35.0 - Nonrheumatic aortic (valve) stenosis Assessment/Plan 1. Chest pain syndrome, CAD angina pectoris with negative Troponin I, questionable history of PCI/stent 2. Diastolic LV dysfunction with class 0-I NYHA classification LV failure 3. Persistent atrial fibrillation on chronic A/C with Eliquis, [id number] score of 6 4. Aortic valve stenosis (mild) 5. HTN 6. DM 7. Hypercholesterolemia 8. Organic brain syndrome, dementia 9. Cervical Radiculopathy 10. Hypokalemia 11. CKD 12. History of BPH PLAN: 1. Continue Lopressor, Cardizem CD and Diovan 2. Continue Eliquis. Consider ASA 81 mg QD in addition to NOAC if patient had PCI/stent 3. Continue Lipitor 4. Transthoracic echocardiography result reviewed DIscharge planning Mart Morrow MD
[2016-08-17] MEDS: DULoxetine HCL 30 MG CAPSULE.DR (FP) PO SCH (09:21)
[2016-08-17] MEDS: PANTOPRAZOLE 40 MG TABLET (FP) PO SCH (09:21)
[2016-08-17] MEDS: HYDROCHLOROTHIAZIDE 12.5 MG CAPSULE (FP) PO SCH (09:22)
[2016-08-17] MEDS: SERTRALINE HCL 50 MG TABLET (FP) PO SCH (09:22)
[2016-08-17] MEDS: VALSARTAN 80 MG TABLET (UD) PO SCH (09:22)
[2016-08-17] MEDS: APIXABAN 5 MG TABLET PO SCH (09:22)
[2016-08-17] MEDS: METOPROLOL TARTRATE 50 MG TABLET (FP) PO SCH (09:22)
[2016-08-17] MEDS: POTASSIUM CHLORIDE TABS 20 MEQ TABLET.ER (FP) PO SCH (09:23)
[2016-08-17 11:18] VITALS: BP 129/74; PULSE 78; TEMP 98
--- NOTE | 2016-08-17 17:38 | DS ---
Physical Examination Vital Signs: Vital Signs Temperature 98.0 F 08/17/16 09:00 Pulse Rate 78 08/17/16 09:00 Respiratory Rate 22 08/17/16 09:00 Blood Pressure 129/74 08/17/16 09:00 O2 Sat by Pulse Oximetry (%) 96 08/17/16 09:00 Discharge Summary Reason For Visit: UTI/DM/CAD/CHEST PAIN/DEMENTIA - Instructions Referrals: Khurram Lindsay MD [Staff Physician] - Disposition: HOME - Home Medications Comprehensive Discharge Medication List: Ambulatory Orders Albuterol Sulfate Inhaler - [Ventolin HFA Inhaler -] 2 inh PO Q6H 08/15/16 Apixaban [Eliquis] 5 mg PO BID 08/15/16 Atorvastatin Ca [Lipitor] 20 mg PO HS 08/15/16 Cholecalciferol (Vitamin D3) [Vitamin D3] 2,000 unit PO DAILY 08/15/16 Cyanocobalamin [Vitamin B12 -] 1,000 mcg PO DAILY 08/15/16 Diltiazem Cd [Cardizem Cd -] 240 mg PO DAILY 08/15/16 Duloxetine HCl [Cymbalta] 60 mg PO DAILY 08/15/16 Glipizide [Glipizide ER] 5 mg PO 1700 08/15/16 Glipizide [Glipizide ER] 10 mg PO AM 08/15/16 Hydrochlorothiazide [Hctz -] 12.5 mg PO DAILY 08/15/16 Hydrocodone/Acetaminophen [Vicodin Es 7.5-300 mg Tablet] 1 each PO Q4H PRN 08/15 Ibuprofen [Motrin -] 800 mg PO DAILY PRN 08/15/16 Iron,Carbonyl [Iron Chews] 325 mg PO DAILY 08/15/16 Metoprolol Succinate [Toprol XL -] 100 mg PO DAILY 08/15/16 Pantoprazole Sodium [Protonix] 40 mg PO BID 08/15/16 Sertraline HCl [Zoloft] 100 mg PO DAILY 08/15/16 Tizanidine HCl 2 mg PO BID PRN 08/15/16 in home
== END 2016-08-17 11:49 | disposition home or self-care (01) ==
LOC: JER 17:25 → JERBED 22:17 → UNDOADMOB 23:20 → JERBED 23:20 → J4W 08-16 00:23
PROVIDERS: ADMIT Internal Medicine; ATTEND Internal Medicine
DX: I48.91 Unspecified atrial fibrillation (principal); R07.9 Chest pain, unspecified; I35.0 Nonrheumatic aortic (valve) stenosis; I25.10 Atherosclerotic heart disease of native coronary artery without angina pectoris; I48.0 Paroxysmal atrial fibrillation; I10 Essential (primary) hypertension; E78.5 Hyperlipidemia, unspecified; E87.6 Hypokalemia; E11.9 Type 2 diabetes mellitus without complications; K21.9 Gastro-esophageal reflux disease without esophagitis; F03.90 Unspecified dementia, unspecified severity, without behavioral disturbance, psychotic disturbance, mood disturbance, and anxiety; M48.02 Spinal stenosis, cervical region; D64.9 Anemia, unspecified; J44.9 Chronic obstructive pulmonary disease, unspecified; F41.8 Other specified anxiety disorders; Z95.5 Presence of coronary angioplasty implant and graft; Z87.891 Personal history of nicotine dependence; Z79.01 Long term (current) use of anticoagulants
CPT/HCPCS: 36415; 71010-TC; 80053; 82550; 84484; 85025; 85610; 93005; 93010; 93306-TC; 97116-GP; 97161-GP; 99285-25; G0378

== ENCOUNTER 2016-10-17 19:45 | Inpatient (IN) | payer OTHER ==
[2016-10-17 21:06] VITALS: BMI 32.1
--- NOTE | 2016-10-17 21:18 | PDOC ---
History of Present Illness - General Chief Complaint: Urinary Catheter Problem Stated Complaint: URINARY CATHETER DISLODGED Time Seen by Provider: 10/17/16 20:20 - History of Present Illness Initial Comments: This 76-year-old man with a history of dementia, urosepsis, atrial fibrillation , BPH, CAD, hypertension, hyperlipidemia, GERD and spinal stenosis with myelopathy was brought to the emergency department by his family members with a one-day history of fever and urinary catheter being dislodged. Patient had recently been discharged from rehabilitation after a two-month stay. The patient was noted to be hot to touch and temperature was measured by home health aide at 102F. Also, urinary catheter appeared to be partially dislodged and patient was brought to the emergency room. The patient has no complaints except feeling pain "all over". There has been no nausea/vomiting/ diarrhea. He has been taking his medications as prescribed. He denies chest pain/shortness of breath. Past History - Past Medical History Allergies/Adverse Reactions: Allergies Allergy/AdvReac Type Severity Reaction Status Date / Time buprenorphine [From Butrans] Allergy Verified 08/15/16 18:26 gabapentin [From Neurontin] Allergy Verified 08/15/16 18:26 oxycodone Allergy Verified 08/15/16 18:26 pregabalin [From Lyrica] Allergy Verified 08/15/16 18:26 quinidine Allergy Verified 08/15/16 18:26 quinine Allergy Verified 08/15/16 18:26 warfarin sodium Allergy Verified 08/15/16 18:26 [From Coumadin] Home Medications: Ambulatory Orders Albuterol Sulfate Inhaler - [Ventolin HFA Inhaler -] 2 inh PO Q6H 08/15/16 Apixaban [Eliquis] 5 mg PO BID 08/15/16 Atorvastatin Ca [Lipitor] 20 mg PO HS 08/15/16 Cholecalciferol (Vitamin D3) [Vitamin D3] 2,000 unit PO DAILY 08/15/16 Cyanocobalamin [Vitamin B12 -] 1,000 mcg PO DAILY 08/15/16 Diltiazem Cd [Cardizem Cd -] 240 mg PO DAILY 08/15/16 Duloxetine HCl [Cymbalta] 60 mg PO DAILY 08/15/16 Glipizide [Glipizide ER] 5 mg PO 1700 08/15/16 Glipizide [Glipizide ER] 10 mg PO AM 08/15/16 Hydrochlorothiazide [Hctz -] 12.5 mg PO DAILY 08/15/16 Hydrocodone/Acetaminophen [Vicodin Es 7.5-300 mg Tablet] 1 each PO Q4H PRN 08/15 Ibuprofen [Motrin -] 800 mg PO DAILY PRN 08/15/16 Iron,Carbonyl [Iron Chews] 325 mg PO DAILY 08/15/16 Metoprolol Succinate [Toprol XL -] 100 mg PO DAILY 08/15/16 Pantoprazole Sodium [Protonix] 40 mg PO BID 08/15/16 Sertraline HCl [Zoloft] 100 mg PO DAILY 08/15/16 Tizanidine HCl 2 mg PO BID PRN 08/15/16 Anemia: Yes Cardiac Disorders: Yes (AFIB, CAD) COPD: Yes Dementia: Yes Diabetes: Yes GI Disorders: Yes (gerd) Disorders: Yes (BPH) Hypercholesterolemia: Yes Psychiatric Problems: Yes (anxiety,depression) - Surgical History Cardiac Surgery: Yes (6 stent) - Psycho/Social/Smoking Cessation Hx Anxiety: No Suicidal Ideation: No Smoking History: Former smoker Have you smoked in the past 12 months: No Information on smoking cessation initiated: No 'Breaking Loose' booklet given: 05/26/16 Hx Alcohol Use: No Drug/Substance Use Hx: No Substance Use Type: None Hx Substance Use Treatment: No Review of Systems - Review of Systems Able to Perform ROS?: Yes Comments:: 12 point review of systems is negative except for what is noted in the history of present illness *Physical Exam - Vital Signs Last Vital Signs Temp Pulse Resp BP Pulse Ox 102.1 F H 88 15 144/88 96 10/17/16 20:13 10/17/16 20:13 10/17/16 20:13 10/17/16 20:13 10/17/16 20:13 - Physical Exam Comments: GENERAL: Elderly man, conversant but disoriented; in no acute distress HEAD: Normal with no signs of trauma. EYES: PERRLA, EOMI, sclera anicteric, conjunctiva clear. ENT: Ears normal, nares patent, oropharynx clear without exudates. Dry mucous membranes. NECK: Normal range of motion, supple without lymphadenopathy, JVD, or masses. LUNGS: Breath sounds equal, clear to auscultation bilaterally. No wheezes, and no crackles. HEART irregularly irregular rhythm, no murmur, rub or gallop. ABDOMEN:.normal bowel sounds No guarding,tenderness or rebound.No masses No distention. EXTREMITIES: Normal range of motion, no edema. No clubbing or cyanosis. No erythema, or tenderness. NEUROLOGICAL: Cranial nerves II through XII grossly intact. Normal speech; moving all 4 extremities equally; gait not tested SKIN: Warm, Dry, normal turgor, no rashes or lesions noted. ED Treatment Course - LABORATORY CBC & Chemistry Diagram: 10/17/16 21:45 10/17/16 21:45 Medical Decision Making - Medical Decision Making This 76-year-old man with multiple medical problems and history of urosepsis within the last 6 months, presents with fever. Patient complains of pain "all over" but no specific abdominal or chest pain; there has been no nausea/vomiting /diarrhea. Exam reveals presenting fever of 102.7F orally; lungs are clear and abdomen is nontender. No evidence of cellulitis/poorly healing wound Urinary catheter was replaced without difficulty by nursing staff. Diagnostic workup includes CBC, chemistry profile, lactic acid, cardiac profile , UA/urine culture, blood cultures Twelve-lead electrocardiogram is performed that shows atrial fibrillation at 91 bpm; there is right bundle branch block seen previously. The EKG tracing is unchanged from that of 08/15/16 Urinalysis notable for greater than 100 RBCs; 2030 WBCs, 3+ epi, 3+ bacteria Total white blood cell count is 18,100 with 89.6% neutrophils Chemistry profile notable for BUNs of 25 with a creatinine of 1.2; electrolytes and remainder of the chemistry profile is unremarkable. CK is normal at 62 but troponin is 0.21 Portable chest x-ray suggests streaky infiltrate at the left base but otherwise is unchanged from previous chest x-rays Case discussed with Dr. Alfaro. Zosyn 3.3 g IV administered to cover hospital acquired pneumonia.. Because of the mildly elevated troponin, patient should be admitted [facility] tele[facility]. Since no telemetry beds were available at [facility], second troponin level will be drawn while patient was here in the emergency room 10/18/16 04:09 Repeat troponin is not elevated. Results discussed with Dr. Alfaro.. the patient can now be admitted to med/ surg bed here at [facility]. However, Dr. Alfaro will not be able to see patient here at [facility] and has referred admission to the hospitalist service. Case discussed with Dr. Villagran. Patient will be admitted to [facility] on hospitalist service. *DC/Admit/Observation/Transfer Diagnosis at time of Disposition: UTI (urinary tract infection) Qualifiers: Urinary tract infection type: site unspecified Hematuria presence: with hematuria Qualified Code(s): N39.0 - Urinary tract infection, site not specified Left lower lobe pneumonia Qualifiers: Pneumonia type: due to unspecified organism Qualified Code(s): J18.1 - Lobar pneumonia, unspecified organism - Discharge Dispostion Condition at time of disposition: Good Admit: Yes - Referrals
[2016-10-17 21:22] LABS: URINE APPEARANCE TURBID; URINE COLOR RED
[2016-10-17 21:23] LABS: PH,URINE >= 9.0 (4.5-8); URINE BILIRUBIN 1+ (NEGATIVE); URINE BLOOD 3+ (NEGATIVE); URINE GLUCOSE (UA) NEGATIVE (NEGATIVE); URINE KETONE Negative (NEGATIVE); URINE PROTEIN 3+ (NEGATIVE); URINE UROBILINOGEN 0.2 E.U/dl (0.2-1.0)
[2016-10-17 21:24] LABS: URINE LEUK ESTERASE 3+ (NEGATIVE); URINE NITRITE Negative (NEGATIVE)
[2016-10-17 22:33] LABS: URINE RBC >100 /hpf (0-3); URINE WBC 20-30 (3-5)
[2016-10-17 22:34] LABS: URINE BACTERIA 3+ /hpf (NEGATIVE)
[2016-10-17 22:41] LABS: INR 1.71 (0.82-1.09); PROTHROMBIN TIME (PATIENT) 18.9 SEC (10.2-13.0)
[2016-10-17 22:48] LABS: ALBUMIN 4.4 g/dl (3.5-5.0); ALK PHOS 80 U/L (32-92); ANION GAP 14 (8-16); BILIRUBIN,TOTAL 1.8 mg/dl (0.2-1.0); CALCIUM 9.4 mg/dl (8.4-10.2); CO2 25 mmol/L (22-28); CREATININE 1.2 mg/dl (0.6-1.3); GLUCOSE,RANDOM 92 mg/dl (74-106); SGOT/AST 29 U/L (10-42); SGPT/ALT 25 U/L (10-40); TOT PROT 8.2 g/dl (6.4-8.3)
[2016-10-17 22:50] LABS: COCKROFT - GAULT NT
[2016-10-17 22:53] LABS: BASOPHIL 0.1 % (0-2.0); EOSINOPHIL 0.2 % (0-4.5); MCH 29.5 pg (25.7-33.7); MEAN CELL VOLUME 86.8 fl (80-96); NEUTROPHILS 89.6 % (42.8-82.8); PLATELET COUNT 188 K/MM3 (134-434); RDW 15.4 % (11.9-15.9); WHITE BLOOD COUNT 18.1 K/mm3 (4.0-10.8)
[2016-10-17 23:02] LABS: TROPONIN I (DFP) 0.21 ng/ml (0.03-0.50)
[2016-10-18] MEDS ORDERED: CEFTRIAXONE 1 GM in DEXTROSE 5%-WATER - 50 ML IVPB ONE (00:18)
[2016-10-18] MEDS ORDERED: cefTRIAXone SODIUM 1 GM VIAL ONE (00:21)
[2016-10-18] MEDS ORDERED: PIPERACILLIN/TAZOB 3.375 GM 3.375 GM in DEXTROSE 5%-WATER - 50 ML IVPB ONE (01:07)
[2016-10-18] MEDS ORDERED: PIPERACILLIN/TAZOBACTAM 3.375 GM VIAL IVPB ONE (01:08)
[2016-10-18 03:43] LABS: TROPONIN I < 0.02 ng/ml (0.00-0.05)
[2016-10-18] MEDS ORDERED: PATIENT'S OWN MEDICATION (NON-FORMULARY) (Tizanidine Hcl [Tizanidine Hcl] 2 MG) PO PRN (04:11)
[2016-10-18] MEDS ORDERED: ACETAMINOPHEN 325 MG TABLET (FP) PO ONE (04:15)
[2016-10-18] MEDS ORDERED: ACETAMINOPHEN 325 MG TABLET (FP) ONE (04:29)
[2016-10-18] MEDS ORDERED: ATORVASTATIN CA 20 MG TABLET (FP) ONE (04:29)
[2016-10-18] MEDS: ATORVASTATIN CA 20 MG TABLET (FP) PO SCH ×2 (04:30→21:34)
[2016-10-18] MEDS: ALBUTEROL SO4 6.7 GM HFA INHALER IH SCH ×3 (07:11→18:35)
[2016-10-18] MEDS ORDERED: PT OWN MED DRAWER 7, Y5N ONE (07:13)
--- NOTE | 2016-10-18 09:41 | HP ---
Admitting History and Physical - Admission Chief Complaint: My family made me come in History of Present Illness: Mr Wilson is a very pleasant 76 year old male who comes in after having a fever at home. He was recently released from SNF 3 days ago, and was being seen by home health. He himself says he feels fine, he has pain in all his joints but he says that is chronic and unchanged. However his home health nurse is at the bedside as well and says he was feeling feverish at home. His temperature was checked and it was elevated. Also she noted sediment in his cloud bag and was concerned for a UTI and convinced him to come to the hospital. He denies feeling feverish, chills, lightheadedness, dizziness, chest pain, shortness of breath, nausea, vomiting, diarrhea, constipation, pain at cloud site, or swelling. History Source: Patient Limitations to Obtaining History: No Limitations - Past Medical History METHODS EXAMINER: Yes: Dementia Cardiovascular: Yes: AFIB, CAD, HTN, Hyperlipdemia - Past Surgical History Past Surgical History: Yes: Stent, TURP - Smoking History Smoking history: Former smoker Have you smoked in the past 12 months: No - Alcohol/Substance Use Hx Alcohol Use: No History of Substance Use: reports: None - Social History Usual Living Arrangement: Yes: With Child ADL: Family Assistance History of Recent Travel: No Home Medications - Allergies Allergies/Adverse Reactions: Allergies Allergy/AdvReac Type Severity Reaction Status Date / Time buprenorphine [From Butrans] Allergy Verified 08/15/16 18:26 gabapentin [From Neurontin] Allergy Verified 08/15/16 18:26 oxycodone Allergy Verified 08/15/16 18:26 pregabalin [From Lyrica] Allergy Verified 08/15/16 18:26 quinidine Allergy Verified 08/15/16 18:26 quinine Allergy Verified 08/15/16 18:26 warfarin sodium Allergy Verified 08/15/16 18:26 [From Coumadin] - Home Medications Home Medications: Ambulatory Orders Albuterol Sulfate Inhaler - [Ventolin HFA Inhaler -] 2 inh PO Q6H 08/15/16 Apixaban [Eliquis] 5 mg PO BID 08/15/16 Atorvastatin Ca [Lipitor] 20 mg PO HS 08/15/16 Cholecalciferol (Vitamin D3) [Vitamin D3] 2,000 unit PO DAILY 08/15/16 Cyanocobalamin [Vitamin B12 -] 1,000 mcg PO DAILY 08/15/16 Diltiazem Cd [Cardizem Cd -] 240 mg PO DAILY 08/15/16 Duloxetine HCl [Cymbalta] 60 mg PO DAILY 08/15/16 Glipizide [Glipizide ER] 5 mg PO 1700 08/15/16 Glipizide [Glipizide ER] 10 mg PO AM 08/15/16 Hydrochlorothiazide [Hctz -] 12.5 mg PO DAILY 08/15/16 Hydrocodone/Acetaminophen [Vicodin Es 7.5-300 mg Tablet] 1 each PO Q4H PRN 08/15 Ibuprofen [Motrin -] 800 mg PO DAILY PRN 08/15/16 Iron,Carbonyl [Iron Chews] 325 mg PO DAILY 08/15/16 Metoprolol Succinate [Toprol XL -] 100 mg PO DAILY 08/15/16 Pantoprazole Sodium [Protonix] 40 mg PO BID 08/15/16 Sertraline HCl [Zoloft] 100 mg PO DAILY 08/15/16 Tizanidine HCl 2 mg PO BID PRN 08/15/16 Family Disease History - Family Disease History Family Disease History: CA: Mother (colon) Review of Systems Findings/Remarks: Full review of systems obtained, as per HPI and otherwise negative. Physical Examination Vital Signs: Vital Signs Temperature 101.8 F H 10/18/16 05:00 Pulse Rate 96 H 10/18/16 05:00 Respiratory Rate 20 10/18/16 05:00 Blood Pressure 140/65 10/18/16 05:00 O2 Sat by Pulse Oximetry (%) 93 L 10/18/16 05:00 Constitutional: Yes: Well Nourished, No Distress, Calm Eyes: Yes: Conjunctiva Clear, EOM Intact, PERRL HENT: Yes: Atraumatic, Normocephalic Cardiovascular: Yes: Pulse Irregular, Murmur. No: Tachycardia, Gallop, Rub Respiratory: Yes: Regular, CTA Bilaterally. No: Rales, Rhonchi, Wheezes Gastrointestinal: Yes: Normal Bowel Sounds, Soft. No: Distention, Tenderness Extremities: Yes: WNL Edema: No Labs: Laboratory Results - last 24 hr 10/17/16 10/17/1610/17/17 20:30 21:45 21:45 WBC RBC Hgb Hct MCV MCHC RDW Plt Count MPV Neutrophils % Lymphocytes % Monocytes % Eosinophils % Basophils % INR Sodium 135 L Potassium 4.0 Chloride 96 L Carbon Dioxide 25 Anion Gap 14 BUN 25 H D Creatinine 1.2 D Creat Clearance w eGFR 58.56 Random Glucose 92 D Lactic Acid Calcium 9.4 Total Bilirubin 1.8 H AST 29 D ALT 25 Alkaline Phosphatase 80 Creatine Kinase 62 Troponin I 0.21 D Total Protein 8.2 Albumin 4.4 Urine Color Red Urine Appearance Turbid Urine pH >= 9.0 H Ur Specific [place] 1.010 Urine Protein 3+ H Urine Glucose (UA) Negative Urine Ketones Negative Urine Blood 3+ H Urine Nitrite Negative Urine Bilirubin 1+ H Urine Urobilinogen 0.2 e.u/dl Ur Leukocyte Esterase 3+ H Urine RBC >100 Urine WBC 20-30 Ur Epithelial Cells 3+ Amorphous Phosphates Few Urine Bacteria 3+ 10/17/16 10/17/16 10/17/16 21:45 21:45 21:45 WBC 18.1 H D RBC 4.30 Hgb 12.7 D Hct 37.3 D MCV 86.8 MCHC 34.0 RDW 15.4 D Plt Count 188 MPV 11.0 Neutrophils % 89.6 H Lymphocytes % 5.3 L D Monocytes % 4.8 Eosinophils % 0.2 Basophils % 0.1 INR 1.71 H Sodium Potassium Chloride Carbon Dioxide Anion Gap BUN Creatinine Creat Clearance w eGFR Random Glucose Lactic Acid 1.2 Calcium Total Bilirubin AST ALT Alkaline Phosphatase Creatine Kinase Troponin I Total Protein Albumin Urine Color Urine Appearance Urine pH Ur Specific [place] Urine Protein Urine Glucose (UA) Urine Ketones Urine Blood Urine Nitrite Urine Bilirubin Urine Urobilinogen Ur Leukocyte Esterase Urine RBC Urine WBC Ur Epithelial Cells Amorphous Phosphates Urine Bacteria 10/18/16 10/18/16 10/18/16 01:05 02:15 08:00 WBC RBC Hgb Hct MCV MCHC RDW Plt Count MPV Neutrophils % Lymphocytes % Monocytes % Eosinophils % Basophils % INR Sodium Potassium Chloride Carbon Dioxide Anion Gap BUN Creatinine Creat Clearance w eGFR Random Glucose Lactic Acid 1.2 Calcium Total Bilirubin AST ALT Alkaline Phosphatase Creatine Kinase Cancelled 147 Troponin I Cancelled < 0.02 Total Protein Albumin Urine Color Urine Appearance Urine pH Ur Specific [place] Urine Protein Urine Glucose (UA) Urine Ketones Urine Blood Urine Nitrite Urine Bilirubin Urine Urobilinogen Ur Leukocyte Esterase Urine RBC Urine WBC Ur Epithelial Cells Amorphous Phosphates Urine Bacteria Problem List - Problems (1) Sepsis Assessment/Plan: -as evidenced by high fevers and leukocytosis -admit to hospital -consult ID -secondary to UTI -history of proteus in the past -given zosyn in the ED -placed on rocephin Code(s): A41.9 - SEPSIS, UNSPECIFIED ORGANISM Qualifiers: Sepsis type: sepsis due to unspecified organism Qualified Code(s): A41.9 - Sepsis, unspecified organism (2) UTI (urinary tract infection) Assessment/Plan: -patient with catheter associated UTI -cloud changed in the ED -follow up urine cultures -ID following, on high dose rocephin Code(s): N39.0 - URINARY TRACT INFECTION, SITE NOT SPECIFIED Qualifiers: Urinary tract infection type: catheter-associated UTI Indwelling urinary catheter type: indwelling urethral catheter Encounter type: initial encounter Qualified Code(s): T83.511A - Infection and inflammatory reaction due to indwelling urethral catheter, initial encounter; N39.0 - Urinary tract infection, site not specified (3) Aortic stenosis Assessment/Plan: -murmur noted Code(s): I35.0 - NONRHEUMATIC AORTIC (VALVE) STENOSIS Qualifiers: Cardiac valve disease etiology: nonrheumatic Qualified Code(s): I35.0 - Nonrheumatic aortic (valve) stenosis (4) BPH (benign prostatic hypertrophy) Assessment/Plan: -with indwelling cloud catheter -patient says has been in for 6 weeks -seen by Dr Jean-Paul Malik in the past Code(s): N40.0 - BENIGN PROSTATIC HYPERPLASIA WITHOUT LOWER URINRY TRACT SYMP Qualifiers: Lower urinary tract symptom presence: symptoms present Lower urinary tract symptom detail: urinary retention Qualified Code(s): N40.1 - Benign prostatic hyperplasia with lower urinary tract symptoms; R33.8 - Other retention of urine (5) CAD (coronary artery disease) Assessment/Plan: -quiescent -continue home regimen Code(s): I25.10 - ATHSCL HEART DISEASE OF [place] CORONARY ARTERY W/O ANG PCTRS Qualifiers: Coronary Disease-Associated Artery/Lesion type: [place] artery [place] vs. transplanted heart: [place] heart Associated angina: without angina Qualified Code(s): I25.10 - Atherosclerotic heart disease of [place] coronary artery without angina pectoris (6) HLD (hyperlipidemia) Assessment/Plan: -continue statin Code(s): E78.5 - HYPERLIPIDEMIA, UNSPECIFIED Qualifiers: Hyperlipidemia type: pure hypercholesterolemia Qualified Code(s): E78.00 - Pure hypercholesterolemia, unspecified; E78.0 - Pure hypercholesterolemia (7) HTN (hypertension) Assessment/Plan: -continue metoprolol, diltiazem, and HCTZ -monitor Code(s): I10 - ESSENTIAL (PRIMARY) HYPERTENSION Qualifiers: Hypertension type: essential hypertension Qualified Code(s): I10 - Essential (primary) hypertension (8) Atrial fibrillation Assessment/Plan: -rate controlled -continue diltiazem and metoprolol -continue eliquis Code(s): I48.91 - UNSPECIFIED ATRIAL FIBRILLATION Qualifiers: Atrial fibrillation type: chronic Qualified Code(s): I48.2 - Chronic atrial fibrillation
[2016-10-18] MEDS: SERTRALINE HCL 50 MG TABLET (FP) PO SCH (09:51)
[2016-10-18] MEDS: METOPROLOL SUCCINATE 100 MG TAB.SR.24H (FP) PO SCH (09:51)
[2016-10-18] MEDS: APIXABAN 5 MG TABLET PO SCH ×2 (09:51→21:34)
[2016-10-18] MEDS: PANTOPRAZOLE 40 MG TABLET (FP) PO SCH ×2 (09:51→21:34)
[2016-10-18] MEDS: HYDROCHLOROTHIAZIDE 12.5 MG CAPSULE (FP) PO SCH (09:51)
[2016-10-18] MEDS: CYANOCOBALAMIN 1,000 MCG TABLET (FP) PO SCH (09:52)
[2016-10-18] MEDS: DULoxetine HCL 30 MG CAPSULE.DR (FP) PO SCH (09:52)
[2016-10-18] MEDS ORDERED: DULoxetine HCL 60 MG CAPSULE.DR PO SCH (10:00)
--- NOTE | 2016-10-18 10:04 | PN ---
Progress Note (short form) - Note Progress Note: ID Consult dictated UTI/ Sepsis secondary to UTI High grade fever/ leukocytosis Hx BPH Pending c/s empiric antibiotic coverage ceftriaxone 2gm q24h
[2016-10-18] MEDS ORDERED: CEFTRIAXONE 2 GM in DEXTROSE 5%-WATER - 100 ML IVPB SCH (10:15)
[2016-10-18] MEDS: CEFTRIAXONE 100 ML IVPB SCH (10:42)
[2016-10-18 11:43] LABS: ANION GAP 11 (8-16); CO2 22 mmol/L (22-28); CREATININE 1.1 mg/dl (0.6-1.3); GLUCOSE,RANDOM 104 mg/dl (74-106)
[2016-10-18 11:44] LABS: CALCIUM 8.5 mg/dl (8.4-10.2)
--- NOTE | 2016-10-18 11:51 | EKG ---
Test Reason : Blood Pressure : / mmHG Vent. Rate : 091 BPM Atrial Rate : 077 BPM P-R Int : 000 ms QRS Dur : 158 ms QT Int : 398 ms P-R-T Axes : 000 083 009 degrees QTc Int : 489 ms ATRIAL FIBRILLATION RIGHT BUNDLE BRANCH BLOCK ABNORMAL ECG WHEN COMPARED WITH ECG OF 15-AUG-2016 17:46, NO SIGNIFICANT CHANGE WAS FOUND Confirmed by NIVIA SOTOMAYOR MD ([id number]) on 10/18/2016 11:51:03 AM Referred By: BETSY Confirmed By:NIVIA SOTOMAYOR MD
[2016-10-18] MEDS ORDERED: POTASSIUM CHLORIDE TABS 20 MEQ TABLET.ER (FP) PO ONE (14:00)
--- NOTE | 2016-10-18 16:49 | CONS ---
DATE OF CONSULTATION: DATE OF DICTATION: 10/18/2016 INFECTIOUS DISEASE CONSULTATION HISTORY OF PRESENT ILLNESS: The patient is a 76-year-old male evaluated for urinary tract infection. History was obtained from the chart and home health aid, as he cannot give a history secondary to dementia. The patient resides at home with a home health aid. He has indwelling Vasquez catheter. Approximately 1 day prior to admission, the urinary catheter became dislodged. He was noted to have gross hematuria. In addition, the patient had fever. He had recently been discharged from a rehabilitation facility after 2 months. The home health aid reported high-grade fever at home. He was evaluated in the emergency room at [facility] where he complained of generalized pain. He was noted to have temperature 103, white blood cell count 18,000, pyuria, and hematuria. He was also noted to have an elevated troponin. Cultures were obtained, and he was empirically treated with Zosyn. Of note, previous urine cultures have been positive for proteus mirabilis. At the present time, he is awake, but he is mildly confused. He complains of generalized weakness and generalized pain. He denies any suprapubic or flank discomfort. PAST MEDICAL HISTORY: Positive for dementia, urosepsis, atrial fibrillation, BPH, coronary artery disease, hypertension, hyperlipidemia, gastroesophageal reflux disease, spinal stenosis. PAST SURGICAL HISTORY: Status post TURP. ALLERGIES: Multiple medications including LYRICA, QUININE, OXYCODONE, NEURONTIN, COUMADIN, BUPRENORPHINE. MEDICATION: Include Zoloft, Toprol, Protonix, insulin, Eliquis, Lipitor, Cardizem, Cymbalta, glipizide, hydrochlorothiazide. SOCIAL HISTORY: Lives at home with a home health aid, former smoker. SYSTEMS REVIEW: Neurologic: Positive for dementia. No loss of consciousness, seizure activity, or focal weakness. Cardiac: Negative chest pain or palpitations. Respiratory: Negative cough or sputum production. Gastrointestinal: Negative vomiting or diarrhea. Genitourinary: As per HPI. LABORATORY DATA: White count 18.1, 89 neutrophils, 5 lymphocytes, 4 monocytes. Hematocrit 37.3, platelet count 188, BUN 25, creatinine 1.2. Urinalysis 20 to 30 white cells, greater than 100 red cells. The urine and blood cultures pending. PHYSICAL EXAMINATION: General: He is awake and alert, however he is confused. Vital signs: Temperature 99.5, T-max 103, blood pressure 120/62, pulse 84 regular, respirations 18 per minute. HEENT: Sclerae anicteric. Cardiovascular: Heart sounds S1, S2. Respiratory: Lungs clear. No rhonchi, rales, or wheezing. Abdomen: Soft. No tenderness elicited. No suprapubic or flank tenderness . Extremities: 1+ edema. Vasquez catheter is in place. Urine is cloudy. IMPRESSION: 1. Urinary tract infection/sepsis secondary to urinary tract infection. 2. High-grade fever/leukocytosis. 3. History of benign prostatic hypertrophy. 4. History of dementia. Suspect this is secondary to source. Urinalysis shows pyuria with a high pH suggestive of recurrent proteus urinary tract infection. Pending sepsis workup, empiric antibiotic coverage with ceftriaxone 2 g IV piggyback every 24 hours. Await blood and urine culture results. Repeat CBC. Will follow. Thank you for the kind referral. DACIA BUCHANAN M.D. [id number]
[2016-10-18 23:20] LABS: WHITE BLOOD COUNT 9.9 K/mm3 (4.0-10.8)
[2016-10-18 23:21] LABS: MCH 29.5 pg (25.7-33.7); MCHC 33.4 g/dl (32.0-35.9); MEAN CELL VOLUME 88.3 fl (80-96); MEAN PLT VOLUME 10.6 fl (7.5-11.1); PLATELET COUNT 144 K/MM3 (134-434); RDW 15.5 % (11.9-15.9)
[2016-10-19] MEDS ORDERED: CEFTRIAXONE 50 ML IVPB ONE
[2016-10-19] MEDS: ALBUTEROL SO4 6.7 GM HFA INHALER IH SCH ×4 (00:08→17:36)
--- NOTE | 2016-10-19 09:05 | PN ---
Progress Note, Physician History of Present Illness: Awake, responsive No complaints offerred Afebrile WBC improved BC (-) Urine c/s GNR - Current Medication List Current Medications: Active Medications Albuterol Sulfate (Ventolin Hfa Inhaler -) 2 puff IH QIDR [facility] Last Admin: 10/19/16 06:07 Dose: 2 puff Apixaban (Eliquis -) 5 mg PO BID [facility] Last Admin: 10/18/16 21:34 Dose: 5 mg Atorvastatin Calcium (Lipitor -) 20 mg PO HS [facility] Last Admin: 10/18/16 21:34 Dose: 20 mg Cyanocobalamin (Vitamin B12 -) 1,000 mcg PO DAILY [facility] Last Admin: 10/18/16 09:52 Dose: 1,000 mcg Diltiazem HCl (Cardizem Cd -) 240 mg PO DAILY [facility] Last Admin: 10/18/16 09:51 Dose: 240 mg Duloxetine HCl (Cymbalta -) 60 mg PO DAILY [facility] Last Admin: 10/18/16 09:52 Dose: 60 mg Hydrochlorothiazide (Hctz -) 12.5 mg PO DAILY [facility] Last Admin: 10/18/16 09:51 Dose: 12.5 mg Ceftriaxone Sodium (Rocephin 2gm Ivpb (Pre-Docked)) 100 mls @ 200 mls/hr IVPB DAILY [facility] Last Admin: 10/18/16 10:42 Dose: 200 mls/hr Metoprolol Succinate (Toprol Xl -) 100 mg PO DAILY [facility] Last Admin: 10/18/16 09:51 Dose: 100 mg Non-Formulary Medication (Tizanidine Hcl [Tizanidine Hcl]) 2 mg PO BID PRN PRN Reason: muscle cramps Pantoprazole Sodium (Protonix -) 40 mg PO BID [facility] Last Admin: 10/18/16 21:34 Dose: 40 mg Sertraline HCl (Zoloft -) 100 mg PO DAILY [facility] Last Admin: 10/18/16 09:51 Dose: 100 mg - Objective Vital Signs: Vital Signs Temperature 98.9 F 10/19/16 05:54 Pulse Rate 77 10/19/16 05:54 Respiratory Rate 20 10/19/16 05:54 Blood Pressure 112/53 10/19/16 05:54 O2 Sat by Pulse Oximetry (%) 97 10/18/16 22:55 Constitutional: Yes: No Distress Eyes: Yes: Conjunctiva Clear Cardiovascular: Yes: Regular Rate and Rhythm, S1, S2 Respiratory: Yes: CTA Bilaterally Gastrointestinal: Yes: Normal Bowel Sounds, Soft. No: Tenderness Genitourinary: Yes: Cloud Present, Other (cloudy urine in cloud) Edema: No Labs: INR, PTT INR 1.71 (0.82-1.09) H 10/17/16 21:45 Assessment/Plan Recurrent UTI/ Sepsis secondary to UTI Hx neurogenic bladder / recurrent UTIs Fever/ leukocytosis- improved OBS Await urine c/s Continue ceftriaxone Discussed with son by phone yesterday
[2016-10-19 09:13] LABS: ANION GAP 10 (8-16); CALCIUM 8.9 mg/dl (8.4-10.2); CO2 24 mmol/L (22-28); CREATININE 0.9 mg/dl (0.6-1.3); GLUCOSE,RANDOM 118 mg/dl (74-106)
[2016-10-19 09:14] LABS: MAGNESIUM 1.6 mg/dL (1.8-2.4); PHOSPHOROUS 3.5 mg/dl (2.5-4.6)
[2016-10-19 10:11] LABS: EOSINOPHIL 0.6 % (0-4.5); RDW 15.9 % (11.9-15.9)
[2016-10-19 10:14] LABS: BASOPHIL 0.3 % (0-2.0); MCH 29.7 pg (25.7-33.7); MCHC 33.2 g/dl (32.0-35.9); MEAN CELL VOLUME 89.4 fl (80-96); MEAN PLT VOLUME 10.3 fl (7.5-11.1); NEUTROPHILS 74.8 % (42.8-82.8); PLATELET COUNT 130 K/MM3 (134-434); WHITE BLOOD COUNT 9.7 K/mm3 (4.0-10.0)
[2016-10-19] MEDS ORDERED: MAGNESIUM SULF 50% (8.12 MEQ/2 ML-1 GM VIAL) IVPB ONE (10:15)
[2016-10-19] MEDS: CEFTRIAXONE 100 ML IVPB SCH (10:16)
[2016-10-19] MEDS: METOPROLOL SUCCINATE 100 MG TAB.SR.24H (FP) PO SCH (10:18)
[2016-10-19] MEDS: PANTOPRAZOLE 40 MG TABLET (FP) PO SCH ×2 (10:18→21:16)
[2016-10-19] MEDS: SERTRALINE HCL 50 MG TABLET (FP) PO SCH (10:18)
[2016-10-19] MEDS: CYANOCOBALAMIN 1,000 MCG TABLET (FP) PO SCH (10:18)
[2016-10-19] MEDS: POTASSIUM CHLORIDE TABS 10 MEQ TABLET.ER (FP) PO SCH (10:18)
[2016-10-19] MEDS: APIXABAN 5 MG TABLET PO SCH ×2 (10:18→21:16)
[2016-10-19] MEDS: HYDROCHLOROTHIAZIDE 12.5 MG CAPSULE (FP) PO SCH (10:18)
[2016-10-19] MEDS: DULoxetine HCL 30 MG CAPSULE.DR (FP) PO SCH (10:19)
[2016-10-19] MEDS: LACTOBACILLUS ACIDOPHILUS 1 EACH TAB (FP) PO SCH (10:19)
--- NOTE | 2016-10-19 11:54 | PN ---
Physical Exam: SUBJECTIVE: Patient seen and examined, reports feeling better, denies any chest pain or shortness of breath. OBJECTIVE: patient is a 76 y/o male with a past medical history of dementia, afib, CAD, htn, hld. patient was admitted from the emergency department for sepsis. Vital Signs Period Temp Pulse Resp BP Sys/[place] Pulse Ox Last 24 Hr 98.6 F-100.8 F 72-109 18-20 112-148/53-84 96-97 GENERAL: The patient is awake, alert, and oriented x 2, in no acute distress. HEAD: Normal with no signs of trauma. EYES: PERRL, extraocular movements intact, sclera anicteric, conjunctiva clear. No ptosis. ENT: Ears normal, nares patent, oropharynx clear without exudates, moist mucous membranes. NECK: Trachea midline, full range of motion, supple. LUNGS: Breath sounds equal, clear to auscultation bilaterally, no wheezes, no crackles, no accessory muscle use. HEART: irregular rate and rhythm, S1, S2, 2/6 systolic murmur, rub or gallop. ABDOMEN: Soft, nontender, nondistended, normoactive bowel sounds, no guarding, no rebound, no hepatosplenomegaly, no masses. EXTREMITIES: 2+ pulses, warm, well-perfused, no edema. : cloudy urine with sediment. NEUROLOGICAL: Cranial nerves II through XII grossly intact. Normal speech, gait not observed. PSYCH: Normal mood, normal affect. SKIN: Warm, dry, normal turgor, no rashes or lesions noted Laboratory Results - last 24 hr 10/18/16 10/19/16 10/19/16 08:00 07:25 07:25 WBC 9.9 D 9.7 RBC 3.52 L 3.49 L Hgb 10.4 L D 10.4 L D Hct 31.0 L D 31.2 L MCV 88.3 89.4 MCHC 33.4 33.2 RDW 15.5 15.9 Plt Count 144 D 130 L D MPV 10.6 10.3 Neutrophils % 74.8 Lymphocytes % 14.0 D Monocytes % 10.3 H Eosinophils % 0.6 D Basophils % 0.3 Sodium 135 L Potassium 3.5 Chloride 101 Carbon Dioxide 24 Anion Gap 10 BUN 15 D Creatinine 0.9 Random Glucose 118 H Calcium 8.9 Phosphorus 3.5 Magnesium 1.6 L Active Medications Generic Name Dose Route Start Last Admin Trade Name Feliceq PRN Reason Stop Dose Admin Albuterol Sulfate 2 puff 10/18/16 06:00 10/19/16 06:07 Ventolin Hfa Inhaler - IH 2 puff QIDR [facility]NA Administration Apixaban 5 mg 10/18/16 10:00 10/19/16 10:18 Eliquis - PO 5 mg BID JOANNA Administration Atorvastatin Calcium 20 mg 10/18/16 22:00 10/18/16 21:34 Lipitor - PO 20 mg HS JOANNA Administration Cyanocobalamin 1,000 mcg 10/18/16 10:00 10/19/16 10:18 Vitamin B12 - PO 1,000 mcg DAILY [facility]ANNA Administration Diltiazem HCl 240 mg 10/18/16 10:00 10/19/16 10:18 Cardizem Cd - PO 240 mg DAILY [facility]ANNA Administration Duloxetine HCl 60 mg 10/18/16 10:00 10/19/16 10:19 Cymbalta - PO 60 mg DAILY [facility]ANNA Administration Hydrochlorothiazide 12.5 mg 10/18/16 10:00 10/19/16 10:18 Hctz - PO 12.5 mg DAILY [facility] Administration Ceftriaxone Sodium 100 mls @ 200 mls/hr 10/18/16 10:15 10/19/16 10:16 Rocephin 2gm Ivpb (Pre-Docked) IVPB 200 mls/hr DAILY [facility] Administration Lactobacillus Acidophilus 1 tab 10/19/16 10:00 10/19/16 10:19 Bacid - PO 1 tab DAILY [facility]ANNA Administration Metoprolol Succinate 100 mg 10/18/16 10:00 10/19/16 10:18 Toprol Xl - PO 100 mg DAILY [facility] Administration Non-Formulary Medication 2 mg 10/18/16 04:11 Tizanidine Hcl [Tizanidine Hcl] PO BID PRN muscle cramps Pantoprazole Sodium 40 mg 10/18/16 10:00 10/19/16 10:18 Protonix - PO 40 mg BID JOANNA Administration Potassium Chloride 20 meq 10/19/16 10:00 10/19/16 10:18 K-Dur - PO 20 meq DAILY [facility]NA Administration Sertraline HCl 100 mg 10/18/16 10:00 10/19/16 10:18 Zoloft - PO 100 mg DAILY [facility]ANNA Administration Microbiology 10/17/16 20:30 Urine - Urine - Catheterized Urine Culture - Preliminary Non Lactose Fermenting Gnb 10/17/16 21:30 Blood - Peripheral Venous Blood Culture - Preliminary NO GROWTH OBTAINED AFTER 24 HOURS, INCUBATION TO CONTINUE FOR 4 DAYS. 10/17/16 21:45 Blood - Peripheral Venous Blood Culture - Preliminary NO GROWTH OBTAINED AFTER 24 HOURS, INCUBATION TO CONTINUE FOR 4 DAYS. ASSESSMENT/PLAN: 1) ID: sepsis - likely secondary from source, urine culture prelim. non lactose fermenting Gnb, awaiting final to narrow down antibiotics - low grade temp noted, leukocytosis resolved - history of proteus in past, continue rocephin, ID (Daniel) consulted and followed 2) BPH - indwelling cloud cather, cloud was changed in ED UTI - continue rocephin 3) card aortic stenosis - echo reviewed 08/29, mild - pt appears euvolemic on exam, strict I&O, daily weight CAD - continue lipitor afib -rate controlled, continue cardizem and metoprolol - contine eliquis hypertension - b/p at goal F/E/N - low sodium diet ppx - eliquis - protonix dispo: requires inpatient care
[2016-10-19] MEDS ORDERED: PT OWN MED DRAWER 7, Y5N ONE (12:46)
--- NOTE | 2016-10-19 14:30 | EKG ---
Test Reason : Blood Pressure : / mmHG Vent. Rate : 074 BPM Atrial Rate : 079 BPM P-R Int : 000 ms QRS Dur : 172 ms QT Int : 408 ms P-R-T Axes : 000 036 -03 degrees QTc Int : 452 ms ATRIAL FIBRILLATION RIGHT BUNDLE BRANCH BLOCK ABNORMAL ECG WHEN COMPARED WITH ECG OF 17-OCT-2016 22:25, NO SIGNIFICANT CHANGE WAS FOUND Confirmed by ESVIN SAUNDERS MD ([id number]) on 10/19/2016 2:30:06 PM Referred By: ERIC BAGLEY Confirmed By:ESVIN SAUNDERS MD
[2016-10-19] MEDS: ATORVASTATIN CA 20 MG TABLET (FP) PO SCH (21:16)
[2016-10-20] MEDS: ALBUTEROL SO4 6.7 GM HFA INHALER IH SCH ×4 (03:10→18:25)
[2016-10-20] MEDS ORDERED: PT OWN MED DRAWER 7, Y5N ONE ×3 (05:30→19:15)
[2016-10-20 09:02] LABS: ALBUMIN 3.2 g/dl (3.5-5.0); ALK PHOS 60 U/L (32-92); ANION GAP 10 (8-16); BILIRUBIN,TOTAL 0.6 mg/dl (0.2-1.0); CALCIUM 8.9 mg/dl (8.4-10.2); CO2 25 mmol/L (22-28); CREATININE 0.8 mg/dl (0.6-1.3); GLUCOSE,RANDOM 112 mg/dl (74-106); MAGNESIUM 1.7 mg/dL (1.8-2.4); SGOT/AST 36 U/L (10-42); SGPT/ALT 31 U/L (10-40); TOT PROT 6.4 g/dl (6.4-8.3)
[2016-10-20 09:04] LABS: BASOPHIL 0.4 % (0-2.0); EOSINOPHIL 1.9 % (0-4.5); MCH 30.2 pg (25.7-33.7); MCHC 33.9 g/dl (32.0-35.9); MEAN CELL VOLUME 88.9 fl (80-96); MEAN PLT VOLUME 10.5 fl (7.5-11.1); NEUTROPHILS 75.3 % (42.8-82.8); PLATELET COUNT 139 K/MM3 (134-434); RDW 14.9 % (11.9-15.9); WHITE BLOOD COUNT 10.1 K/mm3 (4.0-10.8)
[2016-10-20] MEDS ORDERED: MAGNESIUM SULFATE 2 GM in SODIUM CHLORIDE 100 ML IVPB ONE (09:56)
[2016-10-20] MEDS: DULoxetine HCL 30 MG CAPSULE.DR (FP) PO SCH (10:06)
[2016-10-20] MEDS: SERTRALINE HCL 50 MG TABLET (FP) PO SCH (10:06)
[2016-10-20] MEDS: APIXABAN 5 MG TABLET PO SCH ×2 (10:06→21:29)
[2016-10-20] MEDS: CEFTRIAXONE 100 ML IVPB SCH (10:06)
[2016-10-20] MEDS: HYDROCHLOROTHIAZIDE 12.5 MG CAPSULE (FP) PO SCH (10:07)
[2016-10-20] MEDS: PANTOPRAZOLE 40 MG TABLET (FP) PO SCH ×2 (10:07→21:29)
[2016-10-20] MEDS: LACTOBACILLUS ACIDOPHILUS 1 EACH TAB (FP) PO SCH (10:07)
[2016-10-20] MEDS: CYANOCOBALAMIN 1,000 MCG TABLET (FP) PO SCH (10:07)
[2016-10-20] MEDS: METOPROLOL SUCCINATE 100 MG TAB.SR.24H (FP) PO SCH (10:07)
[2016-10-20] MEDS: POTASSIUM CHLORIDE TABS 10 MEQ TABLET.ER (FP) PO SCH (10:07)
--- NOTE | 2016-10-20 10:09 | PN ---
Progress Note, Physician History of Present Illness: More awake and alert No complaints Denies fever/ chills No c/o suprapubic or flank pain BC (-) Urine c/s GNR - Current Medication List Current Medications: Active Medications Albuterol Sulfate (Ventolin Hfa Inhaler -) 2 puff IH QIDR [facility] Last Admin: 10/20/16 05:31 Dose: 2 puff Apixaban (Eliquis -) 5 mg PO BID [facility] Last Admin: 10/19/16 21:16 Dose: 5 mg Atorvastatin Calcium (Lipitor -) 20 mg PO HS [facility] Last Admin: 10/19/16 21:16 Dose: 20 mg Cyanocobalamin (Vitamin B12 -) 1,000 mcg PO DAILY [facility] Last Admin: 10/19/16 10:18 Dose: 1,000 mcg Diltiazem HCl (Cardizem Cd -) 240 mg PO DAILY [facility] Last Admin: 10/19/16 10:18 Dose: 240 mg Duloxetine HCl (Cymbalta -) 60 mg PO DAILY [facility] Last Admin: 10/19/16 10:19 Dose: 60 mg Hydrochlorothiazide (Hctz -) 12.5 mg PO DAILY [facility] Last Admin: 10/19/16 10:18 Dose: 12.5 mg Ceftriaxone Sodium (Rocephin 2gm Ivpb (Pre-Docked)) 100 mls @ 200 mls/hr IVPB DAILY [facility] Last Admin: 10/19/16 10:16 Dose: 200 mls/hr Magnesium Sulfate 2 gm/ Sodium (Chloride) 104 mls @ 100 mls/hr IVPB ONCE ONE Stop: 10/20/16 10:58 Lactobacillus Acidophilus (Bacid -) 1 tab PO DAILY [facility] Last Admin: 10/19/16 10:19 Dose: 1 tab Metoprolol Succinate (Toprol Xl -) 100 mg PO DAILY [facility] Last Admin: 10/19/16 10:18 Dose: 100 mg Non-Formulary Medication (Tizanidine Hcl [Tizanidine Hcl]) 2 mg PO BID PRN PRN Reason: muscle cramps Pantoprazole Sodium (Protonix -) 40 mg PO BID [facility] Last Admin: 10/19/16 21:16 Dose: 40 mg Potassium Chloride (K-Dur -) 20 meq PO DAILY [facility] Last Admin: 10/19/16 10:18 Dose: 20 meq Sertraline HCl (Zoloft -) 100 mg PO DAILY [facility] Last Admin: 10/19/16 10:18 Dose: 100 mg - Objective Vital Signs: Vital Signs Temperature 98.5 F 10/20/16 05:37 Pulse Rate 75 10/20/16 05:37 Respiratory Rate 19 10/20/16 08:15 Blood Pressure 133/69 10/20/16 05:37 O2 Sat by Pulse Oximetry (%) 96 10/20/16 08:15 Constitutional: Yes: No Distress Eyes: Yes: Conjunctiva Clear Cardiovascular: Yes: Regular Rate and Rhythm, S1, S2 Respiratory: Yes: CTA Bilaterally Gastrointestinal: Yes: Normal Bowel Sounds, Soft. No: Tenderness Genitourinary: Yes: Vasquez Present Edema: No Labs: CBC, BMP 10/20/16 07:25 10/20/16 07:25 INR, PTT INR 1.71 (0.82-1.09) H 10/17/16 21:45 Assessment/Plan Recurrent UTI/ Sepsis secondary to UTI Hx neurogenic bladder / recurrent UTIs Fever/ leukocytosis- improved OBS Await urine c/s Continue ceftriaxone
[2016-10-20] MEDS ORDERED: MAGNESIUM SULF 50% (8.12 MEQ/2 ML-1 GM VIAL) IVPB ONE (10:15)
--- NOTE | 2016-10-20 12:27 | PN ---
Physical Exam: SUBJECTIVE: Patient seen and examined, reports feeling well, denies any tactile fever, patient wants to go home. OBJECTIVE:patient is a 76 y/o male with a past medical history of dementia, afib , CAD, htn, hld. patient was admitted from the emergency department for sepsis. Vital Signs Period Temp Pulse Resp BP Sys/Calvert Pulse Ox Last 24 Hr 97.8 F-98.7 F 71-80 18-20 103-133/60-74 96-97 GENERAL: The patient is awake, alert, and oriented x 2, in no acute distress. HEAD: Normal with no signs of trauma. EYES: PERRL, extraocular movements intact, sclera anicteric, conjunctiva clear. No ptosis. ENT: Ears normal, nares patent, oropharynx clear without exudates, moist mucous membranes. NECK: Trachea midline, full range of motion, supple. LUNGS: Breath sounds equal, clear to auscultation bilaterally, no wheezes, no crackles, no accessory muscle use. HEART: irregular rate and rhythm, S1, S2, 2/6 systolic murmur, rub or gallop. ABDOMEN: Soft, nontender, nondistended, normoactive bowel sounds, no guarding, no rebound, no hepatosplenomegaly, no masses. EXTREMITIES: 2+ pulses, warm, well-perfused, no edema. : cloudy urine with sediment. NEUROLOGICAL: Cranial nerves II through XII grossly intact. Normal speech, gait not observed. PSYCH: Normal mood, normal affect. SKIN: Warm, dry, normal turgor, no rashes or lesions noted Laboratory Results - last 24 hr 10/20/16 10/20/16 07:25 07:25 WBC 10.1 RBC 3.49 L Hgb 10.5 L Hct 31.0 L MCV 88.9 MCHC 33.9 RDW 14.9 Plt Count 139 MPV 10.5 Neutrophils % 75.3 Lymphocytes % 12.6 D Monocytes % 9.8 D Eosinophils % 1.9 D Basophils % 0.4 D Sodium 139 Potassium 3.8 Chloride 104 Carbon Dioxide 25 Anion Gap 10 BUN 15 Creatinine 0.8 Creat Clearance w eGFR > 60 Random Glucose 112 H Calcium 8.9 Phosphorus 3.0 Magnesium 1.7 L Total Bilirubin 0.6 D AST 36 D ALT 31 D Alkaline Phosphatase 60 D Total Protein 6.4 D Albumin 3.2 L D Active Medications Generic Name Dose Route Start Last Admin Trade Name Feliceq PRN Reason Stop Dose Admin Albuterol Sulfate 2 puff 10/18/16 06:00 10/20/16 05:31 Ventolin Hfa Inhaler - IH 2 puff QIDR JOANNA Administration Apixaban 5 mg 10/18/16 10:00 10/20/16 10:06 Eliquis - PO 5 mg BID JOANNA Administration Atorvastatin Calcium 20 mg 10/18/16 22:00 10/19/16 21:16 Lipitor - PO 20 mg HS JOANNA Administration Cyanocobalamin 1,000 mcg 10/18/16 10:00 10/20/16 10:07 Vitamin B12 - PO 1,000 mcg DAILY JOANNA Administration Diltiazem HCl 240 mg 10/18/16 10:00 10/20/16 10:06 Cardizem Cd - PO 240 mg DAILY JOANNA Administration Duloxetine HCl 60 mg 10/18/16 10:00 10/20/16 10:06 Cymbalta - PO 60 mg DAILY JOANNA Administration Hydrochlorothiazide 12.5 mg 10/18/16 10:00 10/20/16 10:07 Hctz - PO 12.5 mg DAILY JOANNA Administration Ceftriaxone Sodium 100 mls @ 200 mls/hr 10/18/16 10:15 10/20/16 10:06 Rocephin 2gm Ivpb (Pre-Docked) IVPB 200 mls/hr DAILY JOANNA Administration Lactobacillus Acidophilus 1 tab 10/19/16 10:00 10/20/16 10:07 Bacid - PO 1 tab DAILY JOANNA Administration Metoprolol Succinate 100 mg 10/18/16 10:00 10/20/16 10:07 Toprol Xl - PO 100 mg DAILY JOANNA Administration Non-Formulary Medication 2 mg 10/18/16 04:11 Tizanidine Hcl [Tizanidine Hcl] PO BID PRN muscle cramps Pantoprazole Sodium 40 mg 10/18/16 10:00 10/20/16 10:07 Protonix - PO 40 mg BID JOANNA Administration Potassium Chloride 20 meq 10/19/16 10:00 10/20/16 10:07 K-Dur - PO 20 meq DAILY JOANNA Administration Sertraline HCl 100 mg 10/18/16 10:00 10/20/16 10:06 Zoloft - PO 100 mg DAILY JOANNA Administration Microbiology 10/17/16 20:30 Urine - Urine - Catheterized Urine Culture - Final Proteus Mirabilis 10/17/16 21:30 Blood - Peripheral Venous Blood Culture - Preliminary NO GROWTH OBTAINED AFTER 48 HOURS, INCUBATION TO CONTINUE FOR 3 DAYS. 10/17/16 21:45 Blood - Peripheral Venous Blood Culture - Preliminary NO GROWTH OBTAINED AFTER 48 HOURS, INCUBATION TO CONTINUE FOR 3 DAYS. ASSESSMENT/PLAN: 1) ID: sepsis - likely secondary from source, urine culture + proteus, sensitive to rocephin - pt afebrile, leukocytosis resolved - ID (Daniel) consulted and followed 2) BPH/neurogenic bladder - indwelling cloud cather, cloud was changed in ED - case discussed with pt's urologist, Dr Jean-Paul Malik, pt will require a suprapubic cather, recommends follow up with urologist within 1 week UTI - continue rocephin 3) card aortic stenosis - echo reviewed 08/29, mild - pt appears euvolemic on exam, strict I&O, daily weight CAD - continue lipitor afib -rate controlled, continue cardizem and metoprolol - contine eliquis hypertension - b/p at goal F/E/N - low sodium diet ppx - eliquis - protonix dispo: requires inpatient care
[2016-10-20] MEDS: ATORVASTATIN CA 20 MG TABLET (FP) PO SCH (21:29)
[2016-10-21] MEDS ORDERED: PT OWN MED DRAWER 7, Y5N ONE ×2 (00:31→09:20)
[2016-10-21] MEDS: ALBUTEROL SO4 6.7 GM HFA INHALER IH SCH ×3 (00:33→11:56)
--- NOTE | 2016-10-21 08:31 | PN ---
Progress Note, Physician History of Present Illness: Awake and alert No complaints Denies suprapubic or flank pain No fever/ chills BC (-) Urine c/s Proteus sp. - Current Medication List Current Medications: Active Medications Albuterol Sulfate (Ventolin Hfa Inhaler -) 2 puff IH QIDR [facility] Last Admin: 10/21/16 06:00 Dose: 2 puff Apixaban (Eliquis -) 5 mg PO BID [facility] Last Admin: 10/20/16 21:29 Dose: 5 mg Atorvastatin Calcium (Lipitor -) 20 mg PO HS [facility] Last Admin: 10/20/16 21:29 Dose: 20 mg Cyanocobalamin (Vitamin B12 -) 1,000 mcg PO DAILY [facility] Last Admin: 10/20/16 10:07 Dose: 1,000 mcg Diltiazem HCl (Cardizem Cd -) 240 mg PO DAILY [facility] Last Admin: 10/20/16 10:06 Dose: 240 mg Duloxetine HCl (Cymbalta -) 60 mg PO DAILY [facility] Last Admin: 10/20/16 10:06 Dose: 60 mg Hydrochlorothiazide (Hctz -) 12.5 mg PO DAILY [facility] Last Admin: 10/20/16 10:07 Dose: 12.5 mg Ceftriaxone Sodium (Rocephin 2gm Ivpb (Pre-Docked)) 100 mls @ 200 mls/hr IVPB DAILY [facility] Last Admin: 10/20/16 10:06 Dose: 200 mls/hr Lactobacillus Acidophilus (Bacid -) 1 tab PO DAILY [facility] Last Admin: 10/20/16 10:07 Dose: 1 tab Metoprolol Succinate (Toprol Xl -) 100 mg PO DAILY [facility] Last Admin: 10/20/16 10:07 Dose: 100 mg Non-Formulary Medication (Tizanidine Hcl [Tizanidine Hcl]) 2 mg PO BID PRN PRN Reason: muscle cramps Pantoprazole Sodium (Protonix -) 40 mg PO BID [facility] Last Admin: 10/20/16 21:29 Dose: 40 mg Potassium Chloride (K-Dur -) 20 meq PO DAILY [facility] Last Admin: 10/20/16 10:07 Dose: 20 meq Sertraline HCl (Zoloft -) 100 mg PO DAILY [facility] Last Admin: 10/20/16 10:06 Dose: 100 mg - Objective Vital Signs: Vital Signs Temperature 98.0 F 10/21/16 06:00 Pulse Rate 71 10/21/16 06:00 Respiratory Rate 20 10/21/16 08:03 Blood Pressure 145/77 10/21/16 06:00 O2 Sat by Pulse Oximetry (%) 99 10/21/16 08:03 Constitutional: Yes: No Distress Eyes: Yes: Conjunctiva Clear Neck: Yes: Supple Cardiovascular: Yes: Regular Rate and Rhythm, S1, S2 Respiratory: Yes: CTA Bilaterally Gastrointestinal: Yes: Normal Bowel Sounds, Soft. No: Tenderness Genitourinary: Yes: Vasquez Present, Other (urine clear) Edema: No Labs: CBC, BMP 10/20/16 07:25 10/20/16 07:25 INR, PTT INR 1.71 (0.82-1.09) H 10/17/16 21:45 Assessment/Plan Recurrent UTI/ Sepsis secondary to UTI Proteus sp. Hx neurogenic bladder / recurrent UTIs Fever/ leukocytosis- resolved OBS Substitute ceftin 500mg po bid x 7days Outpatient urology evaluation for suprapubic catheter
[2016-10-21] MEDS: PANTOPRAZOLE 40 MG TABLET (FP) PO SCH (09:22)
[2016-10-21] MEDS: METOPROLOL SUCCINATE 100 MG TAB.SR.24H (FP) PO SCH (09:22)
[2016-10-21] MEDS: HYDROCHLOROTHIAZIDE 12.5 MG CAPSULE (FP) PO SCH (09:22)
[2016-10-21] MEDS: APIXABAN 5 MG TABLET PO SCH (09:22)
[2016-10-21] MEDS: POTASSIUM CHLORIDE TABS 10 MEQ TABLET.ER (FP) PO SCH (09:23)
[2016-10-21] MEDS: SERTRALINE HCL 50 MG TABLET (FP) PO SCH (09:23)
[2016-10-21] MEDS: DULoxetine HCL 30 MG CAPSULE.DR (FP) PO SCH (09:23)
[2016-10-21] MEDS: CEFTRIAXONE 100 ML IVPB SCH (09:24)
[2016-10-21] MEDS: LACTOBACILLUS ACIDOPHILUS 1 EACH TAB (FP) PO SCH (09:26)
[2016-10-21] MEDS: CYANOCOBALAMIN 1,000 MCG TABLET (FP) PO SCH (09:34)
--- NOTE | 2016-10-21 11:03 | DS ---
Physical Exam: SUBJECTIVE: Patient seen and examined OBJECTIVE: Vital Signs Period Temp Pulse Resp BP Sys/Calvert Pulse Ox Last 24 Hr 98.0 F-98.6 F 71-78 18-20 122-145/64-77 98-99 PHYSICAL EXAM GENERAL: The patient is awake, alert, and fully oriented, in no acute distress. HEAD: Normal with no signs of trauma. EYES: PERRL, extraocular movements intact, sclera anicteric, conjunctiva clear. ENT: Ears normal, nares patent, oropharynx clear without exudates, moist mucous membranes. NECK: Trachea midline, full range of motion, supple. LUNGS: Breath sounds equal, clear to auscultation bilaterally, no wheezes, no crackles, no accessory muscle use. HEART: Regular rate and rhythm, S1, S2 without murmur, rub or gallop. ABDOMEN: Soft, nontender, nondistended, normoactive bowel sounds, no guarding, no rebound, no hepatosplenomegaly, no masses. EXTREMITIES: 2+ pulses, warm, well-perfused, no edema. NEUROLOGICAL: Cranial nerves II through XII grossly intact. Normal speech, gait not observed. PSYCH: Normal mood, normal affect. SKIN: Warm, dry, normal turgor, no rashes or lesions noted. LABS HOSPITAL COURSE: Date of Admission:10/18/16 Date of Discharge: 10/21/16 Minutes to complete discharge: 45 Discharge Summary Reason For Visit: UTI, LEFT LOWER LOBE PNEUMONIA Current Active Problems Atrial fibrillation (Acute) Left lower lobe pneumonia (Acute) UTI (urinary tract infection) (Acute) Condition: Good - Instructions Referrals: Khurram Lindsay MD [Primary Care Provider] - - Home Medications Comprehensive Discharge Medication List: Ambulatory Orders Albuterol Sulfate Inhaler - [Ventolin HFA Inhaler -] 2 inh PO Q6H 08/15/16 Apixaban [Eliquis] 5 mg PO BID 08/15/16 Atorvastatin Ca [Lipitor] 20 mg PO HS 08/15/16 Cholecalciferol (Vitamin D3) [Vitamin D3] 2,000 unit PO DAILY 08/15/16 Cyanocobalamin [Vitamin B12 -] 1,000 mcg PO DAILY 08/15/16 Diltiazem Cd [Cardizem Cd -] 240 mg PO DAILY 08/15/16 Duloxetine HCl [Cymbalta] 60 mg PO DAILY 08/15/16 Glipizide [Glipizide ER] 5 mg PO 1700 08/15/16 Glipizide [Glipizide ER] 10 mg PO AM 08/15/16 Hydrochlorothiazide [Hctz -] 12.5 mg PO DAILY 08/15/16 Hydrocodone/Acetaminophen [Vicodin Es 7.5-300 mg Tablet] 1 each PO Q4H PRN 08/15 Ibuprofen [Motrin -] 800 mg PO DAILY PRN 08/15/16 Iron,Carbonyl [Iron Chews] 325 mg PO DAILY 08/15/16 Metoprolol Succinate [Toprol XL -] 100 mg PO DAILY 08/15/16 Pantoprazole Sodium [Protonix] 40 mg PO BID 08/15/16 Sertraline HCl [Zoloft] 100 mg PO DAILY 08/15/16 Tizanidine HCl 2 mg PO BID PRN 08/15/16
[2016-10-21 14:13] VITALS: BP 118/67; PULSE 78; TEMP 97.5
== END 2016-10-21 14:35 | disposition home or self-care (01) | DRG 698 ==
LOC: SUPCPDRO 19:45 → FER 19:45 → FM/S 10-18 04:10
PROVIDERS: ADMIT Internal Medicine; ATTEND Nurse Practitioner Family
DX: T83.518A Infection and inflammatory reaction due to other urinary catheter, initial encounter (principal); A41.9 Sepsis, unspecified organism; J18.9 Pneumonia, unspecified organism; N39.0 Urinary tract infection, site not specified; F09 Unspecified mental disorder due to known physiological condition; N40.0 Benign prostatic hyperplasia without lower urinary tract symptoms; I10 Essential (primary) hypertension; I35.0 Nonrheumatic aortic (valve) stenosis; I25.10 Atherosclerotic heart disease of native coronary artery without angina pectoris; E78.5 Hyperlipidemia, unspecified; I48.2 Chronic atrial fibrillation; K21.9 Gastro-esophageal reflux disease without esophagitis; M48.06 Spinal stenosis, lumbar region; F03.90 Unspecified dementia, unspecified severity, without behavioral disturbance, psychotic disturbance, mood disturbance, and anxiety; N31.9 Neuromuscular dysfunction of bladder, unspecified; Y83.9 Surgical procedure, unspecified as the cause of abnormal reaction of the patient, or of later complication, without mention of misadventure at the time of the procedure; D72.829 Elevated white blood cell count, unspecified; B96.4 Proteus (mirabilis) (morganii) as the cause of diseases classified elsewhere
CPT/HCPCS: 36415; 71010-TC; 80048; 80053; 81003; 81015; 82550; 83605; 83735; 84100; 84484; 85025; 85027; 85610; 87040; 87086; 87186; 93005; 93010; 99285-25